=== PATIENT | female | born 1990 | race American Indian/Alaskan Native ===

== ENCOUNTER 2018-02-21 05:06 | Emergency (ER) | payer OTHER ==
[~2018-02-21] VITALS: Ht 165.1 cm; Wt 54.4 kg
--- OUTSIDE RECORDS SUMMARY | ~2018-02-21 | XMS | Clinical Summary ---
Demographics + + + | Address | [address] | | | [place] [address] | + + + | Home Phone | | + + + | Preferred Language | Unknown | + + + | Marital Status | Single | + + + | Orthodoxy Affiliation | 1013 | + + + | Race | Unknown | + + + | Ethnic Group | Unknown | + + + Author + + + | Author | [facility] | | | and [place] | + + + | Organization | [facility] | | | [...] [place] | | | | | [address] | | + + + + + Care Team Providers + +------+ + | Care Livestock Commission Agent Name | Role | Phone | + [...]
[~2018-02-21 05:06] MED LIST: DAYPRO600 MG PO; ERYTHROMYCIN250 MG PO; MACROBID 100 M100 MG PO; NAPROSYN500 MG PO; TRAMADOL HCL50 MG PO
[2018-02-21] MEDS ORDERED: NAPROXEN500 MG PO (05:15)
--- OUTSIDE RECORDS SUMMARY | 2018-02-21 07:31 | XMS | Clinical Summary ---
Demographics + + + | Address | [address] | | | [place] [address] | + + + | Home Phone | | + + + | Preferred Language | Unknown | + + + | Marital Status | Single | + + + | Anglican Affiliation | PRO | + + + | Race | White | + + + | Ethnic Group | Not or | + + + Author + + + | Author | [facility] | + + + | Organization | [facility] | + + + | Address | Unknown | + + + | Phone | Unavailable | + + + Support + + + + + | Name | Relationship | Address | Phone | + + + + + | RAMY DAVID | ECON | [address] | | | | | [place] [address] | | + + + + + Care Team Providers + +------+ + | Care Remnant Sorter Name | Role | Phone | + +------+ + PP | Unavailable | + +------+ + Source Comments STEPHANIE is fully live on both [facility] Ambulatory and [facility] InPatient.[facility] Allergies Not on File Current Medications Not on file Active Problems Not on file Social History + +-------+ +--------+------+ | Tobacco Use | Types | Packs/Day | Years | Date | | | | | Used | | + +-------+ +--------+------+ | Never Assessed | | | | | + +-------+ +--------+------+ + + + | Sex Assigned at | Date Recorded | | | | + + + | Not on file | | + + + Plan of Treatment + + + + + | Health Maintenance | Due Date | Last Done | Comments | + + + + + | INFLUENZA VACCINE | | | | | (FLU SHOT) | 8 | | | + + + + + Results Not on filefrom Last 3 Months"
--- OUTSIDE RECORDS SUMMARY | 2018-02-21 07:31 | XMS | Clinical Summary ---
Demographics + + + | Address | [address] | | | [place] [address] | + + + | Home Phone | | + + + | Preferred Language | Unknown | + + + | Marital Status | Single | + + + | Worship Affiliation | 1013 | + + + | Race | Unknown | + + + | Ethnic Group | Unknown | + + + Author + + + | Author | [facility] | | | and [place] | + + + | Organization | [facility] | | | and [place] | + + + | Address | Unknown | + + + | Phone | Unavailable | + + + Support + + + + + | Name | Relationship | Address | Phone | + + + + + | Sulema Pillai | ECON | [address] | | | | | [address] | | | | | [address] | | + + + + + Care Team Providers + +------+ + | Care Administrative Representative Name | Role | Phone | + +------+ + | Haim Carbajal DO | PP | | + +------+ + Allergies Not on File Current Medications Not [...] on file | | + + + Last Filed Vital Signs + + + + | Vital Sign | Reading | Time Taken | + + + + | Blood Pressure | 98/70 | 02/05/20171352 PDT | + + + + | Pulse | 78 | 02/05/20171352 PDT | + + + + | Temperature | 36.1 C (97 F) | 02/05/20171352 PDT | + + + + | Respiratory Rate | 12 | 02/05/20171352 PDT | + + + + | Oxygen Saturation | 98% | 02/05/20171352 PDT | + + + + | Inhaled Oxygen | - | - | | Concentration | | | + + + + | Weight | 67.3 kg (148 lb 4.9 | 02/05/20171352 PDT | | | oz) | | + + + + | Height | 157.5 cm (5' 2.01") | 02/05/20171352 PDT | + + + + | Body Mass Index | 27.12 | 02/05/2017 1353 PDT | + + + + Plan of Treatment + + + + + | Health Maintenance | Due Date | Last Done | Comments | + + + + + | Vaccine: | | | | | Dtap/Tdap/Td (1 - | 7 | | | | Tdap) | | | | + + + + + | CERVICAL CANCER | | | | | SCREENING (PAP EVERY | 9 | | | | 3 YEARS 21-64 ) | | | | + + + + + | Vaccine: Influenza | | | | | (Season Ended) | 8 | | | + + + + + Results Not on filefrom Last 3 Months
--- OUTSIDE RECORDS SUMMARY | 2018-02-21 07:31 | XMS | Clinical Summary ---
Demographics + + + | Address | [address] | | | [place] [address] | + + + | Home Phone | | + + + | Preferred Language | Unknown | + + + | Marital Status | Single | + + + | Presybeterian Affiliation | Unknown | + + + | Race | Unknown | + + + | Ethnic Group | Unknown | + + + Author + + + | Author | Ernesto Winshuttle | + + + | Organization | [facility] [employer] | + + + | Address | Unknown | + + + | Phone | Unavailable | + + + Support + + +---------+ + | Name | Relationship | Address | Phone | + + +---------+ + | Ingris Alfred | ECON | Unknown | | + + +---------+ + Care Team Providers + +------+ + | Care Promotional Representative Name | Role | Phone | + +------+ + PP | Unavailable | + +------+ + Allergies No Known Allergies Current Medications + + +-------+---------+------+------+-------+ | Prescription | Sig. | Disp. | Refills | Star | End | Statu | | | | | | t | Date | s | | | | | | Date | | | + + +-------+---------+------+------+-------+ | methocarbamol | Take 500 mg by mouth | | | | | Activ | | (ROBAXIN) 500 MG | 4 (four) times | | | | | e | | tablet | daily. Pt unsure of | | | | | | | | why taking med and | | | | | | | | amt | | | | | | + + +-------+---------+------+------+-------+ | cephALEXin | Take 250 mg by mouth | | | | | Activ | | (KEFLEX) 250 MG | 4 (four) times | | | | | e | | capsule | daily. Pt unsure of | | | | | | | | why taking meds | | | | | | + + +-------+---------+------+------+-------+ Active Problems + + + | Problem | Noted Date | + + + | Psychosis | 02/20/2013 | + + + | Altered mental status | 02/19/2013 | + + + Family History + + +------+ + | Medical History | Relation | Name | Comments | + + +------+ + | Asthma | Father | | | + + +------+ + | Diabetes type II | Father | | | + + +------+ + | Cancer | Mother | | | + + +------+ + + +------+--------+ + | Relation | Name | Status | Comments | + +------+--------+ + | Father | | Alive | | + +------+--------+ + | Mother | | Alive | | + +------+--------+ + Social History + +-------+ +--------+------+ | Tobacco Use | Types | Packs/Day | Years | Date | | | | | Used | | + +-------+ +--------+------+ | Current Every Day | | 0.25 | 10 | | | Smoker | | | | | + +-------+ +--------+------+ + + +---------+ + | Alcohol Use | Drinks/We | oz/Week | Comments | | | ek | | | + + +---------+ + | No | | | patient denies | + + +---------+ + + + + | Sex Assigned at | Date Recorded | | | | + + + | Not on file | | + + + Last Filed Vital Signs + + + + | Vital Sign | Reading | Time Taken | + + + + | Blood Pressure | 100/56 | 02/20/2013 11:35 AM PDT | + + + + | Pulse | 78 | 02/20/2013 11:35 AM PDT | + + + + | Temperature | 36.6 C (97.9 F) | 02/20/2013 11:35 AM PDT | + + + + | Respiratory Rate | 16 | 02/20/2013 11:35 AM PDT | + + + + | Oxygen Saturation | 98% | 02/20/2013 11:35 AM PDT | + + + + | Inhaled Oxygen | - | - | | Concentration | | | + + + + | Weight | 58.1 kg (128 lb) | 02/19/2013 3:20 AM PDT | + + + + | Height | 157.5 cm (5' 2") | 02/19/2013 3:20 AM PDT | + + + + | Body Mass Index | 23.41 | 02/19/2013 3:20 AM PDT | + + + + Plan of Treatment Not on file Results Not on filefrom Last 3 Months
--- OUTSIDE RECORDS SUMMARY | 2018-02-21 07:31 | XMS | Clinical Summary ---
Demographics + + + | Address | [address] | | | [place] [address] | + + + | Home Phone | | + + + | Preferred Language | Unknown | + + + | Marital Status | Single | + + + | Rastafarian Affiliation | PRO | + + + [...] | | | | | [place] [address] | | + + + + + Care Team Providers + +------+ + | Care Inspector Clip On Sunglasses Name | Role | Phone | + +------+ + PP | Unavailable | + +------+ + Source Comments STEPHANIE is fully live on both [facility] Amb[facility] and [facility] InPatient.[facility] Allergies Not on File Current Medications Not [...]
--- OUTSIDE RECORDS SUMMARY | 2018-02-21 07:31 | XMS | Clinical Summary ---
Demographics + + + | Address | [address] | | | [place] [address] | + + + | Home Phone | | + + + | Preferred Language | Unknown | + + + | Marital Status | Single | + + + | Episcopal Affiliation | Unknown | + + + | Race | Unknown | + + + | Ethnic Group | Unknown | + + + Author + + + | Author | Ernesto Team Robot | + + + | Organization | [email or web address] | + + + | Address | Unknown | + + + | Phone | Unavailable | + + + Support + + +---------+ + | Name | Relationship | Address | Phone | + + +---------+ + | Ingris Alfred | ECON | Unknown | | + + +---------+ + Care Team Providers + +------+ + | Care Fuel Cell Binder Name | Role | Phone | + [...]
== END 2018-02-21 08:50 | disposition short-term general hospital (02) ==
LOC: ED 05:06
DX: N13.2 Hydronephrosis with renal and ureteral calculous obstruction (principal); F17.200 Nicotine dependence, unspecified, uncomplicated; Z87.442 Personal history of urinary calculi; Z79.1 Long term (current) use of non-steroidal anti-inflammatories (NSAID)
CPT/HCPCS: 74176; 80053; 81001; 84703; 85025; 96374; 96375; 96376; 99285; J1170; J1885; J2405; J7030

== ENCOUNTER 2018-04-02 17:25 | Emergency (ER) | payer OTHER ==
[~2018-04-02] VITALS: Ht 165.1 cm; Wt 54.4 kg
[~2018-04-02 17:25] MED LIST changes: +NAPROXEN500 MG PO
[2018-04-02] MEDS ORDERED: DICLOFENAC SODI75 MG PO (21:18)
== END 2018-04-02 21:34 | disposition home or self-care (01) ==
LOC: ED 17:25
DX: S39.012A Strain of muscle, fascia and tendon of lower back, initial encounter (principal); F17.200 Nicotine dependence, unspecified, uncomplicated; Z87.442 Personal history of urinary calculi; W19.XXXA Unspecified fall, initial encounter
CPT/HCPCS: 72100; 81001; 99283

== ENCOUNTER 2018-09-16 04:57 | Emergency (ER) | payer OTHER ==
[~2018-09-16] VITALS: Ht 167.6 cm; Wt 67.1 kg
--- OUTSIDE RECORDS SUMMARY | ~2018-09-16 | XMS | Clinical Summary ---
Demographics + + + | Address | [address] | | | [place] [address] | + + + | Home Phone | | + + + | Preferred Language | Unknown | + + + | Marital Status | Single | + + + | Moravian Affiliation | 1013 | + + + | Race | Unknown | + + + | Ethnic Group | Unknown | + + + Author + + + | Author | [facility] | + + + | Organization | [facility] | + + + | Address [...] Team Providers + +------+ + | Care Leather Scraper Name | Role | Phone | + [...] Left: | AI | | 09/20/ | [id number] | | - [id number]: Qty: 1 | | Ureter | [employer] | | 2020 | / | | on 02/21/2018 by Philippe, | | | - AI | | | /[id number] | | Bhanu Land DO | | | | | | 83 | + +------+--------+ +--------+--------+--------+ | Stent Uret Unvrs Frm 6fr 24cm | | | AI | | | [id number] | | - [id number]: Qty: 1 | | | [employer] | | | / | | on 03/04/2018 by Philippe, | | | - AI | | | /[id number] | | Bhanu Land DO | | [...] +------+-------+ + | MEDICAID | [employer] | [id number] | | | [address] | | | N | | | | [place] | | | [place] | | | | [address] | | | ICE SCULPTOR | | | | | + +--------+ [...] | | | [address] | [place] [address] | + +--------+ +--------+ + + | DESTINY PILLAI | Behavi | Self | [birth year] | Home: | [address] | | | oral | | 1989 | +- | [address] | | | Health | | | [address] | [place] [address] | + +--------+ +--------+ + +
--- OUTSIDE RECORDS SUMMARY | ~2018-09-16 | XMS | Clinical Summary ---
Demographics + + + | Address | [address] | | | [place] [address] | + + + | Home Phone | | + + + | Preferred Language | Unknown | + + + | Marital Status | Single | + + + | Spiritism Affiliation | 1013 | + + + [...] [place] | | | | | [address] | | + + + + + Care Team Providers + +------+ + | Care Program Coordinator For Residence Life Name | Role | Phone | + [...]
[~2018-09-16 04:57] MED LIST changes: +DICLOFENAC SODI75 MG PO
[2018-09-16] MEDS ORDERED: RISPERDAL1 MG PO (06:04)
--- OUTSIDE RECORDS SUMMARY | 2018-09-16 06:15 | XMS | Clinical Summary ---
Demographics + + + | Address | [address] | | | [place] [address] | + + + | Home Phone | | + + + | Preferred Language | Unknown | + + + | Marital Status | Single | + + + | Hindu Affiliation | 1013 | + + + | Race | Unknown | + + + | Ethnic Group | Unknown | + + + Author + + + | Author | [facility] | | | and [place] | + + + | Organization | [facility] | | | and [...] [place] | | | | | [address] | | + + + + + Care Team Providers + +------+ + | Care Trash Collector Supervisor Name | Role | Phone | + [...] | + + + + + | PRIMARY CARE | | | | | OUTREACH-LOW RISK | 8 | | | | EVERY 2 YEARS | | | | + + + + + | Vaccine: | | | | | Dtap/Tdap/Td (1 - | 7 | | | | Tdap) | | | | + + + + + | Cervical Cancer | | | | | Screening (Pap) | 8 | | | + + + + + | Vaccine: Influenza | | | | | (#1) | 8 | | | + + + + + Results Not on filefrom Last 3 Months
--- OUTSIDE RECORDS SUMMARY | 2018-09-16 06:15 | XMS | Clinical Summary ---
Demographics + + + | Address | [address] | | | [place] [address] | + + + | Home Phone | | + + + | Preferred Language | Unknown | + + + | Marital Status | Single | + + + | Uatsdin Affiliation | PRO | + + + [...] | | | | | [place] [address] | | + + + + + Care Team Providers + +------+ + | Care Underground Miner Name | Role | Phone | + +------+ + PP | Unavailable | + +------+ + Source Comments STEPHANIE is fully live on both [facility] Ambulatory and [facility] InPatient.[facility] Allergies Not on File Current Medications [...] | + + + + + | Influenza (Flu) | | | | | vaccination (#1) | 8 | | | + + + + + Results Not on filefrom Last 3 Months"
--- OUTSIDE RECORDS SUMMARY | 2018-09-16 06:15 | XMS | Clinical Summary ---
Demographics + + + | Address | [address] | | | [place] [address] | + + + | Home Phone | | + + + | Preferred Language | Unknown | + + + | Marital Status | Single | + + + | Latter-Day Affiliation | 1013 | + + + | Race | Unknown | + + + | Ethnic Group | Unknown | + + + Author + + + | Author | [facility] | + + + | Organization | [facility] | + + + | Address | Unknown | + + + | Phone | Unavailable | + + + Support + + +---------+ + | Name | Relationship | Address | Phone | + + +---------+ + | Sulema Pillai | ECON | Unknown | | + + +---------+ + | Cameron Pillai | ECON | Unknown | | + + +---------+ + Care Team Providers + +------+ + | Care Mortgage Operations Manager Name | Role | Phone | + +------+ + | Javi Rayo MD | PP | | + +------+ + Allergies No Known Allergies Current Medications + + +---------+---------+------+------+-------+ | Prescription | Sig. | Disp. | Refills | Star | End | Statu | | | | | | t | Date | s | | | | | | Date | | | + + +---------+---------+------+------+-------+ | oxybutynin | Take 1 tablet by | 40 | 0 | 04/2 | 04/2 | Activ | | (DITROPAN) 5 MG | mouth 3 (three) | tablet | | 5/20 | 5/20 | e | | tablet | times daily as | | | 18 | 19 | | | | needed (bladder | | | | | | | | spasms). | | | | | | + + +---------+---------+------+------+-------+ | tamsulosin | Take 1 capsule by | 30 | 0 | 04/2 | | Activ | | (FLOMAX) 0.4 MG | mouth After dinner | capsule | | 4/20 | | e | | capsule | for 30 days. | | | 18 | | | | | Discontinue if feel | | | | | | | | dizziness or drop in | | | | | | | | Blood Pressure. 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/2018 | + + + | Nephrolithiasis | 02/22/2018 | + + + Resolved Problems + + + + | Problem | Noted | Resolved | | | Date | Date | + + + + | Renal colic | 02/22/20 | | | | 18 | 8 | + + + + | Metabolic acidosis | 02/22/20 | | | | 18 | 8 | + + + + | Psychosis (HCC) | 02/21/20 | | | | 13 | 8 | + + + + | Altered mental status | 02/20/20 | | | | 13 | 8 | + + + + Family History + + [...] | | | + +-------+ +--------+------+ + +---+---+---+ | Smokeless Tobacco: | | | | | Current User | | | | + +---+---+---+ + + +---------+ + | Alcohol Use [...] + + + | Blood Pressure | 98/51 | 03/04/2018 2:46 PM PDT | + + + + | Pulse | 68 | 03/04/2018 2:46 PM PDT | + + + + | Temperature | 36.4 C (97.5 F) | 03/04/2018 2:08 PM PDT | + + + + | Respiratory Rate | 16 | 03/04/2018 2:14 PM PDT | + + + + | Oxygen Saturation | 100% | 03/04/2018 2:46 PM PDT | + + + + | Inhaled Oxygen | - | - | | Concentration | | | + + + + | Weight | 62.6 kg (138 lb 0.1 | 03/04/2018 11:12 AM PDT | | | oz) | | + + + + | Height | 160 cm (5' 3") | 03/04/2018 11:12 AM PDT | + + + + | Body Mass Index | 24.45 | 03/04/2018 11:12 AM PDT | + + + + [...] | Vaccine: | | | | | Pneumococcal 19-64 | 7 | | | | (PPSV23 only) Medium | | | | | Risk (1 of 1 - | | | | | PPSV23) | | | | + + + + + | Cervical Cancer | | | | | Screening (Pap) | 8 | | | + + + + + | Vaccine: Influenza | | 10/16/2011 | | | (#1) | 8 | | | + + + + + Implants + +------+--------+ +--------+--------+--------+ | Implanted | Type | Area | Manufacture | Device | Expira | Model | | | | | r | | tion | / | | | | | | Identi | Date | Serial | | | | | | fier | | / Lot | + +------+--------+ +--------+--------+--------+ | Stent Uret Unvrs Frm 6fr 24cm | | Left: | AI | | 09/20/ | [id number] | | - [id number]: Qty: 1 | | Ureter | [employer] | | 2020 | / | | on 02/21/2018 by Philippe, | | | - AI | | | /[id number] | | Bhanu Land DO | | | | | | 81 | + +------+--------+ +--------+--------+--------+ | Stent Uret Unvrs Frm 6fr 24cm | | | AI | | | [id number] | | - [id number]: Qty: 1 | | | [employer] | | | / | | on 03/04/2018 by Philippe, | | | - AI | | | /[id number] | | Bhanu Land DO | | | | | | 34 | + +------+--------+ +--------+--------+--------+ Results Not on filefrom Last 3 Months Insurance + +--------+ +------+-------+ + | Payer | Benefi | Subscriber | Type | Phone | Address | | | t Plan | ID | | | | | | / | | | | | | | Group | | | | | + +--------+ +------+-------+ + | MEDICAID | [employer] | [id number] | | | [address] | | | N | | | | [place] | | | [place] | | | | [address] | | | YARD JOCKEY | | | | | + +--------+ +------+-------+ + + +--------+ +--------+ + + | Guarantor Name | Accoun | Relation to | Date | Phone | Billing Address | | | t Type | Patient | of | | | | | | | | | | + +--------+ +--------+ + + | DESTINY PILLAI | Person | Self [birth year] | Home: | [address] | | | al/Fam | | 1989 | [address] | | | [place] | | | [address] | [place] [address] | + +--------+ +--------+ + + | DESTINY PILLAI | Behavi | Self | [birth year] | Home: | [address] | | | oral | | 1989 | +- | [address] | | | Health | | | [address] | [place] [address] | + +--------+ +--------+ + +
--- OUTSIDE RECORDS SUMMARY | 2018-09-16 06:15 | XMS | Clinical Summary ---
Demographics + + + | Address | [address] | | | [place] [address] | + + + | Home Phone | | + + + | Preferred Language | Unknown | + + + | Marital Status | Single | + + + | Sabianism Affiliation | PRO | + + + [...] | | | | | [place] [address] | | + + + + + Care Team Providers + +------+ + | Care Chemical Checker Name | Role | Phone | + +------+ + PP | Unavailable | + +------+ + Source Comments STEPHANIE is fully live on both [facility] Ambulatory and [facility] InPatient.[facility] Allergies Not on File Current Medications [...]
[2018-09-16] MEDS ORDERED: FLOMAX0.4 MG PO (06:42)
[2018-09-16] MEDS ORDERED: PERCOCET 5-3251 EACH PO (06:42)
== END 2018-09-16 06:55 | disposition home or self-care (01) ==
LOC: ED 04:57
DX: N13.2 Hydronephrosis with renal and ureteral calculous obstruction (principal); Z87.442 Personal history of urinary calculi; F17.200 Nicotine dependence, unspecified, uncomplicated; Z79.899 Other long term (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
CPT/HCPCS: 74176; 81001; 84703; 96374; 96375; 99284; J1170; J1885; J2405

== ENCOUNTER 2018-12-25 14:41 | Emergency (ER) | payer OTHER ==
[~2018-12-25] VITALS: Ht 167.6 cm; Wt 59.0 kg
[~2018-12-25 14:41] MED LIST changes: +FLOMAX0.4 MG PO; +PERCOCET 5-3251 EACH PO; +RISPERDAL1 MG PO
--- OUTSIDE RECORDS SUMMARY | 2018-12-25 14:44 | XMS ---
PreManage Notification: DESTINY DAVID Security Sound Art Instructor Events No recent Security Events currently on file CRITERIA MET - [facility] - Has Care Guidelines - PDMP CARE PROVIDERS ALFREDA HERNANDEZ [facility] Current PHONE: Unknown PCP_Unattributed Primary Care Current PHONE: Unknown Care Guidelines exist for the following facilities: [facility] ( 04/11/2015 ) Care History Medical/Surgical 04/04/2018 [facility] provided [facility] information for PCP. Patient stated she would call to make an apt to set up a PCP. Care Recommendation: This patient has had 5 or more Emergency Department visits in the last 12 months. Patient requires education on the scope and purpose of the ED as an acute care provider not a Primary Care Provider and should not be utilized for chronic conditions. If patient returns to ED please contact Community Health WorkerCrys at [phone]. These are guidelines and the provider should exercise clinical judgment when providing care. EAnatoliy. VISIT COUNT (12 MO.) 4 [facility] TOTAL 4 NOTE: Visits indicate total known visits. ED/UCC VISIT TRACKING (12 MO.) 12/25/2018 14:42 [facility] [place] TYPE: Emergency COMPLAINT: - VOMITING/URINE ISSUES/ABD PAIN 09/16/2018 04:58 [facility] [place] TYPE: Emergency COMPLAINT: - R FLANK PAIN,NON INJURY DIAGNOSES: - Hydronephrosis with renal and ureteral calculous obstruction - Unspecified abdominal pain - Other neon sign worker (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 - Personal history of urinary calculi - Nicotine dependence, unspecified, uncomplicated 04/02/2018 17:26 [facility] [place] TYPE: Emergency COMPLAINT: - BACK PAIN DIAGNOSES: - Strain of muscle, fascia and tendon of lower back, initial encounter - Nicotine dependence, unspecified, uncomplicated - Low back pain - Unspecified fall, initial encounter - Personal history of urinary calculi 02/21/2018 05:06 [facility] [place] TYPE: Emergency COMPLAINT: - BACK PAIN DIAGNOSES: - Hydronephrosis with renal and ureteral calculous obstruction - Nicotine dependence, unspecified, uncomplicated - Personal history of urinary calculi - Unspecified abdominal pain - compliance administrator (current) use of non-steroidal anti-inflammatories (NSAID) INPATIENT VISIT TRACKING (12 MO.) 02/21/2018 10:09 [facility] Soila CASAREZ TYPE: Recovery DIAGNOSES: - Calculus of kidney - renal colic/UTI - ureterolithiasis [email or web address]
[2018-12-25] MEDS ORDERED: FLOMAX0.4 MG PO (16:36)
[2018-12-25] MEDS ORDERED: PROMETHAZINE HC25 M1 PO (16:36)
[2018-12-25] MEDS ORDERED: NORCO 7.5-3251 EACH PO (16:36)
== END 2018-12-25 16:40 | disposition home or self-care (01) ==
LOC: ED 14:41
DX: N13.2 Hydronephrosis with renal and ureteral calculous obstruction (principal); Z87.442 Personal history of urinary calculi; F17.210 Nicotine dependence, cigarettes, uncomplicated; Z79.899 Other long term (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
CPT/HCPCS: 74176; 80053; 81001; 83690; 84703; 85025; 96374; 96375; 99284-25; J1885; J2550; J3010; J7030

== ENCOUNTER 2019-04-02 22:07 | Emergency (ER) | payer OTHER ==
[~2019-04-02] VITALS: Ht 167.6 cm; Wt 65.1 kg
--- OUTSIDE RECORDS SUMMARY | ~2019-04-02 | XMS | Clinical Summary ---
Demographics + + + | Address | [address] | | | [place] [address] | + + + | Home Phone | | + + + | Preferred Language | Unknown | + + + | Marital Status | Single | + + + | Rastafari Affiliation | 1013 | + + + | Race | Unknown | + + + | Ethnic Group | Unknown | + + + Author + + + | Author | [facility] | | | and [place] | + + + | Organization | [facility] | | [...] [place] | | | | | [address] | | + + + + + Care Team Providers + +------+ + | Care Procurement Officer Name | Role | Phone | + +------+ + | Haim Carbajal DO | PP | | + +------+ + Allergies Not on File Medications Not on [...] | + + Last Filed Vital Signs + [...] | Body Mass Index | 27.12 | 02/05/20171352 PDT | + + + + Plan of Treatment + + + + + | Health Maintenance | Due Date | Last Done | Comments | + + + + + | Primary Care | | | | | Outreach (Low Risk) | 8 | | | + + [...] | | | | (Season Ended) | 9 | | | + + + + + Results Not on filefrom Last 3 Months Advance Directives Patient has advance care planning documents on file. For more information, please contact:[facility] and [facility] [place] [address]
--- OUTSIDE RECORDS SUMMARY | ~2019-04-02 | XMS | Clinical Summary ---
Demographics + + + | Address | [address] | | | [place] [address] | + + + | Home Phone | | + + + | Preferred Language | Unknown | + + + | Marital Status | Single | + + + | Uatsdin Affiliation | 1013 | + + + | Race | Unknown | + + + | Ethnic Group | Unknown | + + + Author + + + | Author | [employer] | + + + | Organization | [facility] [employer] | + + + | Address [...] + +------+ + | Care Director Of Laboratory Operations Name | Role | Phone | + +------+ + | aJvi Rayo MD | PP | | + [...] mouth After dinner | capsule | | /20 | | e | | capsule | [...] Influenza | | 10/16/2011 | | | (Season Ended) | 9 [...] Left: | AI | | 09/20/ | [id number] | | - [id number]: Qty: 1 | | Ureter | [employer] | | 2020 | / | | on 02/21/2018 by Philippe, | | | - AI | | | /[id number] | | Bhanu Land DO | | | | | | 81 | + +------+--------+ +--------+--------+--------+ | Stent Uret Unvrs Frm 6fr 24cm | | | AI | | | [id number] | | - [id number]: Qty: 1 | | | [employer]ICAL [employer] | | | / | | on 03/04/2018 by Philippe, | | | - AI | | | /[id number] | | Bhanu Land DO | | [...] +------+-------+ + | MEDICAID | [place] | [id number] | | | [address] | | | N | | | | [place] | | | [place] | | | | [address] | | | CONTACT CENTRE SUPERVISOR | | | | | + +--------+ [...] | | | [address] | [place] [address] | + +--------+ +--------+ + + | DESTINY PILLAI | Behavi | Self | [birth year] | Home: | [address] | | | oral | | 1989 | +- | [address] | | | Health | | | [address] | [place] [address] | + +--------+ +--------+ + +
--- OUTSIDE RECORDS SUMMARY | ~2019-04-02 | XMS | Clinical Summary ---
Demographics + + + | Address | [address] | | | [place] [address] | + + + | Home Phone [...] | | | | | [place] [address] | | + + + + + Care Team Providers + +------+ + | Care Redevelopment Manager Name | Role | Phone | + +------+ + PP | Unavailable | + +------+ + Source Comments STEPHANIE is fully live on both [facility] and [facility] Allergies Not on File Medications Not [...] recent travel history available. | + + Plan of Treatment + + + + + | Health Maintenance | Due Date | Last Done | Comments | + + + + + | Influenza (Flu) | | | | | vaccination (Season | 9 | | | | Ended) | | | | + + + + + Results Not on filefrom Last 3 Months"
--- OUTSIDE RECORDS SUMMARY | ~2019-04-02 | XMS | Clinical Summary ---
Demographics + + + | Address | [address] | | | [place] [address] | + + + | Home Phone | | + + + | Preferred Language | Unknown | + + + | Marital Status | Single | + + + | Samaritan Affiliation | 1013 | + + + | Race | Unknown | + + + | Ethnic Group | Unknown | + + + Author + + + | Author | [facility] | | | and [place] | + + + | Organization | [facility] | | | [...] [place] | | | | | [address] | | + + + + + Care Team Providers + +------+ + | Care Explosive Expert Name | Role | Phone | + [...] documents on file. For more information, please contact:[facility] and [facility] [address]
--- OUTSIDE RECORDS SUMMARY | ~2019-04-02 | XMS | Clinical Summary ---
Demographics + + + | Address | [address] | | | [place] [address] | + + + | Home Phone | | + + + | Preferred Language | Unknown | + + + | Marital Status | Single | + + + | Christian Affiliation | 1013 | + + + | Race | Unknown | + + + | Ethnic Group | Unknown | + + + Author + + + | Author | [employer] | + + + | Organization | [facility] | + + + | Address [...] Providers + +------+ + | Care Supervisor Looping Name | Role | Phone | + [...] Left: | AI | | 09/20/ | [id number] | | - [id number]: Qty: 1 | | Ureter | [employer] | | 2020 | / | | on 02/21/2018 by Philippe, | | | - AI | | | /[id number] | | Bhanu Land DO | | | | | | 81 | + +------+--------+ +--------+--------+--------+ | Stent Uret Unvrs Frm 6fr 24cm | | | AI | | | [id number] | | - [id number]: Qty: 1 | | | [employer] | | | / | | on 03/04/2018 by Philippe, | | | - AI | | | /[id number] | | Bhanu Land DO | | [...] +------+-------+ + | MEDICAID | [place] | [id number] | | | [address] | | | N | | | | [place] | | | [place] | | | | [address] | | | [place] | | | | | + +--------+ [...] | | | [address] | [place] [address] | + +--------+ +--------+ + + | DESTINY PILLAI | Behavi | Self | [birth year] | Home: | [address] | | | oral | | 1989 | +- | [address] | | | Health | | | [address] | [place] [address] | + +--------+ +--------+ + +
--- OUTSIDE RECORDS SUMMARY | ~2019-04-02 | XMS | Encounter Summary ---
Demographics + + + | Address | [address] | | | [place] [address] | + + + | Home Phone | | + + + | Preferred Language | Unknown | + + + | Marital Status | Single | + + + | Advent Affiliation | PRO | + + + | Race | White | + + + | Ethnic Group | Not or | + + + Author + + + | Author | [facility] | + + + | Organization | [facility] | + + + | Address | Unknown | + + + | Phone | Unavailable | + + + Support + + + + + | Name | Relationship | Address | Phone | + + + + + | Ed Pillai | ECON | [address] | | | | | [place] [address] | | + + + + + Care Team Providers + +------+ + | Care Media Assistant Name | Role | Phone | + +------+ + PCP | Unavailable | + +------+ + Encounter Details +--------+ + + + + | Date | Type | Department | Care Team | Description | +--------+ + + + + | 09/22/ | Ancillary | [facility] | | | | 2006 | Registratio | Practice [address] | | | | | n | [facility] | | | | | | [place] [address] | | | | | | [phone] | | | +--------+ + + + [...]
--- OUTSIDE RECORDS SUMMARY | ~2019-04-02 | XMS | Clinical Summary ---
Demographics + + + | Address | [address] | | | [place] [address] | + + + | Home Phone | | + + + | Preferred Language | Unknown | + + + | Marital Status | Single | + + + | Baptist Affiliation | PRO | + + + [...] | | | | | [place] [address] | | + + + + + Care Team Providers + +------+ + | Care Racing Driver Name | Role | Phone | + +------+ + PP | Unavailable | + +------+ + Source Comments STEPHANIE is fully live on both [facility]ulatory and [facility] InPatient.[facility] Allergies Not on File Medications Not [...]
--- OUTSIDE RECORDS SUMMARY | ~2019-04-02 | XMS | Encounter Summary ---
Demographics + + + | Address | [address] | | | [place] [address] | + + + | Home Phone [...] Author + + + | Author | [facility] | + + + | Organization | [facility] | + + + | Address | Unknown | + + + | Phone | Unavailable | + + + Support + + + + + | Name | Relationship | Address | Phone | + + + + + | Ed Pillai | ECON | [address] | | | | | [place] [address] | | + + + + + Care Team Providers + +------+ + | Care Polysomnography Tech Name | Role | Phone | + [...] | | | | n | [facility] | | | | | | [place] [address] | | | | | | [phone] | | | +--------+ + + + [...]
[~2019-04-02 22:07] MED LIST changes: +AMOXICILLIN500 MG PO; +NORCO 7.5-3251 EACH PO; +PROMETHAZINE HC25 M1 PO
--- OUTSIDE RECORDS SUMMARY | 2019-04-02 22:10 | XMS ---
PreManage Notification: DESTINY DAVID Security Agriscience Instructor Events No recent Security Events currently on file CRITERIA MET - [facility] Guidelines - PDMP CARE PROVIDERS ALFREDA HERNANDEZ [facility] Current PHONE: Unknown Melvin Andrew [facility]: Pulmonary Disease 02/13/2019-Current PHONE: Unknown TUNG SIMONctbernard 02/13/2019-Current PHONE: [phone] DAVID GANT [facility] Current PHONE: Unknown Care Guidelines exist for the following facilities: [facility] ( 04/11/2015 ) Care History Medical/Surgical 04/04/2018 [facility] - PATIENT HAS AN APT TO ESTABLISH CARE DR ANDREW ON 02/23/19. - [facility] provided [facility] information for PCP. Patient stated she would call to make an apt to set up a PCP. Care Recommendation: This patient has had 5 or more Emergency Department visits in the last 12 months.\T\nbsp; Patient requires education on the scope and purpose of the ED as an acute care provider not a Primary Care Provider and should not be utilized for chronic conditions.\T\nbsp; If patient returns to ED please contact Community Health WorkerCrys at [phone]. These are guidelines and the provider should exercise clinical judgment when providing care. E.D. VISIT COUNT (12 MO.) 5 [facility] TOTAL 5 NOTE: Visits indicate total known visits. ED/UCC VISIT TRACKING (12 MO.) 04/02/2019 22:08 [facility] [place] TYPE: Emergency COMPLAINT: - POSS KIDNEY STONES 02/12/2019 23:39 [facility] [place] TYPE: Emergency COMPLAINT: - POSS SEIZURE DIAGNOSES: - Otalgia, left ear - Other stimulant abuse with intoxication, unspecified - Other ferry terminal agent (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 - Personal history of urinary calculi - Other psychoactive substance abuse, uncomplicated - Nicotine dependence, unspecified, uncomplicated 12/25/2018 14:42 [facility] [place] TYPE: Emergency COMPLAINT: - VOMITING/URINE ISSUES/ABD PAIN DIAGNOSES: - Unspecified abdominal pain - Hydronephrosis with renal and ureteral calculous obstruction - Personal history of urinary calculi - Other ferry terminal agent (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 - Nicotine dependence, cigarettes, uncomplicated 09/16/2018 04:58 [facility] [place] TYPE: Emergency COMPLAINT: - R FLANK PAIN,NON INJURY DIAGNOSES: - Hydronephrosis with renal and ureteral calculous obstruction - Unspecified abdominal pain - Other ferry terminal agent (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 - Personal history of urinary calculi - Nicotine dependence, unspecified, uncomplicated 04/02/2018 17:26 [facility] [place] TYPE: Emergency COMPLAINT: - BACK PAIN DIAGNOSES: - Strain of muscle, fascia and tendon of lower back, initial encounter - Nicotine dependence, unspecified, uncomplicated - Low back pain - Unspecified fall, initial encounter - Personal history of urinary calculi INPATIENT VISIT TRACKING (12 MO.) No inpatient visits to display in this time frame [email or web address]
[2019-04-02] MEDS ORDERED: GABAPENTIN100 MG PO (22:23)
== END 2019-04-03 | disposition home or self-care (01) ==
LOC: ED 22:07
DX: R10.9 Unspecified abdominal pain (principal); F17.200 Nicotine dependence, unspecified, uncomplicated; Z87.442 Personal history of urinary calculi
CPT/HCPCS: 74176; 81001; 84703; 96374; 96375; 99284-25; J1885; J2270; J2405

== ENCOUNTER 2019-11-05 12:50 | Emergency (ER) | payer OTHER ==
[~2019-11-05] VITALS: Ht 167.6 cm; Wt 65.1 kg
--- OUTSIDE RECORDS SUMMARY | ~2019-11-05 | XMS | Clinical Summary ---
Demographics + + + | Address | [address] | | | [place] [address] | + + + | Home Phone | | + + + | Preferred Language | Unknown | + + + | Marital Status | Single | + + + | Christianity Affiliation | 1013 | + + + | Race | Unknown | + + + | Ethnic Group | Unknown | + + + Author + + + | Author | [employer] (Historical as of | | | 06-27-19) | + + + | Organization | [facility] (Historical as of | | | 06-27-19) | + + + | Address | [...] Team Providers + +------+ + | Care Criminal Defense Attorney Name | Role | Phone | + [...] | 40 | 0 | 04/2 | | Activ | | (DITROPAN) 5 MG | mouth 3 (three) | tablet | | 5/20 | | e | | tablet | times daily as | | | 18 | | | | | needed (bladder | [...] | 10/16/2011 | | | (#1) | 9 | | | + + + + [...] Left: | AI | | 09/20/ | [id number] | | - [id number]: Qty: 1 | | Ureter | [employer] | | 2019 | / | | on 02/21/2018 by Philippe, | | | - AI | | | /[id number] | | Bhanu Land DO | | | | | | 83 | + +------+--------+ +--------+--------+--------+ | Stent Uret Unvrs Frm 6fr 24cm | | | AI | | | [id number] | | - [id number]: Qty: 1 | | | [employer] | | | / | | on 03/04/2018 by Philippe, | | | - AI | | | /[id number] | | Bhanu Land DO | | [...] +------+-------+ + | MEDICAID | [place] | [id number] | | | [address] | | | N | | | | [place] | | | [place] | | | | [address] | | | [place] | | | | | + +--------+ [...] | [address] | | | [address] | [place] [address] | + +--------+ +--------+ + + | DESTINY PILLAI | Behavi | Self | [birth year] | Home: | [address] | | | oral | | 1989 | +- | [address] | | | Health | | | [address] | [place] [address] | + +--------+ +--------+ + +
--- OUTSIDE RECORDS SUMMARY | ~2019-11-05 | XMS | Encounter Summary ---
Demographics + + + | Address | [address] | | | [place] [address] | + + + | Home Phone | | + + + | Preferred Language | Unknown | + + + | Marital Status | Single | + + + | Latter Day Affiliation | 1013 | + + + | Race | Unknown | + + + | Ethnic Group | Unknown | + + + Author + + + | Author | [facility] | | | and [place] | + + + | Organization | [facility] | | | [...] [place] | | | | | [address] | | + + + + + Care Team Providers + +------+ + | Care Postulant Name | Role | Phone | + +------+ + | Robert Young MD | PCP | | + +------+ + Encounter Details +--------+ + + + + | Date | Type | Department | Care Team | Description | +--------+ + + + + | 02/05/ | Hospital | [place] [facility] | [facility], | | | 2017 | Encounter | H[facility] | DO [address] [place] | | | | | [address] | [place], [place] | | | | | [place], [place] | [address] | | | | | [address] | [phone] | | | | | [phone] | | | +--------+ + + + + Social History + +-------+ +--------+------+ | [...] on file | | + + + + + + + | Job Start Date | Occupation | Industry | + + + + | Not on file | Not on file | Not on file | + + + + + + + + | Travel History | Travel Start | Travel End | + + + + + + | No recent travel history available. | + + documented as of this encounter Plan of Treatment Not on filedocumented as of this encounter Procedures + +--------+ + + + | Procedure Name | Priori | Date/Time | Associated Diagnosis | Comments | | | ty | | | | + +--------+ + + + | HEPATIC FUNCTION | Routin | 02/05/2017 | | Results for this | | PANEL | e | 2:22 PM | | procedure are in the | | | | PDT | | results section. | + +--------+ + + + documented in this encounter Results Hepatic Function Panel (02/05/2017 2:22 PM PDT) + +-------+ + + + | Component | Value | Ref Range | Performed | Pathologist | | | | | At | Signature | + +-------+ + + + | Bilirubin, | 0.2 | <=1.2 mg/dL | EXTERNAL | | | Total | | | LAB | | + +-------+ + + + | Bilirubin | 0.07 | <=0.30 mg/dL | EXTERNAL | | | Direct | | | LAB | | + +-------+ + + + | Protein, | 7.2 | 6.6 - 8.5 g/dL | EXTERNAL | | | Total | | | LAB | | + +-------+ + + + | Albumin | 3.9 | 3.0 - 4.5 g/dL | EXTERNAL | | | | | | LAB | | + +-------+ + + + | Alkaline | 63 | 46 - 116 U/L | EXTERNAL | | | Phosphatase | | | LAB | | + +-------+ + + + | ALT, | 20 | 14 - 59 U/L | EXTERNAL | | | External | | | LAB | | + +-------+ + + + | AST, | 12 | <=38 U/L | EXTERNAL | | | External | | | LAB | | + +-------+ + + + + + | Specimen | + + | | + + + +---------+ + + | Performing | Address | City/State/Zipcode | Phone Number | | Organization | | | | + +---------+ + + | EXTERNAL LAB | | | | + +---------+ + + documented in this encounter Visit Diagnoses Not on filedocumented in this encounter"
--- OUTSIDE RECORDS SUMMARY | ~2019-11-05 | XMS | Encounter Summary ---
Demographics + + + | Address | [address] | | | [place] [address] | + + + | Home Phone | | + + + | Preferred Language | Unknown | + + + | Marital Status | Single | + + + | Denominational Affiliation | 1013 | + + + | Race | Unknown | + + + | Ethnic Group | Unknown | + + + Author + + + | Author | [facility] | | | and [place] | + + + | Organization | [facility] | | | [...] [place] | | | | | [address] | | + + + + + Care Team Providers + +------+ + | Care Developer Advocate Name | Role | Phone | + +------+ + | Robert Young MD | PCP | | + +------+ + Encounter Details +--------+ + + + + | Date | Type | Department | Care Team | Description | +--------+ + + + + | 01/29/ | Hospital | [facility] | Hero Henok Davison, | | | 2012 | Encounter | MED CTR EM[facility]Y | MD [address] | | | | | CENTER [address] | [facility] | | | | | [place], [place] | [place] [address] | | | | | [address] | [phone] | | | | | [phone] | | | +--------+ + + + [...] | + +--------+ + + + | URINALYSIS, | Routin | 01/29/2013 | | Results for this | | MICROSCOPIC ONLY, | e | 12:28 PM | | procedure are in the | | WITH CULTURE IF | | PDT | | results section. | | INDICATED | | | | | + +--------+ + + + | DRUGS OF ABUSE, | Routin | 01/29/2013 | | Results for this | | SCREEN, URINE | e | 11:50 AM | | procedure are in the | | | | PDT | | results section. | + +--------+ + + + | XR THORACIC SPINE 2 | Routin | 01/29/2013 | | Results for this | | VW | e | 11:45 AM | | procedure are in the | | | | PDT | | results section. | + +--------+ + + + documented in this encounter Results Urinalysis, Microscopic Only, with Culture if Indicated (01/29/2013 12:28 PM PDT) + + + + + + | Component | Value | Ref Range | Performed | Pathologist | | | | | At | Signature | + + + + + + | COLLECTION | . | | [facility] | | | [facility] | | [facility] | | | | | | MEDICAL | | | | | | CENTER - | | | | | | LABORATORY | | + + + + + + | WBC UA | 5-10 | 0 - 1 /hpf | [facility] | | | | | | [facility] | | | | | | MEDICAL | | | | | | CENTER - | | | | | | LABORATORY | | + + + + + + | RBC UA | 2-4 | 0 - 4 /hpf | [facility] | | | | | | [facility] | | | | | | MEDICAL | | | | | | CENTER - | | | | | | LABORATORY | | + + + + + + | SQUAMOUS | RARE | FEW /hps | [facility] | | | EPITHELIAL | | | [facility] | | | UA | | | MEDICAL | | | | | | CENTER - | | | | | | LABORATORY | | + + + + + + | BACTERIA UA | FEW | NONE /hpf | [facility] | | | | | | [facility] | | | | | | MEDICAL | | | | | | CENTER - | | | | | | LABORATORY | | + + + + + + | Culture | YESComment: REFLEXED TO | | [facility] | | | Indicated | URINE CULTURE. | | [facility] | | | | | | MEDICAL | | | | | | CENTER - | | | | | | LABORATORY | | + + + + + + + + | Specimen | + + | | + + + + + + + | Performing | Address | City/State/Zipcode | Phone Number | | Organization | | | | + + + + + | [facility] | [address] | [place], [place] | [phone] | | [facility] | | [address] | | | - LABORATORY | | | | + + + + + | [facility] | [address] | [place], [place] | | | [facility] | | [address] | | | - LABORATORY | | | | + + + + + Drugs of Abuse, Screen, Urine (01/29/2013 11:50 AM PDT) + + + + + + | Component | Value | Ref Range | Performed | Pathologist | | | | | At | Signature | + + + + + + | Amphetamine | NEGATIVE | NEGATIVE | [facility] | | | Screen, | | | [facility] | | | Urine | | | MEDICAL | | | | | | CENTER - | | | | | | LABORATORY | | + + + + + + | Barbiturate | NEGATIVE | NEGATIVE | [facility] | | | s Screen, | | | [facility] | | | Urine | | | MEDICAL | | | | | | CENTER - | | | | | | LABORATORY | | + + + + + + | Benzodiazep | NEGATIVE | NEGATIVE | [facility] | | | jemima | | | [facility] | | | Screen, | | | MEDICAL | | | Urine | | | CENTER - | | | | | | LABORATORY | | + + + + + + | Cannabinoid | POSITIVE | NEGATIVE | [facility] | | | s Screen, | | | [facility] | | | Urine | | | MEDICAL | | | | | | CENTER - | | | | | | LABORATORY | | + + + + + + | Cocaine | NEGATIVE | NEGATIVE | [facility] | | | Metabolite | | | [facility] | | | | | | MEDICAL | | | | | | CENTER - | | | | | | LABORATORY | | + + + + + + | Methadone | NEGATIVE | NEGATIVE | [facility] | | | Screen, | | | [facility] | | | Urine | | | MEDICAL | | | | | | CENTER - | | | | | | LABORATORY | | + + + + + + | Opiates | NEGATIVEComment: The | NEGATIVE | [facility] | | | Screen, | following drugs or | | [facility] | | | Urine | classes were screened | | MEDICAL | | | | for by immunoassay at | | CENTER - | | | | these cutoff | | LABORATORY | | | | concentrations: | | | | | | Amphetamines | | | | | | 1000 ng/mL | | | | | | Barbiturates | | | | | | 200 ng/mL | | | | | | Benzodiazepines | | | | | | 200 ng/mL | | | | | | Cannabinoids | | | | | | 50 ng/mL | | | | | | Cocaine Metabolite | | | | | | 300 ng/mL | | | | | | Methadone | | | | | | 300 ng/mL | | | | | | Opiates | | | | | | 300 ng/mL | | | | | | This emergency urinary | | | | | | drug screen will not | | | | | | exclude drugs at | | | | | | levels below the | | | | | | cut-off point for | | | | | | screening, and may not | | | | | | correlate with current | | | | | | blood levels. These | | | | | | results should not be | | | | | | used for non-medical | | | | | | purposes. For important | | | | | | clinical decisions, | | | | | | confirmation by separate | | | | | | assay should be done. | | | | | | | | | | + + + + + + + + | Specimen | + + | | + + + + + + + | Performing | Address | City/State/Zipcode | Phone Number | | Organization | | | | + + + + + | [facility] | [address] | [place], [place] | [phone] | | [facility] | | [address] | | | - LABORATORY | | | | + + + + + | [facility] | [address] | [place], [place] | | | [facility] | | [address] | | | - LABORATORY | | | | + + + + + XR Thoracic Spine 2 Vw (01/29/2013 11:45 AM PDT) + + | Specimen | + + | | + + + + + | Narrative | Performed At | + + + | [facility] | [place] | | Department [address] [facility] | [place] | | [ rep [address]] [ rep [facility] | | [facility] [[email or web address]]] Signed | - IMAGING | | | | | Patient Name: DESTINY PILLAI Physician: | | | BROW.01 : 1990 Age: 22 Sex: F Unit #: [id number] | | | Exam Date: 01/29/13 Location: ER | | | Report #: [id number] Page: | | | %(RAD)RES..mtdd.print.filter("pg") of %(RAD) | | | RES..mtdd.print.filter("tpg") | | | | | | Accession Number: [id number] | | | THORACIC SPINE, 01/29/2013 CLINICAL HISTORY: BACK | | | PAIN. FINDINGS: AP and lateral views of the thoracic | | | spine are reviewed. Alignment is normal. Vertebral body heights | | | are normally maintained, with no fracture or compression deformities. | | | No significant bony degenerative changes are seen and disk | | | interspaces are well maintained. Adjacent soft tissues are normal. | | | IMPRESSION: 1. NEGATIVE STUDY THORACIC | | | SPINE. Dictated Date/Time: 01/29/2013 11:45 | | | Transcribed Date/Time: 01/29/2013 11:51 Regional Operations Manager: | | | MARYANNE <<Signature on File>> | | | | | | Fabian Bazzi MD01/29/13 1706 <Electronically signed by | | | Fabian Bazzi MD> Fabian Bazzi MD 01/29/13 | | | 1145 Regional Operations Manager: Cellectar Ralwzgwlsesir33/21/13 1151 | | | | | + + + + + + + + | Performing | Address | City/State/Zipcode | Phone Number | | Organization | | | | + + + + + | [facility] | [address] | [place] | [phone] | | [facility] | | [address] | | | - IMAGING | | | | + + + + + documented in this encounter Visit Diagnoses Not on filedocumented in this encounter
--- OUTSIDE RECORDS SUMMARY | ~2019-11-05 | XMS | Encounter Summary ---
Demographics + + + | Address | [address] | | | [place] [address] | + + + | Home Phone | | + + + | Preferred Language | Unknown | + + + | Marital Status | Single | + + + | Taoist Affiliation | [id number] | + + + | Race | Unknown | + + + | Ethnic Group | Unknown | + + + Author + + + | Author | Merged With [facility] | | | and [place] | + + + | Organization | Merged With [facility] | | | [...] [address] | | | | | [address], [place] | | | | | [address] | | + + + + + Care Team Providers + +------+ + | Care Brim Rounder Name | Role | Phone | + +------+ + | Haim Carbajal DO | PCP | | + +------+ + Encounter Details +--------+ + + + + | Date | Type | Department | Care Team | Description | +--------+ + + + + | 02/21/ | Hospital | [facility] | Angelo Mercado MD | Nephrolithiasis | | 2018 - | Encounter | [facility] [address] | | | | | [address] | [address] [place], | | | 02/23/ | | [place], [place] | [place] [address] | | | 2017 | | [address] | [phone] | | | | | [phone] | | | +--------+ + + + [...] + + documented as of this encounter Last Filed Vital Signs + + + + + | Vital Sign | Reading | Time Taken | Comments | + + + + + | Blood Pressure | 108/69 | 02/23/2018 12:27 PM | | | | | PDT | | + + + + + | Pulse | 85 | 02/23/2018 12:27 PM | | | | | PDT | | + + + + + | Temperature | 36.9 C (98.5 F) | 02/23/2018 12:27 PM | | | | | PDT | | + + + + + | Respiratory Rate | 16 | 02/23/2018 12:27 PM | | | | | PDT | | + + + + + | Oxygen Saturation | - | - | | + + + + + | Inhaled Oxygen | - | - | | | Concentration | | | | + + + + + | Weight | 63.5 kg (139 lb 15.8 | 02/23/2018 12:27 PM | | | | oz) | PDT | | + + + + + | Height | 162.6 cm (5' 4") | 02/23/2018 12:27 PM | | | | | PDT | | + + + + + | Body Mass Index | 24.03 | 02/23/2018 12:27 PM | | | | | PDT | | + + + + + documented in this encounter Discharge Summaries Jai Kan MD - 02/23/2018 7:18 AM PDTFormatting of this note might be different f rom the original. Discharge Summaries by Jai Kan MD-R3 at 02/23/18717 Author: BOO [email or web address] Service: Hospitalist Author Type: Resident-Y2 Filed: 02/23/18 1223 Date of Service: 02/23/18717 Status: Attested Accounting Practice Manager: BOO [email or web address] (Resident-Y3) Cosigner: Salvatore Sanchez MD at 02/23/18 12 25 Attestation signed by Salvatore Sanchez MD at 02/23/185 Attending: Pt is seen and examined with resident. Discussed with the resident and agree with the resid ent's findings and plan as documented in the resident's note.Laboratory tests and radiology images have been independently reviewed and confirmed. My thoughts have been incorporated in the above-mentioned note. She will have a follow-up with Dr. Gore as outpatient. SALVATORE SANCHEZ MD Service: Hospitalist Discharge Summary Pt: Dodie Pillai AGE/SEX: 27 y.o. female ROOM: [facility]/435-1 PCP: Javi Rayo : 1990 Date of Admission: 02/21/2018 Date of Discharge: Discharge Provider: Jai Kan MD-R2/Dr. Sanchez Treatment Team: Consulting Physician: Trevor Gore MD Consulting Physician: Bhanu Paez DO Admitting Provider: Angelo eMrcado MD Discharge Diagnoses: Principal Problem: Nephrolithiasis Resolved Problems: Renal colic Metabolic acidosis BRIEF HISTORY OF PRESENTATION and HOSPITAL COURSE: This is a 27-year-old female with a past medical history of recurrent nephrolithiasis who p resented to an outside hospital with severe abdominal pain and nausea. She was transferred t [facility] for more definitive management of her nephrolithiasis. The patient was found to hav e a 5 mm obstructing stone and bilateral nephrolithiasis. As there was concern for infection with the obstructing stone, she underwent a retrograde ureteral stent placement with urolog y and tolerated the procedure well. Her pain control improved. Nephrology was consult in for concerns of an RTA. She continued to urinate minimal blood during admission. She was discha rged home on cipro, flomax, tramadol and oxybutynin for management of her ureteral stone and assistance with passage of the stone. DISCHARGE EXAM Vital Signs: BP 108/69 (BP Location: Right upper arm) | Pulse 85 | Temp 98.5 F (36.9 C) (Oral) | Resp 16 | Ht 1.626 m (5' 4") | Wt 63.5 kg (139 lb 15.9 oz) | SpO2 95% | ? N o | BMI 24.03 kg/m Physical Exam Physical Exam Constitutional: She is oriented to person, place, and time. She appears well-developed and well-nourished. Patient appears mildly uncomfortable HENT: Head: Normocephalic and atraumatic. Right Ear: External ear normal. Left Ear: External ear normal. Eyes: Conjunctivae are normal. No scleral icterus. Neck: No tracheal deviation present. Cardiovascular: Normal rate, regular rhythm and normal heart sounds. Pulmonary/Chest: Effort normal and breath sounds normal. No stridor. Abdomina/Gl: Abdomen is soft, but mildly tender to palpation there is no rebound or guarding noted Neurological: She is alert and oriented to person, place, and time. Skin: Skin is warm and dry. DATA Recent Results (from the past 24 hour(s)) Hepatitis panel, Chronic (Reflex) Collection Time: 02/22/18 3:01 PM Result Value Ref Range Hep A Total Ab NON REACTIVE NON REACTIVE HEP B SURFACE AG NON REACTIVE NON REACTIVE HEP B CORE AB,TOTAL NON REACTIVE NON REACTIVE HEP B SURFACE ANTIBODY 1.22 (H) <1.00 IV HEPATITIS C NON REACTIVE NON REACTIVE HEPATITIS INTERP No serologic evidence of HAV or HCV infection. Reactive anti HBs suggests vaccine or prev ious Hepatitis B. CBC W/Auto Diff (Reflex to Manual) Collection Time: 02/23/18 5:39 AM Result Value Ref Range WBC 8.91 3.80 - 11.00 K/uL RBC 3.27 (L) 3.70 - 5.10 M/uL HGB 10.9 (L) 11.3 - 15.5 g/dL HCT 30.6 (L) 34.0 - 46.0 % MCV 93.5 80.0 - 100.0 fl MCH 33.3 27.0 - 34.0 pg MCHC 35.6 (H) 32.0 - 35.5 g/dL RDW SD 42.9 37 - 53 fl PLT 197 150 - 400 K/uL MPV 9.1 fl DIFF TYPE AUTOMATED NEUTROPHILS 53.49 % LYMPHOCYTES 38.80 % MONOCYTES 5.89 % EOSINOPHILS 1.61 % BASOPHILS 0.21 % NEUTROPHILS ABS 4.76 1.90 - 7.40 K/uL LYMPHOCYTES ABS 3.46 1.00 - 3.90 K/uL MONOCYTES ABS 0.53 0.00 - 0.80 K/uL EOSINOPHILS ABS 0.14 0.00 - 0.50 K/uL BASOPHILS ABS 0.02 0.00 - 0.10 K/uL Basic metabolic panel Collection Time: 02/23/18 5:39 AM Result Value Ref Range SODIUM 141 135 - 145 mmol/L POTASSIUM 3.4 (L) 3.5 - 4.9 mmol/L CHLORIDE 110 (H) 99 - 109 mmol/L CO2 24 23 - 32 mmol/L ANION GAP AGAP 10 5 - 20 mmol/L GLUCOSE 83 65 - 99 mg/dL BUN 10 8 - 25 mg/dL CREATININE 0.6 0.50 - 1.00 mg/dL BUN/CREAT 17 CALCIUM 8.3 (L) 8.5 - 10.5 mg/dL EGFR >60 >60 mL/min/1.73m2 Radiology No results found. PLAN Patient was discharged home with medications for pain control as well as antibiotics. She w ill then see urology on March 04 for left ureteroscopy and removal of stones. She will follo w up with nephrology for reevaluation of her renal tubular acidosis. Disposition: Home Condition: Stable Code Status: Full Code Discharge Instructions Activity as Advised by Physical Therapy Call MD for: Temperature > 100.4F (38C) Call MD for: Persistant Nausea and Vomiting Call MD for: Severe Uncontrolled Pain Call for: Redness, Tenderness, or Signs of Infection (Pain, Swelling, Redness, Odor or Green/Yellow Discharge Around Incision Site) Call MD for: Difficulty Breathing, Headache or Visual Disturbances Call MD for: Hives Call for: Persistant Dizziness or Light-Headedness Call for: Extreme Fatigue Follow up: Javi Rayo MD [address] [facility] [place] [address] In 1 week Bhanu Paez, DO [address] [facility] [id number] On 03/04/2018 Left Ureteroscopy for stone removal Trevor Gore MD [address] [facility] [place] [address] In 1 week Medication List START taking these medications ciprofloxacin 250 MG tablet QTY: 6 tablet Refills: 0 Commonly known as: CIPRO Take 1 tablet by mouth 2 (two) times daily for 3 days. ondansetron 4 MG tablet QTY: 20 tablet Refills: 0 Commonly known as: ZOFRAN Take 1 tablet by mouth every 6 (six) hours as needed for up to 7 days. * oxybutynin 5 MG tablet QTY: 40 tablet Refills: 0 Commonly known as: DITROPAN Take 1 tablet by mouth 3 (three) times daily as needed (bladder spasms). * oxybutynin 5 MG tablet QTY: 90 tablet Refills: 0 Commonly known as: DITROPAN Take 1 tablet by mouth 3 (three) times daily. tamsulosin 0.4 MG capsule QTY: 30 capsule Refills: 0 Commonly known as: FLOMAX Take 1 capsule by mouth After dinner for 30 days. Discontinue if feel dizziness or drop in Blood Pressure. traMADol 50 MG tablet QTY: 30 tablet Refills: 0 Commonly known as: ULTRAM Take 1 tablet by mouth every 6 (six) hours as needed for Pain for up to 10 days. * This list has 2 medication(s) that are the same as other medications prescribed for you. Read the directions carefully, and ask your doctor or other care provider to review them wit h you. Where to Get Your Medications You can get these medications from any pharmacy Bring a paper prescription for each of these medications ciprofloxacin 250 MG tablet ondansetron 4 MG tablet oxybutynin 5 MG tablet oxybutynin 5 MG tablet tamsulosin 0.4 MG capsule traMADol 50 MG tablet Discharge took 40 minutes, to include final examination, discussion of admission, and prepa ration of prescriptions, instructions for on-going care, follow-up and documentation of disc harge summary. Jai Kan MD-R2 02/23/2018 12:23 PM documented in this encounter Medications at Time of Discharge + + + +---------+ + + | Medication | Sig | Dispensed | Refills | Start | End Date | | | | | | Date | | + + + +---------+ + + | tamsulosin | Take 1 capsule by | 30 | 0 | 02/24/20 | | | (FLOMAX) 0.4 mg CAPS | mouth After dinner | capsule | | 18 | 8 | | | for 30 days. | | | | | | | Discontinue if feel | | | | | | | dizziness or drop in | | | | | | | Blood Pressure. | | | | | + + + +---------+ + + documented as of this encounter Progress Notes Conversion Transaction, Provider Unknown - 02/22/2018 2:14 PM PDTFormatting of this note m ight be different from the original. Nurse Progress Note by Cary Caldwell RN at 02/22/181413 Author: Cary Caldwell RN Service: (none) Author Type: Registered Nurse Filed: 02/22/18 1411 Date of Service: 02/22/181413 Status: Signed Accounting Practice Manager: Cary Marce Javi, RN (Registered Nurse) Report given to CIRO Hay. onver shantel Flowers, Provider Unknown - 02/22/2018 12:37 PM PDT Case Management by Jani Menjivar MS, CUSTOMER SUPPLY COORDINATOR at 02/22/18 1237 Author: Jani Menjivar MS CUSTOMER SUPPLY COORDINATOR Service: (none) Author Type: Community Health Program Coordinator Filed: 02/22/18 1239 Date of Service: 02/22/18 1237 Status: Signed Accounting Practice Manager: Jani Menjivar MS CUSTOMER SUPPLY COORDINATOR (Community Health Program Coordinator) 02/22/18 1236 Discharge Planning Evaluation Admitting Diagnosis metabolic acidosis Readmission No Living Arrangements Parent Support Systems Parent Type of Residence Private residence Independent with ADL's Yes Independent with Mobility Yes Home Care Services No Caregiver after Discharge No Mental Status Oriented;Other (comment) (pt with medication causing fatique) Prior functional status baseline independent and drives Power of Didactic Program In Dietetics Director No Anticipated Discharge Plan Post Acute Care Needs None at this time Plan communicated to patient/family Yes Resources Financial concerns No Transportation issues No Patient/Family concerns No Prescription Plan Yes Anticipated Disposition Facility Type Home CM met with pt to discuss plan of care post discharge. Pt is a 27 y.o.. Single female who l jeaneth with her parents. Pt states she is independent in adl's , using no DME and drives. Pt i s drowsy, closing eyes often. She reports no concerns post d/c. Patient's PCP is: Javi Rayo Patient's insurance: [place] Medicaid Coverage concerns: none Medication coverage/concerns:none Community resources utilized / needed: reports none Assistance in transportation: Parents Identification of any specific education / training: none Barriers to Discharge / Alternative housing needed: none Anticipated DCP: Home when stable. Jani Menjivar Young Rich MD - 02/22/2018 12:36 PM PDT Progress Notes by BOO [email or web address] at 02/22/18 1236 Author: BOO [email or web address] Service: Hospitalist Author Type: Resident-Y1 Filed: 02/22/18 4268 Date of Service: 02/22/18 1236 Status: Attested Accounting Practice Manager: Young Talbot MD-R2 (Resident-Y2) Cosigner: Salvatore Sanchez MD at 02/22/18 1310 Attestation signed by Salvatore Sanchez MD at 02/22/18 1310 Attending: Pt is seen and examine. Discussed with the resident and agree with the resident's findings and plan as documented in the resident's note.Laboratory tests and radiology images have bee n independently reviewed and confirmed. My thoughts have been incorporated in the above-ment ioned note. She is still hurting. I will keep her 1 more night in the hospital. Her acidosis has significantly improved. SALVATORE SANCHEZ MD [facility] Service: Hospitalist Progress Note Hospital Day: LOS: 1 day SUBJECTIVE Events Overnight: Patient had left renal stent placement performed overnight with uro logy. Today she claims to be having some left-sided flank pain and some mild nausea that is alleviated with medication. Patient says she is trying to avoid urinating because she knows it will hurt. Scheduled Medications nicotine 1 patch Transdermal Daily oxybutynin 5 mg Oral TID tamsulosin 0.4 mg Oral Daily Continuous Infusions lactated ringers 110 mL/hr at 02/21/182006 OBJECTIVE Vital Signs: BP 110/56 (BP Location: Right upper arm) | Pulse 85 | Temp 97.8 F (36.6 C) (Oral) | Resp 16 | Ht 1.626 m (5' 4") | Wt 64 kg (141 lb 1.5 oz) | SpO2 95% | BMI 24.22 kg/m Physical Exam General Appearance: well developed, well nourished and in no acute distress Lungs: Normal expansion. Clear to auscultation. No rales, rhonchi, or wheezing. Heart: Heart sounds are normal. Regular rate and rhythm without murmur, gallop or rub. Abdomen: Soft and nontender with bowel sounds present. Mild to moderate tenderness of left costovertebral angle. No guarding on exam. Musculoskeletal: No joint swelling, deformity, or tenderness. Peripheral Pulses: Capillary refill <2secs, strong peripheral pulses Neurologic: Alert and oriented 4. No focal deficit noted. DATA Recent Labs Lab 02/22/18 0504 WBC 10.34 HGB 11.7 HCT 33.3* PLT 223 NEUTOPHILPCT 82.83 MONOPCT 2.98 Recent Labs Lab 02/22/18 0504 NA 140 K 4.0 CL 110* CO2 22* BUN 14 CREATININE 0.6 Phosphorus: Lab Results Component Value Date PHOS 3.3 02/22/2018 Invalid input(s): LABALBU Recent Labs Lab 02/22/18 0504 02/21/18 1103 MG 2.0 2.2 No results for input(s): AMYLASE in the last 168 hours. No results for input(s): PHART, PO2ART, QAN7MRJ, B5QYVDLB, BEART in the last 168 hours. No results for input(s): APTT, INR, PTT in the last 168 hours. Recent Labs Lab 02/21/18 1103 TSH 1.010 No results for input(s): CKTOTAL, TROPONINI, TROPONINT, CKMBINDEX in the last 168 hours. Radiology No results found. PROBLEM LIST Principal Problem: Nephrolithiasis Active Problems: Renal colic Metabolic acidosis Resolved Problems: * No resolved hospital problems. * ASSESSMENT & PLAN Left obstructive nephrolithiasis now status post left renal stent placement with urology . Patient noted to have bilateral nephrolithiasis on CT abdomen pelvis 02/21. -Further management recommendations per urology -Oxybutynin and tamsulosin to help excrete stones/aid in discomfort of urination -Lactated Ringer's 110 cc/h -Appropriate pain control Non-anion gap metabolic acidosis potentially due to renal tubular acidosis not sure of type at this time; Potentially distal RTA due to obstructive nephrolithiasis -Nephrology consulted and appreciate recommendations/management -BUN/creatinine currently normal -Patient claims to not be taking any home medications that may predispose her to RTA; patie nt denies any diarrhea -Patient will likely need urine studies as dictated by nephrology Social: Patient has a chu-sutx-kyt special needs daughter at home who is currently being ca red for by patient's father. Patient claims that her daughter is in a safe and cared for env ironment. Disposition: Inpatient Code Status: Full Code Young Talbot MD-R1 02/22/2018 12:42 PM Bhanu Chinchilla DO - 02/22/2018 7:51 AM PDT Progress Notes by Bhanu Paez DO at 02/22/18750 Author: Bhanu Paez DO Service: Urology Author Type: Physician Filed: 02/22/18799 Date of Service: 02/22/18750 Status: Signed Accounting Practice Manager: Bhanu Paez DO (Physician) [facility] Service: Urology Progress Note Hospital Day: LOS: 1 day Post-Op Day: 1 Day Post-Op SUBJECTIVE Patient Summary: Events Overnight: Pt continues to have flank pain, worse with urination. She denies fevers or chills. Scheduled Medications nicotine 1 patch Transdermal Daily tamsulosin 0.4 mg Oral Daily Continuous Infusions lactated ringers 110 mL/hr at 02/21/182006 PRN Medications acetaminophen OR acetaminophen, HYDROmorphone OR HYDROmorphone, ondansetron OR ondansetron, polyethylene glycol, zolpidem OBJECTIVE Vital Signs: BP 93/50 (BP Location: Right upper arm) | Pulse 72 | Temp 98 F (36.7 C) (Oral) | Res p 16 | Ht 1.626 m (5' 4") | Wt 64 kg (141 lb 1.5 oz) | SpO2 95% | BMI 24.22 kg/m Temp: [97.9 F (36.6 C)-98.5 F (36.9 C)] 98 F (36.7 C) (02/22 738) BP: (87-106)/(50-68) 93/50 (02/22 738) Heart Rate: [58-97] 72 (02/22 738) Resp: [13-24] 16 (02/22 738) SpO2: [93 %-100 %] 95 % (02/22 738) Height: [162.6 cm (5' 4")] 162.6 cm (5' 4") (02/21 1627) Weight: [58.1 kg (128 lb 1.4 oz)-64 kg (141 lb 1.5 oz)] 64 kg (141 lb 1.5 oz) (04/14 0327) BMI (Calculated): [22] 22 (02/21 1627) FiO2 : [86 %-88 %] 86 % (02/21 1652) NAD, AAOx3, Breathing non-labored Left flank pain DATA CBC: Lab Results Component Value Date WBC 10.34 02/22/2018 RBC 3.56 (L) 02/22/2018 HGB 11.7 02/22/2018 HCT 33.3 (L) 02/22/2018 MCV 93.7 02/22/2018 MCH 32.8 02/22/2018 MCHC 35.1 02/22/2018 RDW 43.3 02/22/2018 PLT 223 02/22/2018 MPV 9.8 02/22/2018 DIFFTYPE AUTOMATED 02/22/2018 BMP: Lab Results Component Value Date NA 140 02/22/2018 K 4.0 02/22/2018 CL 110 (H) 02/22/2018 CO2 22 (L) 02/22/2018 ANIONGAP 12 02/22/2018 GLUF 116 (H) 02/22/2018 BUN 14 02/22/2018 CREATININE 0.6 02/22/2018 BCR 23 02/22/2018 CA 8.9 02/22/2018 CA 8.5 02/21/2018 EGFR >60 02/22/2018 PROBLEM LIST Principal Problem: Metabolic acidosis Active Problems: Renal colic Nephrolithiasis ASSESSMENT & PLAN POD1 SP Left Stent Placement The patient and I had a long discussion about her presenting symptoms, risks, and underlyin g causes. Management options typically include both short and senior care strategies. At this time, her obstructive uropathy is temporized with a stent. However, she still will require definitive management. The short term options are directed at relieving current stone related symptoms and protect ing the kidney from permanent damage. These options may include Trial of Passage with Medica l Expulsive Therapy, Ureteroscopy with stone removal, Shock-wave lithotripsy or Percutaneous stone removal. We discussed that some options may be more suitable than others and that the different options may have different chances for stone free rates depending on the size, lo cation, and number of the stones. We also discussed potential infective complications. The patient will plan to observe for any of these. She understands the emergent nature of urinary tract infections with the pres ence of an obstructing stone. If these complications should arise, she will seek immediate care. After a thorough discussion, the patient has elected to pursue left ureteroscopy for the tr eatment of her stones at this time. The risks, benefits and alternatives to this procedure were discussed at length, questions were answered and informed consent was obtained. The risks include, but are not limited to: , heart attack, stroke, pneumonia, bleeding (including the possible need for transfusio n), infection and injury to surrounding structures with the need for subsequent repair/remov al. The senior care strategies for managing stone disease focus on preventing stone growth and re currence as well as overall kidney health. A metabolic work-up with our colleagues in Nephro logy is recommended for all recurrent stone formers those at high risk for recurrence includ ing patients with a strong family history, intestinal disease, pathological skeletal fractur es, gout, solitary kidney, anatomic abnormalities, renal insufficiency, or stones composed o f uric acid, cystine or struvite. This evaluation with include a 24-hour urine sample at the very least. General recommendations for stone prevention include increased hydration, decreased sodium and decreased animal protein. More specific recommendations can be given after the metabolic evaluation. PLAN: 1: Proceed with left URS on 03/04. 2: Informed Consent was obtained. 3: Consideration for Nephrology consultation 6 weeks after definitive stone treatment. 4: Follow-up visit 6 weeks after definitive stone treatment with KUB and Ultrasound to rule -out residual stone burden or silent stricture. Disposition: Per primary Code Status: Full Code Bhanu Paez DO 02/22/2018 Bhanu Chinchilla D O - 02/21/2018 5:21 PM PDT Progress Notes by Bhanu Paez DO at 02/21/18 172 Author: Bhanu Paez DO Service: Urology Author Type: Physician Filed: 02/21/18 172 Date of Service: 02/21/181720 Status: Signed Accounting Practice Manager: Bhanu Paez DO (Physician) [facility] Service: Urology Progress Note Hospital Day: LOS: 0 days Post-Op Day: Day of Surgery Patient tolerates stent placement well. Will discuss plans for definitive stone therapy in the am. Bhanu Paez DO 02/21/2018 onversion Transact ion, Provider Unknown - 02/21/2018 2:30 PM PDTFormatting of this note might be different fr om the original. Nurse Progress Note by Veena Ziegler RN at 02/21/18 1430 Author: Veena Ziegler RN Service: (none) Author Type: Registered Nurse Filed: 02/21/18 8729 Date of Service: 02/21/181429 Status: Signed Accounting Practice Manager: Veena Ziegler RN (Registered Nurse) Rn notified that pt found by security, pt had tried to go downstairs to smoke. Prior to her leaving the floor, I had checked on her numerous times. She had been groggy and lethargic f rom the medications given at [facility]. I explained to her the need for a urine sample a nd that I had spoken to Dr. Paez and when he would be coming to see her. When I entered room pt was very upset and demanded to see her MD, stating that her back tara ts, she hasn't eaten anything all day and she wanted a cigarette. I asked if she remembered me telling her that I had spoken with Dr. Paez. She admitted that she didn't. I explained w hat he told me and offered her pain medication and to call Dr. Mercado re: a nicotene patch. Pt was promptly pain medicated and had a nicotene patch placed. docume nted in this encounter Plan of Treatment Not on filedocumented as of this encounter Procedures + +--------+ + + + | Procedure Name | Priori | Date/Time | Associated Diagnosis | Comments | | | ty | | | | + +--------+ + + + | EXTERNAL LAB: CBC | Routin | 02/23/2018 | | Results for this | | | e | 5:39 AM | | procedure are in the | | | | PDT | | results section. | + +--------+ + + + | BASIC METABOLIC | Routin | 02/23/2018 | | Results for this | | PANEL | e | 5:39 AM | | procedure are in the | | | | PDT | | results section. | + +--------+ + + + | MARIA ANTONIA VINNIE, REFLEX | Routin | 02/22/2018 | | Results for this | | | e | 3:01 PM | | procedure are in the | | | | PDT | | results section. | + +--------+ + + + | HEPATITIS PANEL, | Routin | 02/22/2018 | | Results for this | | CHRONIC | e | 3:01 PM | | procedure are in the | | | | PDT | | results section. | + +--------+ + + + | EXTERNAL LAB: CBC | Routin | 02/22/2018 | | Results for this | | | e | 5:04 AM | | procedure are in the | | | | PDT | | results section. | + +--------+ + + + | PHOSPHORUS | Routin | 02/22/2018 | | Results for this | | | e | 5:04 AM | | procedure are in the | | | | PDT | | results section. | + +--------+ + + + | MAGNESIUM | Routin | 02/22/2018 | | Results for this | | | e | 5:04 AM | | procedure are in the | | | | PDT | | results section. | + +--------+ + + + | BASIC METABOLIC | Routin | 02/22/2018 | | Results for this | | PANEL | e | 5:04 AM | | procedure are in the | | | | PDT | | results section. | + +--------+ + + + | FL C ARM > 1 HOUR | Routin | 02/21/2018 | | Results for this | | | e | 5:19 PM | | procedure are in the | | | | PDT | | results section. | + +--------+ + + + | SODIUM, URINE, | Routin | 02/21/2018 | | Results for this | | RANDOM | e | 5:03 PM | | procedure are in the | | | | PDT | | results section. | + +--------+ + + + | POTASSIUM, URINE, | Routin | 02/21/2018 | | Results for this | | RANDOM | e | 5:03 PM | | procedure are in the | | | | PDT | | results section. | + +--------+ + + + | CHLORIDE, URINE, | Routin | 02/21/2018 | | Results for this | | RANDOM | e | 5:03 PM | | procedure are in the | | | | PDT | | results section. | + +--------+ + + + | EXTERNAL LAB: | Routin | 02/21/2018 | | Results for this | | VITAMIN D, | e | 11:03 AM | | procedure are in the | | 1,25-DIHYDROXY | | PDT | | results section. | + +--------+ + + + | VITAMIN D, | Routin | 02/21/2018 | | Results for this | | DEFICIENCY SCREEN | e | 11:03 AM | | procedure are in the | | (25-HYDROXY) | | PDT | | results section. | + +--------+ + + + | PARATHYROID HORMONE, | Routin | 02/21/2018 | | Results for this | | INTACT AND CALCIUM | e | 11:03 AM | | procedure are in the | | | | PDT | | results section. | + +--------+ + + + | TSH | Routin | 02/21/2018 | | Results for this | | | e | 11:03 AM | | procedure are in the | | | | PDT | | results section. | + +--------+ + + + | PHOSPHORUS | Routin | 02/21/2018 | | Results for this | | | e | 11:03 AM | | procedure are in the | | | | PDT | | results section. | + +--------+ + + + | MAGNESIUM | Routin | 02/21/2018 | | Results for this | | | e | 11:03 AM | | procedure are in the | | | | PDT | | results section. | + +--------+ + + + documented in this encounter Results External Lab: CBC (02/23/2018 5:39 AM PDT) + + + + + + | Component | Value | Ref Range | Performed | Pathologist | | | | | At | Signature | + + + + + + | WBC | 8.91 | 3.80 - 11.00 | EXTERNAL | | | | | K/uL | LAB | | + + + + + + | RED CELL | 3.27 (L) | 3.70 - 5.10 | EXTERNAL | | | COUNT | | M/uL | LAB | | + + + + + + | Hgb | 10.9 (L) | 11.3 - 15.5 | EXTERNAL | | | | | g/dL | LAB | | + + + + + + | Hematocrit, | 30.6 (L) | 34.0 - 46.0 % | EXTERNAL | | | POC | | | LAB | | + + + + + + | MCV | 93.5 | 80.0 - 100.0 fl | EXTERNAL | | | | | | LAB | | + + + + + + | MCH | 33.3 | 27.0 - 34.0 pg | EXTERNAL | | | | | | LAB | | + + + + + + | MCHC | 35.6 (H) | 32.0 - 35.5 | EXTERNAL | | | | | g/dL | LAB | | + + + + + + | RDW-CV | 42.9 | 37 - 53 fl | EXTERNAL | | | | | | LAB | | + + + + + + | Platelet | 197 | 150 - 400 K/uL | EXTERNAL | | | Count | | | LAB | | | Plasma | | | | | + + + + + + | MPV | 9.1 | fl | EXTERNAL | | | | | | LAB | | + + + + + + | Differentia | AUTOMATED | | EXTERNAL | | | l Type | | | LAB | | + + + + + + | % Segmented | 53.49 | % | EXTERNAL | | | | | | LAB | | | Neutrophils | | | | | + + + + + + | % | 38.80 | % | EXTERNAL | | | Lymphocytes | | | LAB | | + + + + + + | % Monocytes | 5.89 | % | EXTERNAL | | | | | | LAB | | + + + + + + | % | 1.61 | % | EXTERNAL | | | Eosinophils | | | LAB | | + + + + + + | % Basophils | 0.21 | % | EXTERNAL | | | | | | LAB | | + + + + + + | Absolute | 4.76 | 1.90 - 7.40 | EXTERNAL | | | Segmented | | K/uL | LAB | | | Neutrophils | | | | | + + + + + + | Absolute | 3.46 | 1.00 - 3.90 | EXTERNAL | | | Lymphocytes | | K/uL | LAB | | + + + + + + | Absolute | 0.53 | 0.00 - 0.80 | EXTERNAL | | | Monocytes | | K/uL | LAB | | + + + + + + | Absolute | 0.14 | 0.00 - 0.50 | EXTERNAL | | | Eosinophils | | K/uL | LAB | | + + + + + + | Absolute | 0.02Comment: Testing | 0.00 - 0.10 | EXTERNAL | | | Basophils | performed at [facility], [address] | [address] | LAB | | | | [address], | | | | | | [place] [address] | | | | + + + + + + + + | Specimen | + + | Blood specimen | | (specimen) | + + + +---------+ + + | Performing | Address | City/State/Zipcode | Phone Number | | Organization | | | | + +---------+ + + | EXTERNAL LAB | | | | + +---------+ + + Basic Metabolic Panel (02/23/2018 5:39 AM PDT) + + + + + + | Component | Value | Ref Range | Performed | Pathologist | | | | | At | Signature | + + + + + + | Na | 141 | 135 - 145 | EXTERNAL | | | | | mmol/L | LAB | | + + + + + + | K | 3.4 (L) | 3.5 - 4.9 | EXTERNAL | | | | | mmol/L | LAB | | + + + + + + | Cl | 110 (H) | 99 - 109 mmol/L | EXTERNAL | | | | | | LAB | | + + + + + + | CO2 | 24 | 23 - 32 mmol/L | EXTERNAL | | | | | | LAB | | + + + + + + | Anion Gap | 10 | 5 - 20 mmol/L | EXTERNAL | | | | | | LAB | | + + + + + + | Glucose, | 83 | 65 - 99 mg/dL | EXTERNAL | | | Fasting | | | LAB | | + + + + + + | BUN | 10 | 8 - 25 mg/dL | EXTERNAL | | | | | | LAB | | + + + + + + | Creatinine | 0.6 | 0.50 - 1.00 | EXTERNAL | | | | | mg/dL | LAB | | + + + + + + | BUN/Creatin | 17 | | EXTERNAL | | | ine Ratio | | | LAB | | + + + + + + | Calcium | 8.3 (L) | 8.5 - 10.5 | EXTERNAL | | | | | mg/dL | LAB | | + + + + + + | Estimated | >60Comment: GFR <60: | mL/min/1.73m2 | EXTERNAL | | | GFR | CHRONIC KIDNEY DISEASE, | | LAB | | | | IF FOUND OVER A 3 MONTH | | | | | | PERIOD.GFR <15: KIDNEY | | | | | | FAILURE.FOR | | | | | | AMERICANS, MULTIPLY THE | | | | | | CALCULATED GFR BY | | | | | | 1.210.Testing performed | | | | | | at [facility], [address] | | | | | | [address], | | | | | | [place] [address] | | | | + + + + + + + + | Specimen | + + | Blood specimen | | (specimen) | + + + +---------+ + + | Performing | Address | City/State/Zipcode | Phone Number | | Organization | | | | + +---------+ + + | EXTERNAL LAB | | | | + +---------+ + + Hepatitis Panel, Chronic (02/22/2018 3:01 PM PDT) + + + + + + | Component | Value | Ref Range | Performed | Pathologist | | | | | At | Signature | + + + + + + | Hep A Total | NON REACTIVE | | EXTERNAL | | | Ab Interp | | | LAB | | + + + + + + | HEP B | NON REACTIVE | | EXTERNAL | | | SURFACE | | | LAB | | | ANTIBODY | | | | | + + + + + + | Hepatitis B | NON REACTIVE | | EXTERNAL | | | Core Ab | | | LAB | | | Total | | | | | + + + + + + | HEP B | 1.22 (H)Comment: <1.00 | IV | EXTERNAL | | | SURFACE | Non | | LAB | | | ANTIBODY | Immune1.00 OR MORE | | | | | | Indicates vaccine | | | | | | response or response to | | | | | | HBV infection. An Index | | | | | | Value (IV) of 1.00 is | | | | | | equivalent to 10 mIU/mL. | | | | | | Samples with an IV of | | | | | | 1.00 or greater are | | | | | | considered reactive | | | | | | (protected) in | | | | | | accordance with CDC | | | | | | Guidelines. | | | | + + + + + + | HCV Ab | NON REACTIVE | | EXTERNAL | | | | | | LAB | | + + + + + + | Hepatitis | No serologic evidence of | | EXTERNAL | | | Interpretat | HAV or HCV infection. | | LAB | | | ion | Reactive anti HBs | | | | | | suggests vaccine or | | | | | | previous Hepatitis | | | | | | B.Comment: Testing | | | | | | performed at [facility], [address] | | | | | | [facility], | | | | | | [place] [address] | | | | + + + + + + + + | Specimen | + + | | + + + +---------+ + + | Performing | Address | City/State/Zipcode | Phone Number | | Organization | | | | + +---------+ + + | EXTERNAL LAB | | | | + +---------+ + + MARIA ANTONIA Profile, Reflex (02/22/2018 3:01 PM PDT) + + + + + + | Component | Value | Ref Range | Performed | Pathologist | | | | | At | Signature | + + + + + + | MARIA ANTONIA | NegativeComment: | | EXTERNAL | | | | Reference range: | | LAB | | | | Negative | | | | + + + + + + | C ANCA | <1:20Comment: Reference | titer | EXTERNAL | | | | range: Neg:<1:20 | | LAB | | + + + + + + | Perinuclear | <1:20Comment: Reference | titer | EXTERNAL | | | (P-ANCA) | range: Neg:<1:20 The | | LAB | | | | presence of positive | | | | | | fluorescence exhibiting | | | | | | P-ANCA or C-ANCApatterns | | | | | | alone is not specific | | | | | | for the diagnosis of | | | | | | Pema'sGranulomatosis | | | | | | (WG) or microscopic | | | | | | polyangiitis. Decisions | | | | | | abouttreatment should | | | | | | not be based solely on | | | | | | ANCA IFA results. | | | | | | TheInternational ANCA | | | | | | Group Consensus | | | | | | recommends follow up | | | | | | testing ofpositive sera | | | | | | with both AL-3 and | | | | | | MPO-ANCA enzyme | | | | | | immunoassays. Asmany as | | | | | | 5% serum samples are | | | | | | positive only by | | | | | | EIA.Ref. AM J Clin | | | | | | Pathol 1999;[id number]:[id number]. | | | | | | | | | | + + + + + + | Atypical | <1:20Comment: Reference | titer | EXTERNAL | | | pANCA | range: Neg:<1:20 The | | LAB | | | | atypical pANCA pattern | | | | | | has been observed in a | | | | | | significantpercentage of | | | | | | patients with | | | | | | ulcerative colitis, | | | | | | primary | | | | | | sclerosingcholangitis | | | | | | and autoimmune | | | | | | hepatitis. | | | | + + + + + + | Myeloperoxi | <9.0Comment: Reference | U/mL | EXTERNAL | | | dase | range: 0.0 to 9.0 | | LAB | | | Antibody | | | | | + + + + + + | ANCA | <3.5Comment: Reference | U/mL | EXTERNAL | | | Proteinase | range: 0.0 to 3.5Testing | | LAB | | | 3 | performed by [facility], | | | | | | [address], | | | | | | [facility] [address] | | | | + + + + + + + + | Specimen | + + | Blood specimen | | (specimen) | + + + +---------+ + + | Performing | Address | City/State/Zipcode | Phone Number | | Organization | | | | + +---------+ + + | EXTERNAL LAB | | | | + +---------+ + + External Lab: CBC (02/22/2018 5:04 AM PDT) + + + + + + | Component | Value | Ref Range | Performed | Pathologist | | | | | At | Signature | + + + + + + | WBC | 10.34 | 3.80 - 11.00 | EXTERNAL | | | | | K/uL | LAB | | + + + + + + | RED CELL | 3.56 (L) | 3.70 - 5.10 | EXTERNAL | | | COUNT | | M/uL | LAB | | + + + + + + | Hgb | 11.7 | 11.3 - 15.5 | EXTERNAL | | | | | g/dL | LAB | | + + + + + + | Hematocrit, | 33.3 (L) | 34.0 - 46.0 % | EXTERNAL | | | POC | | | LAB | | + + + + + + | MCV | 93.7 | 80.0 - 100.0 fl | EXTERNAL | | | | | | LAB | | + + + + + + | MCH | 32.8 | 27.0 - 34.0 pg | EXTERNAL | | | | | | LAB | | + + + + + + | MCHC | 35.1 | 32.0 - 35.5 | EXTERNAL | | | | | g/dL | LAB | | + + + + + + | RDW-CV | 43.3 | 37 - 53 fl | EXTERNAL | | | | | | LAB | | + + + + + + | Platelet | 223 | 150 - 400 K/uL | EXTERNAL | | | Count | | | LAB | | | Plasma | | | | | + + + + + + | MPV | 9.8 | fl | EXTERNAL | | | | | | LAB | | + + + + + + | Differentia | AUTOMATED | | EXTERNAL | | | l Type | | | LAB | | + + + + + + | % Segmented | 82.83 | % | EXTERNAL | | | | | | LAB | | | Neutrophils | | | | | + + + + + + | % | 13.98 | % | EXTERNAL | | | Lymphocytes | | | LAB | | + + + + + + | % Monocytes | 2.98 | % | EXTERNAL | | | | | | LAB | | + + + + + + | % | 0.06 | % | EXTERNAL | | | Eosinophils | | | LAB | | + + + + + + | % Basophils | 0.15 | % | EXTERNAL | | | | | | LAB | | + + + + + + | Absolute | 8.56 (H) | 1.90 - 7.40 | EXTERNAL | | | Segmented | | K/uL | LAB | | | Neutrophils | | | | | + + + + + + | Absolute | 1.45 | 1.00 - 3.90 | EXTERNAL | | | Lymphocytes | | K/uL | LAB | | + + + + + + | Absolute | 0.31 | 0.00 - 0.80 | EXTERNAL | | | Monocytes | | K/uL | LAB | | + + + + + + | Absolute | 0.01 | 0.00 - 0.50 | EXTERNAL | | | Eosinophils | | K/uL | LAB | | + + + + + + | Absolute | 0.02Comment: Testing | 0.00 - 0.10 | EXTERNAL | | | Basophils | performed at [facility], [address] | [address] | LAB | | | | [address], | | | | | | [place] [address] | | | | + + + + + + + + | Specimen | + + | Blood specimen | | (specimen) | + + + +---------+ + + | Performing | Address | City/State/Zipcode | Phone Number | | Organization | | | | + +---------+ + + | EXTERNAL LAB | | | | + +---------+ + + Phosphorus (02/22/2018 5:04 AM PDT) + + + + + + | Component | Value | Ref Range | Performed | Pathologist | | | | | At | Signature | + + + + + + | PHOSPHORUS | 3.3Comment: Testing | 2.3 - 4.8 mg/dL | EXTERNAL | | | | performed at [facility], [address] | | LAB | | | | [address], | | | | | | [place] [address] | | | | + + + + + + + + | Specimen | + + | Blood specimen | | (specimen) | + + + +---------+ + + | Performing | Address | City/State/Zipcode | Phone Number | | Organization | | | | + +---------+ + + | EXTERNAL LAB | | | | + +---------+ + + Magnesium (02/22/2018 5:04 AM PDT) + + + + + + | Component | Value | Ref Range | Performed | Pathologist | | | | | At | Signature | + + + + + + | Magnesium | 2.0Comment: Testing | 1.7 - 2.4 mg/dL | EXTERNAL | | | | performed at [facility], [address] | | LAB | | | | [address], | | | | | | [place] [address] | | | | + + + + + + + + | Specimen | + + | Blood specimen | | (specimen) | + + + +---------+ + + | Performing | Address | City/State/Zipcode | Phone Number | | Organization | | | | + +---------+ + + | EXTERNAL LAB | | | | + +---------+ + + Basic Metabolic Panel (02/22/2018 5:04 AM PDT) + + + + + + | Component | Value | Ref Range | Performed | Pathologist | | | | | At | Signature | + + + + + + | Na | 140 | 135 - 145 | EXTERNAL | | | | | mmol/L | LAB | | + + + + + + | K | 4.0 | 3.5 - 4.9 | EXTERNAL | | | | | mmol/L | LAB | | + + + + + + | Cl | 110 (H) | 99 - 109 mmol/L | EXTERNAL | | | | | | LAB | | + + + + + + | CO2 | 22 (L) | 23 - 32 mmol/L | EXTERNAL | | | | | | LAB | | + + + + + + | Anion Gap | 12 | 5 - 20 mmol/L | EXTERNAL | | | | | | LAB | | + + + + + + | Glucose, | 116 (H) | 65 - 99 mg/dL | EXTERNAL | | | Fasting | | | LAB | | + + + + + + | BUN | 14 | 8 - 25 mg/dL | EXTERNAL | | | | | | LAB | | + + + + + + | Creatinine | 0.6 | 0.50 - 1.00 | EXTERNAL | | | | | mg/dL | LAB | | + + + + + + | BUN/Creatin | 23 | | EXTERNAL | | | ine Ratio | | | LAB | | + + + + + + | Calcium | 8.9 | 8.5 - 10.5 | EXTERNAL | | | | | mg/dL | LAB | | + + + + + + | Estimated | >60Comment: GFR <60: | mL/min/1.73m2 | EXTERNAL | | | GFR | CHRONIC KIDNEY DISEASE, | | LAB | | | | IF FOUND OVER A 3 MONTH | | | | | | PERIOD.GFR <15: KIDNEY | | | | | | FAILURE.FOR | | | | | | AMERICANS, MULTIPLY THE | | | | | | CALCULATED GFR BY | | | | | | 1.210.Testing performed | | | | | | at [facility], [address] | | | | | | [address], | | | | | | [place] [address] | | | | + + + + + + + + | Specimen | + + | Blood specimen | | (specimen) | + + + +---------+ + + | Performing | Address | City/State/Zipcode | Phone Number | | Organization | | | | + +---------+ + + | EXTERNAL LAB | | | | + +---------+ + + FL C-Arm > 1 Hour (02/21/2018 5:19 PM PDT) + + | Specimen | + + | | + + + + + | Narrative | Performed At | + + + | This is a non-reportable procedure without a radiologist report and | | | is used for image storage only. Please review the [place] procedure | | | report for details on the procedure. | | + + + + + | Procedure Note | + + | Amandeep Goodwin - 06/24/2019 7:02 AM PDT This is a non-reportable procedure | | without a radiologist report and isused for image storage only.Please review the OR | | procedure report for details on the procedure. | + + Sodium, Urine, Random (02/21/2018 5:03 PM PDT) + + + + + + | Component | Value | Ref Range | Performed | Pathologist | | | | | At | Signature | + + + + + + | Sodium, | 29Comment: NO NORMAL | mmol/L | EXTERNAL | | | Urine | RANGE ESTABLISHEDTesting | | LAB | | | Random | performed at [facility], [address], | | | | | | [place] [address] | | | | + + + + + + + + | Specimen | + + | Urine specimen | | (specimen) | + + + +---------+ + + | Performing | Address | City/State/Zipcode | Phone Number | | Organization | | | | + +---------+ + + | EXTERNAL LAB | | | | + +---------+ + + Potassium, Urine, Random (02/21/2018 5:03 PM PDT) + + + + + + | Component | Value | Ref Range | Performed | Pathologist | | | | | At | Signature | + + + + + + | Potassium, | 66Comment: NO NORMAL | mmol/L | EXTERNAL | | | Urine | RANGE ESTABLISHEDTesting | | LAB | | | | performed at [facility], [address], | | | | | | [place] [address] | | | | + + + + + + + + | Specimen | + + | Urine specimen | | (specimen) | + + + +---------+ + + | Performing | Address | City/State/Zipcode | Phone Number | | Organization | | | | + +---------+ + + | EXTERNAL LAB | | | | + +---------+ + + Chloride, Urine, Random (02/21/2018 5:03 PM PDT) + + + + + + | Component | Value | Ref Range | Performed | Pathologist | | | | | At | Signature | + + + + + + | Chloride | 57Comment: NO NORMAL | mmol/L | EXTERNAL | | | Urine | RANGE ESTABLISHEDTesting | | LAB | | | | performed at [facility], [address], | | | | | | [place] [address] | | | | + + + + + + + + | Specimen | + + | Urine specimen | | (specimen) | + + + +---------+ + + | Performing | Address | City/State/Zipcode | Phone Number | | Organization | | | | + +---------+ + + | EXTERNAL LAB | | | | + +---------+ + + External Lab: Vitamin D, 1,25-Dihydroxy (02/21/2018 11:03 AM PDT) + + + + + + | Component | Value | Ref Range | Performed | Pathologist | | | | | At | Signature | + + + + + + | 1,25 | 53.7Comment: Reference | pg/mL | EXTERNAL | | | DIHYDROXY | range: 19.9 to | | LAB | | | VITAMIN D | 79.3Testing performed by | | | | | | [place], [facility] | | | | | | [place] | | | | | | [address] | | | | + + + + + + + + | Specimen | + + | | + + + +---------+ + + | Performing | Address | City/State/Zipcode | Phone Number | | Organization | | | | + +---------+ + + | EXTERNAL LAB | | | | + +---------+ + + Parathyroid Hormone, Intact and Calcium (02/21/2018 11:03 AM PDT) + + + + + + | Component | Value | Ref Range | Performed | Pathologist | | | | | At | Signature | + + + + + + | Calcium | 8.5 | 8.5 - 10.5 | EXTERNAL | | | | | mg/dL | LAB | | + + + + + + | PTH Intact | 74.6Comment: Nomogram | pg/mL | EXTERNAL | | | | suggests Normal | | LAB | | | | Parathryoid | | | | | | status.Diagnosis of | | | | | | parathyroid disease | | | | | | requires both clinical | | | | | | and laboratory | | | | | | data.Testing performed | | | | | | at [facility], [address] | | | | | | [address], | | | | | | [place] [address] | | | | + + + + + + + + | Specimen | + + | Blood specimen | | (specimen) | + + + +---------+ + + | Performing | Address | City/State/Zipcode | Phone Number | | Organization | | | | + +---------+ + + | EXTERNAL LAB | | | | + +---------+ + + Vitamin D, Deficiency Screen (25-Hydroxy) (02/21/2018 11:03 AM PDT) + + + + + + | Component | Value | Ref Range | Performed | Pathologist | | | | | At | Signature | + + + + + + | Vit D, | 17 (L)Comment: <20 ng/mL | 30 - 150 ng/mL | EXTERNAL | | | 25-Hydroxy | Suggests | | LAB | | | | deficiency of 25-OH | | | | | | Vitamin D.20-29 ng/mL | | | | | | Suggests a relative | | | | | | insufficiency of 25-OH | | | | | | Vitamin D.30-150 ng/mL | | | | | | Suggests a sufficient | | | | | | level of 25-OH Vitamin | | | | | | D.>150 ng/mL Toxic | | | | | | level of 25-OH Vitamin | | | | | | D.Blood levels of 25 | | | | | | Hydroxy Vitamin D vary | | | | | | with the extent of sun | | | | | | exposure. Values tend to | | | | | | be highest in late | | | | | | summer and lowest in the | | | | | | spring. Values also | | | | | | tend to decrease with | | | | | | age, due to decreased | | | | | | precursor synthesis in | | | | | | the skin.Testing | | | | | | performed at [facility], [address] | | | | | | [address], | | | | | | [place] [address] | | | | + + + + + + + + | Specimen | + + | Blood specimen | | (specimen) | + + + +---------+ + + | Performing | Address | City/State/Zipcode | Phone Number | | Organization | | | | + +---------+ + + | EXTERNAL LAB | | | | + +---------+ + + TSH (02/21/2018 11:03 AM PDT) + + + + + + | Component | Value | Ref Range | Performed | Pathologist | | | | | At | Signature | + + + + + + | TSH | 1.010Comment: Testing | 0.450 - 5.100 | EXTERNAL | | | | performed at [facility], [address] | uIU/mL | LAB | | | | [address], | | | | | | [place] [address] | | | | + + + + + + + + | Specimen | + + | Blood specimen | | (specimen) | + + + +---------+ + + | Performing | Address | City/State/Zipcode | Phone Number | | Organization | | | | + +---------+ + + | EXTERNAL LAB | | | | + +---------+ + + Phosphorus (02/21/2018 11:03 AM PDT) + + + + + + | Component | Value | Ref Range | Performed | Pathologist | | | | | At | Signature | + + + + + + | PHOSPHORUS | 4.2Comment: Testing | 2.3 - 4.8 mg/dL | EXTERNAL | | | | performed at [facility], [address] | | LAB | | | | [address], | | | | | | [place] [address] | | | | + + + + + + + + | Specimen | + + | Blood specimen | | (specimen) | + + + +---------+ + + | Performing | Address | City/State/Zipcode | Phone Number | | Organization | | | | + +---------+ + + | EXTERNAL LAB | | | | + +---------+ + + Magnesium (02/21/2018 11:03 AM PDT) + + + + + + | Component | Value | Ref Range | Performed | Pathologist | | | | | At | Signature | + + + + + + | Magnesium | 2.2Comment: Testing | 1.7 - 2.4 mg/dL | EXTERNAL | | | | performed at [facility], [address] | | LAB | | | | [address], | | | | | | [place] [address] | | | | + + + + + + + + | Specimen | + + | Blood specimen | | (specimen) | + + + +---------+ + + | Performing | Address | City/State/Zipcode | Phone Number | | Organization | | | | + +---------+ + + | EXTERNAL LAB | | | | + +---------+ + + documented in this encounter Visit Diagnoses + + | Diagnosis | + + | Nephrolithiasis Calculus of kidney | + + documented in this encounter
--- OUTSIDE RECORDS SUMMARY | ~2019-11-05 | XMS | Clinical Summary ---
Demographics + + + | Address | [address] | | | [place] [address] | + + + | Home Phone | | + + + | Preferred Language | Unknown | + + + | Marital Status | Single | + + + | Mormon Affiliation | 1013 | + + + | Race | Unknown | + + + | Ethnic Group | Unknown | + + + Author + + + | Author | [facility] [employer] (Historical as of | | | 06-27-19) | + + + | Organization | [facility] [employer] (Historical as of | | | 06-27-19) [...] Team Providers + +------+ + | Care Shear Operator Name | Role | Phone | + [...] Left: | AI | | 09/20/ | [id number] | | - [id number]: Qty: 1 | | [employer]reter | [employer] | | 2019 | / | | on 02/21/2018 by Philippe, | | | - AI | | | /[id number] | | Bhanu Land DO | | | | | | 81 | + +------+--------+ +--------+--------+--------+ | Stent Uret Unvrs Frm 6fr 24cm | | | AI | | | [id number] | | - [id number]: Qty: 1 | | | [employer] | | | / | | on 03/04/2018 by Philippe, | | | - AI | | | /[id number] | | Bhanu Land DO | | [...] +------+-------+ + | MEDICAID | [facility] | [id number] | | | [address] | | | N | | | | [place] | | | [place] | | | | [phone] | | | [employer]ULATING M[employer]IC | | | | | + +--------+ [...] | | | [address] | [place] [address] | + +--------+ +--------+ + + | DESTINY PILLAI | Behavi | Self | [birth year] | Home: | [address] | | | oral | | 1989 | +- | [address] | | | Health | | | [address] | [place] [address] | + +--------+ +--------+ + +
--- OUTSIDE RECORDS SUMMARY | ~2019-11-05 | XMS | Encounter Summary ---
Demographics + + + | Address | [address] | | | [place] [address] | + + + | Home Phone | | + + + | Preferred Language | Unknown | + + + | Marital Status | Single | + + + | Taoist Affiliation | PRO | + + + | Race | White | + + + | Ethnic Group | Not or | + + + Author + + + | Author | [facility] | + + + | Organization | [facility] | + + + | Address | Unknown | + + + | Phone | Unavailable | + + + Support + + + + + | Name | Relationship | Address | Phone | + + + + + | Ed Pillai | ECON | [address] | | | | | [place] [address] | | + + + + + Care Team Providers + +------+ + | Care Mower Operator Name | Role | Phone | + +------+ + PCP | Unavailable | + +------+ + Encounter Details +--------+ + + + + | Date | Type | Department | Care Team | Description | +--------+ + + + + | 09/22/ | Ancillary | [facility] | | | | 2006 | Registratio | Practice [address] | | | | | n | [facility] | | | | | | [place] [address] | | | | | | [phone] | | | +--------+ + + + [...]
--- OUTSIDE RECORDS SUMMARY | ~2019-11-05 | XMS | Encounter Summary ---
Demographics + + + | Address | [address] | | | [place] [address] | + + + | Home Phone | | + + + | Preferred Language | Unknown | + + + | Marital Status | Single | + + + | Voodoo Affiliation | 1013 | + + + | Race | Unknown | + + + | Ethnic Group | Unknown | + + + Author + + + | Author | [facility] | | | and [place] | + + + | Organization | [facility] | | | [...] [place] | | | | | [address] | | + + + + + Care Team Providers + +------+ + | Care Automatic Data Processing Planner Name | Role | Phone | + [...] | | | | [place], [place] | [address] | | | | | [address] | [phone] | | | | | [phone] | | | +--------+ + + + [...]
--- OUTSIDE RECORDS SUMMARY | ~2019-11-05 | XMS | Encounter Summary ---
Demographics + + + | Address | [address] | | | [place] [address] | + + + | Home Phone | | + + + | Preferred Language | Unknown | + + + | Marital Status | Single | + + + | Pentecostalism Affiliation | 1013 | + + + | Race | Unknown | + + + | Ethnic Group | Unknown | + + + Author + + + | Author | [facility] | | | and [place] | + + + | Organization | [facility] | | | [...] [place] | | | | | [address] | | + + + + + Care Team Providers + +------+ + | Care Director Of Music Therapy Name | Role | Phone | + +------+ + | Robert Young MD | PCP | | + +------+ + Encounter Details +--------+ + + + + | Date | Type | Department | Care Team | Description | +--------+ + + + + | 02/06/ | Hospital | [facility] | Samanta Souza | | | 2013 | Encounter | MED CTR EM[facility]Y | Lindsay García MD [address] | | | | | [place] [address] | [facility] | | | | | [place], [place] | [place] [address] | | | | | [address] | [phone] | | | | | [phone] | | | +--------+ + + + [...] [address] | | [facility] | | | [place] | | | [facility] | | [...] + | [facility] | [address] | [place], [place] | [phone] | | [facility] | | [address] | | | - LABORATORY | | | | + + + + + | [facility] | [address] | [place] | | | [facility] | | [address] | | | - LABORATORY | | [...] - [address].030 | [facility] | | | [place] | | | [facility] | | [...] [address] | [place] | [phone] | | [facility] | | [address] | | | - LABORATORY | | | | + + + + + | [address] | [address] | [place] | | | [facility] | | [address] | | | - LABORATORY | | | | + + + + + documented in this encounter Visit Diagnoses Not on filedocumented in this encounter"
--- OUTSIDE RECORDS SUMMARY | ~2019-11-05 | XMS | Encounter Summary ---
Demographics + + + | Address | [address] | | | [place] [address] | + + + | Home Phone | | + + + | Preferred Language | Unknown | + + + | Marital Status | Single | + + + | Evangelical Affiliation | 1013 | + + + | Race | Unknown | + + + | Ethnic Group | Unknown | + + + Author + + + | Author | [facility] | | | and [place] | + + + | Organization | [facility] | | | [...] [place], [place] | | | | | [address] | | + + + + + Care Team Providers + +------+ + | Care Soa Integration Architect Name | Role | Phone | + +------+ + | Robert Young MD | PCP | | + +------+ + Encounter Details +--------+ + + + + | Date | Type | Department | Care Team | Description | +--------+ + + + + | 10/20/ | Hospital | [place] [facility] | [facility] | | | 2016 | Encounter | HOSPITAL EMERGENCY | MD [address] | | | | | [place] [address] | [facility] | | | | | [address] [place], [place] | [place] [address] | | | | | [address] | [phone] | | | | | [phone] | | | +--------+ + + + [...] + +--------+ + + + | CBC W/AUTO | STAT | 10/20/2016 | | Results for this | | DIFFERENTIAL | | 4:53 AM | | procedure are in the | | | | PST | | results section. | + +--------+ + + + | URINALYSIS WITH | STAT | 10/20/2016 | | Results for this | | MICROSCOPIC WITH | | 4:51 AM | | procedure are in the | | CULTURE IF INDICATED | | PST | | results section. | + +--------+ + + + | CT ABDOMEN PELVIS WO | Routin | 10/20/2016 | | Results for this | | CONTRAST | e | 4:32 AM | | procedure are in the | | | | PST | | results section. | + +--------+ + + + documented in this encounter Results CBC w/ Auto Differential (10/20/2016 4:53 AM PST) + +-------+ + + + | Component | Value | Ref Range | Performed | Pathologist | | | | | At | Signature | + +-------+ + + + | WBC | 11.7 | 4.3 - 10.4 | EXTERNAL | | | | | 1000/mm3 | LAB | | + +-------+ + + + | RBC | 4.18 | 4.12 - 5.30 | EXTERNAL | | | | | mil/mm3 | LAB | | + +-------+ + + + | HGB, | 13.8 | 12.4 - 15.7 | EXTERNAL | | | External | | g/dL | LAB | | + +-------+ + + + | HCT, | 38.7 | 37.7 - 47.0 % | EXTERNAL | | | External | | | LAB | | + +-------+ + + + | MCV | 93 | 82 - 97 fl | EXTERNAL | | | | | | LAB | | + +-------+ + + + | MCH | 33 | 27.1 - 32.3 pg | EXTERNAL | | | | | | LAB | | + +-------+ + + + | MCHC | 35.7 | 32.0 - 36.9 | EXTERNAL | | | | | g/dL | LAB | | + +-------+ + + + | RDW-CV | 12.2 | <=17.0 % | EXTERNAL | | | | | | LAB | | + +-------+ + + + | RDW-SD | 41.9 | 34.0 - 57.0 fL | EXTERNAL | | | | | | LAB | | + +-------+ + + + | Platelet | 260 | 150 - 450 | EXTERNAL | | | Count | | 1000/mm3 | LAB | | | Plasma | | | | | + +-------+ + + + | MPV | 10.1 | 9.4 - 12.3 FL | EXTERNAL | | | | | | LAB | | + +-------+ + + + | % Segmented | 80 | 42.0 - 76.0 % | EXTERNAL | | | | | | LAB | | | Neutrophils | | | | | + +-------+ + + + | % | 15.3 | 20.0 - 40.0 % | EXTERNAL | | | Lymphocytes | | | LAB | | + +-------+ + + + | % Monocytes | 3.2 | 3.0 - 13.0 % | EXTERNAL | | | | | | LAB | | + +-------+ + + + | % | 1 | 0.0 - 7.0 % | EXTERNAL | | | Eosinophils | | | LAB | | + +-------+ + + + | % Basophils | 0.3 | 0.0 - 2.0 % | EXTERNAL | | | | | | LAB | | + +-------+ + + + | % Immature | 0.2 | 0.0 - 0.5 % | EXTERNAL | | | Granulocyte | | | LAB | | | s | | | | | + +-------+ + + + | % nRBC | 0 | 0.0 - 0.2 /100 | EXTERNAL | | | | | WBC | LAB | | + +-------+ + + + | Absolute | 9.36 | 2.50 - 8.50 | EXTERNAL | | | Neutrophils | | 1000/mm3 | LAB | | + +-------+ + + + | Absolute | 1.79 | 1.00 - 3.80 | EXTERNAL | | | Lymphocytes | | 1000/mm3 | LAB | | + +-------+ + + + | Absolute | 0.38 | 0.00 - 0.80 | EXTERNAL | | | Monocytes | | 1000/mm3 | LAB | | + +-------+ + + + | Absolute | 0.12 | 0.00 - 0.70 | EXTERNAL | | | Eosinophils | | 1000/mm3 | LAB | | + +-------+ + + + | Absolute | 0.03 | 0.00 - 0.20 | EXTERNAL | | | Basophils | | 1000/mm3 | LAB | | + +-------+ + + + | Absolute | 0.03 | 0.00 - 0.15 | EXTERNAL | | | Immature | | 1000/mm3 | LAB | | | Granulocyte | | | | | | s | | | | | + +-------+ + + + | Absolute | 0.01 | 0.00 - 0.01 | EXTERNAL | | | nRBC | | 1000/mm3 | LAB | | + +-------+ + + + | SLIDE | NO | | EXTERNAL | | | REVIEWED | | | LAB | | + +-------+ + + + + + | Specimen | + + | | + + + +---------+ + + | Performing | Address | City/State/Zipcode | Phone Number | | Organization | | | | + +---------+ + + | EXTERNAL LAB | | | | + +---------+ + + Urinalysis with Microscopic with Culture if Indicated (10/20/2016 4:51 AM PST) + + + + + + | Component | Value | Ref Range | Performed | Pathologist | | | | | At | Signature | + + + + + + | Source | Clean Catch / VOID | | EXTERNAL | | | | | | LAB | | + + + + + + | Clarity | VERY CLOUDY | CLEAR | EXTERNAL | | | | | | LAB | | + + + + + + | Color | [place] | | EXTERNAL | | | | | | LAB | | + + + + + + | Specific | 1.02 | 1.005 - 1.030 | EXTERNAL | | | Smilax, | | | LAB | | | Urine | | | | | + + + + + + | pH, Urine | 5 | 5.0 - 7.0 pH | EXTERNAL | | | | | | LAB | | + + + + + + | Leukocyte | 25 | NEGATIVE /uL | EXTERNAL | | | Esterase, | | | LAB | | | Urine | | | | | + + + + + + | Nitrite, | POSITIVE | NEGATIVE | EXTERNAL | | | Urine | | | LAB | | + + + + + + | Protein, | 30 | NEGATIVE mg/dL | EXTERNAL | | | Urine | | | LAB | | + + + + + + | Glucose, | NORMAL | NORMAL mg/dL | EXTERNAL | | | Urine | | | LAB | | + + + + + + | Reducing | NOT REQUIRED | | EXTERNAL | | | Substance, | | | LAB | | | UA, POC | | | | | + + + + + + | Ketones, | NEGATIVE | NEGATIVE mg/dL | EXTERNAL | | | Urine | | | LAB | | + + + + + + | Urobilinoge | NORMAL | NORMAL mg/dL | EXTERNAL | | | n, Urine | | | LAB | | + + + + + + | Bilirubin, | NEGATIVE | NEGATIVE mg/dL | EXTERNAL | | | Urine | | | LAB | | + + + + + + | Blood, | 250 | NEGATIVE /uL | EXTERNAL | | | Urine | | | LAB | | + + + + + + | WBC UA | 6-10 | </= 5 /HPF | EXTERNAL | | | | | | LAB | | + + + + + + | RBC COUNT | TNTC | </= 5 PER HPF | EXTERNAL | | | | | | LAB | | + + + + + + | Bacteria, | MODERATE | NONE SEEN /HPF | EXTERNAL | | | UA | | | LAB | | + + + + + + | Culture | YES | | EXTERNAL | | | Indicated | | | LAB | | + + + + + + | SQUAMOUS | FEW | /LPF | EXTERNAL | | | EPITHELIAL | | | LAB | | | UA | | | | | + + + + + + + + | Specimen | + + | | + + + +---------+ + + | Performing | Address | City/State/Zipcode | Phone Number | | Organization | | | | + +---------+ + + | EXTERNAL LAB | | | | + +---------+ + + CT Abdomen Pelvis wo Contrast (10/20/2016 4:32 AM PST) + + | Specimen | + + | | + + + + + | Narrative | Performed At | + + + | EXAMINATION: CT ABDOMEN/PELVIS WO CONTRAST HISTORY: | | | Right-sided flank pain and R abdominal pain COMPARISON STUDY: No | | | comparison. TECHNIQUE: 5 mm axial slices were acquired through | | | the abdomen and pelvis without contrast. DOSE REPORT: CTDIvol: | | | 21.9 mGy. DLP: 992 mGy-cm. FINDINGS: The lung bases are clear | | | with the exception of right basilar atelectasis versus scarring. | | | Heart size is normal. No pericardial or pleural effusion. | | | Evaluation of abdominal viscera is limited due to lack of intravenous | | | contrast. The liver is normal. Gallbladder is normal. No | | | biliary ductal dilatation. The pancreas is unremarkable. The spleen | | | is unremarkable. Adrenal glands are normal in appearance. The | | | right kidney contains a nonobstructing 1 mm stone in and a 4 mm | | | stone. There is mild hydronephrosis and hydroureter secondary to a | | | proximal 2 mm ureterolith. The left kidney contains a | | | nonobstructing 1 mm stone and 3 mm stone. Bladder kecia normal. | | | Uterus and ovaries are age appropriate. No free fluid or free air. | | | Evaluation of the colon demonstrates no focal abnormality. | | | Small bowel gas pattern is normal. The stomach and distal | | | esophagus are normal. Aorta is normal in course and caliber. | | | Evaluation of the mesentery and retroperitoneum demonstrates no | | | pathologically enlarged adenopathy. Small fat containing umbilical | | | hernia. Osseous structures are normal. IMPRESSION: Bilateral | | | nephrolithiasis. There is a proximal obstructing right ureteral | | | stone as discussed above. Small fat containing umbilical hernia. | | | JOB #: [id number] Digitally Released by: Ishan De Guzman Read By: | | | ISHAN DE GUZMAN MD Date: 10/20/2016 08:25 | | + + + + + | Procedure Note | + + | Buddy, Rad Results In - 09/19/2017 12:19 AM PST EXAMINATION: | | CT ABDOMEN/PELVIS WO CONTRAST | | | | HISTORY: | | Right-sided flank pain and R abdominal pain | | | | COMPARISON STUDY: | | No comparison. | | | | TECHNIQUE: | | 5 mm axial slices were acquired through the abdomen and pelvis without | | contrast. | | | | DOSE REPORT: | | CTDIvol: 21.9 mGy. DLP: 992 mGy-cm. | | | | FINDINGS: | | The lung bases are clear with the exception of right basilar atelectasis | | versus scarring. Heart size is normal. No pericardial or pleural effusion. | | | | Evaluation of abdominal viscera is limited due to lack of intravenous contrast. | | | | The liver is normal. Gallbladder is normal. No biliary ductal dilatation. | | The pancreas is unremarkable. The spleen is unremarkable. | | | | Adrenal glands are normal in appearance. The right kidney contains a | | nonobstructing 1 mm stone in and a 4 mm stone. There is mild hydronephrosis | | and hydroureter secondary to a proximal 2 mm ureterolith. The left kidney | | contains a nonobstructing 1 mm stone and 3 mm stone. Bladder kecia normal. | | Uterus and ovaries are age appropriate. | | | | No free fluid or free air. Evaluation of the colon demonstrates no focal | | abnormality. Small bowel gas pattern is normal. The stomach and distal | | esophagus are normal. | | | | Aorta is normal in course and caliber. Evaluation of the mesentery and | | retroperitoneum demonstrates no pathologically enlarged adenopathy. Small fat | | containing umbilical hernia. | | | | Osseous structures are normal. | | | | IMPRESSION: | | Bilateral nephrolithiasis. There is a proximal obstructing right ureteral | | stone as discussed above. | | Small fat containing umbilical hernia. | | | | | | JOB #: [id number] | | Digitally Released by: Ishan De Guzman | | | | | | Read By: ISHAN DE GUZMAN MD | | Date: 10/20/2016 08:25 | | | + + documented in this encounter Visit Diagnoses Not on filedocumented in this encounter"
--- OUTSIDE RECORDS SUMMARY | ~2019-11-05 | XMS | Encounter Summary ---
Demographics + + + | Address | [address] | | | [place] [address] | + + + | Home Phone | | + + + | Preferred Language | Unknown | + + + | Marital Status | Single | + + + | Adventism Affiliation | 1013 | + + + [...] [place], [place] | | | | | [address] | | + + + + + Care Team Providers + +------+ + | Care Can Operator Name | Role | Phone | [...] [address] | | | | | [place] [address] | [facility] | | | | | [address] [place], [place] | [place] [address] | | | | | [address] | [phone] | | | | | [phone] | | | +--------+ + + + [...] - 1.030 | EXTERNAL | | | [place], | | | LAB | | | [...]
--- OUTSIDE RECORDS SUMMARY | ~2019-11-05 | XMS | Encounter Summary ---
Demographics + + + | Address | [address] | | | [place] [address] | + + + | Home Phone | | + + + | Preferred Language | Unknown | + + + | Marital Status | Single | + + + | Sabianism Affiliation | 1013 | + + + | Race | Unknown | + + + | Ethnic Group | Unknown | + + + Author + + + | Author | [facility] | | | and [place] | + + + | Organization | [facility] | | | [...] [place], [place] | | | | | [address] | | + + + + + Care Team Providers + +------+ + | Care Conference Concierge Name | Role | Phone | + [...] Provider Unknown | | | | | [place], [place] | [phone] | | | | | [address] | | | | | | [phone] | | | +--------+ + + + [...]
--- OUTSIDE RECORDS SUMMARY | ~2019-11-05 | XMS | Clinical Summary ---
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 | + + + | Nephrolithiasis | 02/22/2018 | + + + Family History + + +------+ + | Medical History | Relation | Name | Comments | + + +------+ + | Asthma | Father | | | + + +------+ + | Diabetes, NIDDM | Father | | | + + +------+ + | Cancer | Mother | | | + + +------+ + + +------+--------+ + | Relation | Name | Status | Comments | + +------+--------+ + | Father | | Alive | | + +------+--------+ + | Father | | | | + +------+--------+ + | Mother | | Alive | | + +------+--------+ + | Mother | | | | + +------+--------+ + Social History [...] | Blood Pressure | 98/51 | 03/04/2018 2:55 PM | | | | | PDT | | + + + + + | Pulse | 68 | 03/04/2018 2:55 PM | | | | | PDT | | + + + + + | Temperature | 36.4 C (97.5 F) | 03/04/2018 2:55 PM | | | | | PDT | | + + + + + | Respiratory Rate | 16 | 03/04/2018 2:55 PM | | | | | PDT | | + + + + + | Oxygen Saturation | 98% | 02/05/2017 1:53 PM | | | | | PDT | | + + + + + | Inhaled Oxygen | - | - | | | Concentration | | | | + + + + + | Weight | 62.6 kg (138 lb 0.2 | 03/04/2018 2:55 PM | | | | oz) | PDT | | + + + + + | Height | 160 cm (5' 3") | 03/04/2018 2:55 PM | | | | | PDT | | + + + + + | Body Mass Index | 24.45 | 03/04/2018 2:55 PM | | | | | PDT | | + + + + + Plan of Treatment + + + + + | Health Maintenance | Due Date | Last Done | Comments | + + + + + | Primary Care | | | | | Outreach (Low Risk) | 8 | | | + + + + + | Vaccine: | | | | | Dtap/Tdap/Td (1 - | 9 | | | | Tdap) | | | | + + + + + | Cervical Cancer | | | | | Screening (Pap) | 8 | | | + + + + + | Vaccine: Influenza | | | | | (#1) | 9 | | | + + + + + Implants + +------+--------+ +--------+--------+--------+ | Implanted | Type | Area | Manufacture | Device | Shelf | Model | | | | | r | | Expira | / | | | | | | Identi | tion | Serial | | | | | | fier | Date | / Lot | + +------+--------+ +--------+--------+--------+ | Stent Uret Unvrs Frm 6fr 24cm | | Left: | AI CLOUD | | 09/20/ | [id number] | | - [id number]: Qty: 1 | | Ureter | INCORPORATE | | 2020 | / | | on 02/21/2018 by Philippe, | | | D | | | /[id number] | | Bhanu Land DO | | | | | | 81 | + +------+--------+ +--------+--------+--------+ | Stent Uret Unvrs Frm 6fr 24cm | | | AI CLOUD | | | [id number] | | - [id number]: Qty: 1 | | | INCORPORATE | | | / | | on 03/04/2018 by Philippe, | | | D | | | /[id number] | | Bhanu Land DO | | | | | | 32 | + +------+--------+ +--------+--------+--------+ Results Not on filefrom Last 3 Months Advance Directives + + + + + | Type | Date Recorded | Patient | Explanation | | | | Hospice/Home Health Aide | | + + + + + | Power of | | | | | Escrow Officer | | | | + + + + +
--- OUTSIDE RECORDS SUMMARY | ~2019-11-05 | XMS | Encounter Summary ---
Demographics + + + | Address | [address] | | | [place] [address] | + + + | Home Phone | | + + + | Preferred Language | Unknown | + + + | Marital Status | Single | + + + | Jehovah'S Witness Affiliation | 1013 | + + + | Race | Unknown | + + + | Ethnic Group | Unknown | + + + Author + + + | Author | [facility] | | | and [place] | + + + | Organization | [facility] | | | [...] [place], [place] | | | | | [address] | | + + + + + Care Team Providers + +------+ + | Care Clothes Drier Repairer Name | Role | Phone | + [...] Provider Unknown | | | | | [place], [place] | [phone] | | | | | [address] | | | | | | [phone] | | | +--------+ + + + [...]
--- OUTSIDE RECORDS SUMMARY | ~2019-11-05 | XMS | Encounter Summary ---
Demographics + + + | Address | [address] | | | [place] [address] | + + + | Home Phone | | + + + | Preferred Language | Unknown | + + + | Marital Status | Single | + + + | Muslim Affiliation | 1013 | + + + | Race | Unknown | + + + | Ethnic Group | Unknown | + + + Author + + + | Author | [facility] | | | and [place] | + + + | Organization | [facility] [...] [place] | | | | | [address] | | + + + + + Care Team Providers + +------+ + | Care Electric Refrigerator Servicer Name | Role | Phone | + +------+ + | Robert Young MD | PCP | | + +------+ + Encounter Details +--------+ + + + + | Date | Type | Department | Care Team | Description | +--------+ + + + + | 01/29/ | Hospital | [facility] | Hero Henok Davison, | | | 2012 | Encounter | MED CTR EMERGENCY | MD [address] | | | | | CENTER [address] | [facility] | | | | | [place], [place] | [place] [address] | | | | | [address] | [phone] | | | | | [phone] | | | +--------+ + + + [...] + | [facility] | [address] | [place], [place] | [phone] | | [facility] | | [address] | | | - LABORATORY | | | | + + + + + | [facility] | [address] | [place], [place] | | | [facility] | | [address] | | | - LABORATORY | | [...] + | [facility] | [address] | [place], [place] | [phone] | | [facility] | | [address] | | | - LABORATORY | | | | + + + + + | [facility] | [address] | [place], [place] | | | [facility] | | [address] | | | - LABORATORY | | | | + + + + + XR Thoracic Spine 2 Vw (01/29/2013 11:45 AM PDT) + + | Specimen | + + | | + + + + + | Narrative | Performed At | + + + | [facility] | [place] | | Department [address] [facility] | [facility] | | [ rep [address]] [ rep [facility] | | [facility]] Signed | - IMAGING | | | | | Patient Name: DESTINY PILLAI Physician: | | | BROW.01 : 1990 Age: 22 Sex: F Unit #: [id number] | | | Exam Date: 01/29/13 Location: ER | | | Report #: [id number] Page: | | | %(RAD)RES..mtdd.print.filter("pg") of %(RAD) | | | RES..mtdd.print.filter("tpg") | | | | | | Accession Number: [id number] | | | THORACIC SPINE, 01/29/2013 CLINICAL [...] | | | Transcribed Date/Time: 01/29/2013 11:51 Glass Handler: | | | MARYANNE <<Signature on File>> | | | | | | Fabian Bazzi MD01/29/13 1706 <Electronically signed by | | | Fabian Bazzi MD> Fabian Bazzi MD 01/29/13 | | | 1145 Glass Handler: Nanomech [id number]/21/13 1151 | | | | | + + + + + + + + | Performing | Address | City/State/Zipcode | Phone Number | | Organization | | | | + + + + + | [facility] | [address] | [place] | [phone] | | [facility] | | [address] | | | - IMAGING | | | | + + + + + documented in this encounter Visit Diagnoses Not on filedocumented in this encounter
--- OUTSIDE RECORDS SUMMARY | ~2019-11-05 | XMS | Encounter Summary ---
Demographics + + + | Address | [address] | | | [place] [address] | + + + | Home Phone | | + + + | Preferred Language | Unknown | + + + | Marital Status | Single | + + + | Adventist Affiliation | 1013 | + + + | Race | Unknown | + + + | Ethnic Group | Unknown | + + + Author + + + | Author | [facility] | | | and [place] | + + + | Organization | [facility] | | | and [...] [place], [place] | | | | | [address] | | + + + + + Care Team Providers + +------+ + | Care Blocker Hand Name | Role | Phone | + [...] | | [facility] [address] | [address] | | | | | [address] | [place] [address] | | | | | [place], [place] | [phone] | | | | | [address] | | | | | | [phone] | | | +--------+ + + + [...]
--- OUTSIDE RECORDS SUMMARY | ~2019-11-05 | XMS | Encounter Summary ---
Demographics + + + | Address | [address] | | | [place] [address] | + + + | Home Phone | | + + + | Preferred Language | Unknown | + + + | Marital Status | Single | + + + | Latter-Day Affiliation | 1013 | + + + | Race | Unknown | + + + | Ethnic Group | Unknown | + + + Author + + + | Author | [facility] | | | and [place] | + + + | Organization | [facility] | | | [...] [place] | | | | | [address] | | + + + + + Care Team Providers + +------+ + | Care Horticultural Farmer Name | Role | Phone | + +------+ + | Robert Young MD | PCP | | + +------+ + Encounter Details +--------+ + + + + | Date | Type | Department | Care Team | Description | +--------+ + + + + | 03/03/ | Hospital | [facility] | Simeon Good | | | 2012 | Encounter | MED CTR EMERGENCY | Arturo Lua MD | | | | | CENTER [address] | [address] | | | | | [place], [place] | [place], [place] | | | | | [address] | [address] | | | | | [phone] | | | | | | | Good Lott | | | | | | MD Genet [address] | | | | | | ST [place], [place] | | | | | | [address] | | | | | | [phone] | | | | | | | [...] Performed At | + + + | [facility] Diagnostic Imaging | [place] | | Department [address] [facility] [place] [place] | [facility] | | [ rep ct [address]] [ rep ct [facility] | | st zip] Signed | - IMAGING | | | | | Patient Name: DESTINY PILLAI Physician: | | | : 1990 Age: 22 Sex: F Unit #: [id number] | | | Exam Date: 03/03/13 Location: ER | | | Report #: [id number] Page: | | | %(RAD)RES..mtdd.print.filter("pg") of %(RAD) | | | RES..mtdd.print.filter("tpg") | | | | | | Accession Number: [id number] | | | SINGLE-VIEW ABDOMEN: 03/03/2013 CLINICAL [...] Transcribed Date/Time: 03/04/2013 08:09 | | | Role Player: <<Signature on File>> | | | Wilfredo | | | Lily Kim MD03/04/13 1747 <Electronically signed by Wilfredo Kim | | | > Wilfredo Kim MD 03/04/13 8465 Role Player: | | | Aluwave Iyyhcyudeqomx80/24/13 0809 Good De León | | | MD [place] | | + + + + + + + + | Performing | Address | City/State/Zipcode | Phone Number | | Organization | | | | + + + + + | [facility] | [address] | [place] | [phone] | | [facility] | | [address] | | | - IMAGING | | | | + + + + + XR Chest AP Portable (03/04/2013 7:46 AM PDT) + + | Specimen | + + | | + + + + + | Narrative | Performed At | + + + | [facility] Diagnostic Imaging | [place] | | Department [address] [facility] | [facility] | | [ rep ct street1+2] [ rep ct [facility] | | st zip] Signed | - IMAGING | | | | | Patient Name: DESTINY PILLAI Physician: | | | ADRIA. : 1990 Age: 22 Sex: F Unit #: [id number] | | | Exam Date: 03/03/13 Location: ER | | | Report #: [id number] Page: | | | %(RAD)RES..mtdd.print.filter("pg") of %(RAD) | | | RES..mtdd.print.filter("tpg") | | | | | | Accession Number: [id number] | | | SINGLE AP CHEST, 03/03/2013 [...] Transcribed | | | Date/Time: 03/04/2013 07:47 Role Player: | | | <<Signature on File>> | | | Wilfredo Bautista | | | MD Julio03/04/13 1747 <Electronically signed by Wilfredo Kim MD> | | | Wilfredo Kim MD 03/04/13 0746 Role Player: | | | Aluwave Avbyktpyyvsya13/24/13 0747 Good Lott, | | | MD | | + + + + + + + + | Performing | Address | City/State/Zipcode | Phone Number | | Organization | | | | + + + + + | [facility] | [address] | [place] | [phone] | | [facility] | | [address] | | | - IMAGING | | [...] + | [facility] | [address] | [place] | [phone] | | [facility] | | [address] | | | - LABORATORY | | | | + + + + + | [facility] | [address] | [place] | | | [facility] | | [address] | | | - LABORATORY | | [...] | | | | | | [facility] | | | | | | [...] [address] | [place] | [phone] | | [facility] | | [address] | | | - LABORATORY | | | | + + + + + | [facility] | [address] | [place] | | | [facility] | | [address] | | | - LABORATORY | | | | + + + + + documented in this encounter Visit Diagnoses Not on filedocumented in this encounter
--- OUTSIDE RECORDS SUMMARY | ~2019-11-05 | XMS | Encounter Summary ---
Demographics + + + | Address | [address] | | | [place] [address] | + + + | Home Phone | | + + + | Preferred Language | Unknown | + + + | Marital Status | Single | + + + | Hoahaoism Affiliation | PRO | + + + | Race | White | + + + | Ethnic Group | Not or | + + + Author + + + | Author | [facility] | + + + | Organization | [facility] | + + + | Address | Unknown | + + + | Phone | Unavailable | + + + Support + + + + + | Name | Relationship | Address | Phone | + + + + + | Ed Pillai | ECON | [address] | | | | | [place] [address] | | + + + + + Care Team Providers + +------+ + | Care Supervisor Vendor Quality Name | Role | Phone | + +------+ + PCP | Unavailable | + +------+ + Encounter Details +--------+ + + + + | Date | Type | Department | Care Team | Description | +--------+ + + + + | 09/22/ | Ancillary | [facility] | | | | 2006 | Registratio | Practice [address] | | | | | n | [facility] | | | | | | [place] [address] | | | | | | [phone] | | | +--------+ + + + [...]
--- OUTSIDE RECORDS SUMMARY | ~2019-11-05 | XMS | Encounter Summary ---
Demographics + + + | Address | [address] | | | [place] [address] | + + + | Home Phone [...] [place] | | | | | [address] | | + + + + + Care Team Providers + +------+ + | Care Battery Charger Tester Name | Role | Phone | + +------+ + | Robert Young MD | PCP | | + +------+ + Encounter Details +--------+ + + + + | Date | Type | Department | Care Team | Description | +--------+ + + + + | 03/03/ | Hospital | [facility] | Simeon Good | | | 2012 | Encounter | MED CTR EMERGENCY | Arturo Lua MD | | | | | CENTER [address] | [address] | | | | | [place], [place] | [place], [place] | | | | | [address] | [address] | | | | | [phone] | | | | | | | Good Lott | | | | | | MD Genet [address] | | | | | | ST [place], [place] | | | | | | [address] | | | | | | [phone] | | | | | | | [...] Performed At | + + + | [facility] Diagnostic Imaging | [place] | | Department [address] [facility] | [facility] | | [ rep ct street1+2] [ rep ct [facility] | | st zip] Signed | - IMAGING | | | | | Patient Name: DESTINY PILLAI Physician: | | | : 1990 Age: 22 Sex: F Unit #: [id number] | | | Exam Date: 03/03/13 Location: ER | | | Report #: [id number] Page: | | | %(RAD)RES..mtdd.print.filter("pg") of %(RAD) | | | RES..mtdd.print.filter("tpg") | | | | | | Accession Number: [id number] | | | SINGLE-VIEW ABDOMEN: 03/03/2013 CLINICAL [...] Transcribed Date/Time: 03/04/2013 08:09 | | | Pharmacy Salesperson: <<Signature on File>> | | | Wilfredo | | | Lily Kim MD03/04/13 1747 <Electronically signed by Wilfredo Kim | | | > Wilfredo Kim MD 03/04/13 3082 Pharmacy Salesperson: | | | [employer] Auottjzkakuft74/24/13 0809 Good De León | | | MD Oren | | + + + + + + + + | Performing | Address | City/State/Zipcode | Phone Number | | Organization | | | | + + + + + | [facility] | [address] | [place] | [phone] | | [facility] | | [address] | | | - IMAGING | | | | + + + + + XR Chest AP Portable (03/04/2013 7:46 AM PDT) + + | Specimen | + + | | + + + + + | Narrative | Performed At | + + + | [facility] Diagnostic [facility] | [place] | | Department [address] [facility] [place] | [facility] | | [ rep ct street1+2] [ rep ct [facility] | | st zip] Signed | - IMAGING | | | | | Patient Name: DESTINY PILLAI Physician: | | | ADRIA. : 1990 Age: 22 Sex: F Unit #: [id number] | | | Exam Date: 03/03/13 Location: ER | | | Report #: [id number] Page: | | | %(RAD)RES..mtdd.print.filter("pg") of %(RAD) | | | RES..mtdd.print.filter("tpg") | | | | | | Accession Number: [id number] | | | SINGLE AP CHEST, 03/03/2013 [...] Transcribed | | | Date/Time: 03/04/2013 07:47 Pharmacy Salesperson: | | | <<Signature on File>> | | | Wilfredo Bautista | | | MD Julio03/04/13 1747 <Electronically signed by Wilfredo Kim MD> | | | Wilfredo Kim MD 03/04/13 0746 Pharmacy Salesperson: | | | [employer] Pwdvddlkjbtrk45/24/13 0747 Good Lott, | | | MD | | + + + + + + + + | Performing | Address | City/State/Zipcode | Phone Number | | Organization | | | | + + + + + | [facility] | [address] | [place] | [phone] | | [facility] | | [address] | | | - IMAGING | | [...] + | [facility] | [address] | [place] | [phone] | | [facility] | | [address] | | | - LABORATORY | | | | + + + + + | [facility] | [address] | [place] | | | [facility] | | [address] | | | - LABORATORY | | [...] | | | | | | [facility] | | | | | | [...] [address] | [place] | [phone] | | [facility] | | [address] | | | - LABORATORY | | | | + + + + + | [facility] | [address] | [place] | | | [facility] | | [address] | | | - LABORATORY | | | | + + + + + documented in this encounter Visit Diagnoses Not on filedocumented in this encounter
--- OUTSIDE RECORDS SUMMARY | ~2019-11-05 | XMS | Encounter Summary ---
Demographics + + + | Address | [address] | | | [place] [address] | + + + | Home Phone | | + + + | Preferred Language | Unknown | + + + | Marital Status | Single | + + + | Jew Affiliation | 1013 | + + + | Race | Unknown | + + + | Ethnic Group | Unknown | + + + Author + + + | Author | [facility] | | | and [place] | + + + | Organization | [facility] | | | [...] [place], [place] | | | | | [address] | | + + + + + Care Team Providers + +------+ + | Care Sheet Metal Layout Worker Name | Role | Phone | + +------+ + | Haim Carbajal DO | PCP | | + +------+ + Encounter Details +--------+ + + + + | Date | Type | Department | Care Team | Description | +--------+ + + + + | 02/21/ | Hospital | [facility] GENER[facility] IP | Conversion | Abdominal pain, | | 2018 | Encounter | CONVERSION DEP [address] | Transaction, | unspecified | | | | [address] | Provider Unknown | abdominal location | | | | [place], [place] | [phone] | | | | | [address] | | | | | | [phone] | | | +--------+ + + + [...]
--- OUTSIDE RECORDS SUMMARY | ~2019-11-05 | XMS | Encounter Summary ---
Demographics + + + | Address | [address] | | | [place] [address] | + + + | Home Phone [...] [place], [place] | | | | | [address] | | + + + + + Care Team Providers + +------+ + | Care Machine Operator Hay Stacker Name | Role | Phone | + +------+ + | Haim Carbajal DO | PCP | | + +------+ + Encounter Details +--------+ + + + + | Date | Type | Department | Care Team | Description | +--------+ + + + + | 03/04/ | Hospital | [facility] | Bhanu Paez, | Ureterolithiasis | | 2018 | Encounter | [facility] | DO [address] | | | | | [address] | [place] [address] | | | | | [place], [place] | [phone] | | | | | [address] | | | | | | [phone] | | | +--------+ + + + [...] 03/04/181511 Date of Service: 03/04/181510 Status: Signed Tire Wrapper: Janett Vides RN (Registered Nurse) Discharge instructions [...] 1448 Date of Service: 03/04/181447 Status: Signed Tire Wrapper: Janett Vides RN (Registered Nurse) Ambulated to bathroom and was able to void Electronically signed by [facility], Provider at 06/23/2019 10:41 PM PDTdocume nted [...] preparation was | | | performed by [employer], [facility], [address] | | | [place] [address] (Stock Crane Operator: Bradley | | | Miri German; IA#: [id number]). Diagnostician: Yue De Jesus MD | | [...] Natty | | | | | | at:[phone]. | | | | | | | [...] | | | | | | [place] [address] | | | | + + + [...]
--- OUTSIDE RECORDS SUMMARY | ~2019-11-05 | XMS | Encounter Summary ---
Demographics + + + | Address | [address] | | | [place] [address] | + + + | Home Phone [...] [place], [place] | | | | | [address] | | + + + + + Care Team Providers + +------+ + | Care Match Maker Name | Role | Phone | + +------+ + PCP | Unavailable | + +------+ + Encounter Details +--------+ + + + + | Date | Type | Department | Care Team | Description | +--------+ + + + + | 01/08/ | Hospital | [facility] | Oren, | | | 2012 | Encounter | MED CTR EMERGENCY | Good De León MD [address] | | | | | [place] [address] | [address] [place] | | | | | [place], [place] | [place] [address] | | | | | [address] | [phone] | | | | | [phone] | | | +--------+ + + + [...] + | [facility] | [address] | [place] | [phone] | | [facility] | | [address] | | | - LABORATORY | | | | + + + + + | [facility] | [address] | [place] | | | [facility] | | [address] | | | - LABORATORY | | [...] performed on the Adeline | uIU/mL | [facility] | | | | Brennan Access | [...] + | [facility] | [address] | [place] | [phone] | | [facility] | | [address] | | | - LABORATORY | | | | + + + + + | [facility] | [address] | [place] | | | [facility] | | [address] | | | - LABORATORY | | [...] 11 | 7 - 18 mg/dL | [facility] | | | | | | [facility] | | | | | | MEDICAL | | | | | | CENTER - | | | | | | LABORATORY | | + + + + + + | Creatinine | 0.73 | 0.60 - 1.30 | [facility] | | | | | mg/dL | [facility] | | | | | | MEDICAL | | | | | | CENTER - | | | | | | LABORATORY | | + + + + + + | Estimated | >60Comment: For | >60 mL/min/A | [facility] | | | GFR | -Americans, [...] + | [facility] | [address] | [place] | [phone] | | [facility] | | [address] | | | - LABORATORY | | | | + + + + + | [facility] | [address] | [place] | | | [facility] | | [address] | | | - LABORATORY | | [...] + | [facility] | [address] | [place] | [phone] | | [facility] | | [address] | | | - LABORATORY | | | | + + + + + | [facility] | [address] | [place] | | | [facility] | | [address] | | | - LABORATORY | | [...] + | [facility] | [address] | [place] | [phone] | | [facility] | | [address] | | | - LABORATORY | | | | + + + + + | [facility] | [address] | [place] | | | [facility] | | [address] | | | - LABORATORY | | [...] | | SERUM/PLASM | | | [facility] | | | A [...] + | [facility] | [address] | [place] | [phone] | | [facility] | | [address] | | | - LABORATORY | | | | + + + + + | [facility] | [address] | [place] | | | [facility] | | [address] | | | - LABORATORY | | [...] - 1.030 | [facility] | | | [place] | | | [facility] | | [...] [address] | [place] | [phone] | | [facility] | | [address] | | | - LABORATORY | | | | + + + + + | [facility] | [address] | [place] | | | [facility] | | [address] | | | - LABORATORY | | [...] | | | Screen, | | | [facility] | | | Urine | [...] [address] | [place] | [phone] | | [facility] | | [address] | | | - LABORATORY | | | | + + + + + | [facility] | [address] | [place] | | | [facility] | | [address] | | | - LABORATORY | | | | + + + + + documented in this encounter Visit Diagnoses Not on filedocumented in this encounter"
--- OUTSIDE RECORDS SUMMARY | ~2019-11-05 | XMS | Clinical Summary ---
Demographics + + + | Address | [address] | | | [place] [address] | + + + | Home Phone | | + + + | Preferred Language | Unknown | + + + | Marital Status | Single | + + + | Adventist Affiliation | 1013 | + + + | Race | Unknown | + + + | Ethnic Group | Unknown | + + + Author + + + | Author | [facility] | | | and [place] | + + + | Organization | [facility] | | | [...] [place], [place] | | | | | [address] | | + + + + + Care Team Providers + +------+ + | Care Pediatric Dentist Name | Role | Phone | + [...] | [facility] | | 09/20/ | [id number] | | - [id number]: Qty: 1 | | Ureter | INCORPORATE | | 2020 | / | | on 02/21/2018 by Philippe, | | | D | | | /[id number] | | Bhanu Land DO | | | | | | 83 | + +------+--------+ +--------+--------+--------+ | Stent Uret Unvrs Frm 6fr 24cm | | | [facility] | | | [id number] | | - [id number]: Qty: 1 | | | INCORPORATE | | | / | | on 03/04/2018 by Philippe, | | | D | | | /[id number] | | Bhanu Land DO | | | | | | 34 | + +------+--------+ +--------+--------+--------+ Results Not on filefrom Last 3 Months Advance Directives + + + + + | Type | Date Recorded | Patient | Explanation | | | | Executive Wellness Programs Director | | + + + + + | Power of | | | | | Resident Associate | | | | + + + + +
--- OUTSIDE RECORDS SUMMARY | ~2019-11-05 | XMS | Encounter Summary ---
Demographics + + + | Address | [address] | | | [place] [address] | + + + | Home Phone | | + + + | Preferred Language | Unknown | + + + | Marital Status | Single | + + + | Gnosticism Affiliation | 1013 | + + + [...] [place] | | | | | [address] | | + + + + + Care Team Providers + +------+ + | Care Developmental Electronics Assembler Name | Role | Phone | + +------+ + | Robert Young MD | PCP | | + +------+ + Encounter Details +--------+ + + + + | Date | Type | Department | Care Team | Description | +--------+ + + + + | 02/06/ | Hospital | [facility] | Samanta Souza | | | 2013 | Encounter | MED CTR EMERGENCY | Lindsay García MD [address] | | | | | [place] [address] | [facility] | | | | | [place], [place] | [place] [address] | | | | | [address] | [phone] | | | | | [phone] | | | +--------+ + + + [...] [address] | | [facility] | | | [place] | | | [facility] | | [...] + | [facility] | [address] | [place], [place] | [phone] | | [facility] | | [address] | | | - LABORATORY | | | | + + + + + | [facility] | [address] | [place] | | | [facility] | | [address] | | | - LABORATORY | | [...] - 1.030 | [facility] | | | [place] | | | [facility] | | [...] [address] | [place] | [phone] | | [facility] | | [address] | | | - LABORATORY | | | | + + + + + | [facility] | [address] | [place] | | | [facility] | | [address] | | | - LABORATORY | | | | + + + + + documented in this encounter Visit Diagnoses Not on filedocumented in this encounter"
--- OUTSIDE RECORDS SUMMARY | ~2019-11-05 | XMS | Encounter Summary ---
Demographics + + + | Address | [address] | | | [place] [address] | + + + | Home Phone | | + + + | Preferred Language | Unknown | + + + | Marital Status | Single | + + + | Confucianism Affiliation | 1013 | + + + | Race | Unknown | + + + | Ethnic Group | Unknown | + + + Author + + + | Author | [facility] | | | and [place] | + + + | Organization | [facility] | | | [...] [place], [place] | | | | | [address] | | + + + + + Care Team Providers + +------+ + | Care Hosiery Pairer Name | Role | Phone | + +------+ + | Haim Carbajal DO | PCP | | + +------+ + Encounter Details +--------+ + + + + | Date | Type | Department | Care Team | Description | +--------+ + + + + | 03/04/ | Hospital | [facility] | Bhanu Paez, | Ureterolithiasis | | 2018 | Encounter | [facility] | DO [address] | | | | | [address] | [place] [address] | | | | | [place], [place] | [phone] | | | | | [address] | | | | | | [phone] | | | +--------+ + + + [...] 03/04/181511 Date of Service: 03/04/181510 Status: Signed Anesthesia Technician: Janett Vides RN (Registered Nurse) Discharge instructions given to pt and family. Stated understanding. Pt is to remove sten t at home on Saturday. Electronically signed by [facility] Transaction, Provider at 06/23/2019 10:42 PM PDTConver shantel Transaction, Provider Unknown - 03/04/2018 2:48 PM PDT Nurse Progress Note by Janett Vides RN at 03/04/18 144 Author: Janett Vides RN Service: General Surgery Author Type: Registered Nurse Filed: 03/04/18 1448 Date of Service: 03/04/181447 Status: Signed Anesthesia Technician: Janett Vides RN (Registered Nurse) Ambulated to bathroom and was able to void Electronically signed by [facility], Provider at 06/23/2019 10:41 PM [...] preparation was | | | performed by [employer], [facility], [address] | | | [place] [address] (Social Media Designer: Bradley | | | Miri German; IA#: [id number]). Diagnostician: Yue De Jesus MD | | [...] Natty | | | | | | at:[phone]. | | | | | | | [...] | | | | | | [place] [address] | | | | + + + [...]
--- OUTSIDE RECORDS SUMMARY | ~2019-11-05 | XMS | Encounter Summary ---
Demographics + + + | Address | [address] | | | [place] [address] | + + + | Home Phone [...] + + + | Author | [facility] | | | and [place] | + + + | Organization | [facility] | | [...] [place], [place] | | | | | [address] | | + + + + + Care Team Providers + +------+ + | Care Tube Turner Name | Role | Phone | + [...] Provider Unknown | | | | | [place], [place] | [phone] | | | | | [address] | | | | | | [phone] | | | +--------+ + + + [...]
--- OUTSIDE RECORDS SUMMARY | ~2019-11-05 | XMS | Encounter Summary ---
Demographics + + + | Address | [address] | | | [place] [address] | + + + | Home Phone | | + + + | Preferred Language | Unknown | + + + | Marital Status | Single | + + + | Anabaptist Affiliation | 1013 | + + + | Race | Unknown | + + + | Ethnic Group | Unknown | + + + Author + + + | Author | [facility] | | | and [place] | + + + | Organization | [facility] | | | [...] [place], [place] | | | | | [address] | | + + + + + Care Team Providers + +------+ + | Care Card Assembler Name | Role | Phone | + +------+ + | Haim Carbajal DO | PCP | | + +------+ + Encounter Details +--------+ + + + + | Date | Type | Department | Care Team | Description | +--------+ + + + + | 02/21/ | Hospital | [facility] | Angelo Mercado MD | Nephrolithiasis | | 2018 - | Encounter | [facility] [address] | [address] | | | | | [address] | [address] [place], | | | 02/23/ | | [place], [place] | [place] [address] | | | 2017 | | [address] | [phone] | | | | | [phone] | | | +--------+ + + + [...] 1223 Date of Service: 02/23/18717 Status: Attested Clinical Trials Assistant: BOO BondR3 (Resident-Y3) Cosigner: Salvatore Sanchez MD [...] Dodie Pillai AGE/SEX: 27 y.o. female ROOM: [facility]/435-1 PCP: Javi Rayo : 1990 Date [...] pain and nausea. She was transferred t [facility] for more definitive management of her [...] Fatigue Follow up: Javi Rayo MD [address] [place] [address] In 1 week Bhanu Paez, DO [address] [facility] [address] On 03/04/2018 Left Ureteroscopy for stone removal Trevor Gore MD [address] [facility] [place] [address] In 1 week Medication List START taking [...] (none) Author Type: Registered Nurse Filed: 02/22/18 1414 Date of Service: 02/22/181413 Status: Signed Clinical Trials Assistant: Cary Marce Javi, RN (Registered Nurse) Report given to CIRO Hay. onver shantel Flowers, Provider Unknown - 02/22/2018 12:37 PM PDT Case Management by Jani Menjivar MS, MACHINE SHOP WORKER at 02/22/18 1237 Author: Jani Menjivar MS MACHINE SHOP WORKER Service: (none) Author Type: Lace Sewer Filed: 02/22/18 1239 Date of Service: 02/22/18 1237 Status: Signed Clinical Trials Assistant: Jani Menjivar MS MACHINE SHOP WORKER (Lace Sewer) 02/22/18 1236 Discharge Planning Evaluation Admitting Diagnosis metabolic acidosis Readmission No Living Arrangements Parent Support Systems Parent Type of Residence Private residence Independent with ADL's Yes Independent with Mobility Yes Home Care Services No Caregiver after Discharge No Mental Status Oriented;Other (comment) (pt with medication causing fatique) Prior functional status baseline independent and drives Power of Diamond Saw Operator No Anticipated Discharge Plan Post Acute Care [...] Patient's PCP is: Javi Rayo Patient's insurance: [place] Medicaid Coverage concerns: none Medication coverage/concerns:none Community [...] Service: Hospitalist Author Type: Resident-Y1 Filed: 02/22/18 7991 Date of Service: 02/22/18 1236 Status: Attested Clinical Trials Assistant: Young Talbot MD-R2 (Resident-Y2) Cosigner: Salvatore Sanchez [...] acidosis has significantly improved. SALVATORE SANCHEZ MD [facility] Service: Hospitalist Progress Note Hospital Day: [...] hours. No results for input(s): PHART, PO2ART, EJM2WLA, E2UGTOUQ, BEART in the last 168 hours. No [...] dictated by nephrology Social: Patient has a hlg-kwra-edo special needs daughter at home who is [...] 02/22/18799 Date of Service: 02/22/18750 Status: Signed Clinical Trials Assistant: Bhanu Paez DO (Physician) [facility] Service: Urology Progress Note Hospital Day: [...] 172 Date of Service: 02/21/181720 Status: Signed Clinical Trials Assistant: Bhanu Paez DO (Physician) [facility] Service: Urology Progress Note Hospital Day: [...] (none) Author Type: Registered Nurse Filed: 02/21/18 4240 Date of Service: 02/21/181429 Status: Signed Clinical Trials Assistant: Veena Ziegler RN (Registered Nurse) Rn notified that pt found by security, pt had tried to go downstairs to smoke. Prior to her leaving the floor, I had checked on her numerous times. She had been groggy and lethargic f rom the medications given at [facility]. I explained to her the need [...] | | | Basophils | performed at [facility], [address] | [address] | LAB | | | | [address], | | | | | | [place] [address] | | | | + + + [...] | | | | | | at [facility], [address] | | | | | | [address], | | | | | | [place] [address] | | | | + + + [...] | | | | | performed at [facility], [address] | | | | | | [facility], | | | | | | [place] [address] | | | | + + + [...] | | | | | with both [place]-3 and | | | | | | [...] [place], | | | | | | [facility] [address] | | | | + + + [...] | | | Basophils | performed at [facility], [address] | [address]/u[address] | LAB | | | | [address], | | | | | | [place] [address] | | | | + + + [...] | | | | | [place] [address] | | | | + + + [...] EXTERNAL | | | | performed at [facility], [address] | | LAB | | | | [address], | | | | | | [place] [address] | | | | + + + [...] | | | | | | at [facility], [address] | | | | | | [address], | | | | | | [place] [address] | | | | + + + [...] | | | Random | performed at [facility], [address] | | | | | [address], | | | | | | [place] [address] | | | | + + + [...] LAB | | | | performed at [facility], [address] | | | | | [address], | | | | | | [place] [address] | | | | + + + [...] LAB | | | | performed at [facility], [address] | | | | | | [address], | | | | | | [place] [address] | | | | + + + [...] | | | | | | [place], [facility] | | | | | | [place] | | | | | | [address] | | | | + + + [...] | | | | | [place] [address] | | | | + + + [...] | | | | | performed at [facility], [address] | | | | | | [address], | | | | | | [place] [address] | | | | + + + [...] | | | | | | [place] [address] | | | | + + + [...] EXTERNAL | | | | performed at [facility], [address] | | LAB | | | | [address], | | | | | | [place] [address] | | | | + + + [...] EXTERNAL | | | | performed at [facility], [address] | | LAB | | | | [address], | | | | | | [place] [address] | | | | + + + [...]
--- OUTSIDE RECORDS SUMMARY | ~2019-11-05 | XMS | Encounter Summary ---
Demographics + + + | Address | [address] | | | [place] [address] | + + + | Home Phone | | + + + | Preferred Language | Unknown | + + + | Marital Status | Single | + + + | Hinduism Affiliation | 1013 | + + + | Race | Unknown | + + + | Ethnic Group | Unknown | + + + Author + + + | Author | [facility] | | | and [place] | + + + | Organization | [facility] | | [...] [place] | | | | | [address] | | + + + + + Care Team Providers + +------+ + | Care Supervisor Capacitor Processing Name | Role | Phone | + [...] | | 2017 | Encounter | [facility] | [address] | | | | | MED[address] | [place], [place] | | | | | [address] [place], | [address] | | | | | [place] [address] | [phone] | | | | | [phone] | | | +--------+ + + + [...]
--- OUTSIDE RECORDS SUMMARY | ~2019-11-05 | XMS | Clinical Summary ---
Demographics + + + | Address | [address] | | | [place] [address] | + + + | Home Phone | | + + + | Preferred Language | Unknown | + + + | Marital Status | Single | + + + | Adventism Affiliation | PRO | + + + [...] | | | | | [place] [address] | | + + + + + Care Team Providers + +------+ + | Care Inspector Purchased Parts Name | Role | Phone | + +------+ + PCP | Unavailable | + +------+ + Source Comments STEPHANIE is fully live on both [facility] Ambulatory and [facility] InPatient.[facility] Allergies Not on File Medications Not on [...]
--- OUTSIDE RECORDS SUMMARY | ~2019-11-05 | XMS | Encounter Summary ---
Demographics + + + | Address | [address] | | | [place] [address] | + + + | Home Phone [...] + + + | Author | [facility] | | | and [place] | + + + | Organization | [facility] | | [...] [place], [place] | | | | | [address] | | + + + + + Care Team Providers + +------+ + | Care Swatch Paster Name | Role | Phone | + +------+ + PCP | Unavailable | + +------+ + Encounter Details +--------+ + + + + | Date | Type | Department | Care Team | Description | +--------+ + + + + | 01/08/ | Hospital | [facility] | [place], | | | 2012 | Encounter | [facility] | Good De León MD [address] | | | | | [place] [address] | [place] | | | | | [place], [place] | [place] [address] | | | | | [address] | [phone] | | | | | [phone] | | | +--------+ + + + [...] + | [facility] | [address] | [place] | [phone] | | [facility] | | [address] | | | - LABORATORY | | | | + + + + + | [facility] | [address] | [place] | | | [facility] | | [address] | | | - LABORATORY | | [...] + | [facility] | [address] | [place] | [phone] | | [facility] | | [address] | | | - LABORATORY | | | | + + + + + | [facility] | [address] | [place] | | | [facility] | | [address] | | | - LABORATORY | | [...] 11 | 7 - 18 mg/dL | [place] | | | | | | [facility] | | | | | | [facility]ICAL | | | | | | CENTER - | | | | | | LABORATORY | | + + + + + + | Creatinine | 0.73 | 0.60 - 1.30 | [facility] | | | | | mg/dL | [facility] | | | | | | MEDICAL | | | | | | CENTER - | | | | | | LABORATORY | | + + + + + + | Estimated | >60Comment: For | >60 mL/min/A | [facility] | | | GFR | -Americans, | [...] + | [facility] | [address] | [place] | [phone] | | [facility] | | [address] | | | - LABORATORY | | | | + + + + + | [facility] | [address] | [place] | | | [facility] | | [address] | | | - LABORATORY | | [...] + | [facility] | [address] | [place] | [phone] | | [facility] | | [address] | | | - LABORATORY | | | | + + + + + | [facility] | [address] | [place] | | | [facility] | | [address] | | | - LABORATORY | | [...] + | [facility] | [address] | [place] | [phone] | | [facility] | | [address] | | | - LABORATORY | | | | + + + + + | [facility] | [address] | [place] | | | [facility] | | [address] | | | - LABORATORY | | [...] SERUM/PLASM | | | [facility] | | | A | | | [...] + | [facility] | [address] | [place] | [phone] | | [facility] | | [address] | | | - LABORATORY | | | | + + + + + | [facility] | [address] | [place] | | | [facility] | | [address] | | | - LABORATORY | | [...] - 1.030 | [facility] | | | [place] | | | [facility] | | [...] [address] | [place] | [phone] | | [facility] | | [address] | | | - LABORATORY | | | | + + + + + | [facility] | [address] | [place] | | | [facility] | | [address] | | | - LABORATORY | | [...] | | | Screen, | | | [facility] | | | Urine | | | [...] [address] | [place] | [phone] | | [facility] | | [address] | | | - LABORATORY | | | | + + + + + | [facility] | [address] | [place] | | | [facility] | | [address] | | | - LABORATORY | | | | + + + + + documented in this encounter Visit Diagnoses Not on filedocumented in this encounter"
--- OUTSIDE RECORDS SUMMARY | ~2019-11-05 | XMS | Clinical Summary ---
Demographics + + + | Address | [address] | | | [place] [address] | + + + | Home Phone | | + + + | Preferred Language | Unknown | + + + | Marital Status | Single | + + + | Tenriism Affiliation | PRO | + + + [...] | | | | | [place] [address] | | + + + + + Care Team Providers + +------+ + | Care Supervisor Ditching Name | Role | Phone | + +------+ + PCP | Unavailable | + +------+ + Source Comments SETPHANIE is fully live on both [facility] Ambulatory and [facility] InPatient.[facility] Allergies Not on File Medications Not on [...]
--- OUTSIDE RECORDS SUMMARY | ~2019-11-05 | XMS | Encounter Summary ---
Demographics + + + | Address | [address] | | | [place] [address] | + + + | Home Phone | | + + + | Preferred Language | Unknown | + + + | Marital Status | Single | + + + | Alevism Affiliation | 1013 | + + + | Race | Unknown | + + + | Ethnic Group | Unknown | + + + Author + + + | Author | [facility] | | | and [place] | + + + | Organization | [facility] | | | [...] [place], [place] | | | | | [address] | | + + + + + Care Team Providers + +------+ + | Care Public Health Program Manager Name | Role | Phone | + +------+ + | Robert Young MD | PCP | | + +------+ + Encounter Details +--------+ + + + + | Date | Type | Department | Care Team | Description | +--------+ + + + + | 02/19/ | Hospital | [facility] | Kenneth Monahan DO | Altered mental | | 2012 - | Encounter | [facility] | [address] | status; Psychosis | | | | CLINICAL DECISION | [address] | | | 02/20/ | | [address] | [place] [address] | | | 2012 | | [place], [place] | [phone] | | | | | [address] | | | | | | [phone] | | | +--------+ + + + [...] Date of Service: 02/20/13 1524 Status: Signed Nursing Staffing Coordinator: Sergio Franco MD (Physician) [facility] Service: Hospitalist Discharge Summary Date of Admission: 02/19/2013 Date of Discharge: 02/20/2013, 3 PM Discharge Provider: SERGIO FRANCO MD Treatment Team: Consulting Physician: [facility] Admitting Provider: Kenneth Monahan DO [...] after speaking with her father (lives in [facility]) on the phone. He reports that the patient had been doing well until a couple years ago, when she increased drug use. Recently she has been visiting lots of ER's, mainly in [facility] [place], with drug-seeking behavior, and they have "banned" [...] service was consulted and Dr. Franco from [facility] evaluated the patie nt and recommended inpatient [...] to abstain from recreational drug use. Disposition: [place], the nursing home home Condition: Stable Code Status: Full Code [...] and documentati on of discharge summary. SERGIO FRANOC MD 02/20/2013 documented in this encounter Progress Notes Conversion Transaction, Provider Unknown - 02/20/2013 3:51 PM PDTFormatting of this note m ight be different from the original. Progress Notes by No Dunn RN at 02/20/131550 Author: No Dunn RN Service: (none) Author Type: Registered Nurse Filed: 02/20/131553 Date of Service: 02/20/131550 Status: Signed Nursing Staffing Coordinator: No Dunn RN (Registered Nurse) DC instructions d/w with patient, copies given. Rx bottle (pt's own prior to hospitializat ion) returned to patient with 5 pills in it, one cephalexin, 2 hydrocodone's, and two ciprof loxacin. Pt did not have an IV line to discontinue. Plan for patient to be picked up by [facility] as close to 4:30 P.M. As possible. No new Rx's to give patient--------KPEOTRN 02/20/131552. onver shantel Transaction, Provider Unknown - 02/19/2013 11:16 PM PDT Progress Notes by Kofi Hood RN at 02/19/132315 Author: Kofi Hood RN Service: (none) Author Type: Registered Nurse Filed: 02/19/132317 Date of Service: 02/19/132315 Status: Signed Nursing Staffing Coordinator: Kofi Hood RN (Registered Nurse) Pt states [...] 02/19/131054 Date of Service: 02/19/131054 Status: Signed Nursing Staffing Coordinator: Nithya Angulo RPH (Pharmacist) Renal Dosing Monitoring: [...] 02/19/13822 Date of Service: 02/19/13821 Status: Signed Nursing Staffing Coordinator: Kenneth Monahan DO (Physician) Patient seen/examined. Full note to follow. Patient became angrier and angrier during interview / exam and then finally wanted to leave . Unfortunately she's not making a lot of sense and I fear for her safety. Dr Alexander has ca lled [place] [employer] which is interacting with her [...]
--- OUTSIDE RECORDS SUMMARY | ~2019-11-05 | XMS | Encounter Summary ---
Demographics + + + | Address | [address] | | | [place] [address] | + + + | Home Phone [...] + + + | Author | [facility] | | | and [place] | + + + | Organization | [facility] | | [...] [place], [place] | | | | | [address] | | + + + + + Care Team Providers + +------+ + | Care Enterprise Systems Manager Name | Role | Phone | [...] | | | [address] | [place] [address] | | | | | [place], [place] | [phone] | | | | | [address] | | | | | | [phone] | | | +--------+ + + + [...]
--- OUTSIDE RECORDS SUMMARY | ~2019-11-05 | XMS | Encounter Summary ---
Demographics + + + | Address | [address] | | | [place] [address] | + + + | Home Phone | | + + + | Preferred Language | Unknown | + + + | Marital Status | Single | + + + | Rastafarian Affiliation | 1013 | + + + [...] [place], [place] | | | | | [address] | | + + + + + Care Team Providers + +------+ + | Care Hand Miter Operator Name | Role | Phone | + +------+ + | Robert Young MD | PCP | | + +------+ + Encounter Details +--------+ + + + + | Date | Type | Department | Care Team | Description | +--------+ + + + + | 02/19/ | Hospital | [facility] | Kenneth Monahan DO | Altered mental | | 2012 - | Encounter | [facility] | [address] | status; Psychosis | | | | CLINICAL DECISION | [address] | | | 02/20/ | | [address] | [place] [address] | | | 2012 | | [place], [place] | [phone] | | | | | [address] | | | | | | [phone] | | | +--------+ + + + [...] Date of Service: 02/20/13 1524 Status: Signed Certified Surgical Assistant: Sergio Franco MD (Physician) [facility] Service: Hospitalist Discharge Summary Date of Admission: 02/19/2013 Date of Discharge: 02/20/2013, 3 PM Discharge Provider: SERGIO FRANCO MD Treatment Team: Consulting Physician: [facility] Admitting Provider: Kenneth Monahan DO Discharge [...] after speaking with her father (lives in [facility]) on the phone. He reports that the patient had been doing well until a couple years ago, when she increased drug use. Recently she has been visiting lots of ER's, mainly in [facility] [place], with drug-seeking behavior, and they have "banned" [...] service was consulted and Dr. Franco from [facility] evaluated the patie nt and recommended [...] to abstain from recreational drug use. [facility] [place] Condition: Stable Code Status: Full Code [...] 02/20/131553 Date of Service: 02/20/131550 Status: Signed Certified Surgical Assistant: No Dunn RN (Registered Nurse) DC instructions d/w with patient, copies given. Rx bottle (pt's own prior to hospitializat ion) returned to patient with 5 pills in it, one cephalexin, 2 hydrocodone's, and two ciprof loxacin. Pt did not have an IV line to discontinue. Plan for patient to be picked up by [facility] [employer] [facility] as close to 4:30 P.M. As possible. No new Rx's to give patient--------KPEOTRN 02/20/131552. onver shantel Transaction, Provider Unknown - 02/19/2013 11:16 PM PDT Progress Notes by Kofi Hood RN at 02/19/132315 Author: Kofi Hood RN Service: (none) Author Type: Registered Nurse Filed: 02/19/132317 Date of Service: 02/19/132315 Status: Signed Certified Surgical Assistant: Kofi Hood RN (Registered Nurse) Pt states [...] 02/19/131054 Date of Service: 02/19/131054 Status: Signed Certified Surgical Assistant: Nithya Angulo RPH (Pharmacist) Renal Dosing Monitoring: [...] 02/19/13822 Date of Service: 02/19/13821 Status: Signed Certified Surgical Assistant: Kenneth Monahan DO (Physician) Patient seen/examined. Full note to follow. Patient became angrier and angrier during interview / exam and then finally wanted to leave . Unfortunately she's not making a lot of sense and I fear for her safety. Dr Alexander has ca lled [place] [employer] which is interacting with her [...]
--- OUTSIDE RECORDS SUMMARY | ~2019-11-05 | XMS | Encounter Summary ---
Demographics + + + | Address | [address] | | | [place] [address] | + + + | Home Phone | | + + + | Preferred Language | Unknown | + + + | Marital Status | Single | + + + | Mormonism Affiliation | 1013 | + + + | Race | Unknown | + + + | Ethnic Group | Unknown | + + + Author + + + | Author | [facility] | | | and [place] | + + + | Organization | [facility] [...] [address] | | | | | [address] [place] | | | | | [address] | | + + + + + Care Team Providers + +------+ + | Care Nurse Private Duty Name | Role | Phone | + [...] | | 2017 | Encounter | [facility] | [address] [place] | | | | | [address] | [place], [place] | | | | [address] [place], | [address] | | | | | [place] [address] | [phone] | | | | | [phone] | | | +--------+ + + + [...]
--- OUTSIDE RECORDS SUMMARY | ~2019-11-05 | XMS | Encounter Summary ---
Demographics + + + | Address | [address] | | | [place] [address] | + + + | Home Phone | | + + + | Preferred Language | Unknown | + + + | Marital Status | Single | + + + | Methodist Affiliation | 1013 | + + + [...] [place], [place] | | | | | [address] | | + + + + + Care Team Providers + +------+ + | Care Motion Picture Printer Name | Role | Phone | + [...] Provider Unknown | | | | | [place], [place] | [phone] | | | | | [address] | | | | | | [phone] | | | +--------+ + + + [...]
--- OUTSIDE RECORDS SUMMARY | ~2019-11-05 | XMS | Encounter Summary ---
Demographics + + + | Address | [address] | | | [place] [address] | + + + | Home Phone [...] [place], [place] | | | | | [address] | | + + + + + Care Team Providers + +------+ + | Care Conduit Worker Name | Role | Phone | + +------+ + | Hami Carbajal DO | PCP | | + +------+ + Encounter Details +--------+ + + + + | Date | Type | Department | Care Team | Description | +--------+ + + + + | 02/21/ | Hospital | [facility] | Conversion | Abdominal pain, | | 2018 | Encounter | [address] | Transaction, | unspecified | | | | [address] | Provider Unknown | abdominal location | | | | [place], [place] | [phone] | | | | | [address] | | | | | | [phone] | | | +--------+ + + + [...]
[~2019-11-05 12:50] MED LIST changes: +GABAPENTIN100 MG PO
--- OUTSIDE RECORDS SUMMARY | 2019-11-05 12:52 | XMS ---
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. Additional care guidelines exist for the following facilities: Located Within [facility] ( 04/11/2015 ) Care History Medical/Surgical 04/10/2019 [facility] - [facility] CASE MANAGEMENT REFERRAL MADE- PATIENT HAS [facility] AND NO PCP. 04/03/2019 [facility] - PATIENT NO SHOWED THE ESTABLISHING CARE APT WITH DR ANDREW ON 08/25/18. NEXT AVAILABILITY TO ESTABLISH CARE WITH DR ANDREW WILL BE 02/24/2020. - PATIENT HAS AN APT WITH DR SIMON ON 04/21/19. 04/04/2018 [facility] - PATIENT HAS AN APT TO ESTABLISH CARE DR ANDREW ON 02/23/19. - W provided [facility] information for PCP. Patient [...] ED please contact Community Health WorkerCrys at [phone]. These are guidelines and the provider should exercise clinical judgment when providing care. E.D. VISIT COUNT (12 MO.) 4 [facility] TOTAL 4 NOTE: Visits indicate total known visits. ED/UCC VISIT TRACKING (12 MO.) 11/05/2019 12:50 [facility] [place] TYPE: Emergency COMPLAINT: - EYE PAIN NON INJURY 04/02/2019 22:08 [facility] [place] TYPE: Emergency COMPLAINT: - POSS KIDNEY STONES DIAGNOSES: - Personal history of urinary calculi - Unspecified abdominal pain - Nicotine dependence, unspecified, uncomplicated 02/12/2019 23:39 [facility] [place] TYPE: Emergency COMPLAINT: - POSS SEIZURE DIAGNOSES: - Otalgia, left ear - Other stimulant abuse with intoxication, unspecified - 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 - Personal history of urinary calculi - Other psychoactive substance abuse, uncomplicated - Nicotine dependence, unspecified, uncomplicated 12/25/2018 14:42 [facility] [place] TYPE: Emergency COMPLAINT: - VOMITING/URINE ISSUES/ABD PAIN DIAGNOSES: - Unspecified abdominal pain - Hydronephrosis with renal and ureteral calculous obstruction - Personal history of urinary calculi - Other fci (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 - Nicotine dependence, cigarettes, uncomplicated INPATIENT VISIT TRACKING (12 MO.) No inpatient visits to display in this time frame [email or web address]
[2019-11-05] MEDS ORDERED: ERYTHROMYCIN1 GM OP (13:40)
== END 2019-11-05 13:55 | disposition home or self-care (01) ==
LOC: ED 12:50
DX: H00.014 Hordeolum externum left upper eyelid (principal); F17.200 Nicotine dependence, unspecified, uncomplicated
CPT/HCPCS: 99283

== ENCOUNTER 2019-11-07 04:32 | Emergency (ER) | payer OTHER ==
[~2019-11-07] VITALS: Ht 167.6 cm; Wt 65.1 kg
--- OUTSIDE RECORDS SUMMARY | ~2019-11-07 | XMS | Encounter Summary ---
Demographics + + + | Address | [address] | | | [place] [address] | + + + | Home Phone | | + + + | Preferred Language | Unknown | + + + | Marital Status | Single | + + + | Yarsani Affiliation | 1013 | + + + | Race | Unknown | + + + | Ethnic Group | Unknown | + + + Author + + + | Author | [facility] | | | and [place] | + + + | Organization | [facility] | | | and [...] [place], [place] | | | | | [address] | | + + + + + Care Team Providers + +------+ + | Care Chief Building Inspector Name | Role | Phone | + +------+ + | Haim Carbajal DO | PCP | | + +------+ + Encounter Details +--------+ + + + + | Date | Type | Department | Care Team | Description | +--------+ + + + + | 03/05/ | Orders Only | [facility] | Conversion | | | 2018 | | CONVERSION [address] | Transaction, | | | | | [address] | Provider Unknown | | | | | [place], [place] | [phone] | | | | | [address] | | | | | | [phone] | | | +--------+ + + + + Social History + +-------+ +--------+------+ | Tobacco Use | Types | Packs/Day | Years | Date | | | | | Used | | + +-------+ +--------+------+ | Current Every Day | | 0.25 | | | | Smoker | | | [...]
--- OUTSIDE RECORDS SUMMARY | ~2019-11-07 | XMS | Encounter Summary ---
Demographics + + + | Address | [address] | | | [place] [address] | + + + | Home Phone | | + + + | Preferred Language | Unknown | + + + | Marital Status | Single | + + + | Christian Affiliation | 1013 | + + + | Race | Unknown | + + + | Ethnic Group | Unknown | + + + Author + + + | Author | [facility] | | | and [place] | + + + | Organization | [facility] | | | [...] [place] | | | | | [address] | | + + + + + Care Team Providers + +------+ + | Care Marine Steam Fitter Helper Name | Role | Phone | + +------+ + | Robert Young MD | PCP | | + +------+ + Encounter Details +--------+ + + + + | Date | Type | Department | Care Team | Description | +--------+ + + + + | 02/06/ | Hospital | [facility] | Samanta Souza | | | 2013 | Encounter | MED CTR EMERGENCY | Lindsay García MD [address] | | | | | [address] | [facility] | | | | | [place], [place] | [place] [address] | | | | | [address] | [phone] | | | | | [phone] | | | +--------+ + + + [...] + +--------+ + + + | URINALYSIS, REFLEX | Routin | 02/06/2013 | | Results for this | | MICROSCOPIC AND/OR | e | 11:52 AM | | procedure are in the | | CULTURE | | PDT | | results section. | + +--------+ + + + | HCG, URINE, QUAL | Routin | 02/06/2013 | | Results for this | | | e | 11:52 AM | | procedure are in the | | | | PDT | | results section. | + +--------+ + + + documented in this encounter Results HCG, Urine, Qual (02/06/2013 11:52 AM PDT) + + + + + + | Component | Value | Ref Range | Performed | Pathologist | | | | | At | Signature | + + + + + + | Preg Test, | NEGATIVEComment: | NEGATIVE | [facility] | | | Ur | @INTERNAL CONTROL OK?: | | [facility] | | | | RED CONTROL LINE | | MEDICAL | | | | APPEARS? YES | | CENTER - | | | | | | LABORATORY | | + + + + + + | Specific | 1.015 | | [facility] | | | [place] | | | [facility] | | [...] | + + + + + | [facility] | [address] | [place], [place] | [phone] | | [facility] | | [address] | | | - LABORATORY | | | | + + + + + | [facility] | [address] | [place] | | | [facility] | | [address] | | | - LABORATORY | | | | + + + + + Urinalysis, Reflex Microscopic and/or Culture (02/06/2013 11:52 AM PDT) + + + + + + | Component | Value | Ref Range | Performed | Pathologist | | | | | At | Signature | + + + + + + | COLLECTION | CL.CATCH | | [facility] | | | [address] | | | [facility] | | | | | | MEDICAL | | | | | | CENTER - | | | | | | LABORATORY | | + + + + + + | Color | LT YELLOW | | [facility] | | | | | | [facility] | | | | | | MEDICAL | | | | | | CENTER - | | | | | | LABORATORY | | + + + + + + | Clarity | CLEAR | | [facility] | | | | | | [facility] | | | | | | MEDICAL | | | | | | CENTER - | | | | | | LABORATORY | | + + + + + + | Glucose, | NEGATIVE | NEGATIVE mg/dL | [facility] | | | Urine | | | [facility] | | | | | | MEDICAL | | | | | | CENTER - | | | | | | LABORATORY | | + + + + + + | Bilirubin, | NEGATIVE | NEGATIVE | [facility] | | | Urine | | | [facility] | | | | | | MEDICAL | | | | | | CENTER - | | | | | | LABORATORY | | + + + + + + | Ketones, | NEGATIVE | NEGATIVE | [facility] | | | Urine | | | [facility] | | | | | | MEDICAL | | | | | | CENTER - | | | | | | LABORATORY | | + + + + + + | Specific | 1.015 | 1.001 - 1.030 | [facility] | | | [place] | | | [facility] | | | | | | MEDICAL | | | | | | CENTER - | | | | | | LABORATORY | | + + + + + + | Blood, | MODERATE | NEGATIVE | [facility] | | | Urine | | | [facility] | | | | | | MEDICAL | | | | | | CENTER - | | | | | | LABORATORY | | + + + + + + | pH, Urine | 7.0 | 5.0 - 8.0 | [facility] | | | | | | [facility] | | | | | | MEDICAL | | | | | | CENTER - | | | | | | LABORATORY | | + + + + + + | Protein, | NEGATIVE | NEGATIVE mg/dL | [facility] | | | Urine | | | [facility] | | | | | | MEDICAL | | | | | | CENTER - | | | | | | LABORATORY | | + + + + + + | Urobilinoge | NORMAL | NORMAL EU/dL | [facility] | | | n, Urine | | | [facility] | | | | | | MEDICAL | | | | | | CENTER - | | | | | | LABORATORY | | + + + + + + | Nitrite, | NEGATIVE | NEGATIVE | [facility] | | | Urine | | | [facility] | | | | | | MEDICAL | | | | | | CENTER - | | | | | | LABORATORY | | + + + + + + | Leukocyte | MODERATE | NEGATIVE | [facility] | | | Esterase, | | | [facility] | | | Urine | | | MEDICAL | | | | | | CENTER - | | | | | | LABORATORY | | + + + + + + | WBC UA | 0-2 | 0 - 1 /hpf | [facility] | | | | | | [facility] | | | | | | MEDICAL | | | | | | CENTER - | | | | | | LABORATORY | | + + + + + + | RBC UA | 5-10 | 0 - 4 /hpf | [facility] | | | | | | [facility] | | | | | | MEDICAL | | | | | | CENTER - | | | | | | LABORATORY | | + + + + + + | SQUAMOUS | FEW | FEW /hps | [facility] | | | EPITHELIAL | | | [facility] | | | UA | | | MEDICAL | | | | | | CENTER - | | | | | | LABORATORY | | + + + + + + | BACTERIA UA | RARE | NONE /hpf | [facility] | | | | | | [facility] | | | | | | MEDICAL | | | | | | CENTER - | | | | | | LABORATORY | | + + + + + + | Culture | NO | | [facility] | | | Indicated | | | [facility] | | | | | | [...] [address] | [place] | [phone] | | [facility] | | [address] | | | - LABORATORY | | | | + + + + + | [facility] [address] | [address] | [place] | | | [facility] | | [address] | | | - LABORATORY | | | | + + + + + documented in this encounter Visit Diagnoses Not on filedocumented in this encounter"
--- OUTSIDE RECORDS SUMMARY | ~2019-11-07 | XMS | Clinical Summary ---
Demographics + + + | Address | [address] | | | [place] [address] | + + + | Home Phone | | + + + | Preferred Language | Unknown | + + + | Marital Status | Single | + + + | Anabaptist Affiliation | PRO | + + + | Race | White | + + + | Ethnic Group | Not or | + + + Author + + + | Author | [facility] | + + + | Organization | [facility] | + + + | Address | Unknown | + + + | Phone | Unavailable | + + + Support + + + + + | Name | Relationship | Address | Phone | + + + + + | Josiah Pillai | ECON | [address] | | | | | [place] [address] | | + + + + + Care Team Providers + +------+ + | Care Product Sales Engineer Name | Role | Phone | + +------+ + PCP | Unavailable | + +------+ + Source Comments STEPHANIE is fully live on both [facility] and [facility] InPatient.[facility] Allergies Not on File Medications Not on file Active Problems Not [...] recent travel history available. | + + Last Filed Vital Signs Not on file Plan of Treatment + + + + + | Health Maintenance | Due Date | Last Done | Comments | + + + + + | Influenza (Flu) | | | | | vaccination (#1) | 9 | | | + + + + + | Pneumococcal | Aged Out | | No longer eligible | | vaccination | | | based on patient's | | | | | age to complete this | | | | | topic | + + + + + Results Not on filefrom Last 3 Months"
--- OUTSIDE RECORDS SUMMARY | ~2019-11-07 | XMS | Encounter Summary ---
Demographics + + + | Address | [address] | | | [place] [address] | + + + | Home Phone | | + + + | Preferred Language | Unknown | + + + | Marital Status | Single | + + + | Sabianist Affiliation | 1013 | + + + | Race | Unknown | + + + | Ethnic Group | Unknown | + + + Author + + + | Author | [facility] | | | and [place] | + + + | Organization | [facility] | | | and [...] [place], [place] | | | | | [address] | | + + + + + Care Team Providers + +------+ + | Care Women'S Studies Lecturer Name | Role | Phone | + [...] Provider Unknown | | | | | [place], [place] | [phone] | | | | | [address] | | | | | | [phone] | | | +--------+ + + + [...]
--- OUTSIDE RECORDS SUMMARY | ~2019-11-07 | XMS | Encounter Summary ---
Demographics + + + | Address | [address] | | | [place] [address] | + + + | Home Phone | | + + + | Preferred Language | Unknown | + + + | Marital Status | Single | + + + | Congregational Affiliation | 1013 | + + + | Race | Unknown | + + + | Ethnic Group | Unknown | + + + Author + + + | Author | [facility] | | | and [place] | + + + | Organization | [facility] | | | [...] [place] | | | | | [address] | | + + + + + Care Team Providers + +------+ + | Care Patient Portal Representative Name | Role | Phone | [...] | | | | [place], [place] | [address] | | | | | [address] | [phone] | | | | | [phone] | | | +--------+ + + + [...]
--- OUTSIDE RECORDS SUMMARY | ~2019-11-07 | XMS | Encounter Summary ---
Demographics + + + | Address | [address] | | | [place] [address] | + + + | Home Phone | | + + + | Preferred Language | Unknown | + + + | Marital Status | Single | + + + | Oriental Orthodox Affiliation | 1013 | + + + | Race | Unknown | + + + | Ethnic Group | Unknown | + + + Author + + + | Author | [facility] | | | and [place] | + + + | Organization | [facility] | | | and [...] [place] | | | | | [address] | | + + + + + Care Team Providers + +------+ + | Care Counselor Marriage And Family Name | Role | Phone | + +------+ + | Robert Young MD | PCP | | + +------+ + Encounter Details +--------+ + + + + | Date | Type | Department | Care Team | Description | +--------+ + + + + | 03/03/ | Hospital | [facility] | Simeon Good | | | 2012 | Encounter | MED CTR EMERGENCY | Arturo Lua MD | | | | | CENTER [address] | [address] | | | | | [place], [place] | [place], [place] | | | | | [address] | [address] | | | | | [phone] | | | | | | | Good Lott | | | | | | MD Genet [address] | | | | | | ST [place], [place] | | | | | | [address] | | | | | | [phone] | | | | | | | [...] Performed At | + + + | [facility] | [place] | | Department [address] [facility] [place] | [facility] | | [ rep [address]] [ rep ct [facility] | | st zip] Signed | - IMAGING | | | | | Patient Name: DESTINY PILLAI Physician: | | | : 1990 Age: 22 Sex: F Unit #: [id number] | | | Exam Date: 03/03/13 Location: ER | | | Report #: [id number] Page: | | | %(RAD)RES..mtdd.print.filter("pg") of %(RAD) | | | RES..mtdd.print.filter("tpg") | | | | | | Accession Number: [id number] | | | SINGLE-VIEW ABDOMEN: 03/03/2013 CLINICAL [...] Transcribed Date/Time: 03/04/2013 08:09 | | | Professor Of Environmental Studies: <<Signature on File>> | | | Wilfredo | | | Lily Kim MD03/04/13 1747 <Electronically signed by Wilfredo Kim | | | > Wilfredo Kim MD 03/04/13 0915 Professor Of Environmental Studies: | | | Afrigator Internet Gdbtxiwbywkcq93/24/13 0809 Good De León | | | MD Oren | | + + + + + + + + | Performing | Address | City/State/Zipcode | Phone Number | | Organization | | | | + + + + + | [facility] | [address] | [place] | [phone] | | [facility] | | [address] | | | - IMAGING | | | | + + + + + XR Chest AP Portable (03/04/2013 7:46 AM PDT) + + | Specimen | + + | | + + + + + | Narrative | Performed At | + + + | [facility] | [place] | | Department [address] [facility] [place] | [facility] | | [ rep ct [address]] [ rep ct [facility] | | st zip] Signed | - IMAGING | | | | | Patient Name: DESTINY PILLAI Physician: | | | ADRIA. : 1990 Age: 22 Sex: F Unit #: [id number] | | | Exam Date: 03/03/13 Location: ER | | | Report #: [id number] Page: | | | %(RAD)RES..mtdd.print.filter("pg") of %(RAD) | | | RES..mtdd.print.filter("tpg") | | | | | | Accession Number: [id number] | | | SINGLE AP CHEST, 03/03/2013 [...] Transcribed | | | Date/Time: 03/04/2013 07:47 Professor Of Environmental Studies: | | | <<Signature on File>> | | | Wilfredo Bautista | | | MD Julio03/04/13 1747 <Electronically signed by Wilfredo Kim MD> | | | Wilfredo Kim MD 03/04/13 0746 Professor Of Environmental Studies: | | | Afrigator Internet Gscjgspgopggz55/24/13 0747 Good Lott, | | | MD | | + + + + + + + + | Performing | Address | City/State/Zipcode | Phone Number | | Organization | | | | + + + + + | [facility] | [address] | [place] | [phone] | | [facility] | | [address] | | | - IMAGING | | [...] + | [facility] | [address] | [place] | [phone] | | [facility] | | [address] | | | - LABORATORY | | | | + + + + + | [facility] | [address] | [place] | | | [facility] | | [address] | | | - LABORATORY | | [...] | | | | | | [facility] | | | | | | MEDICAL [...] [address] | [place] | [phone] | | [facility] | | [address] | | | - LABORATORY | | | | + + + + + | [facility] | [address] | [place] | | | [facility] | | [address] | | | - LABORATORY | | | | + + + + + documented in this encounter Visit Diagnoses Not on filedocumented in this encounter
--- OUTSIDE RECORDS SUMMARY | ~2019-11-07 | XMS | Clinical Summary ---
Demographics + + + | Address | [address] | | | [place] [address] | + + + | Home Phone | | + + + | Preferred Language | Unknown | + + + | Marital Status | Single | + + + | Druze Affiliation | PRO | + + + [...] | | | | | [place] [address] | | + + + + + Care Team Providers + +------+ + | Care Aba Therapist Name | Role | Phone | + +------+ + PCP | Unavailable | + +------+ + Source Comments STEPHANIE is fully live on both [facility] and [facility] InPatient.[facility] Allergies Not on File Medications Not on [...]
--- OUTSIDE RECORDS SUMMARY | ~2019-11-07 | XMS | Encounter Summary ---
Demographics + + + | Address | [address] | | | [place] [address] | + + + | Home Phone | | + + + | Preferred Language | Unknown | + + + | Marital Status | Single | + + + | Amish Affiliation | 1013 | + + + | Race | Unknown | + + + | Ethnic Group | Unknown | + + + Author + + + | Author | [facility] | | | and [place] | + + + | Organization | [facility] | | [...] [place], [place] | | | | | [address] | | + + + + + Care Team Providers + +------+ + | Care Curriculum Advisory Teacher Name | Role | Phone | + [...] | | | | [address] | [place] [address] | | | | | [place], [place] | [phone] | | | | | [address] | | | | | | [phone] | | | +--------+ + + + [...]
--- OUTSIDE RECORDS SUMMARY | ~2019-11-07 | XMS | Encounter Summary ---
Demographics + + + | Address | [address] | | | [place] [address] | + + + | Home Phone | | + + + | Preferred Language | Unknown | + + + | Marital Status | Single | + + + | Denominational Affiliation | 1013 | + + + | Race | Unknown | + + + | Ethnic Group | Unknown | + + + Author + + + | Author | [facility] | | | and [place] | + + + | Organization | [facility] | | | [...] [place], [place] | | | | | [address] | | + + + + + Care Team Providers + +------+ + | Care Operator Receptionist Name | Role | Phone | + +------+ + | Rboert Young MD | PCP | | + +------+ + Encounter Details +--------+ + + + + | Date | Type | Department | Care Team | Description | +--------+ + + + + | 10/20/ | Hospital | [place] [facility] | Jose Angel Espinal | | | 2016 | Encounter | HOSPITAL EMERGENCY | MD [address] | | | | | [place] [address] | [facility] | | | | | DR [place], [place] | [place] [address] | | | | | [address] | [phone] | | | | | [phone] | | | +--------+ + + + [...] - 1.030 | EXTERNAL | | | [place], | | | LAB | | | [...]
--- OUTSIDE RECORDS SUMMARY | ~2019-11-07 | XMS | Encounter Summary ---
Demographics + + + | Address | [address] | | | [place] [address] | + + + | Home Phone | | + + + | Preferred Language | Unknown | + + + | Marital Status | Single | + + + | Mosque Affiliation | 1013 | + + + | Race | Unknown | + + + | Ethnic Group | Unknown | + + + Author + + + | Author | [facility] | | | and [place] | + + + | Organization | [facility] | | | [...] [place] | | | | | [address] | | + + + + + Care Team Providers + +------+ + | Care Brick And Block Mason Name | Role | Phone | + [...] | | 2017 | Encounter | [facility] | [address] [place] | | | | | [facility]ICAL [facility] [address] | [place], [place] | | | | [address] [place], | [address] | | | | | [place] [address] | [phone] | | | | | [phone] | | | +--------+ + + + [...]
--- OUTSIDE RECORDS SUMMARY | ~2019-11-07 | XMS | Encounter Summary ---
Demographics + + + | Address | [address] | | | [place] [address] | + + + | Home Phone | | + + + | Preferred Language | Unknown | + + + | Marital Status | Single | + + + | Synagogue Affiliation | 1013 | + + + [...] [place] | | | | | [address] | | + + + + + Care Team Providers + +------+ + | Care Incendiary Powder Mixer Name | Role | Phone | + +------+ + | Robert Young MD | PCP | | + +------+ + Encounter Details +--------+ + + + + | Date | Type | Department | Care Team | Description | +--------+ + + + + | 01/29/ | Hospital | [facility] | Hero Henok Davison, | | | 2012 | Encounter | MED CTR EMERGENCY | MD [address] | | | | | CENTER [address] | [facility] [place] | | | | | [place], [place] | [place] [address] | | | | | [address] | [phone] | | | | | [phone] | | | +--------+ + + + [...] + | [facility] | [address] | [place], [place] | [phone] | | [facility] | | [address] | | | - LABORATORY | | | | + + + + + | [facility] | [address] | [place], [place] | | | [facility] | | [address] | | | - LABORATORY | | [...] + | [facility] | [address] | [place], [place] | [phone] | | [facility] | | [address] | | | - LABORATORY | | | | + + + + + | [facility] | [address] | [place], [place] | | | [facility] | | [address] | | | - LABORATORY | | | | + + + + + XR Thoracic Spine 2 Vw (01/29/2013 11:45 AM PDT) + + | Specimen | + + | | + + + + + | Narrative | Performed At | + + + | [facility] | [place] | | Department [address] [facility] | [place] | | [ rep ct [address]] [ rep [facility] | | [facility]] Signed | - IMAGING | | | | | Patient Name: DESTINY PILLAI Physician: | | | BROW.01 : 1990 Age: 22 Sex: F Unit #: [id number] | | | Exam Date: 01/29/13 Location: ER | | | Report #: [id number] Page: | | | %(RAD)RES..mtdd.print.filter("pg") of %(RAD) | | | RES..mtdd.print.filter("tpg") | | | | | | Accession Number: [id number] | | | THORACIC SPINE, 01/29/2013 CLINICAL [...] | | | Transcribed Date/Time: 01/29/2013 11:51 Lead Sewage Plant Operator: | | | MARYANNE <<Signature on File>> | | | | | | Fabian Bazzi MD01/29/13 1706 <Electronically signed by | | | Fabian Bazzi MD> Fabian Bazzi MD 01/29/13 | | | 1145 Lead Sewage Plant Operator: Techfoo Mjwpammdmksrk03/21/13 1151 | | | | | + + + + + + + + | Performing | Address | City/State/Zipcode | Phone Number | | Organization | | | | + + + + + | [facility] | [address] | [place] | [phone] | | [facility] | | [address] | | | - IMAGING | | | | + + + + + documented in this encounter Visit Diagnoses Not on filedocumented in this encounter
--- OUTSIDE RECORDS SUMMARY | ~2019-11-07 | XMS | Encounter Summary ---
Demographics + + + | Address | [address] | | | [place] [address] | + + + | Home Phone | | + + + | Preferred Language | Unknown | + + + | Marital Status | Single | + + + | Mormon Affiliation | 1013 | + + + | Race | Unknown | + + + | Ethnic Group | Unknown | + + + Author + + + | Author | [facility] | | | and [place] | + + + | Organization | [facility] | | [...] [place], [place] | | | | | [address] | | + + + + + Care Team Providers + +------+ + | Care Diesel Engine Specialist Name | Role | Phone | + +------+ + | Haim Carbajal DO | PCP | | + +------+ + Encounter Details +--------+ + + + + | Date | Type | Department | Care Team | Description | +--------+ + + + + | 02/21/ | Hospital | [facility] | Angelo Mercado MD | Nephrolithiasis | | 2018 - | Encounter | [facility] [address] | [address] | | | | | [address] | [address] [place], | | | 02/23/ | | [place], [place] | [place] [address] | | | 2017 | | [address] | [phone] | | | | | [phone] | | | +--------+ + + + [...] 1223 Date of Service: 02/23/18717 Status: Attested Stitch Wheeler: BOO BondR3 (Resident-Y3) Cosigner: Salvatore Sanchez MD [...] Dodie Pillai AGE/SEX: 27 y.o. female ROOM: [facility]/435-1 PCP: Javi Rayo : 1990 Date of Admission: 02/21/2018 Date of Discharge: Discharge Provider: Jai Kan MD-R2/Dr. Sanchez Treatment Team: Consulting Physician: Trevor Gore MD Consulting Physician: Bhanu Paez DO Admitting Provider: Angelo Mercado MD Discharge Diagnoses: Principal Problem: Nephrolithiasis Resolved Problems: Renal colic Metabolic acidosis BRIEF HISTORY OF PRESENTATION and HOSPITAL COURSE: This is a 27-year-old female with a past medical history of recurrent nephrolithiasis who p resented to an outside hospital with severe abdominal pain and nausea. She was transferred t [facility] for more definitive management of her nephrolithiasis. [...] Fatigue Follow up: Javi Rayo MD [address] [facility] [place] [address] In 1 week Bhanu Paez, DO [address] [facility] [address] On 03/04/2018 Left Ureteroscopy for stone removal Trevor Gore MD [address] [facility] [place] [address] In 1 week Medication List START taking [...] (none) Author Type: Registered Nurse Filed: 02/22/18 1412 Date of Service: 02/22/181413 Status: Signed Stitch Wheeler: Cary Marce Javi, RN (Registered Nurse) Report given to CIRO Hay. onver shantel Flowers, Provider Unknown - 02/22/2018 12:37 PM PDT Case Management by Jani Menjivar MS, REAL ESTATE LOAN PROCESSOR at 02/22/18 1237 Author: Jani Menjivar MS REAL ESTATE LOAN PROCESSOR Service: (none) Author Type: Mason Apprentice Filed: 02/22/18 1239 Date of Service: 02/22/18 1237 Status: Signed Stitch Wheeler: Jani Menjivar MS REAL ESTATE LOAN PROCESSOR (Mason Apprentice) 02/22/18 1236 Discharge Planning Evaluation Admitting Diagnosis metabolic acidosis Readmission No Living Arrangements Parent Support Systems Parent Type of Residence Private residence Independent with ADL's Yes Independent with Mobility Yes Home Care Services No Caregiver after Discharge No Mental Status Oriented;Other (comment) (pt with medication causing fatique) Prior functional status baseline independent and drives Power of Buyers' Agent No Anticipated Discharge Plan Post Acute Care [...] Patient's PCP is: Javi Rayo Patient's insurance: [place] Medicaid Coverage concerns: none Medication coverage/concerns:none Community [...] Service: Hospitalist Author Type: Resident-Y1 Filed: 02/22/18 9967 Date of Service: 02/22/18 1236 Status: Attested Stitch Wheeler: Young Talbot MD-R2 (Resident-Y2) Cosigner: Salvatore Sanchez [...] acidosis has significantly improved. SALVATORE SANCHEZ MD [facility] Service: Hospitalist Progress Note Hospital Day: LOS: [...] hours. No results for input(s): PHART, PO2ART, EIY9TKT, A8XKNKVE, BEART in the last 168 hours. No [...] dictated by nephrology Social: Patient has a aed-cntp-zgj special needs daughter at home who is [...] 02/22/18799 Date of Service: 02/22/18750 Status: Signed Stitch Wheeler: Bhanu Paez DO (Physician) [facility] Service: Urology Progress Note Hospital Day: LOS: [...] Management options typically include both short and usp strategies. At this time, her obstructive uropathy [...] the need for subsequent repair/remov al. The usp strategies for managing stone disease focus on [...] 172 Date of Service: 02/21/181720 Status: Signed Stitch Wheeler: Bhanu Paez DO (Physician) [facility] Service: Urology Progress Note Hospital Day: LOS: [...] (none) Author Type: Registered Nurse Filed: 02/21/18 7133 Date of Service: 02/21/181429 Status: Signed Stitch Wheeler: Veena Ziegler RN (Registered Nurse) Rn notified that pt found by security, pt had tried to go downstairs to smoke. Prior to her leaving the floor, I had checked on her numerous times. She had been groggy and lethargic f rom the medications given at [facility]. I explained to her the need [...] | | | Basophils | performed at [facility], [address] | [address]/uL | LAB | | | | [address], | | | | | | [place] [address] | | | | + + + [...] | | | | | | at [facility], [address] | | | | | | [address], | | | | | | [place] [address] | | | | + + + [...] | | | | | performed at [facility], [address] | | | | | | [facility], | | | | | | [place] [address] | | | | + + + [...] | | | | | with both MO-3 and | | | | | | [...] [place], | | | | | | [facility] [address] | | | | + + + [...] | | | Basophils | performed at [facility], [address] | K/uL | LAB | | | | [address], | | | | | | [place] [address] | | | | + + + [...] | | | | | [place] [address] | | | | + + + [...] EXTERNAL | | | | performed at [facility], [address] | | LAB | | | | [address], | | | | | | [place] [address] | | | | + + + [...] | | | | | | at [facility], [address] | | | | | | [address], | | | | | | [place] [address] | | | | + + + [...] | | | Random | performed at [facility], [address] | | | | | | [address], | | | | | | [place] [address] | | | | + + + [...] LAB | | | | performed at [facility], [address] | | | | | | [address], | | | | | | [place] [address] | | | | + + + [...] LAB | | | | performed at [facility], [address] | | | | | | [address], | | | | | | [place] [address] | | | | + + + [...] | | | | | | Natty, [facility] | | | | | | [place] | | | | | | [address] | | | | + + + [...] | | | | | [place] [address] | | | | + + + [...] | | | | | performed at [facility], [address] | | | | | | [address], | | | | | | [place] [address] | | | | + + + [...] | | | | | | [place] [address] | | | | + + + [...] EXTERNAL | | | | performed at [facility], [address] | | LAB | | | | [address], | | | | | | [place] [address] | | | | + + + [...] EXTERNAL | | | | performed at [facility], [address] | | LAB | | | | [address], | | | | | | [place] [address] | | | | + + + [...]
--- OUTSIDE RECORDS SUMMARY | ~2019-11-07 | XMS | Encounter Summary ---
Demographics + + + | Address | [address] | | | [place] [address] | + + + | Home Phone | | + + + | Preferred Language | Unknown | + + + | Marital Status | Single | + + + | Jain Affiliation | PRO | + + + | Race | White | + + + | Ethnic Group | Not or | + + + Author + + + | Author | [facility] | + + + | Organization | [facility] | + + + | Address | Unknown | + + + | Phone | Unavailable | + + + Support + + + + + | Name | Relationship | Address | Phone | + + + + + | Ed Pillai | ECON | [address] | | | | | [place] [address] | | + + + + + Care Team Providers + +------+ + | Care Traffic Safety Administrator Name | Role | Phone | + +------+ + PCP | Unavailable | + +------+ + Encounter Details +--------+ + + + + | Date | Type | Department | Care Team | Description | +--------+ + + + + | 09/22/ | Ancillary | [facility] | | | | 2006 | Registratio | Practice [address] | | | | | n | [facility] | | | | | | [place] [address] | | | | | | [phone] | | | +--------+ + + + [...]
--- OUTSIDE RECORDS SUMMARY | ~2019-11-07 | XMS | Clinical Summary ---
Demographics + + + | Address | [address] | | | [place] [address] | + + + | Home Phone | | + + + | Preferred Language | Unknown | + + + | Marital Status | Single | + + + | Pentecostalism Affiliation | 1013 | + + + | Race | Unknown | + + + | Ethnic Group | Unknown | + + + Author + + + | Author | [facility] (Historical as of | | | 06-27-19) | + + + | Organization | [facility] (Historical as of | | | 06-27-19) [...] Team Providers + +------+ + | Care Real Estate Transaction Coordinator Name | Role | Phone | + [...] Left: | AI | | 09/20/ | [id number] | | - [id number]: Qty: 1 | | Ureter | [employer] | | 2019 | / | | on 02/21/2018 by Philippe, | | | - AI | | | /[id number] | | Bhanu Land DO | | | | | | 83 | + +------+--------+ +--------+--------+--------+ | Stent Uret Unvrs Frm 6fr 24cm | | | AI | | | [id number] | | - [id number]: Qty: 1 | | | [employer] | | | / | | on 03/04/2018 by Philippe, | | | - AI | | | /[id number] | | Bhanu Land DO | | [...] +------+-------+ + | MEDICAID | [place]ER | [id number] | | | [address] | | | N | | | | [place] | | | [place] | | | | [address] | | | SUIT ATTENDANT | | | | | + +--------+ [...] | | | [address] | [place] [address] | + +--------+ +--------+ + + | DESTINY PILLAI | Behavi | Self | [birth year] | Home: | [address] | | | oral | | 1989 | +- | [address] | | | Health | | | [address] | [place] [address] | + +--------+ +--------+ + +
--- OUTSIDE RECORDS SUMMARY | ~2019-11-07 | XMS | Encounter Summary ---
Demographics + + + | Address | [address] | | | [place] [address] | + + + | Home Phone | | + + + | Preferred Language | Unknown | + + + | Marital Status | Single | + + + | Shinto Affiliation | 1013 | + + + [...] [place], [place] | | | | | [address] | | + + + + + Care Team Providers + +------+ + | Care Retail Client Solutions Consultant Name | Role | Phone | + +------+ + | Haim Carbajal DO | PCP | | + +------+ + Encounter Details +--------+ + + + + | Date | Type | Department | Care Team | Description | +--------+ + + + + | 03/04/ | Orders Only | [facility] | Conversion | | | 2018 | | CONVERSION DEP [address] | Transaction, | | | | | [address] | Provider Unknown | | | | | [place], [place] | [phone] | | | | | [address] | | | | | | [phone] | | | +--------+ + + + [...]
--- OUTSIDE RECORDS SUMMARY | ~2019-11-07 | XMS | Encounter Summary ---
Demographics + + + | Address | [address] | | | [place] [address] | + + + | Home Phone | | + + + | Preferred Language | Unknown | + + + | Marital Status | Single | + + + | Alevism Affiliation | 1013 | + + + | Race | Unknown | + + + | Ethnic Group | Unknown | + + + Author + + + | Author | [facility] | | | and [place] | + + + | Organization | [facility] | | | [...] [place], [place] | | | | | [address] | | + + + + + Care Team Providers + +------+ + | Care Warehouse Delivery Driver Name | Role | Phone | + +------+ + | Robert Young MD | PCP | | + +------+ + Encounter Details +--------+ + + + + | Date | Type | Department | Care Team | Description | +--------+ + + + + | 02/19/ | Hospital | [facility] | Kenneth Monahan DO | Altered mental | | 2012 - | Encounter | [facility] | [address] | status; Psychosis | | | | CLINICAL DECISION | [address] | | | 02/20/ | | [address] | [place] [address] | | | 2012 | | [place], [place] | [phone] | | | | | [address] | | | | | | [phone] | | | +--------+ + + + [...] Date of Service: 02/20/13 1524 Status: Signed Career Education Teacher: Sergio Franco MD (Physician) [facility] Service: Hospitalist Discharge Summary Date of Admission: 02/19/2013 Date of Discharge: 02/20/2013, 3 PM Discharge Provider: SERGIO FRANCO MD Treatment Team: Consulting Physician: [facility] Admitting Provider: Kenneth Monahan DO Discharge [...] after speaking with her father (lives in [facility]) on the phone. He reports that the patient had been doing well until a couple years ago, when she increased drug use. Recently she has been visiting lots of ER's, mainly in [facility] [place], with drug-seeking behavior, and they have "banned" [...] service was consulted and Dr. Franco from [facility] evaluated the patie nt and recommended inpatient [...] to abstain from recreational drug use. Disposition: [place], the longterm home Condition: Stable Code Status: Full Code [...] 02/20/131553 Date of Service: 02/20/131550 Status: Signed Career Education Teacher: No Dunn RN (Registered Nurse) DC instructions d/w with patient, copies given. Rx bottle (pt's own prior to hospitializat ion) returned to patient with 5 pills in it, one cephalexin, 2 hydrocodone's, and two ciprof loxacin. Pt did not have an IV line to discontinue. Plan for patient to be picked up by [facility] [employer] as close to 4:30 P.M. As possible. No new Rx's to give patient--------KPEOTRN 02/20/131552. onver shantel Transaction, Provider Unknown - 02/19/2013 11:16 PM PDT Progress Notes by oKfi Hood RN at 02/19/132315 Author: Kofi Hood RN Service: (none) Author Type: Registered Nurse Filed: 02/19/132317 Date of Service: 02/19/132315 Status: Signed Career Education Teacher: Kofi Hood RN (Registered Nurse) Pt states [...] 02/19/131054 Date of Service: 02/19/131054 Status: Signed Career Education Teacher: Nithya Angulo RPH (Pharmacist) Renal Dosing Monitoring: [...] 02/19/13822 Date of Service: 02/19/13821 Status: Signed Career Education Teacher: Kenneth Monahan DO (Physician) Patient seen/examined. Full note to follow. Patient became angrier and angrier during interview / exam and then finally wanted to leave . Unfortunately she's not making a lot of sense and I fear for her safety. Dr Alexander has ca lled [place] Police [employer] which is interacting with her [...]
--- OUTSIDE RECORDS SUMMARY | ~2019-11-07 | XMS | Encounter Summary ---
Demographics + + + | Address | [address] | | | [place] [address] | + + + | Home Phone | | + + + | Preferred Language | Unknown | + + + | Marital Status | Single | + + + | Yazidi Affiliation | 1013 | + + + | Race | Unknown | + + + | Ethnic Group | Unknown | + + + Author + + + | Author | [facility] | | | and [place] | + + + | Organization | [facility] | | [...] [place], [place] | | | | | [address] | | + + + + + Care Team Providers + +------+ + | Care Waiter And Cashier Name | Role | Phone | + +------+ + PCP | Unavailable | + +------+ + Encounter Details +--------+ + + + + | Date | Type | Department | Care Team | Description | +--------+ + + + + | 01/08/ | Hospital | [facility] | [place], | | | 2012 | Encounter | [facility] | Good De León MD [address] | | | | | [place] [address] | [place] | | | | | [place], [place] | [place] [address] | | | | | [address] | [phone] | | | | | [phone] | | | +--------+ + + + [...] + | [facility] | [address] | [place] | [phone] | | [facility] | | [address] | | | - LABORATORY | | | | + + + + + | [facility] | [address] | [place] | | | [facility] | | [address] | | | - LABORATORY | | [...] performed on the Adeline | uIU/mL | [facility] | | | | [facility] | [...] + | [facility] | [address] | [place] | [phone] | | [facility] | | [address] | | | - LABORATORY | | | | + + + + + | [facility] | [address] | [place] | | | [facility] | | [address] | | | - LABORATORY | | [...] 11 | 7 - 18 mg/dL | [facility] | | | | | | [facility] | | | | | | MEDICAL | | | | | | CENTER - | | | | | | LABORATORY | | + + + + + + | Creatinine | 0.73 | 0.60 - 1.30 | [facility] | | | | | mg/dL | [facility] | | | | | | MEDICAL | | | | | | CENTER - | | | | | | LABORATORY | | + + + + + + | Estimated | >60Comment: For | >60 mL/min/A | [facility] | | | GFR | [...] + | [facility] | [address] | [place] | [phone] | | [facility] | | [address] | | | - LABORATORY | | | | + + + + + | [facility] | [address] | [place] | | | [facility] | | [address] | | | - LABORATORY | | [...] + | [facility] | [address] | [place] | [phone] | | [facility] | | [address] | | | - LABORATORY | | | | + + + + + | [facility] | [address] | [place] | | | [facility] | | [address] | | | - LABORATORY | | [...] + | [facility] | [address] | [place] | [phone] | | [facility] | | [address] | | | - LABORATORY | | | | + + + + + | [facility] | [address] | [place] | | | [facility] | | [address] | | | - LABORATORY | | [...] | | SERUM/PLASM | | | [facility] | | | A | | | [...] + | [facility] | [address] | [place] | [phone] | | [facility] | | [address] | | | - LABORATORY | | | | + + + + + | [facility] | [address] | [place] | | | [facility] | | [address] | | | - LABORATORY | | [...] + + + + | Color | YELLOW | | [facility] | | [...] - 1.030 | [facility] | | | [place] | | | [facility] | | [...] UA | FEW | NONE /hpf | [facility] | | | | | | [facility] | | | | | | MEDICAL | | | | | | CENTER - | | | | | | LABORATORY | | + + + + + + | Culture | YESComment: REFLEXED TO | | [facility] | | | Indicated | URINE CULTURE. | | . [facility] | | | [...] [address] | [place] | [phone] | | [facility] | | [address] | | | - LABORATORY | | | | + + + + + | [facility] | [address] | [place] | | | [facility] | | [address] | | | - LABORATORY | | [...] | | | Screen, | | | [facility] | | | Urine | | | MEDICAL | | | | | | CENTER - | | | | | | LABORATORY | | + + + + + + | Barbiturate | NEGATIVE | NEGATIVE | [facility] | | | s Screen, | | | [facility] | | | Urine | | | [...] [address] | [place] | [phone] | | [facility] | | [address] | | | - LABORATORY | | | | + + + + + | [facility] | [address] | [place] | | | [facility] | | [address] | | | - LABORATORY | | | | + + + + + documented in this encounter Visit Diagnoses Not on filedocumented in this encounter"
--- OUTSIDE RECORDS SUMMARY | ~2019-11-07 | XMS | Encounter Summary ---
Demographics + + + | Address | [address] | | | [place] [address] | + + + | Home Phone | | + + + | Preferred Language | Unknown | + + + | Marital Status | Single | + + + | Presybeterian Affiliation | 1013 | + + + | Race | Unknown | + + + | Ethnic Group | Unknown | + + + Author + + + | Author | [facility] | | | and [place] | + + + | Organization | [facility] | | | [...] [place], [place] | | | | | [address] | | + + + + + Care Team Providers + +------+ + | Care Human Resources Benefits Coordinator Name | Role | Phone | + +------+ + | Robert Young MD | PCP | | + +------+ + Encounter Details +--------+ + + + + | Date | Type | Department | Care Team | Description | +--------+ + + + + | 02/19/ | Hospital | [facility] | Kenneth Monahan DO | Altered mental | | 2012 - | Encounter | [facility] | [address] | status; Psychosis | | | | CLINICAL DECISION | [address] | | | 02/20/ | | [address] | [place] [address] | | | 2012 | | [place], [place] | [phone] | | | | | [address] | | | | | | [phone] | | | +--------+ + + + [...] Date of Service: 02/20/13 1524 Status: Signed Approver: Sergio Franco MD (Physician) [facility] Service: Hospitalist Discharge Summary Date of Admission: 02/19/2013 Date of Discharge: 02/20/2013, 3 PM Discharge Provider: SERGIO FRANCO MD Treatment Team: Consulting Physician: [facility] Admitting Provider: Kenneth Monahan DO Discharge Diagnoses: [...] after speaking with her father (lives in [facility]) on the phone. He reports that the patient had been doing well until a couple years ago, when she increased drug use. Recently she has been visiting lots of ER's, mainly in [facility] [place], with drug-seeking behavior, and they have "banned" [...] service was consulted and Dr. Franco from [facility] evaluated the patie nt and recommended [...] to abstain from recreational drug use. Disposition: [place], the custodial home Condition: Stable Code Status: Full Code [...] 02/20/131553 Date of Service: 02/20/131550 Status: Signed Approver: No Dunn RN (Registered Nurse) DC instructions d/w with patient, copies given. Rx bottle (pt's own prior to hospitializat ion) returned to patient with 5 pills in it, one cephalexin, 2 hydrocodone's, and two ciprof loxacin. Pt did not have an IV line to discontinue. Plan for patient to be picked up by [employer] as close to 4:30 P.M. As possible. No new Rx's to give patient--------KPEOTRN 02/20/131552. onver shantel Transaction, Provider Unknown - 02/19/2013 11:16 PM PDT Progress Notes by Kofi Hood RN at 02/19/132315 Author: Kofi Hood RN Service: (none) Author Type: Registered Nurse Filed: 02/19/132317 Date of Service: 02/19/132315 Status: Signed Approver: Kofi Hood RN (Registered Nurse) Pt states [...] 02/19/131054 Date of Service: 02/19/131054 Status: Signed Approver: Nithya Angulo RPH (Pharmacist) Renal Dosing Monitoring: [...] 02/19/13822 Date of Service: 02/19/13821 Status: Signed Approver: Kenneth Monahan DO (Physician) Patient seen/examined. Full note to follow. Patient became angrier and angrier during interview / exam and then finally wanted to leave . Unfortunately she's not making a lot of sense and I fear for her safety. Dr Alexander has ca lled [place] Police [employer] which is interacting with her [...]
--- OUTSIDE RECORDS SUMMARY | ~2019-11-07 | XMS | Encounter Summary ---
Demographics + + + | Address | [address] | | | [place] [address] | + + + | Home Phone | | + + + | Preferred Language | Unknown | + + + | Marital Status | Single | + + + | Hindu Affiliation | 1013 | + + + | Race | Unknown | + + + | Ethnic Group | Unknown | + + + Author + + + | Author | [facility] | | | and [place] | + + + | Organization | [facility] | | | [...] [place], [place] | | | | | [address] | | + + + + + Care Team Providers + +------+ + | Care Head Of Loss Prevention Name | Role | Phone | + +------+ + | Haim Carbajal DO | PCP | | + +------+ + Encounter Details +--------+ + + + + | Date | Type | Department | Care Team | Description | +--------+ + + + + | 02/21/ | Hospital | [facility] | Conversion | Abdominal pain, | | 2018 | Encounter | CONVERSION DEP [address] | Transaction, | unspecified | | | | [address] | Provider Unknown | abdominal location | | | | [place], [place] | [phone] | | | | | [address] | | | | | | [phone] | | | +--------+ + + + [...] CT ABDOMEN PELVIS WO | Routin | 02/21/2018 | | Results for this | | CONTRAST | e | 8:47 AM | | procedure are in the | | | | PDT | | results section. | + +--------+ + + + documented in this encounter Results CT Abdomen Pelvis wo Contrast (02/21/2018 8:47 AM PDT) + + | Specimen | + + | | + + + + + | Narrative | Performed At | + + + | This is a non-reportable procedure without a radiologist report and | | | is used for image storage only | | + + + + + | Procedure Note | + + | Amandeep Goodwin - 06/24/2019 7:02 AM PDT This is a non-reportable procedure | | without a radiologist report and isused for image storage only | + + documented in this encounter Visit Diagnoses + + | Diagnosis | + + | Abdominal pain, unspecified abdominal location | + + documented in this encounter"
--- OUTSIDE RECORDS SUMMARY | ~2019-11-07 | XMS | Encounter Summary ---
Demographics + + + | Address | [address] | | | [place] [address] | + + + | Home Phone [...] + + + | Author | [facility] | | | and [place] | + + + | Organization | [facility] | | | [...] [place], [place] | | | | | [address] | | + + + + + Care Team Providers + +------+ + | Care Down Filler Name | Role | Phone | + [...] Provider Unknown | | | | | [place], [place] | [phone] | | | | | [address] | | | | | | [phone] | | | +--------+ + + + [...]
--- OUTSIDE RECORDS SUMMARY | ~2019-11-07 | XMS | Encounter Summary ---
Demographics + + + | Address | [address] | | | [place] [address] | + + + | Home Phone | | + + + | Preferred Language | Unknown | + + + | Marital Status | Single | + + + | Yazidism Affiliation | PRO | + + + | Race | White | + + + | Ethnic Group | Not or | + + + Author + + + | Author | [facility] | + + + | Organization | [facility] | + + + | Address | Unknown | + + + | Phone | Unavailable | + + + Support + + + + + | Name | Relationship | Address | Phone | + + + + + | Ed Pillai | ECON | [address] | | | | | [place] [address] | | + + + + + Care Team Providers + +------+ + | Care Developmental Writing Instructor Name | Role | Phone | + +------+ + PCP | Unavailable | + +------+ + Encounter Details +--------+ + + + + | Date | Type | Department | Care Team | Description | +--------+ + + + + | 09/22/ | Ancillary | [employer] [facility] | | | | 2006 | Registratio | Practice [address] | | | | | n | [facility] | | | | | | [place] [address] | | | | | | [phone] | | | +--------+ + + + [...]
--- OUTSIDE RECORDS SUMMARY | ~2019-11-07 | XMS | Encounter Summary ---
Demographics + + + | Address | [address] | | | [place] [address] | + + + | Home Phone [...] [place] | | | | | [address] | | + + + + + Care Team Providers + +------+ + | Care End User Support Specialist Name | Role | Phone | + +------+ + | Robert Young MD | PCP | | + +------+ + Encounter Details +--------+ + + + + | Date | Type | Department | Care Team | Description | +--------+ + + + + | 03/03/ | Hospital | [facility] | Simeon Good | | | 2012 | Encounter | MED CTR EMERGENCY | Arturo Lua MD | | | | | CENTER [address] | [address] | | | | | [place], [place] | [place], [place] | | | | | [address] | [address] | | | | | [phone] | | | | | | | Good Lott | | | | | | MD Genet [address] | | | | | | ST [place], [place] | | | | | | [address] | | | | | | [phone] | | | | | | | [...] Performed At | + + + | [facility] | [place] | | Department [address] [facility] [place] | [facility] | | [ rep [address]] [ rep ct [facility] | | st zip] Signed | - IMAGING | | | | | Patient Name: DESTINY PILLAI Physician: | | | : 1990 Age: 22 Sex: F Unit #: [id number] | | | Exam Date: 03/03/13 Location: ER | | | Report #: [id number] Page: | | | %(RAD)RES..mtdd.print.filter("pg") of %(RAD) | | | RES..mtdd.print.filter("tpg") | | | | | | Accession Number: [id number] | | | SINGLE-VIEW ABDOMEN: 03/03/2013 CLINICAL [...] Transcribed Date/Time: 03/04/2013 08:09 | | | Tray Checker: <<Signature on File>> | | | Wilfredo | | | Lily Kim MD03/04/13 1747 <Electronically signed by Wilfredo Kim | | | > Wilfredo Kim MD 03/04/13 2546 Tray Checker: | | | [employer] Dmtxxnffvlnmo71/24/13 0809 Good De León | | | MD O[place] | | + + + + + + + + | Performing | Address | City/State/Zipcode | Phone Number | | Organization | | | | + + + + + | [facility] | [address] | [place] | [phone] | | [facility] | | [address] | | | - IMAGING | | | | + + + + + XR Chest AP Portable (03/04/2013 7:46 AM PDT) + + | Specimen | + + | | + + + + + | Narrative | Performed At | + + + | [facility] | [place] | | Department [address] [facility] [place] | [facility] | | [ rep ct street1[address]] [ rep ct [facility] | | st zip] Signed | - IMAGING | | | | | Patient Name: DESTINY PILLAI Physician: | | | ADRIA. : 1990 Age: 22 Sex: F Unit #: [id number] | | | Exam Date: 03/03/13 Location: ER | | | Report #: [id number] Page: | | | %(RAD)RES..mtdd.print.filter("pg") of %(RAD) | | | RES..mtdd.print.filter("tpg") | | | | | | Accession Number: [id number] | | | SINGLE AP CHEST, 03/03/2013 [...] Transcribed | | | Date/Time: 03/04/2013 07:47 Tray Checker: | | | <<Signature on File>> | | | Wilfredo Bautista | | | MD Julio03/04/13 1747 <Electronically signed by Wilfredo Kim MD> | | | Wilfredo Kim MD 03/04/13 0746 Tray Checker: | | | [employer] Ijrssmjtyegbj16/24/13 0747 Good Lott, | | | MD | | + + + + + + + + | Performing | Address | City/State/Zipcode | Phone Number | | Organization | | | | + + + + + | [facility] | [address] | [place] | [phone] | | [facility] | | [address] | | | - IMAGING | | [...] + | [facility] | [address] | [place] | [phone] | | [facility] | | [address] | | | - LABORATORY | | | | + + + + + | [facility] | [address] | [place] | | | [facility] | | [address] | | | - LABORATORY | | [...] | | | | | | [facility] | | | | | | [...] [address] | [place] | [phone] | | [facility] | | [address] | | | - LABORATORY | | | | + + + + + | [facility] | [address] | [place] | | | [facility] | | [address] | | | - LABORATORY | | | | + + + + + documented in this encounter Visit Diagnoses Not on filedocumented in this encounter
--- OUTSIDE RECORDS SUMMARY | ~2019-11-07 | XMS | Encounter Summary ---
Demographics + + + | Address | [address] | | | [place] [address] | + + + | Home Phone | | + + + | Preferred Language | Unknown | + + + | Marital Status | Single | + + + | Scientologist Affiliation | 1013 | + + + [...] [place] | | | | | [address] | | + + + + + Care Team Providers + +------+ + | Care Computer Meteorologist Name | Role | Phone | + +------+ + | Robert Young MD | PCP | | + +------+ + Encounter Details +--------+ + + + + | Date | Type | Department | Care Team | Description | +--------+ + + + + | 01/29/ | Hospital | [facility] | Hero Henok Davison, | | | 2012 | Encounter | MED CTR EMERGENCY | MD [address] | | | | | CENTER [address] | [facility] [place] | | | | | [place], [place] | [place] [address] | | | | | [address] | [phone] | | | | | [phone] | | | +--------+ + + + [...] + | [facility] | [address] | [place], [place] | [phone] | | [facility] | | [address] | | | - LABORATORY | | | | + + + + + | [facility] | [address] | [place], [place] | | | [facility] | | [address] | | | - LABORATORY | | [...] + | [facility] | [address] | [place], [place] | [phone] | | [facility] | | [address] | | | - LABORATORY | | | | + + + + + | [facility] | [address] | [place], [place] | | | [facility] | | [address] | | | - LABORATORY | | | | + + + + + XR Thoracic Spine 2 Vw (01/29/2013 11:45 AM PDT) + + | Specimen | + + | | + + + + + | Narrative | Performed At | + + + | [facility] | [place] | | Department [facility] | [facility] | | [ rep ct street1[address]] [ rep [facility] | | st [facility]] Signed | - IMAGING | | | | | Patient Name: DESTINY PILLAI Physician: | | | BROW.01 : 1990 Age: 22 Sex: F Unit #: [id number] | | | Exam Date: 01/29/13 Location: ER | | | Report #: [id number] Page: | | | %(RAD)RES..mtdd.print.filter("pg") of %(RAD) | | | RES..mtdd.print.filter("tpg") | | | | | | Accession Number: [id number] | | | THORACIC SPINE, 01/29/2013 CLINICAL [...] | | | Transcribed Date/Time: 01/29/2013 11:51 Landing Signal Officer: | | | MARYANNE <<Signature on File>> | | | | | | Fabian Bazzi MD01/29/13 1706 <Electronically signed by | | | Fabian Bazzi MD> Fabian Bazzi MD 01/29/13 | | | 1145 Landing Signal Officer: Stagee Kyoinqfytxomv38/21/13 1151 | | | | | + + + + + + + + | Performing | Address | City/State/Zipcode | Phone Number | | Organization | | | | + + + + + | [facility] | [address] | [place] | [phone] | | [facility] | | [address] | | | - IMAGING | | | | + + + + + documented in this encounter Visit Diagnoses Not on filedocumented in this encounter
--- OUTSIDE RECORDS SUMMARY | ~2019-11-07 | XMS | Clinical Summary ---
Demographics + + + | Address | [address] | | | [place] [address] | + + + | Home Phone | | + + + | Preferred Language | Unknown | + + + | Marital Status | Single | + + + | Pentecostalism Affiliation | 1013 | + + + | Race | Unknown | + + + | Ethnic Group | Unknown | + + + Author + + + | Author | [facility] [employer] (Historical as of | | | 06-27-19) | + + + | Organization | [facility] (Historical as of | | | 06-27-19) [...] Team Providers + +------+ + | Care Motor Scooter Repairer Name | Role | Phone | [...] Left: | AI | | 09/20/ | [id number] | | - [id number]: Qty: 1 | | Ureter | [employer] | | 2019 | / | | on 02/21/2018 by Philippe, | | | - AI | | | /[id number] | | Bhanu Land DO | | | | | | 83 | + +------+--------+ +--------+--------+--------+ | Stent Uret Unvrs Frm 6fr 24cm | | | AI | | | [id number] | | - [id number]: Qty: 1 | | | [employer] | | | / | | on 03/04/2018 by Philippe, | | | - AI | | | /[id number] | | Bhanu Land DO | | [...] +------+-------+ + | MEDICAID | [place] | [id number] | | | [address] | | | N | | | | [place] | | | [place] | | | | [address] | | | OIL HEATER OPERATOR | | | | | + +--------+ [...] | | | [address] | [place] [address] | + +--------+ +--------+ + + | DESTINY PILLAI | Behavi | Self | [birth year] | Home: | [address] | | | oral | | 1989 | +- | [address] | | | Health | | | [address] | [place] [address] | + +--------+ +--------+ + +
--- OUTSIDE RECORDS SUMMARY | ~2019-11-07 | XMS | Encounter Summary ---
Demographics + + + | Address | [address] | | | [place] [address] | + + + | Home Phone | | + + + | Preferred Language | Unknown | + + + | Marital Status | Single | + + + | Restorationist Affiliation | 1013 | + + + | Race | Unknown | + + + | Ethnic Group | Unknown | + + + Author + + + | Author | [facility] | | | and [place] | + + + | Organization | [facility] | | [...] [place], [place] | | | | | [address] | | + + + + + Care Team Providers + +------+ + | Care Real Time Analyst Name | Role | Phone | + +------+ + PCP | Unavailable | + +------+ + Encounter Details +--------+ + + + + | Date | Type | Department | Care Team | Description | +--------+ + + + + | 01/08/ | Hospital | [facility] | Oren, | | | 2012 | Encounter | MED CTR EMERGENCY | Good De León MD [address] | | | | [place] | [address] [place] | | | | | [place], [place] | [place] [address] | | | | | [address] | [phone] | | | | | [phone] | | | +--------+ + + + [...] | | | | | | [facility] | | | | | | MEDICAL [...] + | [facility] | [address] | [place] | [phone] | | [facility] | | [address] | | | - LABORATORY | | | | + + + + + | [facility] | [address] | [place] | | | [facility] | | [address] | | | - LABORATORY | | [...] performed on the Adeline | uIU/mL | [facility] | | | | Brennan Access [...] + | [facility] | [address] | [place] | [phone] | | [facility] | | [address] | | | - LABORATORY | | | | + + + + + | [facility] | [address] | [place] | | | [facility] | | [address] | | | - LABORATORY | | [...] 11 | 7 - 18 mg/dL | [facility] | | | | | | [facility] | | | | | | MEDICAL | | | | | | CENTER - | | | | | | LABORATORY | | + + + + + + | Creatinine | 0.73 | 0.60 - 1.30 | [facility] | | | | | mg/dL | [...] + | [facility] | [address] | [place] | [phone] | | [facility] | | [address] | | | - LABORATORY | | | | + + + + + | [facility] | [address] | [place] | | | [facility] | | [address] | | | - LABORATORY | | [...] + | [facility] | [address] | [place] | [phone] | | [facility] | | [address] | | | - LABORATORY | | | | + + + + + | [facility] | [address] | [place] | | | [facility] | | [address] | | | - LABORATORY | | [...] + | [facility] | [address] | [place] | [phone] | | [facility] | | [address] | | | - LABORATORY | | | | + + + + + | [facility] | [address] | [place] | | | [facility] | | [address] | | | - LABORATORY | | [...] | | SERUM/PLASM | | | [facility] | | | A | [...] + | [facility] | [address] | [place] | [phone] | | [facility] | | [address] | | | - LABORATORY | | | | + + + + + | [facility] | [address] | [place] | | | [facility] | | [address] | | | - LABORATORY | | [...] - 1.030 | [facility] | | | [place] | | | [facility] | | [...] [address] | [place] | [phone] | | [facility] | | [address] | | | - LABORATORY | | | | + + + + + | [facility] | [address] | [place] | | | [facility] | | [address] | | | - LABORATORY | | [...] | | | Screen, | | | [facility] | | | Urine | | | [...] [address] | [place] | [phone] | | [facility] | | [address] | | | - LABORATORY | | | | + + + + + | [facility] | [address] | [place] | | | [facility] | | [address] | | | - LABORATORY | | | | + + + + + documented in this encounter Visit Diagnoses Not on filedocumented in this encounter"
--- OUTSIDE RECORDS SUMMARY | ~2019-11-07 | XMS | Encounter Summary ---
Demographics + + + | Address | [address] | | | [place] [address] | + + + | Home Phone [...] + + + | Author | [facility] | | | and [place] | + + + | Organization | [facility] | | | [...] [place], [place] | | | | | [address] | | + + + + + Care Team Providers + +------+ + | Care Electrician Chief Name | Role | Phone | + [...] | | | | [address] | [place] [address] | | | | | [place], [place] | [phone] | | | | | [address] | | | | | | [phone] | | | +--------+ + + + [...]
--- OUTSIDE RECORDS SUMMARY | ~2019-11-07 | XMS | Encounter Summary ---
Demographics + + + | Address | [address] | | | [place] [address] | + + + | Home Phone | | + + + | Preferred Language | Unknown | + + + | Marital Status | Single | + + + | Cheondoism Affiliation | 1013 | + + + [...] [place] | | | | | [address] | | + + + + + Care Team Providers + +------+ + | Care Senior Hr Generalist Name | Role | Phone | + +------+ + | Robert Young MD | PCP | | + +------+ + Encounter Details +--------+ + + + + | Date | Type | Department | Care Team | Description | +--------+ + + + + | 02/06/ | Hospital | [facility] | Samanta Souza | | | 2013 | Encounter | MED CTR EMERGENCY | Lindsay García MD [address] | | | | | [place] [address] | [facility] | | | | | [place], [place] | [place] [address] | | | | | [address] | [phone] | | | | | [phone] | | | +--------+ + + + [...] 1.015 | | [facility] | | | [place] | | | [facility] | | [...] + | [facility] | [address] | [place], [place] | [phone] | | [facility] | | [address] | | | - LABORATORY | | | | + + + + + | [facility] | [address] | [place] | | | [facility] | | [address] | | | - LABORATORY | | [...] - 1.030 | [facility] | | | [place] | | | [facility] | | [...] [address] | [place] | [phone] | | [facility] | | [address] | | | - LABORATORY | | | | + + + + + | [facility] [address] | [address] | [place] | | | [facility] | | [address] | | | - LABORATORY | | | | + + + + + documented in this encounter Visit Diagnoses Not on filedocumented in this encounter"
--- OUTSIDE RECORDS SUMMARY | ~2019-11-07 | XMS | Encounter Summary ---
Demographics + + + | Address | [address] | | | [place] [address] | + + + | Home Phone | | + + + | Preferred Language | Unknown | + + + | Marital Status | Single | + + + | Sikhism Affiliation | 1013 | + + + | Race | Unknown | + + + | Ethnic Group | Unknown | + + + Author + + + | Author | [facility] | | | and [place] | + + + | Organization | [facility] | | | [...] [place], [place] | | | | | [address] | | + + + + + Care Team Providers + +------+ + | Care Topology Professor Name | Role | Phone | + +------+ + | Haim Carbajal DO | PCP | | + +------+ + Encounter Details +--------+ + + + + | Date | Type | Department | Care Team | Description | +--------+ + + + + | 02/21/ | Hospital | [facility] | Conversion | Abdominal pain, | | 2018 | Encounter | CONVERSION DEP [address] | Transaction, | unspecified | | | | [address] | Provider Unknown | abdominal location | | | | [place], [place] | [phone] | | | | | [address] | | | | | | [phone] | | | +--------+ + + + [...]
--- OUTSIDE RECORDS SUMMARY | ~2019-11-07 | XMS | Encounter Summary ---
Demographics + + + | Address | [address] | | | [place] [address] | + + + | Home Phone | | + + + | Preferred Language | Unknown | + + + | Marital Status | Single | + + + | Baptism Affiliation | 1013 | + + + [...] [place], [place] | | | | | [address] | | + + + + + Care Team Providers + +------+ + | Care Juice Mixer Name | Role | Phone | + +------+ + | Haim Carbajal DO | PCP | | + +------+ + Encounter Details +--------+ + + + + | Date | Type | Department | Care Team | Description | +--------+ + + + + | 03/04/ | Hospital | [facility] | Bhanu Paez, | Ureterolithiasis | | 2018 | Encounter | [facility] | DO [address] | | | | | [address] | [place] [address] | | | | | [place], [place] | [phone] | | | | | [address] | | | | | | [phone] | | | +--------+ + + + [...] 03/04/181511 Date of Service: 03/04/181510 Status: Signed Escrow Officer: Janett Vides RN (Registered Nurse) Discharge instructions [...] 1448 Date of Service: 03/04/181447 Status: Signed Escrow Officer: Janett Vides RN (Registered Nurse) Ambulated to bathroom and was able to void Electronically signed by [facility], Provider at 06/23/2019 10:41 PM PDTdocume nted [...] preparation was | | | performed by [facility], [facility], [address] | | | [place] [address] (Marble And Granite Polisher: Bradley | | | Miri German; [place]#: [id number]). Diagnostician: Yue De Jesus MD | | [...] | | | | | Analysis contact Natyt | | | | | | at:[phone]. | | | | | | | [...] | | | | | | [place] [address] | | | | + + + [...]
--- OUTSIDE RECORDS SUMMARY | ~2019-11-07 | XMS | Encounter Summary ---
Demographics + + + | Address | [address] | | | [place] [address] | + + + | Home Phone | | + + + | Preferred Language | Unknown | + + + | Marital Status | Single | + + + | Buddhist Affiliation | 1013 | + + + | Race | Unknown | + + + | Ethnic Group | Unknown | + + + Author + + + | Author | [facility] | | | and [place] | + + + | Organization | [facility] | | [...] [place], [place] | | | | | [address] | | + + + + + Care Team Providers + +------+ + | Care Grinding Room Inspector Name | Role | Phone | + +------+ + | Haim Carbajal DO | PCP | | + +------+ + Encounter Details +--------+ + + + + | Date | Type | Department | Care Team | Description | +--------+ + + + + | 03/04/ | Hospital | [facility] | Bhanu Paez, | Ureterolithiasis | | 2018 | Encounter | [facility] | DO [address] | | | | | [address] | [place] [address] | | | | | [place], [place] | [phone] | | | | | [address] | | | | | | [phone] | | | +--------+ + + + [...] 03/04/181511 Date of Service: 03/04/181510 Status: Signed Material Handling Equipment Stevedore: Janett Vides RN (Registered Nurse) Discharge instructions [...] 1448 Date of Service: 03/04/181447 Status: Signed Material Handling Equipment Stevedore: Janett Vides RN (Registered Nurse) Ambulated to bathroom and was able to void Electronically signed by [facility], Provider at 06/23/2019 10:41 PM [...] preparation was | | | performed by [employer], [facility], [address] | | | [place] [address] (Community Program Assistant: Bradley | | | Miri German; IA#: [id number]). Diagnostician: Yue De Jesus MD | | [...] Natty | | | | | | at:[phone]. | | | | | | | [...] | | | | | | [place] [address] | | | | + + + [...]
--- OUTSIDE RECORDS SUMMARY | ~2019-11-07 | XMS | Clinical Summary ---
Demographics + + + | Address | [address] | | | [place] [address] | + + + | Home Phone | | + + + | Preferred Language | Unknown | + + + | Marital Status | Single | + + + | Mandaeism Affiliation | 1013 | + + + | Race | Unknown | + + + | Ethnic Group | Unknown | + + + Author + + + | Author | [facility] | | | and [place] | + + + | Organization | [facility] | | | [...] [place], [place] | | | | | [address] | | + + + + + Care Team Providers + +------+ + | Care Tank Operator Name | Role | Phone | [...] | AI CLOUD | | 09/20/ | [id number] | | - [id number]: Qty: 1 | | Ureter | INCORPORATE | | 2020 | / | | on 02/21/2018 by Philippe, | | | D | | | /[id number] | | Bhanu Land DO | | | | | | 81 | + +------+--------+ +--------+--------+--------+ | Stent Uret Unvrs Frm 6fr 24cm | | | AI CLOUD | | | [id number] | | - [id number]: Qty: 1 | | | INCORPORATE | | | / | | on 03/04/2018 by Philippe, | | | D | | | /[id number] | | Bhanu Land DO | | | | | | 32 | + +------+--------+ +--------+--------+--------+ Results Not on filefrom Last 3 Months Advance Directives + + + + + | Type | Date Recorded | Patient | Explanation | | | | Financial Aid Manager | | + + + + + | Power of | | | | | Diamond Polisher | | | | + + + + +
--- OUTSIDE RECORDS SUMMARY | ~2019-11-07 | XMS | Encounter Summary ---
Demographics + + + | Address | [address] | | | [place] [address] | + + + | Home Phone | | + + + | Preferred Language | Unknown | + + + | Marital Status | Single | + + + | Tenriism Affiliation | 1013 | + + + | Race | Unknown | + + + | Ethnic Group | Unknown | + + + Author + + + | Author | [facility] | | | and [place] | + + + | Organization | [facility] | | [...] [place], [place] | | | | | [address] | | + + + + + Care Team Providers + +------+ + | Care High Worker Name | Role | Phone | [...] [address] | | | | | [place] [address] | [facility] | | | | | [address] [place], [place] | [place] [address] | | | | | [address] | [phone] | | | | | [phone] | | | +--------+ + + + [...] - 1.030 | EXTERNAL | | | [place], | | | LAB | | | [...]
--- OUTSIDE RECORDS SUMMARY | ~2019-11-07 | XMS | Encounter Summary ---
Demographics + + + | Address | [address] | | | [place] [address] | + + + | Home Phone | | + + + | Preferred Language | Unknown | + + + | Marital Status | Single | + + + | Yazidism Affiliation | 1013 | + + + | Race | Unknown | + + + | Ethnic Group | Unknown | + + + Author + + + | Author | [facility] | | | and [place] | + + + | Organization | [facility] | | [...] [place] | | | | | [address] | | + + + + + Care Team Providers + +------+ + | Care Sr Community Manager Name | Role | Phone | [...] | 2017 | Encounter | [facility] | [address] | | | | | [facility] [address] | [place], [place] | | | | | [address] [place], | [address] | | | | | [place] [address] | [phone] | | | | | [phone] | | | +--------+ + + + [...]
--- OUTSIDE RECORDS SUMMARY | ~2019-11-07 | XMS | Clinical Summary ---
Demographics + + + | Address | [address] | | | [place] [address] | + + + | Home Phone [...] [place], [place] | | | | | [address] | | + + + + + Care Team Providers + +------+ + | Care Automation Qa Lead Name | Role | Phone | + [...] | AI CLOUD | | 09/20/ | [id number] | | - [id number]: Qty: 1 | | Ureter | INCORPORATE | | 2020 | / | | on 02/21/2018 by Philippe, | | | D | | | /[id number] | | Bhanu Land DO | | | | | | 81 | + +------+--------+ +--------+--------+--------+ | Stent Uret Unvrs Frm 6fr 24cm | | | AI CLOUD | | | [id number] | | - [id number]: Qty: 1 | | | INCORPORATE | | | / | | on 03/04/2018 by Philippe, | | | D | | | /[id number] | | Bhanu Land DO | | | | | | 34 | + +------+--------+ +--------+--------+--------+ Results Not on filefrom Last 3 Months Advance Directives + + + + + | Type | Date Recorded | Patient | Explanation | | | | Employee Relations Consultant | | + + + + + | Power of | | | | | Java Scala Developer | | | | + + + + +
--- OUTSIDE RECORDS SUMMARY | ~2019-11-07 | XMS | Encounter Summary ---
Demographics + + + | Address | [address] | | | [place] [address] | + + + | Home Phone | | + + + | Preferred Language | Unknown | + + + | Marital Status | Single | + + + | Rastafari Affiliation | 1013 | + + + | Race | Unknown | + + + | Ethnic Group | Unknown | + + + Author + + + | Author | [facility] | | | and [place] | + + + | Organization | [facility] | | | [...] [place] | | | | | [address] | | + + + + + Care Team Providers + +------+ + | Care Healthcare Business Analyst Name | Role | Phone | [...] | | | | [place], [place] | [address] | | | | | [address] | [phone] | | | | | [phone] | | | +--------+ + + + [...]
--- OUTSIDE RECORDS SUMMARY | ~2019-11-07 | XMS | Encounter Summary ---
Demographics + + + | Address | [address] | | | [place] [address] | + + + | Home Phone | | + + + | Preferred Language | Unknown | + + + | Marital Status | Single | + + + | Taoism Affiliation | 1013 | + + + | Race | Unknown | + + + | Ethnic Group | Unknown | + + + Author + + + | Author | [facility] | | | and [place] | + + + | Organization | [facility] | | | [...] [place], [place] | | | | | [address] | | + + + + + Care Team Providers + +------+ + | Care Legal Support Specialist Name | Role | Phone | + +------+ + | Haim Carbajal DO | PCP | | + +------+ + Encounter Details +--------+ + + + + | Date | Type | Department | Care Team | Description | +--------+ + + + + | 02/21/ | Hospital | [facility] | Angelo Mercado MD | Nephrolithiasis | | 2018 - | Encounter | [facility] [address] | [address] | | | | | [address] | [address] [place], | | | 02/23/ | | [place], [place] | [place] [address] | | | 2017 | | [address] | [phone] | | | | | [phone] | | | +--------+ + + + [...] 1223 Date of Service: 02/23/18717 Status: Attested Fashion Journalist: BOO BondR3 (Resident-Y3) Cosigner: Salvatore Sanchez MD [...] Dodie Pillai AGE/SEX: 27 y.o. female ROOM: [facility]/435-1 PCP: Javi Rayo : 1990 [...] pain and nausea. She was transferred t [facility] for more definitive management of her nephrolithiasis. [...] Fatigue Follow up: Javi Rayo MD [address] [facility] [place] [address] In 1 week Bhanu Paez, DO [address] [facility] [address] On 03/04/2018 Left Ureteroscopy for stone removal Trevor Gore MD [address] [place] [facility] [place] [address] In 1 week Medication List START taking [...] (none) Author Type: Registered Nurse Filed: 02/22/18 141 Date of Service: 02/22/181413 Status: Signed Fashion Journalist: Cary Marce Javi, RN (Registered Nurse) Report given to CIRO Hay. onver shantel Flowers, Provider Unknown - 02/22/2018 12:37 PM PDT Case Management by Jani Menjivar MS, JOB HAND at 02/22/18 1237 Author: Jani Menjivar MS JOB HAND Service: (none) Author Type: Manager Professional Development Filed: 02/22/18 1239 Date of Service: 02/22/18 1237 Status: Signed Fashion Journalist: Jani Menjivar MS JOB HAND (Manager Professional Development) 02/22/18 1236 Discharge Planning Evaluation Admitting Diagnosis metabolic acidosis Readmission No Living Arrangements Parent Support Systems Parent Type of Residence Private residence Independent with ADL's Yes Independent with Mobility Yes Home Care Services No Caregiver after Discharge No Mental Status Oriented;Other (comment) (pt with medication causing fatique) Prior functional status baseline independent and drives Power of Doctor Of Osteopathy No Anticipated Discharge Plan Post Acute Care [...] Patient's PCP is: Javi Rayo Patient's insurance: [place] Medicaid Coverage concerns: none Medication coverage/concerns:none Community [...] Service: Hospitalist Author Type: Resident-Y1 Filed: 02/22/18 3516 Date of Service: 02/22/18 1236 Status: Attested Fashion Journalist: Young Talbot MD-R2 (Resident-Y2) Cosigner: Salvatore Sanchez [...] acidosis has significantly improved. SALVATORE SANCHEZ MD [facility]: Hospitalist Progress Note Hospital Day: LOS: [...] hours. No results for input(s): PHART, PO2ART, VEC4MAH, A7IJSKSE, BEART in the last 168 hours. No [...] dictated by nephrology Social: Patient has a jtn-dzuz-khe special needs daughter at home who is [...] 02/22/18799 Date of Service: 02/22/18750 Status: Signed Fashion Journalist: Bhanu Paez DO (Physician) [facility]: Urology Progress Note Hospital Day: LOS: [...] 172 Date of Service: 02/21/181720 Status: Signed Fashion Journalist: Bhanu Paez DO (Physician) [facility]: Urology Progress Note Hospital Day: LOS: [...] (none) Author Type: Registered Nurse Filed: 02/21/18 0506 Date of Service: 02/21/181429 Status: Signed Fashion Journalist: Veena Ziegler RN (Registered Nurse) Rn notified that pt found by security, pt had tried to go downstairs to smoke. Prior to her leaving the floor, I had checked on her numerous times. She had been groggy and lethargic f rom the medications given at [facility]. I explained to her the need [...] | | | Basophils | performed at [facility], [address] | LAB | | | | [address], | | | | | | [place] [address] | | | | + + + [...] | | | | | | at [facility], [address] | | | | | | [address], | | | | | | [place] [address] | | | | + + + [...] | | | | | performed at [facility], [address] | | | | | | [facility], | | | | | | [place] [address] | | | | + + + [...] | | | | | with both VT-3 and | | | | | | [...] [place], | | | | | | [facility] [address] | | | | + + + [...] | | | Basophils | performed at [facility], [address] | [address] | LAB | | | | [address], | | | | | | [place] [address] | | | | + + + [...] | | | | | [place] [address] | | | | + + + [...] EXTERNAL | | | | performed at [facility], [address] | | LAB | | | | [address], | | | | | | [place] [address] | | | | + + + [...] | | | | | | at [facility], [address] | | | | | | [address], | | | | | | [place] [address] | | | | + + + [...] | | | Random | performed at [facility], [address] | | | | | [address], | | | | | | [place] [address] | | | | + + + [...] LAB | | | | performed at [facility], [address] | | | | | | [address], | | | | | | [place] [address] | | | | + + + [...] LAB | | | | performed at [facility], [address] | | | | | [address], | | | | | | [place] [address] | | | | + + + [...] | | | | | | [place], [facility] | | | | | | [place] | | | | | | [address] | | | | + + + [...] | | | | | [place] [address] | | | | + + + [...] | | | | | performed at [facility], [address] | | | | | | [address], | | | | | | [place] [address] | | | | + + + [...] | | | | | [place] [address] | | | | + + + [...] EXTERNAL | | | | performed at [facility], [address] | | LAB | | | | [address], | | | | | | [place] [address] | | | | + + + [...] EXTERNAL | | | | performed at [facility], [address] | | LAB | | | | [address], | | | | | | [place] [address] | | | | + + + [...]
[~2019-11-07 04:32] MED LIST changes: +ERYTHROMYCIN1 GM OP
--- OUTSIDE RECORDS SUMMARY | 2019-11-07 04:34 | XMS ---
PreManage Notification: DESTINY DAVID Security Grain Picker Events No recent Security Events currently on file CRITERIA MET - [facility] - Has Care Guidelines - [facility] - 2 Visits in 30 Days CARE PROVIDERS ALFREDA HERNANDEZ Family [facility] Current PHONE: Unknown Melvin Andrew Internal Medicine: Pulmonary Disease 02/13/2019-Current PHONE: Unknown TUNG SIMONctbernard 02/13/2019-Current PHONE: [phone] ALFREDA HERNANDEZ Primary Care Current PHONE: [phone] Guidelines Source: Nasim Crissy Andre Guidelines Date: 04/03/2019 Care Coordination: Mental health services are being provided by Note.\T\nbsp; Please contact Note with mental health concerns.\T\nbsp; [facility]: \T\nbsp; Lyn: [phone]. Additional care guidelines exist for the following facilities: [facility] ( 04/11/2015 ) Care History Medical/Surgical 11/06/[address] [facility] Spoke with patient\T\nbsp;regarding proper\T\nbsp;emergency room use and multiple no shows to clinic appointments.\T\nbsp; Mailed letter with no show policy.\T\nbsp; 04/10/[address] [facility] - [facility] CASE MANAGEMENT REFERRAL MADE- PATIENT HAS [facility] AND NO PCP. 04/03/[address] [facility] - PATIENT NO SHOWED THE ESTABLISHING CARE APT WITH DR ANDREW ON 08/25/18. NEXT AVAILABILITY TO ESTABLISH CARE WITH DR ANDREW WILL BE 02/24/2020. - PATIENT HAS AN APT WITH DR SIMON ON 04/21/19. E.D. VISIT COUNT (12 MO.) 5 [facility]. TOTAL 5 NOTE: Visits indicate total known visits. ED/UCC VISIT TRACKING (12 MO.) 11/07/2019 04:33 [facility] [place] TYPE: Emergency COMPLAINT: - FALL 11/05/2019 12:50 [facility] [place] TYPE: Emergency COMPLAINT: - EYE PAIN NON INJURY 04/02/2019 22:[address] [facility] [place] TYPE: Emergency COMPLAINT: - POSS KIDNEY STONES DIAGNOSES: - Personal history of urinary calculi - Unspecified abdominal pain - Nicotine dependence, unspecified, uncomplicated 02/12/2019 23:[address] [facility] [place] TYPE: Emergency COMPLAINT: - POSS SEIZURE DIAGNOSES: - Otalgia, left ear - Other stimulant abuse with intoxication, unspecified - Other care home (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 - Personal history of urinary calculi - Other psychoactive substance abuse, uncomplicated - Nicotine dependence, unspecified, uncomplicated 12/25/2018 14:[address] [facility] [place] TYPE: Emergency COMPLAINT: - VOMITING/URINE ISSUES/ABD PAIN DIAGNOSES: - Unspecified abdominal pain - Hydronephrosis with renal and ureteral calculous obstruction - Personal history of urinary calculi - Other care home (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 - Nicotine dependence, cigarettes, uncomplicated INPATIENT VISIT TRACKING (12 MO.) No inpatient visits to display in this time frame [email or web address]
[2019-11-07] MEDS ORDERED: BUPROPION HCL100 MG (04:47)
== END 2019-11-07 05:55 | disposition home or self-care (01) ==
LOC: ED 04:32
DX: M79.604 Pain in right leg (principal); M79.605 Pain in left leg; W18.30XA Fall on same level, unspecified, initial encounter; F31.9 Bipolar disorder, unspecified; F17.200 Nicotine dependence, unspecified, uncomplicated; Z79.899 Other long term (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
CPT/HCPCS: 80053; 81001; 85025; 99283; G0480; J7030

== ENCOUNTER 2019-11-17 17:12 | Emergency (ER) | payer OTHER ==
[~2019-11-17] VITALS: Ht 167.6 cm; Wt 54.6 kg
--- OUTSIDE RECORDS SUMMARY | ~2019-11-17 | XMS | Encounter Summary ---
Demographics + + + | Address | [address] | | | [place] [address] | + + + | Home Phone | | + + + | Preferred Language | Unknown | + + + | Marital Status | Single | + + + | Jew Affiliation | PRO | + + + | Race | White | + + + | Ethnic Group | Not or | + + + Author + + + | Author | [facility] | + + + | Organization | [facility] | + + + | Address | Unknown | + + + | Phone | Unavailable | + + + Support + + + + + | Name | Relationship | Address | Phone | + + + + + | Ed Pillai | ECON | [address] | | | | | [place] [address] | | + + + + + Care Team Providers + +------+ + | Care Care Manager Cna Name | Role | Phone | + +------+ + PCP | Unavailable | + +------+ + Encounter Details +--------+ + + + + | Date | Type | Department | Care Team | Description | +--------+ + + + + | 09/22/ | Ancillary | [facility] | | | | 2006 | Registratio | Practice [address] | | | | | n | [facility] | | | | | | [place] [address] | | | | | | [phone] | | | +--------+ + + + [...] Not on filedocumented as of this encounter Visit Diagnoses Not on filedocumented in this encounter"
--- OUTSIDE RECORDS SUMMARY | ~2019-11-17 | XMS | Encounter Summary ---
Demographics + + + | Address | [address] | | | [place] [address] | + + + | Home Phone | | + + + | Preferred Language | Unknown | + + + | Marital Status | Single | + + + | Caodaism Affiliation | 1013 | + + + | Race | Unknown | + + + | Ethnic Group | Unknown | + + + Author + + + | Author | [facility] | | | and [place] | + + + | Organization | [facility] | | | and [...] [place] | | | | | [address] | | + + + + + Care Team Providers + +------+ + | Care Tailor Women'S Garment Alteration Name | Role | Phone | + +------+ + | Robert Young MD | PCP | | + +------+ + Encounter Details +--------+ + + + + | Date | Type | Department | Care Team | Description | +--------+ + + + + | 03/03/ | Hospital | [facility] | Simeon Good | | | 2012 | Encounter | [facility] | Arturo Lua MD | | | | | CENTER [address] | [address] | | | | | [place], [place] | [place], [place] | | | | | [address] | [address] | | | | | [phone] | | | | | | | Good Lott | | | | | | MD Genet [address] | | | | | | ST [place], [place] | | | | | | [address] | | | | | | [phone] | | | | | | | | +--------+ + + + [...] + +--------+ + + + | XR ABDOMEN AP | Routin | 03/04/2013 | | Results for this | | | e | 7:50 AM | | procedure are in the | | | | PDT | | results section. | + +--------+ + + + | XR CHEST AP PORTABLE | Routin | 03/04/2013 | | Results for this | | | e | 7:46 AM | | procedure are in the | | | | PDT | | results section. | + +--------+ + + + | CBC WITH | Routin | 03/03/2013 | | Results for this | | DIFFERENTIAL | e | 7:26 PM | | procedure are in the | | | | PDT | | results section. | + +--------+ + + + | BASIC METABOLIC | Routin | 03/03/2013 | | Results for this | | PANEL | e | 7:26 PM | | procedure are in the | | | | PDT | | results section. | + +--------+ + + + documented in this encounter Results XR Abdomen AP (03/04/2013 7:50 AM PDT) + + | Specimen | + + | | + + + + + | Narrative | Performed At | + + + | [facility] | [place] | | Department [address] [place] | [facility] | | [ rep [address]] [ rep ct [facility] | | st zip] Signed | - IMAGING | | | | | Patient Name: DESTINY PILLAI Physician: | | | : 1990 Age: 22 Sex: F Unit #: [id number] | | | Exam Date: 03/03/13 Location: ER | | | Report #: [id number] Page: | | | %(RAD)RES..mtdd.print.filter("pg") of %(RAD) | | | RES..mtdd.print.filter("tpg") | | | | | | Accession Number: [id number] | | | SINGLE-VIEW ABDOMEN: 03/03/2013 CLINICAL HISTORY: BACK | | | PAIN. COMPARISON: Chest radiograph from the same day. | | | FINDINGS: There is mild to moderate, generalized distention | | | of the colon and rectum with gas and stool. No free air is visible | | | on the supine image provided. A small, rounded, calcific density | | | projects in the vicinity of the left kidney, and additional calcific | | | densities are suggested in the region of the right kidney. A small, | | | rounded calcification is also noted in the lateral left pelvic | | | cavity. A dumbbell shaped metallic density projecting in the midline | | | lower lumbar region favors a navel piercing. A small lollipop shaped | | | metallic density projecting over the left pelvic cavity is | | | concerning for a foreign body within the sigmoid colon. Two round | | | metallic densities projecting over the lateral right iliac wing | | | favor artifact external to the patient. Organ shadows and osseous | | | structures are otherwise unremarkable. IMPRESSION: 1. | | | SMALL CALCIFIC DENSITIES PROJECTING IN THE REGION OF BOTH KIDNEYS, | | | RAISING SUSPICION FOR RENAL CALCULI. A SMALL CALCIFIC DENSITY IN THE | | | LEFT PELVIC CAVITY MAY REFLECT A PHLEBOLITH. CONSIDER FOLLOWUP CT | | | IF FURTHER CHARACTERIZATION IS DESIRED. 2. POTENTIAL | | | FOREIGN BODY IN THE SIGMOID COLON DESCRIBED. CLINICAL CORRELATION | | | ADVISED. 3. MILD TO MODERATE, GENERALIZED DISTENTION OF | | | THE COLON AND RECTUM WITH GAS AND STOOL. Dictated Date/Time: | | | 03/04/2013 07:50 Transcribed Date/Time: 03/04/2013 08:09 | | | Certified Massage Therapist: <<Signature on File>> | | | Wilfredo | | | Lily Kim MD03/04/13 1747 <Electronically signed by Wilfredo Kim | | | > Wilfredo Kim MD 03/04/13 1472 Certified Massage Therapist: | | | Knight Warner Ejujlutwwhbhr61/24/13 0809 Good De León | | | MD Oren | | + + + + + + + + | Performing | Address | City/State/Zipcode | Phone Number | | Organization | | | | + + + + + | [facility] | [address] | [place] | [phone] | | [facility] | | [address] | | | - IMAGING | | | | + + + + + XR Chest AP Portable (03/04/2013 7:46 AM PDT) + + | Specimen | + + | | + + + + + | Narrative | Performed At | + + + | [facility] | [place] | | Department [address] [place] | [facility] | | [ rep ct [address]] [ rep ct [facility] | | st zip] Signed | - IMAGING | | | | | Patient Name: DESTINY PILLAI Physician: | | | ADRIA. : 1990 Age: 22 Sex: F Unit #: [id number] | | | Exam Date: 03/03/13 Location: ER | | | Report #: [id number] Page: | | | %(RAD)RES..mtdd.print.filter("pg") of %(RAD) | | | RES..mtdd.print.filter("tpg") | | | | | | Accession Number: [id number] | | | SINGLE AP CHEST, 03/03/2013 CLINICAL HISTORY: BACK | | | PAIN. COMPARISON: Abdominal radiograph from the same | | | day, thoracic radiographs 01/29/2013. FINDINGS: The | | | cardiomediastinal silhouette and pulmonary vasculature are | | | unremarkable. The lungs are clear, without pneumothorax or visible | | | pleural effusion. Bones and soft tissues are unremarkable. | | | IMPRESSION: NO EVIDENCE OF ACTIVE DISEASE IN THE CHEST. | | | Dictated Date/Time: 03/04/2013 07:46 Transcribed | | | Date/Time: 03/04/2013 07:47 Certified Massage Therapist: | | | <<Signature on File>> | | | Wilfredo Bautista | | | MD Julio03/04/13 1747 <Electronically signed by Wilfredo Kim MD> | | | Wilfredo Kim MD 03/04/13 0746 Certified Massage Therapist: | | | Knight Warner Hpiunvbtvnvdn92/24/13 0747 Good Lott, | | | MD | | + + + + + + + + | Performing | Address | City/State/Zipcode | Phone Number | | Organization | | | | + + + + + | [facility] | [address] | [place] | [phone] | | [facility] | | [address] | | | - IMAGING | | | | + + + + + CBC with Differential (03/03/2013 7:26 PM PDT) + + + + + + | Component | Value | Ref Range | Performed | Pathologist | | | | | At | Signature | + + + + + + | MANUAL | NO | | [facility] | | | L ? | | | MEDICAL | | | | | | CENTER - | | | | | | LABORATORY | | + + + + + + | WBC | 11.2 (H) | 4.0 - 11.0 K/uL | [facility] | | | | | | [facility] | | | | | | MEDICAL | | | | | | CENTER - | | | | | | LABORATORY | | + + + + + + | RBC | 4.22 | 3.70 - 5.20 | [facility] | | | | | M/uL | [facility] | | | | | | MEDICAL | | | | | | CENTER - | | | | | | LABORATORY | | + + + + + + | Hemoglobin | 13.8 | 11.5 - 16.0 | [facility] | | | | | gm/dL | [facility] | | | | | | MEDICAL | | | | | | CENTER - | | | | | | LABORATORY | | + + + + + + | Hematocrit | 41.5 | 34.0 - 47.0 % | [facility] | | | | | | [facility] | | | | | | MEDICAL | | | | | | CENTER - | | | | | | LABORATORY | | + + + + + + | MCV | 98.2 | 83.0 - 101.0 fL | [facility] | | | | | | [facility] | | | | | | MEDICAL | | | | | | CENTER - | | | | | | LABORATORY | | + + + + + + | MCH | 32.7 | 28.0 - 35.0 pg | [facility] | | | | | | [facility] | | | | | | MEDICAL | | | | | | CENTER - | | | | | | LABORATORY | | + + + + + + | MCHC | 33.3 | 32.0 - 36.0 | [facility] | | | | | g/dL | [facility] | | | | | | MEDICAL | | | | | | CENTER - | | | | | | LABORATORY | | + + + + + + | RDW-CV | 13.1 | <15.0 % | [facility] | | | | | | [facility] | | | | | | MEDICAL | | | | | | CENTER - | | | | | | LABORATORY | | + + + + + + | Platelet | 277 | 140 - 440 K/uL | [facility] | | | Count | | | [facility] | | | | | | MEDICAL | | | | | | CENTER - | | | | | | LABORATORY | | + + + + + + | % | 51.6 | 45 - 75 % | [facility] | | | Neutrophils | | | [facility] | | | | | | MEDICAL | | | | | | CENTER - | | | | | | LABORATORY | | + + + + + + | % | 33.6 | 20 - 45 % | [facility] | | | Lymphocytes | | | [facility] | | | | | | MEDICAL | | | | | | CENTER - | | | | | | LABORATORY | | + + + + + + | % Monocytes | 5.2 | 4 - 12 % | [facility] | | | | | | [facility] | | | [facility] | | MEDICAL | | | | | | CENTER - | | | | | | LABORATORY | | + + + + + + | % | 8.2 (H) | 0 - 5 % | [facility] | | | Eosinophils | | | [facility] | | | | | | MEDICAL | | | | | | CENTER - | | | | | | LABORATORY | | + + + + + + | % Basophils | 1.4 (H) | 0 - 1 % | [facility] | | | | | | [facility] | | | | | | MEDICAL | | | | | | CENTER - | | | | | | LABORATORY | | + + + + + + | Absolute | 5.8 | 1.5 - 6.6 K/uL | [facility] | | | Neutrophils | | | [facility] | | | | | | MEDICAL | | | | | | CENTER - | | | | | | LABORATORY | | + + + + + + | Absolute | 3.8 (H) | 0.6 - 3.2 K/uL | [facility] | | | Lymphocytes | | | [facility] | | | | | | MEDICAL | | | | | | CENTER - | | | | | | LABORATORY | | + + + + + + | Absolute | 0.6 | 0.0 - 1.0 K/uL | [facility] | | | Monocytes | | | [facility] | | | | | | MEDICAL | | | | | | CENTER - | | | | | | LABORATORY | | + + + + + + | Absolute | 0.9 (H) | 0.0 - 0.4 K/uL | [facility] | | | Eosinophils | | | [facility] | | | | | | MEDICAL | | | | | | CENTER - | | | | | | LABORATORY | | + + + + + + | Absolute | 0.2 (H) | 0.0 - 0.1 K/uL | [facility] | | | Basophils | | | [facility] | | [...] + | [facility] | [address] | [place] | [phone] | | [facility] | | [address] | | | - LABORATORY | | | | + + + + + | [facility] | [address] | [place] | | | [facility] | | [address] | | | - LABORATORY | | | | + + + + + Basic Metabolic Panel (03/03/2013 7:26 PM PDT) + + + + + + | Component | Value | Ref Range | Performed | Pathologist | | | | | At | Signature | + + + + + + | Glucose | 105 | 70 - 109 mg/dL | [facility] | | | | | | [facility] | | | | | | MEDICAL | | | | | | CENTER - | | | | | | LABORATORY | | + + + + + + | Calcium | 9.1 | 8.3 - 10.5 | [facility] | | | | | mg/dL | [facility] | | | | | | MEDICAL | | | | | | CENTER - | | | | | | LABORATORY | | + + + + + + | BUN | 14 | 7 - 18 mg/dL | [facility] | | | | | | [facility] | | | | | | MEDICAL | | | | | | CENTER - | | | | | | LABORATORY | | + + + + + + | Creatinine | 0.73 | 0.60 - 1.30 | [facility] | | | | | mg/dL | [facility] | | | | | | MEDICAL | | | | | | CENTER - | | | | | | LABORATORY | | + + + + + + | Estimated | >60Comment: For | >60 mL/min/A | [facility] | | | GFR | -Americans, | | [facility] | | | | please multiply the | | MEDICAL | | | | result by 1.210 | | CENTER - | | | | This is an estimated | | LABORATORY | | | | GFR and is based on a | | | | | | standard adult | | | | | | body mass (A=1.73m2) and | | | | | | serum creatinine | | | | + + + + + + | BUN/Creatin | 19.2 | 12 - 20 | [facility] | | | ine Ratio | | | [facility] | | | | | | MEDICAL | | | | | | CENTER - | | | | | | LABORATORY | | + + + + + + | Na | 137 | 136 - 149 mEq/L | [facility] | | | | | | [facility] | | | | | | MEDICAL | | | | | | CENTER - | | | | | | LABORATORY | | + + + + + + | K | 3.5 | 3.5 - 5.1 mEq/l | [facility] | | | | | | [facility] | | | | | | MEDICAL | | | | | | CENTER - | | | | | | LABORATORY | | + + + + + + | Cl | 106 | 98 - 109 mEq/l | [facility] | | | | | | [facility] | | | | | | MEDICAL | | | | | | CENTER - | | | | | | LABORATORY | | + + + + + + | CO2 | 26 | 24 - 31 mEq/L | [facility] | | | | | | [facility] | | | | | | MEDICAL | | | | | | CENTER - | | | | | | LABORATORY | | + + + + + + | Anion Gap | 8.5 | 6.0 - 17.0 | [facility] | | | | | | [facility] | | | | | | MEDICAL [...] | + + + + + | [facility] | [address] | [place] | [phone] | | [facility] | | [address] | | | - LABORATORY | | | | + + + + + | [facility] | [address] | [place] | | | [facility] | | [address] | | | - LABORATORY | | | | + + + + + documented in this encounter Visit Diagnoses Not on filedocumented in this encounter
--- OUTSIDE RECORDS SUMMARY | ~2019-11-17 | XMS | Encounter Summary ---
Demographics + + + | Address | [address] | | | [place] [address] | + + + | Home Phone | | + + + | Preferred Language | Unknown | + + + | Marital Status | Single | + + + | Lutheran Affiliation | 1013 | + + + | Race | Unknown | + + + | Ethnic Group | Unknown | + + + Author + + + | Author | [facility] | | | and [place] | + + + | Organization | [facility] | | | [...] [place] | | | | | [address] | | + + + + + Care Team Providers + +------+ + | Care Home Health Specialist Name | Role | Phone | + +------+ + | Robert Young MD | PCP | | + +------+ + Encounter Details +--------+ + + + + | Date | Type | Department | Care Team | Description | +--------+ + + + + | 02/05/ | Hospital | [place] | [place] nena Haim García, | | | 2017 | Encounter | [facility] | [address] [place] | | | | | MEDICAL [facility] [address] | [place], [place] | | | | | [address] [place], | [address] | | | | | [place] [address] | [phone] | | | | | [phone] | | | +--------+ + + + [...]
--- OUTSIDE RECORDS SUMMARY | ~2019-11-17 | XMS | Encounter Summary ---
Demographics + + + | Address | [address] | | | [place] [address] | + + + | Home Phone | | + + + | Preferred Language | Unknown | + + + | Marital Status | Single | + + + | Yazidism Affiliation | 1013 | + + + | Race | Unknown | + + + | Ethnic Group | Unknown | + + + Author + + + | Author | [facility] | | | and [place] | + + + | Organization | [facility] | | | and [...] [place], [place] | | | | | [address] | | + + + + + Care Team Providers + +------+ + | Care Final Assembly Inspector Name | Role | Phone | + +------+ + | Haim Carbajal DO | PCP | | + +------+ + Encounter Details +--------+ + + + + | Date | Type | Department | Care Team | Description | +--------+ + + + + | 02/23/ | Orders Only | [facility] | Sherman Sanchez MD | | | 2017 | | [facility] | [address] | | | | | [address] | [place] [address] | | | | | [place], [place] | [phone] | | | | | [address] | | | | | | [phone] | | | +--------+ + + + [...]
--- OUTSIDE RECORDS SUMMARY | ~2019-11-17 | XMS | Encounter Summary ---
Demographics + + + | Address | [address] | | | [place] [address] | + + + | Home Phone | | + + + | Preferred Language | Unknown | + + + | Marital Status | Single | + + + | Hindu Affiliation | 1013 | + + + | Race | Unknown | + + + | Ethnic Group | Unknown | + + + Author + + + | Author | [facility] | | | and [place] | + + + | Organization | [facility] | | | and [place] | + + + | Address | Unknown | + + + | Phone | Unavailable | + + + Support + + + + + | Name | Relationship | Address | Phone | + + + + + | Sulema Pillai | ECON | [address] | | | | | [address] | | | | | [address] | | + + + + + Care Team Providers + +------+ + | Care Photo Intern Name | Role | Phone | + +------+ + | Robert Young MD | PCP | | + +------+ + Encounter Details +--------+ + + + + | Date | Type | Department | Care Team | Description | +--------+ + + + + | 02/06/ | Hospital | [facility] | Samanta Souza | | | 2013 | Encounter | MED CTR EM[facility]ENCY | Lindsay García MD [address] | | | | | [place] [address] | [facility] | | | | | [place], [place] | [place] [address] | | | | | [address] | [phone] | | | | | [phone] | | | +--------+ + + + [...] [address] | | [facility] | | | [place] | | | [facility] | | [...] + | [facility] | [address] | [place], [place] | [phone] | | [facility] | | [address] | | | - LABORATORY | | | | + + + + + | [facility] | [address] | [place] | | | [facility] | | [address] | | | - LABORATORY | | [...] + + + + + + | Color, | LT YELLOW | | [facility] | | | Urine | [...] - 1.030 | [facility] | | | [place] | | | [facility] | | [...] + + | [facility] | [address] | [place] | [phone] | | [facility] | | [address] | | | - LABORATORY | | | | + + + + + | [facility] | [address] | [place] | | | [facility] | | [address] | | | - LABORATORY | | | | + + + + + documented in this encounter Visit Diagnoses Not on filedocumented in this encounter"
--- OUTSIDE RECORDS SUMMARY | ~2019-11-17 | XMS | Encounter Summary ---
Demographics + + + | Address | [address] | | | [place] [address] | + + + | Home Phone | | + + + | Preferred Language | Unknown | + + + | Marital Status | Single | + + + | Orthodoxy Affiliation | 1013 | + + + | Race | Unknown | + + + | Ethnic Group | Unknown | + + + Author + + + | Author | [facility] | | | and [place] | + + + | Organization | [facility] | | | [...] [place] | | | | | [address] | | + + + + + Care Team Providers + +------+ + | Care Lever Operator Name | Role | Phone | [...] | | 2017 | Encounter | [facility] | [address] [place] | | | | | MEDICAL CLIN[facility] [address] | [place], [place] | | | | | [address] [place], | [address] | | | | | [place] [address] | [phone] | | | | | [phone] | | | +--------+ + + + [...]
--- OUTSIDE RECORDS SUMMARY | ~2019-11-17 | XMS | Encounter Summary ---
Demographics + + + | Address | [address] | | | [place] [address] | + + + | Home Phone | | + + + | Preferred Language | Unknown | + + + | Marital Status | Single | + + + | Quaker Affiliation | PRO | + + + [...] | | | | | [place] [address] | | + + + + + Care Team Providers + +------+ + | Care Surgical Forceps Fabricator Name | Role | Phone | + +------+ + PCP | Unavailable | + +------+ + Encounter Details +--------+ + + + + | Date | Type | Department | Care Team | Description | +--------+ + + + + | 09/22/ | Ancillary | [facility] | | | | 2006 | Registratio | Practice [address] | | | | | n | [place] | | | | | | [place] [address] | | | | | | [phone] | | | +--------+ + + + [...]
--- OUTSIDE RECORDS SUMMARY | ~2019-11-17 | XMS | Encounter Summary ---
Demographics + + + | Address | [address] | | | [place] [address] | + + + | Home Phone | | + + + | Preferred Language | Unknown | + + + | Marital Status | Single | + + + | Christianity Affiliation | 1013 | + + + | Race | Unknown | + + + | Ethnic Group | Unknown | + + + Author + + + | Author | [facility] | | | and [place] | + + + | Organization | [facility] | | | [...] [place], [place] | | | | | [address] | | + + + + + Care Team Providers + +------+ + | [facility] [place] Name | Role | Phone | + +------+ + | Robert Young MD | PCP | | + +------+ + Encounter Details +--------+ + + + + | Date | Type | Department | Care Team | Description | +--------+ + + + + | 02/19/ | Hospital | [facility] | Kenneth Mnoahan DO | Altered mental | | 2012 - | Encounter | [facility] | [address] | status; Psychosis | | | | CLINICAL DECISION | [address] | | | 02/20/ | | [address] | [place] [address] | | | 2012 | | [place], [place] | [phone] | | | | | [address] | | | | | | [phone] | | | +--------+ + + + [...] + + documented as of this encounter Discharge Summaries Sergio Franco MD - 02/20/2013 3:24 PM PDTFormatting of this note might be differe nt from the original. Discharge Summaries by Sergio Franco MD at 02/20/13 1524 Author: Sergio Franco MD Service: Hospitalist Author Type: Physician Filed: 02/24/138 Date of Service: 02/20/13 1524 Status: Signed Cake Wringer: Sergio Franco MD (Physician) [facility] Service: Hospitalist Discharge Summary Date of Admission: 02/19/2013 Date of Discharge: 02/20/2013, 3 PM Discharge Provider: SERGIO FRANCO MD Treatment Team: Consulting Physician: [facility] Admitting Provider: Kenneth Monahan DO Discharge Diagnoses: Principal Problem: *Altered mental status Active Problems: Psychosis Resolved Problems: * No resolved hospital problems. * Final Diagnoses: Psychosis NOS, AMS Procedures: * No surgery found * Significant Diagnostic Studies: CBC, CMP, CT SCAN BRIEF HISTORY OF PRESENTATION: Dodie Pillai is a 22 y.o. female female brought to ED when she was found at a gas station this morning, confused. In ED she could not give history, was obtunded but would get angry when roused, then go back to sleep. Initial workup (UDS, metabolic, CT head, etc) negative. I was called for admission. When I eval'd patient, she was asleep but awakened without much difficulty. She was disorie nted and somewhat nonsensical in her replies to my questions. At one point she said she had lung cancer and was here to get the cure. During the interview and exam she became more and more upset and aggressive, and then got up and started getting dressed, to leave. She was al so shouting profanities and being threatening. At this point Dr Alexander called police, and I called CRU. The patient was talked down by police and remained for CRU eval. CRU got a lot of good history on the patient after speaking with her father (lives in [facility]) on the phone. He reports that the patient had been doing well until a couple years ago, when she increased drug use. Recently she has been visiting lots of ER's, mainly in [facility] [place], with drug-seeking behavior, and they have "banned" her. Father recently got [place] morenody of her young child. 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 She has b een evaluated by mental health specialists in the past, but the frequent drug use clouds betzy t picture. HOSPITAL COURSE: At the [facility] she remained delusional but hemodynamcally stable. Her subsequent lab results in cluding the CBC and CMP was stable and with in normal limits. Urine toxicology was negative and tests for ' spice ' was sent and results were pending. A sitter was provided for psycho sis and threat to self and others. It seemed that she was detailed by the Crisis team but th at was only during transportation to the ER. Psychiatry service was consulted and Dr. Franco from [facility] evaluated the patie nt and recommended inpatient psychiatric evaluation. Patient refused to get admitted which i s why CRU services was consulted. She was evaluated by the CRU team and they recommended dis charge as she was not a threat to herself or others. She did not have a home and mission she lter home was recommended and a taxi cab fare was arranged by the case management. She remained remained stable with exception of some mood swings and agitation off and on fo r being in the hospital. She is now discharged home with recommendations to follow up with h er PCP preferably in one week for routine evaluation. Past Medical History Diagnosis Date Seizures Past Surgical History Procedure Date Induced No Known Allergies Prescriptions prior to admission Medication Sig Dispense Refill cephALEXin (KEFLEX) 250 MG capsule Take 250 mg by mouth 4 (four) times daily. Pt unsure of why taking meds methocarbamol (ROBAXIN) 500 MG tablet Take 500 mg by mouth 4 (four) times daily. Pt uns ure of why taking med and amt DISCHARGE EXAM Vital Signs: BP 100/56 | Pulse 78 | Temp(Src) 97.9 F (36.6 C) (Oral) | Resp 16 | Ht 1.575 m (5' 2") | Wt 58.06 kg (128 lb) | BMI 23.41 kg/m2 | SpO2 98% | LMP 02/04/2013 | ? No Physical Exam Vitals reviewed. Constitutional: She is oriented to person, place, and time. She appears well-developed and well-nourished. No distress. HENT: Head: Normocephalic. Right Ear: External ear normal. Left Ear: External ear normal. Nose: Nose normal. Mouth/Throat: Oropharynx is clear and moist. Eyes: Conjunctivae and EOM are normal. Pupils are equal, round, and reactive to light. Righ t eye exhibits no discharge. Left eye exhibits no discharge. No scleral icterus. Neck: Normal range of motion. Neck supple. No JVD present. No tracheal deviation present. N o thyromegaly present. Cardiovascular: Normal rate, regular rhythm, normal heart sounds and intact distal pulses. Exam reveals no gallop and no friction rub. No murmur heard. Pulmonary/Chest: Effort normal and breath sounds normal. No stridor. No respiratory distres s. She has no wheezes. She has no rales. She exhibits no tenderness. Abdominal: Soft. Bowel sounds are normal. She exhibits no distension and no mass. There is no tenderness. There is no rebound and no guarding. Musculoskeletal: Normal range of motion. She exhibits no edema and no tenderness. Lymphadenopathy: She has no cervical adenopathy. Neurological: She is oriented to person, place, and time. She has normal reflexes. She disp lays normal reflexes. No cranial nerve deficit. She exhibits normal muscle tone. Coordinatio n normal. Skin: Skin is warm and dry. No rash noted. She is not diaphoretic. No erythema. Psychiatric: She has a normal mood and affect. Her behavior is normal. Judgment and thought content normal. DATA CBC and CMP was reviewed which was stable and WNL at the time of discharge. PLAN Follow up with PCP for routine evaluation. Encouraged to abstain from recreational drug use. Disposition: [place], the assisted home Condition: Stable Code Status: Full Code Discharge Instructions Diet general Activity as tolerated Follow up: Current Discharge Medication List CONTINUE these medications which have NOT CHANGED Details cephALEXin (KEFLEX) 250 MG capsule Take 250 mg by mouth 4 (four) times daily. Pt unsure of why taking meds methocarbamol (ROBAXIN) 500 MG tablet Take 500 mg by mouth 4 (four) times daily. Pt unsure of why taking med and amt Discharge took more than 35 minutes, to include final examination, discussion of admission, and preparation of prescriptions, instructions for on-going care, follow-up and documentati on of discharge summary. SERGIO FRANCO MD 02/20/2013 documented in this encounter Progress Notes Conversion Transaction, Provider Unknown - 02/20/2013 3:51 PM PDTFormatting of this note m ight be different from the original. Progress Notes by No Dunn RN at 02/20/131550 Author: No Dunn RN Service: (none) Author Type: Registered Nurse Filed: 02/20/131553 Date of Service: 02/20/131550 Status: Signed Cake Wringer: No Dunn RN (Registered Nurse) DC instructions d/w with patient, copies given. Rx bottle (pt's own prior to hospitializat ion) returned to patient with 5 pills in it, one cephalexin, 2 hydrocodone's, and two ciprof loxacin. Pt did not have an IV line to discontinue. Plan for patient to be picked up by [employer] as close to 4:30 P.M. As possible. No new Rx's to give patient--------KPEOTRN 02/20/131552. onver shantel Transaction, Provider Unknown - 02/19/2013 11:16 PM PDT Progress Notes by Kofi Hood RN at 02/19/132315 Author: Kofi Hood RN Service: (none) Author Type: Registered Nurse Filed: 02/19/132317 Date of Service: 02/19/132315 Status: Signed Cake Wringer: Kofi Hood RN (Registered Nurse) Pt states that she can not sleep and that her feet and hands are twitchy. She states that s he would like some thing to help her sleep. Will give PO Ambien as ordered. KOFI HOOD RN 02/19/2013, 2315 onver shantel Transaction, Provider Unknown - 02/19/2013 10:55 AM PDT Progress Notes by Nithya Angulo RPH at 02/19/131054 Author: Nithya Angulo RPH Service: (none) Author Type: Pharmacist Filed: 02/19/131054 Date of Service: 02/19/131054 Status: Signed Cake Wringer: Nithya Angulo RPH (Pharmacist) Renal Dosing Monitoring: Dodie Pillai 22 y.o. female Pharmacy dosing for renal function per Dr. Monahan SCr 0.78, est. CrCl = 88 ml/min Plan per protocol: Medications dosed appropriately for current renal function. Pharmacy will continue monitoring patient for appropriate dosing per renal function. 02/19/2013 10:54 AM Pharmacist: Nithya Angulo Kenneth Velasquez DO - 02/19/2013 8:22 AM PDTFormatting of this note might be different from the rafa ginal. Significant Event by Kenneth Monahan DO at 02/19/13821 Author: Kenneth Monahan DO Service: Hospitalist Author Type: Physician Filed: 02/19/13822 Date of Service: 02/19/13821 Status: Signed Cake Wringer: Kenneth Monahan DO (Physician) Patient seen/examined. Full note to follow. Patient became angrier and angrier during interview / exam and then finally wanted to leave . Unfortunately she's not making a lot of sense and I fear for her safety. Dr Alexander has ca lled [place] [employer] which is interacting with her now, and CRU has also been called, t hey are on their way. We have added "spice" to tox screen but it is a send-out. Kenneth Monahan DO 02/19/2013 8:23 AM documented in this enc ounter Plan of Treatment Not on filedocumented as of this encounter Procedures + +--------+ + + + | Procedure Name | Priori | Date/Time | Associated Diagnosis | Comments | | | ty | | | | + +--------+ + + + | CT HEAD WO CONTRAST | Routin | 02/19/2013 | | Results for this | | | e | 6:21 AM | | procedure are in the | | | | PDT | | results section. | + +--------+ + + + documented in this encounter Results CT Head wo Contrast (02/19/2013 6:21 AM PDT) + + | Specimen | + + | | + + + + + | Narrative | Performed At | + + + | EXAM: HEAD CT EXAM DATE: 02/19/2013 06:22 AM CLINICAL | | | HISTORY: Altered mental status. COMPARISON: None. TECHNIQUE: | | | Multiaxial CT images were obtained from the foramen magnum to the | | | vertex. IV contrast: None. FINDINGS: Parenchyma: No intracranial | | | hemorrhage. No evidence of mass, midline shift or CT findings of | | | infarction. Christiansen-white differentiation is distinct. Extraaxial | | | Spaces: Normal for age. No subdural or epidural collections | | | identified. Ventricles: Normal in size and position. Sinuses: | | | Imaged paranasal sinuses, orbits, and mastoids show no significant | | | abnormality. Bones: No evidence of fracture or calvarial defect. | | | Other: None. IMPRESSION: No acute or focal intracranial | | | process. [facility] Electronically signed by Noel Blas | | | on Feb 19 2013 11:31PM SITE ID: [id number] | | + + + + + | Procedure Note | + + | Buddy, Rad Conversion - 07/03/2019 5:57 PM PDT EXAM:HEAD CT EXAM DATE: 02/19/2013 06:22 | | AM CLINICAL HISTORY: Altered mental status. COMPARISON: None. TECHNIQUE: Multiaxial CT | | images were obtained from the foramen magnum to the vertex. IV contrast: None. | | FINDINGS:Parenchyma: No intracranial hemorrhage. No evidence of mass, midline shift or | | CT findings of infarction. Christiansen-white differentiation is distinct. Extraaxial Spaces: | | Normal for age. No subdural or epidural collections identified. Ventricles: Normal in | | size and position. Sinuses: Imaged paranasal sinuses, orbits, and mastoids show no | | significant abnormality. Bones: No evidence of fracture or calvarial defect. Other: | | None. IMPRESSION: No acute or focal intracranial process. [facility] Electronically signed | | by Noel Blas MD on Feb 19 2013 11:31PM SITE ID: [id number] | | | |FINDINGS: | |Parenchyma: No intracranial hemorrhage. No evidence of mass, midline shift or CT findings o f infarction. Christiansen-white differentiation is distinct. | | | |Extraaxial Spaces: Normal for age. No subdural or epidural collections identified. | | | |Ventricles: Normal in size and position. | | | |Sinuses: Imaged paranasal sinuses, orbits, and mastoids show no significant abnormality. | | | |Bones: No evidence of fracture or calvarial defect. | | | |Other: None. | | | |IMPRESSION: No acute or focal intracranial process. | | | |[facility] | | | | Electronically signed by Noel Blas MD on Feb 19 2013 11:31PM SITE ID: [id number] | + + documented in this encounter Visit Diagnoses + + | Diagnosis | + + | Altered mental status | + + | Psychosis (HCC) Unspecified psychosis | + + documented in this encounter
--- OUTSIDE RECORDS SUMMARY | ~2019-11-17 | XMS | Encounter Summary ---
Demographics + + + | Address | [address] | | | [place] [address] | + + + | Home Phone | | + + + | Preferred Language | Unknown | + + + | Marital Status | Single | + + + | Adventist Affiliation | 1013 | + + + | Race | Unknown | + + + | Ethnic Group | Unknown | + + + Author + + + | Author | [facility] | | | and [place] | + + + | Organization | [facility] | | | and [...] [place], [place] | | | | | [address] | | + + + + + Care Team Providers + +------+ + | Care Civil Preparedness Training Officer Name | Role | Phone | + +------+ + PCP | Unavailable | + +------+ + Encounter Details +--------+ + + + + | Date | Type | Department | Care Team | Description | +--------+ + + + + | 01/08/ | Hospital | [facility] | O[place], | | | 2012 | Encounter | MED CTR EM[facility] | Good De León MD [address] | | | | [place] [address] | [place] | | | | | [place], [place] | [place] [address] | | | | | [address] | [phone] | | | | | [phone] | | | +--------+ + + + [...] + | CBC WITH | Routin | 01/08/2013 | | Results for this | | DIFFERENTIAL | e | 10:05 PM | | procedure are in the | | | | PST | | results section. | + +--------+ + + + | TSH | Routin | 01/08/2013 | | Results for this | | | e | 10:05 PM | | procedure are in the | | | | PST | | results section. | + +--------+ + + + | ALCOHOL | Routin | 01/08/2013 | | Results for this | | | e | 10:05 PM | | procedure are in the | | | | PST | | results section. | + +--------+ + + + | ACETAMINOPHEN LEVEL | Routin | 01/08/2013 | | Results for this | | | e | 10:05 PM | | procedure are in the | | | | PST | | results section. | + +--------+ + + + | SALICYLATE LEVEL | Routin | 01/08/2013 | | Results for this | | | e | 10:05 PM | | procedure are in the | | | | PST | | results section. | + +--------+ + + + | COMPREHENSIVE | Routin | 01/08/2013 | | Results for this | | METABOLIC PANEL | e | 10:05 PM | | procedure are in the | | | | PST | | results section. | + +--------+ + + + | URINALYSIS, REFLEX | Routin | 01/08/2013 | | Results for this | | MICROSCOPIC AND/OR | e | 10:04 PM | | procedure are in the | | CULTURE | | PST | | results section. | + +--------+ + + + | DRUGS OF ABUSE, | Routin | 01/08/2013 | | Results for this | | SCREEN, URINE | e | 10:04 PM | | procedure are in the | | | | PST | | results section. | + +--------+ + + + documented in this encounter Results CBC with Differential (01/08/2013 10:05 PM PST) + + + + + + | Component | Value | Ref Range | Performed | Pathologist | | | | | At | Signature | + + + + + + | MANUAL | NO | | [facility] | | | [facility] | | [facility] | | | L ? | | | MEDICAL | | | | | | CENTER - | | | | | | LABORATORY | | + + + + + + | WBC | 11.1 (H) | 4.0 - 11.0 K/uL | [facility] | | | | | | [facility] | | | | | | MEDICAL | | | | | | CENTER - | | | | | | LABORATORY | | + + + + + + | RBC | 4.14 | 3.70 - 5.20 | [facility] | | | | | M/uL | [facility] | | | | | | MEDICAL | | | | | | CENTER - | | | | | | LABORATORY | | + + + + + + | Hemoglobin | 13.5 | 11.5 - 16.0 | [facility] | | | | | gm/dL | [facility] | | | | | | MEDICAL | | | | | | CENTER - | | | | | | LABORATORY | | + + + + + + | Hematocrit | 40.7 | 34.0 - 47.0 % | [facility] [...] + + + + | RDW-CV | 13.5 | <15.0 % | [facility] | | | | | | [facility] | | | | | | MEDICAL | | | | | | CENTER - | | | | | | LABORATORY | | + + + + + + | Platelet | 285 | 140 - 440 K/uL | [facility] | | | Count | | | [facility] | | | | | | MEDICAL | | | | | | CENTER - | | | | | | LABORATORY | | + + + + + + | % | 47.8 | 45 - 75 % | [facility] | | | Neutrophils | | | [facility] | | | | | | MEDICAL | | | | | | CENTER - | | | | | | LABORATORY | | + + + + + + | % | 38.9 | 20 - 45 % | [facility] | | | Lymphocytes | | | [facility] | | | | | | MEDICAL | | | | | | CENTER - | | | | | | LABORATORY | | + + + + + + | % Monocytes | 5.6 | 4 - 12 % | [facility] | | | | | | [facility] | | | | | | MEDICAL | | | | | | CENTER - | | | | | | LABORATORY | | + + + + + + | % | 7.2 (H) | 0 - 5 % | [facility] | | | Eosinophils | | | [facility] | | | | | | MEDICAL | | | | | | CENTER - | | | | | | LABORATORY | | + + + + + + | % Basophils | 0.5 | 0 - 1 % | [facility] | | | | | | [facility] | | | | | | MEDICAL | | | | | | CENTER - | | | | | | LABORATORY | | + + + + + + | Absolute | 5.3 | 1.5 - 6.6 K/uL | [facility] | | | Neutrophils | | | [facility] | | | | | | MEDICAL | | | | | | CENTER - | | | | | | LABORATORY | | + + + + + + | Absolute | 4.3 (H) | 0.6 - 3.2 K/uL | [...] + + + + | Absolute | 0.8 (H) | 0.0 - 0.4 K/uL | [facility] | | | Eosinophils | | | [facility] | | | | | | MEDICAL | | | | | | CENTER - | | | | | | LABORATORY | | + + + + + + | Absolute | 0.1 | 0.0 - 0.1 K/uL | [facility] [...] + | [facility] | [address] | [place] | [phone] | | [facility] | | [address] | | | - LABORATORY | | | | + + + + + | [facility] | [address] | [place] | | | [facility] | | [address] | | | - LABORATORY | | | | + + + + + TSH (01/08/2013 10:05 PM PST) + + + + + + | Component | Value | Ref Range | Performed | Pathologist | | | | | At | Signature | + + + + + + | TSH | 0.82Comment: Testing | 0.34 - 5.60 | [facility] | | | | performed on the [facility]eline | uIU/mL | [facility] | | | | [facility] | | MEDICAL | | | | Analyzer. | | CENTER - | | | | | | LABORATORY | | + + + + + + + + | Specimen | + + | | + + + + + + + | Performing | Address | City/State/Zipcode | Phone Number | | Organization | | | | + + + + + | [facility] | [address] | [place] | [phone] | | [facility] | | [address] | | | - LABORATORY | | | | + + + + + | [facility] | [address] | [place] | | | [facility] | | [address] | | | - LABORATORY | | | | + + + + + Comprehensive Metabolic Panel (01/08/2013 10:05 PM PST) + + + + + + | Component | Value | Ref Range | Performed | Pathologist | | | | | At | Signature | + + + + + + | Glucose | 109 | 70 - 109 mg/dL | [facility] | | | | | | [facility] | | | | | | MEDICAL | | | | | | CENTER - | | | | | | LABORATORY | | + + + + + + | Calcium | 9.3 | 8.3 - 10.5 | [facility] | | | | | mg/dL | [facility] | | | | | | MEDICAL | | | | | | CENTER - | | | | | | LABORATORY | | + + + + + + | Alkaline | 58 | 40 - 110 IU/L | [facility] | | | Phosphatase | | | [facility] | | | | | | MEDICAL | | | | | | CENTER - | | | | | | LABORATORY | | + + + + + + | AST | 22 | 10 - 42 IU/L | [facility] | | | | | | [facility] | | | | | | MEDICAL | | | | | | CENTER - | | | | | | LABORATORY | | + + + + + + | ALT | 19 | 6 - 45 IU/L | [facility] | | | | | | [facility] | | | | | | MEDICAL | | | | | | CENTER - | | | | | | LABORATORY | | + + + + + + | Bilirubin | 0.7 | 0.2 - 1.0 mg/dL | [facility] | | | Total | | | [facility] | | | | | | MEDICAL | | | | | | CENTER - | | | | | | LABORATORY | | + + + + + + | Total | 6.3 | 6.0 - 7.8 gm/dL | [facility] | | | Protein | | | [facility] | | | | | | MEDICAL | | | | | | CENTER - | | | | | | LABORATORY | | + + + + + + | Albumin | 3.8 | 3.2 - 5.0 gm/dL | [facility] | | | | | | [facility] | | | | | | MEDICAL | | | | | | CENTER - | | | | | | LABORATORY | | + + + + + + | BUN | 11 | 7 - 18 mg/dL | [facility] | | | | | | [facility] | | | | | | MEDICAL | | | | | | CENTER - | | | | | | LABORATORY | | + + + + + + | Creatinine | 0.73 | 0.60 - 1.30 | [facility] | | | | | mg/dL | [facility] | | | | | | MEDICAL | | | | | | CENTER - | | | | | | LABORATORY | | + + + + + + | Estimated | >60Comment: For | >60 mL/min/A | [facility] | | | GFR | -Americans, | | [facility] | | | | please multiply the [...] + + + + | BUN/Creatin | 15.1 | 12 - 20 | [facility] | | | ine Ratio | | | [facility] | | | | | | MEDICAL | | | | | | CENTER - | | | | | | LABORATORY | | + + + + + + | Na | 138 | 136 - 149 mEq/L | [facility] | | | | | | [facility] | | | | | | MEDICAL | | | | | | CENTER - | | | | | | LABORATORY | | + + + + + + | K | 3.3 (L) | 3.5 - 5.1 mEq/l | [facility] | | | | | | [facility] | | | | | | MEDICAL | | | | | | CENTER - | | | | | | LABORATORY | | + + + + + + | Cl | 102 | 98 - 109 mEq/l | [facility] | | | | | | [facility] | | | | | | MEDICAL | | | | | | CENTER - | | | | | | LABORATORY | | + + + + + + | CO2 | 28 | 24 - 31 mEq/L | [facility] | | | | | | [facility] | | | | | | MEDICAL | | | | | | CENTER - | | | | | | LABORATORY | | + + + + + + | Anion Gap | 11.3 | 6.0 - 17.0 | [facility] | [...] + | [facility] | [address] | [place] | [phone] | | [facility] | | [address] | | | - LABORATORY | | | | + + + + + | [facility] | [address] | [place] | | | [facility] | | [address] | | | - LABORATORY | | | | + + + + + Acetaminophen Level (01/08/2013 10:05 PM PST) + +-------+ + + + | Component | Value | Ref Range | Performed | Pathologist | | | | | At | Signature | + +-------+ + + + | Acetaminoph | <10 | 10 - 30 ug/mL | [facility] | | | en Level | | | [facility] | | | | | | MEDICAL | | | | | | CENTER - | | | | | | LABORATORY | | + +-------+ + + + + + | Specimen | + + | | + + + + + + + | Performing | Address | City/State/Zipcode | Phone Number | | Organization | | | | + + + + + | [facility] | [address] | [place] | [phone] | | [facility] | | [address] | | | - LABORATORY | | | | + + + + + | [facility] | [address] | [place] | | | [facility] | | [address] | | | - LABORATORY | | | | + + + + + Salicylate Level (01/08/2013 10:05 PM PST) + +-------+ + + + | Component | Value | Ref Range | Performed | Pathologist | | | | | At | Signature | + +-------+ + + + | Salicylate | <4 | <30 mg/dL | [facility] | | | Level | | | [facility] | | | | | | MEDICAL | | | | | | CENTER - | | | | | | LABORATORY | | + +-------+ + + + + + | Specimen | + + | | + + + + + + + | Performing | Address | City/State/Zipcode | Phone Number | | Organization | | | | + + + + + | [facility] | [address] | [place] | [phone] | | [facility] | | [address] | | | - LABORATORY | | | | + + + + + | [facility] | [address] | [place] | | | [facility] | | [address] | | | - LABORATORY | | | | + + + + + Ethanol (01/08/2013 10:05 PM PST) + +-------+ + + + | Component | Value | Ref Range | Performed | Pathologist | | | | | At | Signature | + +-------+ + + + | ALCOHOL, | <5 | mg/dL | [facility] | | | SERUM/PLASM | | | [facility] | | | A | | | MEDICAL | | | | | | CENTER - | | | | | | LABORATORY | | + +-------+ + + + + + | Specimen | + + | | + + + + + + + | Performing | Address | City/State/Zipcode | Phone Number | | Organization | | | | + + + + + | [facility] | [address] | [place] | [phone] | | [facility] | | [address] | | | - LABORATORY | | | | + + + + + | [facility] | [address] | [place] | | | [facility] | | [address] | | | - LABORATORY | | | | + + + + + Urinalysis, Reflex Microscopic and/or Culture (01/08/2013 10:04 PM PST) + + + + + + | Component | Value | Ref Range | Performed | Pathologist | | | | | At | Signature | + + + + + + | COLLECTION | VOID | | [facility] | | | METHOD [facility] | | | [facility] | | | | | | MEDICAL | | | | | | CENTER - | | | | | | LABORATORY | | + + + + + + | Color, | YELLOW | | [facility] | | | Urine | | | [facility] | | [...] + + + + | Specific | 1.020 | 1.001 - 1.030 | [facility] | | | Logan | | | [facility] | | | | | | MEDICAL | | | | | | CENTER - | | | | | | LABORATORY | | + + + + + + | Blood, | NEGATIVE | NEGATIVE | [facility] | | | Urine | | | [facility] | | | | | | MEDICAL | | | | | | CENTER - | | | | | | LABORATORY | | + + + + + + | pH, Urine | 6.5 | 5.0 - 8.0 | [facility] | [...] + + + + | Leukocyte | SMALL | NEGATIVE | [facility] | | | [...] + | [facility] | [address] | [place] | [phone] | | [facility] | | [address] | | | - LABORATORY | | | | + + + + + | [facility] | [address] | [place] | | | [facility] | | [address] | | | - LABORATORY | | | | + + + + + Drugs of Abuse, Screen, Urine (01/08/2013 10:04 PM PST) + + + + + + | Component | Value | Ref Range | Performed | Pathologist | | | | | At | Signature | + + + + + + | Amphetamine | POSITIVE | NEGATIVE | [facility] | | | Screen, | | | [facility] | | | Urine | | | [...] | [facility] | [address] | [place] | [phone] | | [facility] | | [address] | | | - LABORATORY | | | | + + + + + | [facility] | [address] | [place] | | | [facility] | | [address] | | | - LABORATORY | | | | + + + + + documented in this encounter Visit Diagnoses Not on filedocumented in this encounter"
--- OUTSIDE RECORDS SUMMARY | ~2019-11-17 | XMS | Encounter Summary ---
Demographics + + + | Address | [address] | | | [place] [address] | + + + | Home Phone | | + + + | Preferred Language | Unknown | + + + | Marital Status | Single | + + + | Bahai Affiliation | 1013 | + + + | Race | Unknown | + + + | Ethnic Group | Unknown | + + + Author + + + | Author | [facility] | | | and [place] | + + + | Organization | [facility] | | | [...] [place], [place] | | | | | [address] | | + + + + + Care Team Providers + +------+ + | Care It Sales Executive Name | Role | Phone | + [...] [address] | | | | | [address] | [facility] | | | | | DR [place], [place] | [place] [address] | | | | | [address] | [phone] | | | | | [phone] | | | +--------+ + + + [...] + + + + | Color, | [facility]ON | | EXTERNAL | | | Urine | | | LAB | | + + + + + + | Specific | 1.02 | 1.005 - 1.030 | EXTERNAL | | | [place], | | | LAB | | | [...]
--- OUTSIDE RECORDS SUMMARY | ~2019-11-17 | XMS | Encounter Summary ---
Demographics + + + | Address | [address] | | | [place] [address] | + + + | Home Phone | | + + + | Preferred Language | Unknown | + + + | Marital Status | Single | + + + | Holiness Affiliation | 1013 | + + + | Race | Unknown | + + + | Ethnic Group | Unknown | + + + Author + + + | Author | [facility] | | | and [place] | + + + | Organization | [facility] | | [...] [place] | | | | | [address] | | + + + + + Care Team Providers + +------+ + | Care Pigment Furnace Tender Name | Role | Phone | + +------+ + | Robert Young MD | PCP | | + +------+ + Encounter Details +--------+ + + + + | Date | Type | Department | Care Team | Description | +--------+ + + + + | 03/03/ | Hospital | [facility] | Simeon Good | | | 2012 | Encounter | MED CTR EMERGENCY | Arturo Lua MD | | | | | CENTER [address] | [address] | | | | | [place], [place] | [place], [place] | | | | | [address] | [address] | | | | | [phone] | | | | | | | Good Lott | | | | | | MD Genet [address] | | | | | | ST [place], [place] | | | | | | [address] | | | | | | [phone] | | | | | | | [...] Performed At | + + + | [facility] Diagnostic Imaging | [facility] | | Department [address] [facility] [place] | [facility] | | [ rep ct [address]] [ rep ct [facility] | | st zip] Signed | - IMAGING | | | | | Patient Name: DESTINY PILLAI Physician: | | | : 1990 Age: 22 Sex: F Unit #: [id number] | | | Exam Date: 03/03/13 Location: ER | | | Report #: [id number] Page: | | | %(RAD)RES..mtdd.print.filter("pg") of %(RAD) | | | RES..mtdd.print.filter("tpg") | | | | | | Accession Number: [id number] | | | SINGLE-VIEW ABDOMEN: 03/03/2013 CLINICAL [...] Transcribed Date/Time: 03/04/2013 08:09 | | | Banking Services Clerk: <<Signature on File>> | | | Wilfredo | | | Lily Kim MD03/04/13 1747 <Electronically signed by Wilfredo Kim | | | > Wilfredo Kim MD 03/04/13 6538 Banking Services Clerk: | | | Action [id number]/24/13 [id number] Good De León | | | MD [place] | | + + + + + + + + | Performing | Address | City/State/Zipcode | Phone Number | | Organization | | | | + + + + + | [facility] | [address] | [place] | [phone] | | [facility] | | [address] | | | - IMAGING | | | | + + + + + XR Chest AP Portable (03/04/2013 7:46 AM PDT) + + | Specimen | + + | | + + + + + | Narrative | Performed At | + + + | [facility] Diagnostic [facility] | [facility] | | Department [address] [facility] | [facility] | | [ rep ct [address]] [ rep ct [facility] C[facility] | | st zip] Signed | - IMAGING | | | | | Patient Name: DESTINY PILLAI Physician: | | | ADRIA. : 1990 Age: 22 Sex: F Unit #: [id number] | | | Exam Date: 03/03/13 Location: ER | | | Report #: [id number] Page: | | | %(RAD)RES..mtdd.print.filter("pg") of %(RAD) | | | RES..mtdd.print.filter("tpg") | | | | | | Accession Number: [id number] | | | SINGLE AP CHEST, 03/03/2013 [...] Transcribed | | | Date/Time: 03/04/2013 07:47 Banking Services Clerk: | | | <<Signature on File>> | | | Wilfredo Bautista | | | MD Julio03/04/13 1747 <Electronically signed by Wilfredo Kim MD> | | | Wilfredo Kim MD 03/04/13 0746 Banking Services Clerk: | | | Action [id number]/24/13 0747 Good Lott, | | | MD | | + + + + + + + + | Performing | Address | City/State/Zipcode | Phone Number | | Organization | | | | + + + + + | [facility] | [address] | [place] | [phone] | | [facility] | | [address] | | | - IMAGING | | [...] + | [facility] | [address] | [place] | [phone] | | [facility] | | [address] | | | - LABORATORY | | | | + + + + + | [facility] | [address] | [place] | | | [facility] | | [address] | | | - LABORATORY | | [...] | | | | | | [facility] | | | | | | MEDICAL [...] [address] | [place] | [phone] | | [facility] | | [address] | | | - LABORATORY | | | | + + + + + | [facility] | [address] | [place] | | | [facility] | | [address] | | | - LABORATORY | | | | + + + + + documented in this encounter Visit Diagnoses Not on filedocumented in this encounter
--- OUTSIDE RECORDS SUMMARY | ~2019-11-17 | XMS | Encounter Summary ---
Demographics + + + | Address | [address] | | | [place] [address] | + + + | Home Phone | | + + + | Preferred Language | Unknown | + + + | Marital Status | Single | + + + | Taoism Affiliation | 1013 | + + + | Race | Unknown | + + + | Ethnic Group | Unknown | + + + Author + + + | Author | [facility] | | | and [place] | + + + | Organization | [facility] | | [...] [place], [place] | | | | | [address] | | + + + + + Care Team Providers + +------+ + | Care Retail Special Event Associate Name | Role | Phone | + +------+ + PCP | Unavailable | + +------+ + Encounter Details +--------+ + + + + | Date | Type | Department | Care Team | Description | +--------+ + + + + | 01/08/ | Hospital | [facility] | [place], | | | 2012 | Encounter | MED CTR EMERGENCY | Good De León MD [address] | | | | [place] [address] | [address] [place] | | | | | [place], [place] | [place] [address] | | | | | [address] | [phone] | | | | | [phone] | | | +--------+ + + + [...] + | [facility] | [address] | [place] | [phone] | | [facility] | | [address] | | | - LABORATORY | | | | + + + + + | [facility] | [address] | [place] | | | [facility] | | [address] | | | - LABORATORY | | [...] performed on the Adeline | uIU/mL | [facility] | | | | [facility] | [...] + | [facility] | [address] | [place] | [phone] | | [facility] | | [address] | | | - LABORATORY | | | | + + + + + | [facility] | [address] | [place] | | | [facility] | | [address] | | | - LABORATORY | | [...] 11 | 7 - 18 mg/dL | [facility] | | | | | | [facility] | | | | | | MEDICAL | | | | | | CENTER - | | | | | | LABORATORY | | + + + + + + | Creatinine | 0.73 | 0.60 - 1.30 | [facility] | | | | | mg/dL | [facility] | | | | | | MEDICAL | | | | | | CENTER - | | | | | | LABORATORY | | + + + + + + | Estimated | >60Comment: For | >60 mL/min/A | [facility] | | | GFR | -Americans, | [...] + | [facility] | [address] | [place] | [phone] | | [facility] | | [address] | | | - LABORATORY | | | | + + + + + | [facility] | [address] | [place] | | | [facility] | | [address] | | | - LABORATORY | | [...] + | [facility] | [address] | [place] | [phone] | | [facility] | | [address] | | | - LABORATORY | | | | + + + + + | [facility] | [address] | [place] | | | [facility] | | [address] | | | - LABORATORY | | [...] + | [facility] | [address] | [place] | [phone] | | [facility] | | [address] | | | - LABORATORY | | | | + + + + + | [facility] | [address] | [place] | | | [facility] | | [address] | | | - LABORATORY | | [...] | | SERUM/PLASM | | | [facility] | | | A | | | [...] + | [facility] | [address] | [place] | [phone] | | [facility] | | [address] | | | - LABORATORY | | | | + + + + + | [facility] | [address] | [place] | | | [facility] | | [address] | | | - LABORATORY | | [...] - 1.030 | [facility] | | | [place] | | | [facility] | | [...] + | [facility] | [address] | [place] | [phone] | | [facility] | | [address] | | | - LABORATORY | | | | + + + + + | [facility] | [address] | [place] | | | [facility] | | [address] | | | - LABORATORY | | [...] | | | Screen, | | | [facility] | | | Urine | | | [...] [address] | [place] | [phone] | | [facility] | | [address] | | | - LABORATORY | | | | + + + + + | [facility] | [address] | [place] | | | [facility] | | [address] | | | - LABORATORY | | | | + + + + + documented in this encounter Visit Diagnoses Not on filedocumented in this encounter"
--- OUTSIDE RECORDS SUMMARY | ~2019-11-17 | XMS | Encounter Summary ---
Demographics + + + | Address | [address] | | | [place] [address] | + + + | Home Phone | | + + + | Preferred Language | Unknown | + + + | Marital Status | Single | + + + | Yazidi Affiliation | 1013 | + + + | Race | Unknown | + + + | Ethnic Group | Unknown | + + + Author + + + | Author | [facility] | | | and [place] | + + + | Organization | [facility] | | | [...] [place] | | | | | [address] | | + + + + + Care Team Providers + +------+ + | Care Aircraft Engine Cylinder Mechanic Name | Role | Phone | + +------+ + | Robert Young MD | PCP | | + +------+ + Encounter Details +--------+ + + + + | Date | Type | Department | Care Team | Description | +--------+ + + + + | 02/06/ | Hospital | [facility] | Samanta Souza | | | 2013 | Encounter | MED CTR EMERGENCY | Lindsay García MD [address] | | | | | [place] [address] | [facility] | | | | | [place], [place] | [place] [address] | | | | | [address] | [phone] | | | | | [phone] | | | +--------+ + + + [...] [address] | | [facility] | | | [place] | | | [facility] | | [...] + | [facility] | [address] | [place], [place] | [phone] | | [facility] | | [address] | | | - LABORATORY | | | | + + + + + | [facility] | [address] | [place] | | | [facility] | | [address] | | | - LABORATORY | | [...] - 1.030 | [facility] | | | [place] | | | [facility] | | [...] [address] | [place] | [phone] | | [facility] | | [address] | | | - LABORATORY | | | | + + + + + | DIANE GUERRERO | [address] | [place] | | | [facility] | | [address] | | | - LABORATORY | | | | + + + + + documented in this encounter Visit Diagnoses Not on filedocumented in this encounter"
--- OUTSIDE RECORDS SUMMARY | ~2019-11-17 | XMS | Encounter Summary ---
Demographics + + + | Address | [address] | | | [place] [address] | + + + | Home Phone [...] + + + | Author | [facility] | | | and [place] | + + + | Organization | [facility] | | | [...] [place], [place] | | | | | [address] | | + + + + + Care Team Providers + +------+ + | Care Electrical Engineering Technician Name | Role | Phone | + +------+ + | Haim Carbajal DO | PCP | | + +------+ + Encounter Details +--------+ + + + + | Date | Type | Department | Care Team | Description | +--------+ + + + + | 02/21/ | Hospital | [facility] | Conversion | Abdominal pain, | | 2018 | Encounter | CONVERSION DEP [address] | Transaction, | unspecified | | | | [address] | Provider Unknown | abdominal location | | | | [place], [place] | [phone] | | | | | [address] | | | | | | [phone] | | | +--------+ + + + [...]
--- OUTSIDE RECORDS SUMMARY | ~2019-11-17 | XMS | Clinical Summary ---
Demographics + + + | Address | [address] | | | [place] [address] | + + + | Home Phone | | + + + | Preferred Language | Unknown | + + + | Marital Status | Single | + + + | Sikhism Affiliation | 1013 | + + + | Race | Unknown | + + + | Ethnic Group | Unknown | + + + Author + + + | Author | [employer] [facility] (Historical as of | | | 06-27-19) | + + + | Organization | [facility] (Historical as of | | | 06-27-19) [...] Team Providers + +------+ + | Care Clearance Representative Name | Role | Phone | [...] Left: | AI | | 09/20/ | [id number] | | - [id number]: Qty: 1 | | Ureter | [employer] | | 2019 | / | | on 02/21/2018 by Philippe, | | | - AI | | | /[id number] | | Bhanu Land DO | | | | | | 83 | + +------+--------+ +--------+--------+--------+ | Stent Uret Unvrs Frm 6fr 24cm | | | AI | | | [id number] | | - [id number]: Qty: 1 | | | [employer] | | | / | | on 03/04/2018 by Philippe, | | | - AI | | | /[id number] | | Bhanu Land DO | | [...] +------+-------+ + | MEDICAID | [place] | [id number] | | | [address] | | | N | | | | [place] | | | [place] | | | | [address] | | | MACHINE MOVER | | | | | + +--------+ [...] | | | [address] | [place] [address] | + +--------+ +--------+ + + | DESTINY PILLAI | Behavi | Self | [birth year] | Home: | [address] | | | oral | | 1989 | +- | [address] | | | Health | | | [address] | [place] [address] | + +--------+ +--------+ + +
--- OUTSIDE RECORDS SUMMARY | ~2019-11-17 | XMS | Encounter Summary ---
Demographics + + + | Address | [address] | | | [place] [address] | + + + | Home Phone | | + + + | Preferred Language | Unknown | + + + | Marital Status | Single | + + + | Church Affiliation | 1013 | + + + [...] [place], [place] | | | | | [address] | | + + + + + Care Team Providers + +------+ + | Care Decorating Instructor Name | Role | Phone | [...] Provider Unknown | | | | | [place], [place] | [phone] | | | | | [address] | | | | | | [phone] | | | +--------+ + + + [...]
--- OUTSIDE RECORDS SUMMARY | ~2019-11-17 | XMS | Encounter Summary ---
Demographics + + + | Address | [address] | | | [place] [address] | + + + | Home Phone | | + + + | Preferred Language | Unknown | + + + | Marital Status | Single | + + + | Congregational Affiliation | 1013 | + + + | Race | Unknown | + + + | Ethnic Group | Unknown | + + + Author + + + | Author | [facility] | | | and [place] | + + + | Organization | [facility] | | | [...] [place], [place] | | | | | [address] | | + + + + + Care Team Providers + +------+ + | Care Case Repairer Name | Role | Phone | + +------+ + | Haim Carbajal DO | PCP | | + +------+ + Encounter Details +--------+ + + + + | Date | Type | Department | Care Team | Description | +--------+ + + + + | 03/04/ | Hospital | [facility] | Bhanu Paez, | Ureterolithiasis | | 2018 | Encounter | [facility] | DO [address] | | | | | [address] | [place] [address] | | | | | [place], [place] | [phone] | | | | | [address] | | | | | | [phone] | | | +--------+ + + + [...] + + + documented in this encounter Medications at Time of Discharge + + + +---------+ + + | Medication | Sig | Dispensed | Refills | Start | End Date | | | | | | Date | | + + + +---------+ + + | tamsulosin | Take 1 capsule by | 30 | 0 | 03/04/20 | | | (FLOMAX) 0.4 mg CAPS [...] | 30 | 0 | 02/24/20 | 201 | | (FLOMAX) 0.4 mg CAPS | [...] Progress Notes Conversion Transaction, Provider Unknown - 03/04/2018 3:11 PM PDTFormatting of this note m ight be different from the original. Nurse Progress Note by Janett Vides RN at 03/04/181510 Author: Janett Vides RN Service: General Surgery Author Type: Registered Nurse Filed: 03/04/181511 Date of Service: 03/04/181510 Status: Signed Self Pay Specialist: Janett Vides RN (Registered Nurse) Discharge instructions given to pt and family. Stated understanding. Pt is to remove sten t at home on Saturday. onver shantel Transaction, Provider Unknown - 03/04/2018 2:48 PM PDT Nurse Progress Note by Janett Vides RN at 03/04/18 144 Author: Janett Vides RN Service: General Surgery Author Type: Registered Nurse Filed: 03/04/18 1448 Date of Service: 03/04/181447 Status: Signed Self Pay Specialist: Janett Vides RN (Registered Nurse) Ambulated to bathroom and was able to void Electronically signed by [facility], Provider at 06/23/2019 10:41 PM PDTdocume nted in this encounter Plan of Treatment Not on filedocumented as of this encounter Procedures + +--------+ + + + | Procedure Name | Priori | Date/Time | Associated Diagnosis | Comments | | | ty | | | | + +--------+ + + + | TISSUE REQUEST FOR | Routin | 03/05/2018 | | Results for this | | PATHOLOGY (NON-ORD) | e | 12:00 AM | | procedure are in the | | | | PDT | | results section. | + +--------+ + + + | FL C ARM < 1 HOUR | Routin | 03/04/2018 | | Results for this | | | e | 1:28 PM | | procedure are in the | | | | PDT | | results section. | + +--------+ + + + | STONE ANALYSIS WITH | Routin | 03/04/2018 | | Results for this | | IMAGE (NON-ORD) | e | 1:13 PM | | procedure are in the | | | | PDT | | results section. | + +--------+ + + + documented in this encounter Results Tissue Request For Pathology (03/05/2018 12:00 AM PDT) + + | Specimen | + + | Soft tissue sample | | (specimen) | + + + + + | Narrative | Performed At | + + + | SPECIMEN(S): A Lt. URETERAL STONE SPECIMEN SOURCE: A. Lt. | EXTERNAL LAB | | URETERAL STONE CLINICAL HISTORY: 03/04/2018 at 1313 H. Left Ureteral | | | stone. FINAL PATHOLOGIC DIAGNOSIS: CALCULI IDENTIFIED. THE SPECIMEN | | | WILL BE SENT TO AN OUTSIDE FACILITY FOR FURTHER CHEMICAL ANALYSIS. | | | GROSS DESCRIPTION: One specimen is received in one container, labeled | | | with the patient's name: A. Received fresh designated "left | | | ureteral stone ", consists of 2 brown firm roughened stones that | | | measure 0.1 cm and 0.4 cm in greatest dimension. Specimen is submitted | | | for gross examination only.FM The gross description section of | | | this report has been prepared using a voice recognition system. The | | | report was reviewed for accuracy, however, sound-alike word errors, | | | addition and/or deletions may occur. If there is any question about | | | this report please contact the originating pathologist. PERFORMING | | | LABORATORY: Professional interpretation and technical preparation was | | | performed by [facility], [facility], [address] | | | [place] [address] (Wild Life Manager: Bradley | | | Miri German; IA#: [id number]). Diagnostician: Yue De Jesus MD | | | Pathologist Electronically Signed 03/06/2018 | | + + + + +---------+ + + | Performing | Address | City/State/Zipcode | Phone Number | | Organization | | | | + +---------+ + + | EXTERNAL LAB | | | | + +---------+ + + FL C-Arm < 1 Hour (03/04/2018 1:28 PM PDT) + + | Specimen | [...] details on the procedure. | + + Stone Analysis with Image (03/04/2018 1:13 PM PDT) + + + + +------ --------+ | Component | Value | Ref Range | Performed | Patho logist | | | | | At | Signa ture | + + + + +------ --------+ | Color | Aguirre | | EXTERNAL | | | | | | LAB | | + + + + +------ --------+ | Size | (See Below)Comment: | mm | EXTERNAL | | | | Specimen received as | | LAB | | | | whole stones. | | | | | |Specimen received as whole stones. | | | | | | | | | | + + + + +------ --------+ | Stone | 21.7 | mg | EXTERNAL | | | Weight | | | LAB | | + + + + +------ --------+ | Composition | (See Below)Comment: | | EXTERNAL | | | | Percentage (Represents | | LAB | | | | the % composition) | | | | | |Percentage (Represents the % composition) | | | | | | | | | | + + + + +------ --------+ | Ca | 10 | % | EXTERNAL | | | Oxalate,Dih | | | LAB | | | ydrate | | | | | + + + + +------ --------+ | Ca | 70 | % | EXTERNAL | | | Oxalate,Mon | | | LAB | | | ohydr. | | | | | + + + + +------ --------+ | CALCIUM | 20 | % | EXTERNAL | | | PHOSPHATE | | | LAB | | | CRYSTALS UA | | | | | + + + + +------ --------+ | Nidus | No Nidus visualized | | EXTERNAL | | | | | | LAB | | + + + + +------ --------+ | Photo | (See Below)Comment: | | EXTERNAL | | | | Photograph will follow | | LAB | | | | under separate cover. | | | | | |Photograph will follow under separate cover. | | | | | | | | | | + + + + +------ --------+ | Comment: | (See Below)Comment: | | EXTERNAL | | | | Physician questions | | LAB | | | | regarding Calculi | | | | | | Analysis contact Natty | | | | | | at:[phone]. | | | | | | | | | | + + + + +------ --------+ | Please | (See Below)Comment: | | EXTERNAL | | | Note: | Calculi report with | | LAB | | | | photograph will follow | | | | | | via computer, mail | | | | | | orcourier delivery. | | | | | | | | | | + + + + +------ --------+ | Disclaimer: | (See Below)Comment: | | EXTERNAL | | | | This test was developed | | LAB | | | | and its performance | | | | | | characteristicsdetermine | | | | | | d by [facility]. It has not | | | | | | been cleared or | | | | | | approvedby the Food and | | | | | | Drug | | | | | | Administration.Testing | | | | | | performed by Natty, | | | | | | [address], | | | | | | [place] [address] | | | | + + + + +------ --------+ + + | Specimen | + + | | + + + +---------+ + + | Performing | Address | City/State/Zipcode | Phone Number | | Organization | | | | + +---------+ + + | EXTERNAL LAB | | | | + +---------+ + + documented in this encounter Visit Diagnoses + + | Diagnosis | + + | Ureterolithiasis Calculus of ureter | + + documented in this encounter
--- OUTSIDE RECORDS SUMMARY | ~2019-11-17 | XMS | Clinical Summary ---
Demographics + + + | Address | [address] | | | [place] [address] | + + + | Home Phone | | + + + | Preferred Language | Unknown | + + + | Marital Status | Single | + + + | Hoahaoism Affiliation | 1013 | + + + | Race | Unknown | + + + | Ethnic Group | Unknown | + + + Author + + + | Author | [facility] | | | and [place] | + + + | Organization | [facility] | | | [...] [place], [place] | | | | | [address] | | + + + + + Care Team Providers + +------+ + | Care Flosser Name | Role | Phone | + [...] Frm 6fr 24cm | | Left: | COOK | | 09/20/ | [id number] | | - [id number]: Qty: 1 | | Ureter | [employer] | | 2020 | / | | on 02/21/2018 by Philippe, | | | - AI | | | /[id number] | | Bhanu Land DO | | | | | | 81 | + +------+--------+ +--------+--------+--------+ | Stent Uret Unvrs Frm 6fr 24cm | | | AI | | | [id number] | | - [id number]: Qty: 1 | | | [employer] | | | / | | on 03/04/2018 by Philippe, | | | - AI | | | /[id number] | | Bhanu Land DO | | | | | | 34 | + +------+--------+ +--------+--------+--------+ Results Not on filefrom Last 3 Months Advance Directives + + + + + | Type | Date Recorded | Patient | Explanation | | | | Room Service Runner | | + + + + + | Power of | | | | | Primary Mill Roller | | | | + + + + +
--- OUTSIDE RECORDS SUMMARY | ~2019-11-17 | XMS | Encounter Summary ---
Demographics + + + | Address | [address] | | | [place] [address] | + + + | Home Phone | | + + + | Preferred Language | Unknown | + + + | Marital Status | Single | + + + | Hindu Affiliation | 1013 | + + + | Race | Unknown | + + + | Ethnic Group | Unknown | + + + Author + + + | Author | [facility] | | | and [place] | + + + | Organization | [facility] | | | [...] [place], [place] | | | | | [address] | | + + + + + Care Team Providers + +------+ + | Care Diesel Service Journeyman Name | Role | Phone | + +------+ + | Haim Carbajal DO | PCP | | + +------+ + Encounter Details +--------+ + + + + | Date | Type | Department | Care Team | Description | +--------+ + + + + | 02/21/ | Hospital | [facility] | Angelo Mercado MD | Nephrolithiasis | | 2018 - | Encounter | [facility] [address] | [address] | | | | | [address] | [address] [place], | | | 02/23/ | | [place], [place] | [place] [address] | | | 2017 | | [address] | [phone] | | | | | [phone] | | | +--------+ + + + [...] 1223 Date of Service: 02/23/18717 Status: Attested Healthcare Market Consultant: BOO BondR3 (Resident-Y3) Cosigner: Salvatore Sanchez MD [...] Dodie [place] AGE/SEX: 27 y.o. female ROOM: [facility]/435-1 PCP: Javi Rayo : 1990 [...] pain and nausea. She was transferred t [facility] for more definitive management of her nephrolithiasis. [...] Fatigue Follow up: Javi Rayo MD [address] [place] [address] In 1 week Bhanu Paez, DO [address] [facility] [address] On 03/04/2018 Left Ureteroscopy for stone removal Trevor Gore MD [address] [facility] [place] [address] In 1 week Medication List START taking [...] the original. Nurse Progress Note by Cary Caldwell, RN at 02/22/181413 Author: Cary Caldwell, RN Service: (none) Author Type: Registered Nurse Filed: 02/22/18 1412 Date of Service: 02/22/181413 Status: Signed Healthcare Market Consultant: Cary Caldwell RN (Registered Nurse) Report given to CIRO Hay. onver shantel Flowers, Provider Unknown - 02/22/2018 12:37 PM PDT Case Management by Jani Menjivar MS, EMBLEM DRAWER IN at 02/22/18 1237 Author: Jani Menjivar MS EMBLEM DRAWER IN Service: (none) Author Type: Assistant Professor Sculpture Filed: 02/22/18 1239 Date of Service: 02/22/18 1237 Status: Signed Healthcare Market Consultant: Jani Menjivar MS, EMBLEM DRAWER IN (Assistant Professor Sculpture) 02/22/18 1236 Discharge Planning Evaluation Admitting Diagnosis metabolic acidosis Readmission No Living Arrangements Parent Support Systems Parent Type of Residence Private residence Independent with ADL's Yes Independent with Mobility Yes Home Care Services No Caregiver after Discharge No Mental Status Oriented;Other (comment) (pt with medication causing fatique) Prior functional status baseline independent and drives Power of Shirt Presser No Anticipated Discharge Plan Post Acute Care [...] Patient's PCP is: Javi Rayo Patient's insurance: [place] Medicaid Coverage concerns: none Medication coverage/concerns:none Community [...] Service: Hospitalist Author Type: Resident-Y1 Filed: 02/22/18 1258 Date of Service: 02/22/18 1236 Status: Attested Healthcare Market Consultant: Young Talbot MD-R2 (Resident-Y2) Cosigner: Salvatore Sanchez [...] acidosis has significantly improved. SALVATORE SANCHEZ MD [facility] Service: Hospitalist Progress Note Hospital Day: LOS: [...] hours. No results for input(s): PHART, PO2ART, NKP4ZFK, K7HKTRTA, BEART in the last 168 hours. No [...] dictated by nephrology Social: Patient has a wuo-zsog-hxo special needs daughter at home who is [...] DO Service: Urology Author Type: Physician Filed: 02/22/18 0800 Date of Service: 02/22/18750 Status: Signed Healthcare Market Consultant: Bhanu Paez DO (Physician) [facility] Service: Urology Progress Note Hospital Day: LOS: [...] Management options typically include both short and jail strategies. At this time, her obstructive uropathy [...] the need for subsequent repair/remov al. The jail strategies for managing stone disease focus on [...] Service: Urology Author Type: Physician Filed: 02/21/18 1722 Date of Service: 02/21/181720 Status: Signed Healthcare Market Consultant: Bhanu Paez DO (Physician) [facility] Service: Urology Progress Note Hospital Day: LOS: [...] (none) Author Type: Registered Nurse Filed: 02/21/18 5665 Date of Service: 02/21/18 143 Status: Signed Healthcare Market Consultant: Veena Ziegler RN (Registered Nurse) Rn notified that pt found by security, pt had tried to go downstairs to smoke. Prior to her leaving the floor, I had checked on her numerous times. She had been groggy and lethargic f rom the medications given at [facility]. I explained to her the need [...] +--------+ + + + | MARIA ANTONIA PROFILE, REFLEX | Routin | 02/22/2018 | | [...] | | | Basophils | performed at [facility], [address] | [address] | LAB | | | | [address], | | | | | | [place] [address] | | | | + + + [...] | | | | | | at [facility], [address] | | | | | | [address], | | | | | | [place] [address] | | | | + + + [...] | | | | | performed at [facility], [address] | | | | | | [facility], | | | | | | [place] [address] | | | | + + + [...] | | | | | with both [place] and | | | | | | [...] [place], | | | | | | [facility] [address] | | | | + + + [...] | | | Basophils | performed at [facility], [address] | [address] | LAB | | | | [address], | | | | | | [place] [address] | | | | + + + [...] | | | | | [place] [address] | | | | + + + [...] EXTERNAL | | | | performed at [facility], [address] | | LAB | | | | [address], | | | | | | [place] [address] | | | | + + + [...] | | | | | | at [facility], [address] | | | | | | [address], | | | | | | [place] [address] | | | | + + + [...] | | | Random | performed at [facility], [address] | | | | | [address], | | | | | | [place] [address] | | | | + + + [...] LAB | | | | performed at [facility], [address] | | | | | [address], | | | | | | [place] [address] | | | | + + + [...] LAB | | | | performed at [facility], [address] | | | | | [address], | | | | | | [place] [address] | | | | + + + [...] | | | | | | [place], [facility] | | | | | | [place] | | | | | | [address] | | | | + + + [...] [address] | | | | | | [place], | | | | | | [place] [address] | | | | + + + [...] | | | | | performed at [facility], [address] | | | | | | [facility], | | | | | | [place] [address] | | | | + + + [...] | | | | | | [place] [address] | | | | + + + [...] EXTERNAL | | | | performed at [facility], [address] | | LAB | | | | [address], | | | | | | [place] [address] | | | | + + + [...] EXTERNAL | | | | performed at [facility], [address] | | LAB | | | | [address], | | | | | | [place] [address] | | | | + + + [...]
--- OUTSIDE RECORDS SUMMARY | ~2019-11-17 | XMS | Encounter Summary ---
Demographics + + + | Address | [address] | | | [place] [address] | + + + | Home Phone | | + + + | Preferred Language | Unknown | + + + | Marital Status | Single | + + + | Scientology Affiliation | 1013 | + + + | Race | Unknown | + + + | Ethnic Group | Unknown | + + + Author + + + | Author | [facility] | | | and [place] | + + + | Organization | [facility] | | | [...] [place] | | | | | [address] | | + + + + + Care Team Providers + +------+ + | Care Bulk Truck Driver Name | Role | Phone | + +------+ + | Robert Young MD | PCP | | + +------+ + Encounter Details +--------+ + + + + | Date | Type | Department | Care Team | Description | +--------+ + + + + | 01/29/ | Hospital | [facility] | Hero Henok Davison, | | | 2012 | Encounter | MED CTR EM[facility]Y | MD [address] | | | | | CENTER [address] | [facility] | | | | | [place], [place] | [place] [address] | | | | | [address] | [phone] | | | | | [phone] | | | +--------+ + + + [...] + | [facility] | [address] | [place], [place] | [phone] | | [facility] | | [address] | | | - LABORATORY | | | | + + + + + | [facility] | [address] | [place], [place] | | | [facility] | | [address] | | | - LABORATORY | | [...] + | [facility] | [address] | [place], [place] | [phone] | | [facility] | | [address] | | | - LABORATORY | | | | + + + + + | [facility] | [address] | [place], [place] | | | [facility] | | [address] | | | - LABORATORY | | | | + + + + + XR Thoracic Spine 2 Vw (01/29/2013 11:45 AM PDT) + + | Specimen | + + | | + + + + + | Narrative | Performed At | + + + | [facility] | [facility] | | Department [address] [facility] | [facility] | | [ rep [address]] [ rep [facility] | | [facility]] Signed | - IMAGING | | | | | Patient Name: DESTINY PILLAI Physician: | | | BROW.01 : 1990 Age: 22 Sex: F Unit #: [id number] | | | Exam Date: 01/29/13 Location: ER | | | Report #: [id number] Page: | | | %(RAD)RES..mtdd.print.filter("pg") of %(RAD) | | | RES..mtdd.print.filter("tpg") | | | | | | Accession Number: [id number] | | | THORACIC SPINE, 01/29/2013 CLINICAL [...] | | | Transcribed Date/Time: 01/29/2013 11:51 Market Development Manager: | | | MARYANNE <<Signature on File>> | | | | | | Fabian Bazzi MD01/29/13 1706 <Electronically signed by | | | Fabian Bazzi MD> Fabian Bazzi MD 01/29/13 | | | 1145 Market Development Manager: [employer] Jzszzzplnraru59/21/13 1151 | | | | | + + + + + + + + | Performing | Address | City/State/Zipcode | Phone Number | | Organization | | | | + + + + + | [facility] | [address] | [place] | [phone] | | [facility] | | [address] | | | - IMAGING | | | | + + + + + documented in this encounter Visit Diagnoses Not on filedocumented in this encounter
--- OUTSIDE RECORDS SUMMARY | ~2019-11-17 | XMS | Encounter Summary ---
Demographics + + + | Address | [address] | | | [place] [address] | + + + | Home Phone | | + + + | Preferred Language | Unknown | + + + | Marital Status | Single | + + + | Caodaism Affiliation | 1013 | + + + | Race | Unknown | + + + | Ethnic Group | Unknown | + + + Author + + + | Author | [facility] | | | and [place] | + + + | Organization | [facility] | | | [...] [place], [place] | | | | | [address] | | + + + + + Care Team Providers + +------+ + | Care K9 Handler Name | Role | Phone | + [...] Provider Unknown | | | | | [place], [place] | [phone] | | | | | [address] | | | | | | [phone] | | | +--------+ + + + [...]
--- OUTSIDE RECORDS SUMMARY | ~2019-11-17 | XMS | Encounter Summary ---
Demographics + + + | Address | [address] | | | [place] [address] | + + + | Home Phone | | + + + | Preferred Language | Unknown | + + + | Marital Status | Single | + + + | Hinduism Affiliation | 1013 | + + + [...] [place], [place] | | | | | [address] | | + + + + + Care Team Providers + +------+ + | Care Healthcare Administrator Name | Role | Phone | [...] | abdominal location | | | | [place], [place] | [phone] | | | | | [address] | | | | | | [phone] | | | +--------+ + + + [...]
--- OUTSIDE RECORDS SUMMARY | ~2019-11-17 | XMS | Encounter Summary ---
Demographics + + + | Address | [address] | | | [place] [address] | + + + | Home Phone | | + + + | Preferred Language | Unknown | + + + | Marital Status | Single | + + + | Yarsanism Affiliation | 1013 | + + + | Race | Unknown | + + + | Ethnic Group | Unknown | + + + Author + + + | Author | [facility] | | | and [place] | + + + | Organization | [facility] | | [...] [place], [place] | | | | | [address] | | + + + + + Care Team Providers + +------+ + | Care Submarine Advisory Team Watch Officer Name | Role | Phone | [...] Provider Unknown | | | | | [place], [place] | [phone] | | | | | [address] | | | | | | [phone] | | | +--------+ + + + [...]
--- OUTSIDE RECORDS SUMMARY | ~2019-11-17 | XMS | Encounter Summary ---
Demographics + + + | Address | [address] | | | [place] [address] | + + + | Home Phone | | + + + | Preferred Language | Unknown | + + + | Marital Status | Single | + + + | Zoroastrianism Affiliation | 1013 | + + + [...] [place], [place] | | | | | [address] | | + + + + + Care Team Providers + +------+ + | Care Ophthalmic Aide Name | Role | Phone | + [...] Provider Unknown | | | | | [place], [place] | [phone] | | | | | [address] | | | | | | [phone] | | | +--------+ + + + [...]
--- OUTSIDE RECORDS SUMMARY | ~2019-11-17 | XMS | Encounter Summary ---
Demographics + + + | Address | [address] | | | [place] [address] | + + + | Home Phone | | + + + | Preferred Language | Unknown | + + + | Marital Status | Single | + + + | Sikh Affiliation | 1013 | + + + | Race | Unknown | + + + | Ethnic Group | Unknown | + + + Author + + + | Author | [facility] | | | and [place] | + + + | Organization | [facility] | | [...] [place] | | | | | [address] | | + + + + + Care Team Providers + +------+ + | Care Pilot Manager Name | Role | Phone | [...] | | | | [place], [place] | [address] | | | | | [address] | [phone] | | | | | [phone] | | | +--------+ + + + [...]
--- OUTSIDE RECORDS SUMMARY | ~2019-11-17 | XMS | Encounter Summary ---
Demographics + + + | Address | [address] | | | [place] [address] | + + + | Home Phone [...] [place], [place] | | | | | [address] | | + + + + + Care Team Providers + +------+ + | Care Installation Specialist Name | Role | Phone | [...] [address] | | | | | [place] [address] | [facility] | | | | | [address] [place], [place] | [place] [address] | | | | | [address] | [phone] | | | | | [phone] | | | +--------+ + + + [...] - 1.030 | EXTERNAL | | | [place], | | | LAB | | | [...]
--- OUTSIDE RECORDS SUMMARY | ~2019-11-17 | XMS | Encounter Summary ---
Demographics + + + | Address | [address] | | | [place] [address] | + + + | Home Phone | | + + + | Preferred Language | Unknown | + + + | Marital Status | Single | + + + | Mandaeism Affiliation | 1013 | + + + [...] [place] | | | | | [address] | | + + + + + Care Team Providers + +------+ + | Care Corporate Recycling Manager Name | Role | Phone | [...] | | | | [place], [place] | [address] | | | | | [address] | [phone] | | | | | [phone] | | | +--------+ + + + [...]
--- OUTSIDE RECORDS SUMMARY | ~2019-11-17 | XMS | Clinical Summary ---
Demographics + + + | Address | [address] | | | [place] [address] | + + + | Home Phone | | + + + | Preferred Language | Unknown | + + + | Marital Status | Single | + + + | Mosque Affiliation | PRO | + + + [...] | | | | | [place] [address] | | + + + + + Care Team Providers + +------+ + | Care Return Agent Airport Name | Role | Phone | + +------+ + PCP | Unavailable | + +------+ + Source Comments STEPHANIE is fully live on both [facility] Ambulatory and [facility] InPatient.[facility] Allergies Not on File Medications Not on [...]
--- OUTSIDE RECORDS SUMMARY | ~2019-11-17 | XMS | Encounter Summary ---
Demographics + + + | Address | [address] | | | [place] [address] | + + + | Home Phone | | + + + | Preferred Language | Unknown | + + + | Marital Status | Single | + + + | Taoist Affiliation | 1013 | + + + | Race | Unknown | + + + | Ethnic Group | Unknown | + + + Author + + + | Author | [facility] | | | and [place] | + + + | Organization | [facility] | | | and [...] [place] | | | | | [address] | | + + + + + Care Team Providers + +------+ + | Care Lumber Stacker Name | Role | Phone | + +------+ + | Robert Young MD | PCP | | + +------+ + Encounter Details +--------+ + + + + | Date | Type | Department | Care Team | Description | +--------+ + + + + | 01/29/ | Hospital | [facility] | Hero Henok Davison, | | | 2012 | Encounter | MED CTR EMERGENCY | MD [address] | | | | | CENTER [address] | [facility] | | | | | [place], [place] | [place] [address] | | | | | [address] | [phone] | | | | | [phone] | | | +--------+ + + + [...] + | [facility] | [address] | [place], [place] | [phone] | | [facility] | | [address] | | | - LABORATORY | | | | + + + + + | [facility] | [address] | [place], [place] | | | [facility] | | [address] | | | - LABORATORY | | [...] + | [facility] | [address] | [place], [place] | [phone] | | [facility] | | [address] | | | - LABORATORY | | | | + + + + + | [facility] | [address] | [place], [place] | | | [facility] | | [address] | | | - LABORATORY | | | | + + + + + XR Thoracic Spine 2 Vw (01/29/2013 11:45 AM PDT) + + | Specimen | + + | | + + + + + | Narrative | Performed At | + + + | [facility] | [place] | | Department [address] [facility] | [facility] | | [ rep ct [address]] [ rep [facility] | | [facility]] Signed | - IMAGING | | | | | Patient Name: DESTINY PILLAI Physician: | | | BROW.01 : 1990 Age: 22 Sex: F Unit #: [id number] | | | Exam Date: 01/29/13 Location: ER | | | Report #: [id number] Page: | | | %(RAD)RES..mtdd.print.filter("pg") of %(RAD) | | | RES..mtdd.print.filter("tpg") | | | | | | Accession Number: [id number] | | | THORACIC SPINE, 01/29/2013 CLINICAL [...] | | | Transcribed Date/Time: 01/29/2013 11:51 Manager Business Banking: | | | MARYANNE <<Signature on File>> | | | | | | Fabian Bazzi MD01/29/13 1706 <Electronically signed by | | | Fabian Bazzi MD> Fabian Bazzi MD 01/29/13 | | | 1145 Manager Business Banking: [employer] Vitilkdgdevmj65/21/13 1151 | | | | | + + + + + + + + | Performing | Address | City/State/Zipcode | Phone Number | | Organization | | | | + + + + + | [facility] | [address] | [place] | [phone] | | [facility] | | [address] | | | - IMAGING | | | | + + + + + documented in this encounter Visit Diagnoses Not on filedocumented in this encounter
--- OUTSIDE RECORDS SUMMARY | ~2019-11-17 | XMS | Clinical Summary ---
Demographics + + + | Address | [address] | | | [place] [address] | + + + | Home Phone | | + + + | Preferred Language | Unknown | + + + | Marital Status | Single | + + + | Mandaeism Affiliation | 1013 | + + + | Race | Unknown | + + + | Ethnic Group | Unknown | + + + Author + + + | Author | [facility] | | | and [place] | + + + | Organization | [facility] | | | [...] [place], [place] | | | | | [address] | | + + + + + Care Team Providers + +------+ + | Care Electric Screw Driver Operator Name | Role | Phone | [...] Left: | COOK | | 09/20/ | [id number] | | - [id number]: Qty: 1 | | Ureter | [employer] | | 2020 | / | | on 02/21/2018 by Philippe, | | | - AI | | | /[id number] | | Bhanu Land DO | | | | | | 83 | + +------+--------+ +--------+--------+--------+ | Stent Uret Unvrs Frm 6fr 24cm | | | AI | | | [id number] | | - [id number]: Qty: 1 | | | [employer] | | | / | | on 03/04/2018 by Philippe, | | | - AI | | | /[id number] | | Bhanu Land DO | | | | | | 34 | + +------+--------+ +--------+--------+--------+ Results Not on filefrom Last 3 Months Advance Directives + + + + + | Type | Date Recorded | Patient | Explanation | | | | Nursing Program Manager | | + + + + + | Power of | | | | | Materials Planner | | | | + + + + +
--- OUTSIDE RECORDS SUMMARY | ~2019-11-17 | XMS | Clinical Summary ---
Demographics + + + | Address | [address] | | | [place] [address] | + + + | Home Phone | | + + + | Preferred Language | Unknown | + + + | Marital Status | Single | + + + | Nondenominational Affiliation | PRO | + + + [...] | | | | | [place] [address] | | + + + + + Care Team Providers + +------+ + | Care Acoustic Warfare Analyst Name | Role | Phone | + +------+ + PCP | Unavailable | + +------+ + Source Comments STEPHANIE is fully live on both [facility] Ambulatory and [facility] InPatient.[facility] & [facility] Allergies Not on File Medications Not [...]
--- OUTSIDE RECORDS SUMMARY | ~2019-11-17 | XMS | Encounter Summary ---
Demographics + + + | Address | [address] | | | [place] [address] | + + + | Home Phone | | + + + | Preferred Language | Unknown | + + + | Marital Status | Single | + + + | Yazidi Affiliation | 1013 | + + + | Race | Unknown | + + + | Ethnic Group | Unknown | + + + Author + + + | Author | [facility] | | | and [place] | + + + | Organization | [facility] | | | [...] [place], [place] | | | | | [address] | | + + + + + Care Team Providers + +------+ + | Care Supervisor Quality Control Name | Role | Phone | + [...] | | | | [address] | [place] [address] | | | | | [place], [place] | [phone] | | | | | [address] | | | | | | [phone] | | | +--------+ + + + [...]
--- OUTSIDE RECORDS SUMMARY | ~2019-11-17 | XMS | Encounter Summary ---
Demographics + + + | Address | [address] | | | [place] [address] | + + + | Home Phone [...] [place], [place] | | | | | [address] | | + + + + + Care Team Providers + +------+ + | Care Alterations Supervisor Name | Role | Phone | + +------+ + | Haim Carbajal DO | PCP | | + +------+ + Encounter Details +--------+ + + + + | Date | Type | Department | Care Team | Description | +--------+ + + + + | 03/04/ | Hospital | [facility] | Bhanu Paez, | Ureterolithiasis | | 2018 | Encounter | [facility] | DO [address] | | | | | [address] | [place] [address] | | | | | [place], [place] | [phone] | | | | | [address] | | | | | | [phone] | | | +--------+ + + + [...] 03/04/181511 Date of Service: 03/04/181510 Status: Signed Photo Lab Manager: Janett Vides RN (Registered Nurse) Discharge instructions [...] 1448 Date of Service: 03/04/181447 Status: Signed Photo Lab Manager: Janett Vides RN (Registered Nurse) Ambulated to bathroom and was able to void docume nted in this encounter Plan of [...] preparation was | | | performed by [employer], [facility], [address] | | | [place] [address] (Data Technical Lead: Bradley | | | Miri German; IA#: [id number]). Diagnostician: Yue De Jesus MD | | [...] Natty | | | | | | at:[phone]. | | | | | | | [...] | | | | | | [place] [address] | | | | + + + [...]
--- OUTSIDE RECORDS SUMMARY | ~2019-11-17 | XMS | Encounter Summary ---
Demographics + + + | Address | [address] | | | [place] [address] | + + + | Home Phone [...] | + + + + + | Suelma [place] | ECON | [address] | | | | | [address], [place] | | | | | [address] | | + + + + + Care Team Providers + +------+ + | Care Director Franchise Sales Name | Role | Phone | + +------+ + | Haim Carbajal DO | PCP | | + +------+ + Encounter Details +--------+ + + + + | Date | Type | Department | Care Team | Description | +--------+ + + + + | 02/21/ | Hospital | [facility] | Angelo Mercado MD | Nephrolithiasis | | 2018 - | Encounter | [facility] [address] | [address] | | | | | [address] | [address] [place], | | | 02/23/ | | [place], [place] | [place] [address] | | | 2017 | | [address] | [phone] | | | | | [phone] | | | +--------+ + + + [...] 1223 Date of Service: 02/23/18717 Status: Attested Green Ware Caster: BOO BondR3 (Resident-Y3) Cosigner: Salvatore Sanchez MD [...] Dodie Pillai AGE/SEX: 27 y.o. female ROOM: [facility]/435-1 PCP: Javi Rayo : 1990 [...] pain and nausea. She was transferred t [facility] for more definitive management of her [...] Fatigue Follow up: Javi Rayo MD [address] [place] [address] In 1 week Bhanu Paez, DO [address] [facility] [address] On 03/04/2018 Left Ureteroscopy for stone removal Trevor Gore MD [address] [facility] [place] [address] In 1 week Medication List START taking [...] 1414 Date of Service: 02/22/181413 Status: Signed Green Ware Caster: Cary Caldwell RN (Registered Nurse) Report given to CIRO Hay. onver shantel Flowers, Provider Unknown - 02/22/2018 12:37 PM PDT Case Management by Jani Menjivar MS, TUNNEL MUCKER at 02/22/18 1237 Author: Jani Menjivar MS TUNNEL MUCKER Service: (none) Author Type: [employer] Filed: 02/22/18 1239 Date of Service: 02/22/18 1237 Status: Signed Green Ware Caster: Jani Menjivar MS, TUNNEL MUCKER ([employer]) 02/22/18 1236 Discharge Planning Evaluation Admitting Diagnosis metabolic acidosis Readmission No Living Arrangements Parent Support Systems Parent Type of Residence Private residence Independent with ADL's Yes Independent with Mobility Yes Home Care Services No Caregiver after Discharge No Mental Status Oriented;Other (comment) (pt with medication causing fatique) Prior functional status baseline independent and drives Power of Adult Literacy Teacher No Anticipated Discharge Plan Post Acute Care [...] Date of Service: 02/22/18 1236 Status: Attested Green Ware Caster: Young Talbot MD-R2 (Resident-Y2) Cosigner: Salvatore Sanchez [...] acidosis has significantly improved. SALVATORE SANCHEZ MD [facility] Service: Hospitalist Progress Note Hospital Day: LOS: [...] hours. No results for input(s): PHART, PO2ART, YSX2GSQ, X1LVOYYV, BEART in the last 168 hours. No [...] dictated by nephrology Social: Patient has a hnb-yayu-mnc special needs daughter at home who is [...] 0800 Date of Service: 02/22/18750 Status: Signed Green Ware Caster: Bhanu Paez DO (Physician) [facility] Service: Urology Progress Note Hospital Day: LOS: [...] Management options typically include both short and correction strategies. At this time, her obstructive uropathy [...] the need for subsequent repair/remov al. The correction strategies for managing stone disease focus on [...] 1722 Date of Service: 02/21/181720 Status: Signed Green Ware Caster: Bhanu Paez DO (Physician) [facility] Service: Urology Progress Note Hospital Day: LOS: [...] (none) Author Type: Registered Nurse Filed: 02/21/18 2153 Date of Service: 02/21/18 143 Status: Signed Green Ware Caster: Veena Ziegler RN (Registered Nurse) Rn notified that pt found by security, pt had tried to go downstairs to smoke. Prior to her leaving the floor, I had checked on her numerous times. She had been groggy and lethargic f rom the medications given at [facility]. I explained to her the need for [...] | | | Basophils | performed at [facility], [address] | [address] | LAB | | | | [address], | | | | | | [place] [address] | | | | + + + [...] | | | | | | at [facility], [address] | | | | | | [address], | | | | | | [place] [address] | | | | + + + [...] | | | | | performed at [facility], [address] | | | | | | [facility], | | | | | | [place] [address] | | | | + + + [...] | | | | | with both [place] and | | | | | | [...] [place], | | | | | | [facility] [address] | | | | + + + [...] | | | Basophils | performed at [facility], [address] | [address] | LAB | | | | [address], | | | | | | [place] [address] | | | | + + + [...] | | | | | [place] [address] | | | | + + + [...] EXTERNAL | | | | performed at [facility], [address] | | LAB | | | | [address], | | | | | | [place] [address] | | | | + + + [...] | | | | | | at [facility], [address] | | | | | | [address], | | | | | | [place] [address] | | | | + + + [...] | | | Random | performed at [facility], [address] | | | | | [address], | | | | | | [place] [address] | | | | + + + [...] LAB | | | | performed at [facility], [address] | | | | | [address], | | | | | | [place] [address] | | | | + + + [...] LAB | | | | performed at [facility], [address] | | | | | [address], | | | | | | [place] [address] | | | | + + + [...] | | | | | | [place], [facility] | | | | | | [place] | | | | | | [address] | | | | + + + [...] | | | | | [place] [address] | | | | + + + [...] | | | | | performed at [facility], [address] | | | | | | [facility], | | | | | | [place] [address] | | | | + + + [...] | | | | | | [place] [address] | | | | + + + [...] EXTERNAL | | | | performed at [facility], [address] | | LAB | | | | [address], | | | | | | [place] [address] | | | | + + + [...] EXTERNAL | | | | performed at [facility], [address] | | LAB | | | | [address], | | | | | | [place] [address] | | | | + + + [...]
--- OUTSIDE RECORDS SUMMARY | ~2019-11-17 | XMS | Clinical Summary ---
Demographics + + + | Address | [address] | | | [place] [address] | + + + | Home Phone | | + + + | Preferred Language | Unknown | + + + | Marital Status | Single | + + + | Moravian Affiliation | 1013 | + + + | Race | Unknown | + + + | Ethnic Group | Unknown | + + + Author + + + | Author | [facility] (Historical as of | | | 06-27-19) | + + + | Organization | [facility] ([facility]ical as of | | | 06-27-19) [...] Team Providers + +------+ + | Care Acid Crane Operator Name | Role | Phone | [...] Left: | AI | | 09/20/ | [id number] | | - [id number]: Qty: 1 | | Ureter | [employer] | | 2019 | / | | on 02/21/2018 by Philippe, | | | - AI | | | /[id number] | | Bhanu Land DO | | | | | | 83 | + +------+--------+ +--------+--------+--------+ | Stent Uret Unvrs Frm 6fr 24cm | | | AI | | | [id number] | | - [id number]: Qty: 1 | | | [employer] | | | / | | on 03/04/2018 by Philippe, | | | - AI | | | /[id number] | | Bhanu Land DO | | [...] +------+-------+ + | MEDICAID | [place] | [id number] | | | [address] | | | N | | | | [place] | | | [place] | | | | [address] | | | DOOR LINER HELPER | | | | | + +--------+ [...] | | | [address] | [place] [address] | + +--------+ +--------+ + + | DESTINY PILLAI | Behavi | Self | [birth year] | Home: | [address] | | | oral | | 1989 | [address]- [address] | | | Health | | | [address] | [place] [address] | + +--------+ +--------+ + +
--- OUTSIDE RECORDS SUMMARY | ~2019-11-17 | XMS | Encounter Summary ---
Demographics + + + | Address | [address] | | | [place] [address] | + + + | Home Phone | | + + + | Preferred Language | Unknown | + + + | Marital Status | Single | + + + | Advent Affiliation | 1013 | + + + | Race | Unknown | + + + | Ethnic Group | Unknown | + + + Author + + + | Author | [facility] | | | and [place] | + + + | Organization | [facility] | | | and [...] [place], [place] | | | | | [address] | | + + + + + Care Team Providers + +------+ + | Care Manager Banquet Name | Role | Phone | + +------+ + | Robert Young MD | PCP | | + +------+ + Encounter Details +--------+ + + + + | Date | Type | Department | Care Team | Description | +--------+ + + + + | 02/19/ | Hospital | [facility] | Kenneth Monahan DO | Altered mental | | 2012 - | Encounter | [facility] | [address] | status; Psychosis | | | | CLINICAL DECISION | [address] | | | 02/20/ | | [address] | [place] [address] | | | 2012 | | [place], [place] | [phone] | | | | | [address] | | | | | | [phone] | | | +--------+ + + + [...] Date of Service: 02/20/13 1524 Status: Signed Supervisor Roller Printing: Sergio Franco MD (Physician) [facility] Service: Hospitalist Discharge Summary Date of Admission: 02/19/2013 Date of Discharge: 02/20/2013, 3 PM Discharge Provider: SERGIO FRANCO MD Treatment Team: Consulting Physician: [facility] Admitting Provider: Kenneth Monahan DO Discharge Diagnoses: [...] after speaking with her father (lives in [facility]) on the phone. He reports that the patient had been doing well until a couple years ago, when she increased drug use. Recently she has been visiting lots of ER's, mainly in [facility] [place], with drug-seeking behavior, and they have "banned" [...] service was consulted and Dr. Franco from [facility] evaluated the patie nt and recommended [...] to abstain from recreational drug use. Disposition: [place], the skilled nursing home Condition: Stable Code Status: Full Code [...] 02/20/131553 Date of Service: 02/20/131550 Status: Signed Supervisor Roller Printing: No Dunn RN (Registered Nurse) DC instructions d/w with patient, copies given. Rx bottle (pt's own prior to hospitializat ion) returned to patient with 5 pills in it, one cephalexin, 2 hydrocodone's, and two ciprof loxacin. Pt did not have an IV line to discontinue. Plan for patient to be picked up by [facility] as close to 4:30 P.M. As possible. No new Rx's to give patient--------KPEOTRN 02/20/131552. onver shantel Transaction, Provider Unknown - 02/19/2013 11:16 PM PDT Progress Notes by Kofi Hood RN at 02/19/132315 Author: Kofi Hood RN Service: (none) Author Type: Registered Nurse Filed: 02/19/132317 Date of Service: 02/19/132315 Status: Signed Supervisor Roller Printing: Kofi Hood RN (Registered Nurse) Pt states [...] 02/19/131054 Date of Service: 02/19/131054 Status: Signed Supervisor Roller Printing: Nithya Angulo RPH (Pharmacist) Renal Dosing Monitoring: [...] 02/19/13822 Date of Service: 02/19/13821 Status: Signed Supervisor Rol[employer] Printing: Kenneth Monahan DO (Physician) Patient seen/examined. Full note to follow. Patient became angrier and angrier during interview / exam and then finally wanted to leave . Unfortunately she's not making a lot of sense and I fear for her safety. Dr Alexander has ca lled [place] [employer] which is interacting with her [...]
[~2019-11-17 17:12] MED LIST changes: +BUPROPION HCL100 MG
--- OUTSIDE RECORDS SUMMARY | 2019-11-17 17:14 | XMS ---
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 Events No recent Security Events currently on file CRITERIA MET - [facility] - Has Care Guidelines - [facility] - 2 Visits in 30 Days CARE PROVIDERS ALFREDA HERNANDEZ Family [facility] Current PHONE: Unknown Melvin Andrew Internal Medicine: Pulmonary Disease 02/13/2019-Current PHONE: Unknown TUNG SIMONctbernard 02/13/2019-Current PHONE: [phone] ALFREDA HERNANDEZ Primary Care Current PHONE: [phone] Guidelines Source: Nasim Crissy Powell Guidelines Date: 04/03/2019 Care Coordination: Mental health services are being provided by [facility].\T\nbsp; [email or web address] with [facility] health concerns.\T\nbsp; Jayjay/Ayden Nikaristeo: \T\nbsp; Lyn: [phone]. Additional care guidelines exist for the following facilities: [facility] ( 04/11/2015 ) Care History Medical/Surgical 11/09/2019 [facility] Per patient report - Father states there are issues going on between him and his that he thinks causes the patient to be this way. She was restarted on bupropion yesterday by [employer]. They will follow-up with [employer] next week. 11/06/2019 [facility] Spoke with patient\T\nbsp;regarding proper\T\nbsp;emergency room use and multiple no shows to clinic appointments.\T\nbsp; Mailed letter with no show policy.\T\nbsp; 04/10/2019 [facility] - [facility] CASE MANAGEMENT REFERRAL MADE- PATIENT HAS [facility] AND NO PCP. E.D. VISIT COUNT (12 MO.) 6 [facility]. TOTAL 6 NOTE: Visits indicate total known visits. 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 - Pain in left leg - Fall on same level, unspecified, initial encounter - Nicotine dependence, unspecified, uncomplicated 11/05/2019 12:50 [facility] [place] TYPE: Emergency COMPLAINT: - EYE PAIN NON INJURY DIAGNOSES: - Nicotine dependence, unspecified, uncomplicated - Ocular pain, left eye - Hordeolum externum left upper eyelid 04/02/2019 22:08 [facility] [place] TYPE: Emergency COMPLAINT: - POSS KIDNEY STONES DIAGNOSES: - Personal history of urinary calculi - Unspecified abdominal pain - Nicotine dependence, unspecified, uncomplicated 02/12/2019 23:39 [facility] [place] TYPE: Emergency COMPLAINT: - POSS SEIZURE DIAGNOSES: - Otalgia, left ear - Other stimulant abuse with intoxication, unspecified - 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 [place] TYPE: Emergency COMPLAINT: - VOMITING/URINE ISSUES/ABD PAIN DIAGNOSES: - Unspecified abdominal pain - Hydronephrosis with renal and ureteral calculous obstruction - Personal history of urinary calculi - Other half-way (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 - Nicotine dependence, cigarettes, uncomplicated INPATIENT VISIT TRACKING (12 MO.) No inpatient visits to display in this time frame [email or web address]
--- NOTE | 2019-11-17 18:04 | EKG ---
[facility] [address] [facility] [place], [place] [address] Signed Normal sinus rhythm Possible Inferior infarct , age undetermined Abnormal ECG No previous ECGs available Confirmed by FIGUEROA MOREAU MD ([id number]) on 11/17/2019 6:04:26 PM Electronically Signed By: FIGUEROA MOREAU MD 11/17/19 1804 PATIENT NAME: DESTINY DAVID Electrocardiogram DATE OF : 86 PHYSICIAN: FIGUEROA MOREAU MD REPORT #: [id number] REPORT IS CONFIDENTIAL AND NOT TO BE RELEASED WITHOUT AUTHORIZATION
== END 2019-11-17 20:01 | disposition home or self-care (01) ==
LOC: ED 17:12
PROC: 0T9B70Z Drainage of Bladder with Drainage Device, Via Natural or Artificial Opening (ICD-10-PCS; principal; 2019-11-17)
DX: T43.591A Poisoning by other antipsychotics and neuroleptics, accidental (unintentional), initial encounter (principal); F31.9 Bipolar disorder, unspecified; F20.9 Schizophrenia, unspecified; F17.200 Nicotine dependence, unspecified, uncomplicated; Z79.899 Other long term (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
CPT/HCPCS: 51701; 80053; 80176; 81001; 84443; 84703; 85025; 93005; 93010; 99284-25; G0480

== ENCOUNTER → 2020-01-02 | Emergency (ER) | payer OTHER ==
[~2020-01-02] VITALS: Ht 167.6 cm; Wt 54.6 kg
--- OUTSIDE RECORDS SUMMARY | 2020-01-02 18:04 | XMS ---
PreManage Notification: DESTINY DAVID Security Animal Sitter Events No recent Security Events currently on file CRITERIA MET - [facility] CARE PROVIDERS ALFREDA HERNANDEZ [facility] Current PHONE: [phone] Melvin Andrew Internal Medicine: Pulmonary Disease 02/13/2019-Current PHONE: Unknown TUNG SIMONpractbernard 02/13/2019-Current PHONE: [phone] DAVID GANT [facility] CR PHONE: Unknown Guidelines Source: [employer] Crissy Powell Guidelines Date: 11/18/2019 Care Coordination: Currently engaged in therapy, med management and case management through [employer].\T\nbsp; Please contact [employer] with mental health concerns.\T\nbsp; [place]: [phone]. Additional care guidelines exist for the following facilities: [facility] ( 04/11/2015 ) Care History Medical/Surgical 11/18/2019 [facility] Connected patient to Dr. Andrew\T\#39;s office to schedule ED\T\nbsp;follow up visit\T\nbsp; 11/18/2019 [facility] - Patient is currently established with [facility]. If patient is seen in the ED during business hours. Please contact CHWs at [facility]. Care Recommendation: If this patient has had 5 or more Emergency Department visits in the last 12 months.\T\nbsp; Patient will require education on the scope and purpose of the ED as an acute care provider not a Primary Care Provider and should not be utilized for chronic conditions.\T\nbsp; These are guidelines and the provider should exercise clinical judgment when providing care. 11/09/2019 [facility] Per patient report - Father states there are issues going on between him and his that he thinks causes the patient to be this way. She was restarted on bupropion yesterday by [facility]. They will follow-up with [facility] next week. E.D. VISIT COUNT (12 MO.) 6 [facility] TOTAL 6 NOTE: Visits indicate total known visits. ED/UCC VISIT TRACKING (12 MO.) 01/02/2020 18:02 [facility] [place] TYPE: Emergency COMPLAINT: - BACK PAIN 11/17/2019 17:12 [facility] [place] TYPE: Emergency COMPLAINT: - POSSIBLE OVERDOSE DIAGNOSES: - Nicotine dependence, unspecified, uncomplicated - Other real estate sales associate (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 - Poisoning by oth antipsychot/neurolept, accidental, init - Schizophrenia, unspecified - Bipolar disorder, unspecified 11/07/2019 04:33 [facility] [place] TYPE: Emergency COMPLAINT: - FALL DIAGNOSES: - Pain in right leg - Bipolar disorder, unspecified - Other senior care (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 - Pain in left leg - Fall on same level, unspecified, initial encounter - Nicotine dependence, unspecified, uncomplicated 11/05/2019 12:50 [facility] [place] TYPE: Emergency COMPLAINT: - EYE PAIN NON INJURY DIAGNOSES: - Nicotine dependence, unspecified, uncomplicated - Ocular pain, left eye - Hordeolum externum left upper eyelid 04/02/2019 22:08 [facility] [place] TYPE: Emergency COMPLAINT: - POSS KIDNEY STONES DIAGNOSES: - Personal history of urinary calculi - Unspecified abdominal pain - Nicotine dependence, unspecified, uncomplicated 02/12/2019 23:[address] [facility] [place] TYPE: Emergency COMPLAINT: - POSS SEIZURE DIAGNOSES: - Otalgia, left ear - Other stimulant abuse with intoxication, unspecified - Other real estate sales associate (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 - Personal history of urinary calculi - Other psychoactive substance abuse, uncomplicated - Nicotine dependence, unspecified, uncomplicated INPATIENT VISIT TRACKING (12 MO.) No inpatient visits to display in this time frame [email or web address]
== END ==
LOC: ED 18:01
DX: M54.6 Pain in thoracic spine (principal); F31.9 Bipolar disorder, unspecified; F17.200 Nicotine dependence, unspecified, uncomplicated
CPT/HCPCS: 71045; 99283-25

== ENCOUNTER 2020-01-10 15:20 | Emergency (ER) | payer OTHER ==
[~2020-01-10] VITALS: Ht 167.6 cm; Wt 54.6 kg
[2020-01-10] MEDS ORDERED: TYLENOL325 M1 PO (15:36)
[2020-01-10] MEDS ORDERED: AMOXICILLIN500 MG PO (16:36)
--- NOTE | 2020-01-11 20:28 | EKG ---
[facility] [address] [facility] [place], [place] [address] Signed Normal sinus rhythm Normal ECG Confirmed by ETIENNE PRABHAKAR DO ([id number]) on 01/11/2020 8:28:31 PM Electronically Signed By: ETIENNE PRABHAKAR DO 01/11/20 2028 PATIENT NAME: JOANNDESTINYVernon JON Electrocardiogram DATE OF : 86 PHYSICIAN: ETIENNE PRABHAKAR DO REPORT #: [id number] REPORT IS CONFIDENTIAL AND NOT TO BE RELEASED WITHOUT AUTHORIZATION
== END 2020-01-10 17:07 | disposition home or self-care (01) ==
LOC: ED 15:20
DX: H66.92 Otitis media, unspecified, left ear (principal); F31.9 Bipolar disorder, unspecified; F17.200 Nicotine dependence, unspecified, uncomplicated
CPT/HCPCS: 93005; 93010; 99283-25; A9270

== ENCOUNTER 2020-01-15 15:24 | Emergency (ER) | payer OTHER ==
[~2020-01-15] VITALS: Ht 167.6 cm; Wt 54.6 kg
[~2020-01-15 15:24] MED LIST changes: +TYLENOL325 M1 PO
--- OUTSIDE RECORDS SUMMARY | 2020-01-15 15:26 | XMS ---
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 Events currently on file CRITERIA MET - 6 ED Visits in 6 Months - [facility] - Has Care Guidelines - [facility] - 2 Visits in 30 Days CARE PROVIDERS ALFREDA HERNANDEZ Family [facility] Current PHONE: [phone] GRACIELA CATALAN Internal Medicine: Pulmonary Disease 02/13/2019-Current PHONE: Unknown TUNG SIMONctbernard 02/13/2019-Current PHONE: [phone] ALFREDA HERNANDEZ Primary Care Current PHONE: [phone] Guidelines Source: [employer] Crissy Powell Guidelines Date: 11/18/2019 Care Coordination: Currently engaged in therapy, med management and case management through [employer].\T\nbsp; Please contact [employer] with mental health concerns.\T\nbsp; [place]: [phone]. Additional care guidelines exist for the following facilities: [facility] ( 04/11/2015 ) Care History Medical/Surgical 01/04/2020 [facility] Patient seen outside of clinic hours. Next scheduled appointment with Dr. Andrew on 01/19/2020 11/18/2019 [facility] Connected patient to Dr. Andrew\T\#39;s office to schedule ED\T\nbsp;follow up visit\T\nbsp; 11/18/2019 [facility] - Patient is currently established with [facility]. If patient is seen in the ED during business hours. Please contact CHWs at [facility]. Care Recommendation: If this patient [...] providing care. E.D. VISIT COUNT (12 MO.) 8 [facility] [place] TOTAL 8 NOTE: Visits indicate total known visits. ED/UCC VISIT TRACKING (12 MO.) 01/15/2020 15:24 [facility] [place] TYPE: Emergency COMPLAINT: - CHEST PAIN 01/10/2020 15:20 [facility] [place] TYPE: Emergency COMPLAINT: - CHEST PAIN DIAGNOSES: - Bipolar disorder, unspecified - Otitis media, unspecified, left ear - Nicotine dependence, unspecified, uncomplicated 01/02/2020 18:02 [facility] [place] TYPE: Emergency COMPLAINT: - BACK PAIN DIAGNOSES: - Pain in thoracic spine - Nicotine dependence, unspecified, uncomplicated - Bipolar disorder, unspecified 11/17/2019 17:12 [facility] [place] TYPE: Emergency COMPLAINT: - POSSIBLE OVERDOSE DIAGNOSES: - Nicotine dependence, unspecified, uncomplicated - 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 - Poisoning by oth antipsychot/neurolept, accidental, init - Schizophrenia, unspecified - Bipolar disorder, unspecified 11/07/2019 04:33 [facility] [place] TYPE: Emergency COMPLAINT: - FALL DIAGNOSES: - Pain in right leg - Bipolar disorder, unspecified - Other custodial (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 - Pain in left [...] stimulant abuse with intoxication, unspecified - Other custodial (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 - Personal history of urinary calculi - Other psychoactive substance abuse, uncomplicated - Nicotine dependence, unspecified, uncomplicated INPATIENT VISIT TRACKING (12 MO.) No inpatient visits to display in this time frame [email or web address]
--- NOTE | 2020-01-16 07:36 | EKG ---
[facility] [address] [place], [place] [address] Signed Normal sinus rhythm Normal ECG When compared with ECG of 10-JAN-2020 15:34, No significant change was found Confirmed by FIGUEROA MOREAU MD ([id number]) on 01/16/2020 7:36:17 AM Electronically Signed By: FIGUEROA MOREAU MD 01/16/20 0736 PATIENT NAME: DESTINY DAVID DANAY Electrocardiogram DATE OF : 86 PHYSICIAN: FIGUEROA MOREAU MD REPORT #: [id number] REPORT IS CONFIDENTIAL AND NOT TO BE RELEASED WITHOUT AUTHORIZATION
== END 2020-01-15 17:43 | disposition home or self-care (01) ==
LOC: ED 15:24
DX: R07.9 Chest pain, unspecified (principal); F17.200 Nicotine dependence, unspecified, uncomplicated
CPT/HCPCS: 36415; 71046; 80053; 84484; 85025; 85379; 93005; 93010; 99285-25

== ENCOUNTER 2020-01-23 15:03 | Emergency (ER) | payer OTHER ==
[~2020-01-23] VITALS: Ht 167.6 cm; Wt 54.6 kg
--- OUTSIDE RECORDS SUMMARY | 2020-01-23 15:06 | XMS ---
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 Events currently on file CRITERIA MET - 6 ED Visits in 6 Months - [facility] - Has Care Guidelines - [facility] - 2 Visits in 30 Days CARE PROVIDERS ALFREDA HERNANDEZ Family [facility] Current PHONE: [phone] GRACIELA CATALAN Internal Medicine: Pulmonary Disease 02/13/2019-Current PHONE: Unknown TUNG SIMONctbernard 02/13/2019-Current PHONE: [phone] ALFREDA HERNANDEZ Primary Care Current PHONE: [phone] Guidelines Source: [employer] Crissy Powell Guidelines Date: 11/18/2019 Care Coordination: Currently engaged in therapy, med management and case management through [employer].\T\nbsp; Please contact [employer] with mental health concerns.\T\nbsp; [place]: [phone]. Additional care guidelines exist for the following facilities: [facility] ( 04/11/2015 ) Care History Medical/Surgical 01/04/2020 [facility] Patient seen outside of clinic hours. Next scheduled appointment with Dr. Andrew on 01/19/2020 11/18/2019 [facility] Connected patient to Dr. Andrew\T\#39;s office to schedule ED\T\nbsp;follow up visit\T\nbsp; 11/18/2019 [facility] - Patient is currently established with [facility]. If patient is seen in the ED during business hours. Please contact CHWs at [facility]. Care Recommendation: If this patient has had [...] providing care. E.D. VISIT COUNT (12 MO.) [address] [facility] [place] [place] TOTAL 9 NOTE: Visits indicate total known visits. ED/UCC VISIT TRACKING (12 MO.) 01/23/2020 15:04 [facility] [place] TYPE: Emergency COMPLAINT: - SEIZURE SYMPTOMS 01/15/2020 15:24 [facility] [place] TYPE: Emergency COMPLAINT: - CHEST PAIN DIAGNOSES: - Chest pain, unspecified - Nicotine dependence, unspecified, uncomplicated 01/10/2020 15:20 [facility] [place] TYPE: Emergency COMPLAINT: - CHEST PAIN DIAGNOSES: - Bipolar disorder, unspecified - Otitis media, unspecified, left ear - Nicotine dependence, unspecified, uncomplicated 01/02/2020 18:02 [facility] [place] TYPE: Emergency COMPLAINT: - BACK PAIN DIAGNOSES: - Pain in thoracic spine - Nicotine dependence, unspecified, uncomplicated - Bipolar disorder, unspecified 11/17/2019 17:12 [facility] [place] TYPE: Emergency COMPLAINT: - POSSIBLE OVERDOSE DIAGNOSES: - Nicotine dependence, unspecified, uncomplicated - Other 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 terminal attack controller (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 - Poisoning by oth antipsychot/neurolept, accidental, init - Schizophrenia, unspecified - Bipolar disorder, unspecified 11/07/2019 04:33 [facility] [place] TYPE: Emergency COMPLAINT: - FALL DIAGNOSES: - Pain in right leg - Bipolar disorder, unspecified - Other mcfp (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 - Pain in left [...] stimulant abuse with intoxication, unspecified - 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
[2020-01-23] MEDS ORDERED: BUPROPION XL150 MG PO (20:06)
[2020-01-23] MEDS ORDERED: RISPERDAL1 MG PO (20:06)
== END 2020-01-23 20:42 | disposition home or self-care (01) ==
LOC: ED 15:03
DX: F20.9 Schizophrenia, unspecified (principal); F31.9 Bipolar disorder, unspecified; F17.200 Nicotine dependence, unspecified, uncomplicated
CPT/HCPCS: 80053; 85025; 96361; 96374; 99285-25; J1790; J7030

== ENCOUNTER 2020-02-02 20:22 | Emergency (ER) | payer OTHER ==
[~2020-02-02] VITALS: Ht 167.6 cm; Wt 54.6 kg
[~2020-02-02 20:22] MED LIST changes: +BUPROPION XL150 MG PO
--- OUTSIDE RECORDS SUMMARY | 2020-02-02 20:26 | XMS ---
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 Security Events currently on file CRITERIA MET - 6 ED Visits in 6 Months - [facility] - Has Care Guidelines - [facility] - 2 Visits in 30 Days CARE PROVIDERS ALFREDA HERNANDEZ Family [facility] Current PHONE: [phone] GRACIELA CATALAN Internal Medicine: Pulmonary Disease 02/13/2019-Current PHONE: Unknown TUNG SIMONctbernard 02/13/2019-Current PHONE: [phone] ALFREDA HERNANDEZ Primary Care Current PHONE: [phone] Guidelines Source: [employer] Crissy Powell Guidelines Date: 11/18/2019 Care Coordination: Currently engaged in therapy, med management and case management through [employer].\T\nbsp; Please contact [employer] with mental health concerns.\T\nbsp; [place]: [phone]. Additional care guidelines exist for the following facilities: [facility] ( 04/11/2015 ) Care History Medical/Surgical 01/04/2020 [facility] Patient seen outside of clinic hours. Next scheduled appointment with Dr. Andrew on 01/19/2020 11/18/2019 [facility] Connected patient to Dr. Andrew\T\#39;s office to schedule ED\T\nbsp;follow up visit\T\nbsp; 11/18/2019 [facility] - Patient is currently established with [facility]. If patient is seen in the ED during business hours. Please contact CHWs at [facility]. Care Recommendation: If this patient [...] providing care. E.D. VISIT COUNT (12 MO.) 10 [facility] TOTAL 10 NOTE: Visits indicate total known visits. 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 [place] TYPE: Emergency COMPLAINT: - POSS KIDNEY STONES DIAGNOSES: - Personal history of urinary calculi - Unspecified abdominal pain - Nicotine dependence, unspecified, uncomplicated 02/12/2019 23:[address] 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
== END 2020-02-02 22:56 | disposition home or self-care (01) ==
LOC: ED 20:22
DX: F20.9 Schizophrenia, unspecified (principal); Z79.899 Other long term (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
CPT/HCPCS: 96372; 99283; J2060; J3486

== ENCOUNTER 2021-01-04 10:41 | Emergency (ER) | payer OTHER ==
[~2021-01-04] VITALS: Ht 167.6 cm; Wt 54.6 kg
--- OUTSIDE RECORDS SUMMARY | 2021-01-04 10:44 | XMS ---
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 Security Events currently on file CRITERIA MET - [facility] CARE PROVIDERS ALFREDA HERNANDEZ [facility] Current PHONE: [phone] GRACIELA CATALAN Internal Medicine: Pulmonary Disease 02/13/2019-Current PHONE: Unknown TUNG SIMONctbernard 02/13/2019-Current PHONE: [phone] [facility] Date: 11/18/2019 Care Coordination: Currently engaged in therapy, med management and case management through [employer].\T\nbsp; Please contact [employer] with mental health concerns.\T\nbsp; [place] [facility] [phone]. Additional care guidelines exist for the following facilities: [facility] ( 04/11/2015 ) Care History Medical/Surgical 01/04/2020 [facility] Patient seen outside of clinic hours. Next scheduled appointment with Dr. Andrew on 01/19/2020 11/18/2019 [facility] Connected patient to Dr. Andrew\T\#39;s office to schedule ED\T\nbsp;follow up visit\T\nbsp; 11/18/2019 [facility] - Patient is currently established with [facility]. If patient is seen in the ED during business hours. Please contact CHWs at [facility]. Care Recommendation: If this patient [...] care. E.D. VISIT COUNT (12 MO.) 5 [facility]. TOTAL 5 NOTE: Visits indicate total known visits. ED/UCC VISIT TRACKING (12 MO.) 01/04/2021 10:43 [facility] [place] TYPE: Emergency COMPLAINT: - BODY SPASM, PAIN 02/02/2020 20:23 [facility] [place] TYPE: Emergency COMPLAINT: - ANXIETY DIAGNOSES: - Schizophrenia, unspecified - Other oysterman (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 01/23/2020 15:04 [facility] [place] TYPE: Emergency COMPLAINT: - SEIZURE SYMPTOMS DIAGNOSES: - Unspecified convulsions - Schizophrenia, unspecified - Nicotine dependence, unspecified, uncomplicated - Bipolar disorder, unspecified 01/15/2020 15:24 [facility] [place] TYPE: Emergency COMPLAINT: - CHEST PAIN DIAGNOSES: - Chest pain, unspecified - Nicotine dependence, unspecified, uncomplicated 01/10/2020 15:20 [facility] [place] TYPE: Emergency COMPLAINT: - CHEST PAIN DIAGNOSES: - Bipolar disorder, unspecified - Otitis media, unspecified, left ear - Nicotine dependence, unspecified, uncomplicated INPATIENT VISIT TRACKING (12 MO.) No inpatient visits to display in this time frame [email or web address]
== END 2021-01-04 14:49 | disposition home or self-care (01) ==
LOC: ED 10:41
DX: F15.129 Other stimulant abuse with intoxication, unspecified (principal); F20.9 Schizophrenia, unspecified; F31.9 Bipolar disorder, unspecified; Z79.899 Other long term (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
CPT/HCPCS: 96374; 99283-25; J2060

== ENCOUNTER 2022-01-05 05:48 | Emergency (ER) | payer OTHER ==
[~2022-01-05] VITALS: Ht 167.6 cm; Wt 54.6 kg
== END 2022-01-05 07:20 | disposition home or self-care (01) ==
LOC: ED 05:48
DX: S80.212A Abrasion, left knee, initial encounter (principal); W00.0XXA Fall on same level due to ice and snow, initial encounter
CPT/HCPCS: 73560; 90471; 90715; 99283-25

== ENCOUNTER 2022-05-20 13:26 | Emergency (ER) | payer OTHER ==
[~2022-05-20] VITALS: Ht 167.6 cm; Wt 54.6 kg
== END 2022-05-20 18:40 | disposition home or self-care (01) ==
LOC: ED 13:26 → EDBD 13:27 → ED 13:27
DX: F15.10 Other stimulant abuse, uncomplicated (principal); F20.9 Schizophrenia, unspecified; F31.9 Bipolar disorder, unspecified
CPT/HCPCS: 36415; 80053; 81001; 84703; 85025; 96374; 99284-25; J2060

== ENCOUNTER 2023-07-07 21:18 | Emergency (ER) | payer OTHER ==
[~2023-07-07] VITALS: Ht 167.6 cm; Wt 59.0 kg
--- OUTSIDE RECORDS SUMMARY | ~2023-07-07 | XMS | Continuity of Care Document ---
Demographics + + + | Address | [address] | | | [place] [address] | + + + | Preferred Language | Unknown | + + + | Marital Status | Never | + + + | Sikhism Affiliation | Unknown | + + + | Race | or Other | + + + | Ethnic Group | Not or | + + + Author + + + | Author | [facility] | + + + | Organization | [facility] | + + + | Address | [address] [place] [address] Way | | | [place] [address] | + + + | Phone | | + + + Care Team Providers + + + + | Care Magician/Illusionist Name | Role | Phone | + + + + Unavailable | Unavailable | + + + + Unavailable | Unavailable | + + + + Allergies No information. Encounters No information. Functional Status No information. Immunizations + + + + | date | description | facility | + + + + | 2022-01-05 00:00 | Tdap | [facility] | + + + + Medications + + + + | date | description | facility | + + + + | 2020-01-23 00:00 | RISPERIDONE | [facility] | + + + + | 2022-11-23 00:00 | RISPERIDONE | [facility] | + + + + | 2022-12-28 00:00 | RISPERIDONE | [facility] | + + + + | 2018-09-16 00:00 | OXYCODONE | [facility] | | | HCL/ACETAMINOPHEN | | + + + + | 2022-11-23 00:00 | Acetaminophen | [facility] | + + + + | 2022-12-28 00:00 | Acetaminophen | [facility] | + + + + | 2022-11-23 00:00 | NAPROXEN | [facility] | + + + + | 2022-12-28 00:00 | NAPROXEN | [facility] | + + + + | 2013-07-19 00:00 | OXAPROZIN | [facility] | + + + + | 2019-02-13 00:00 | AMOXICILLIN | [facility] | + + + + | 2020-01-10 00:00 | AMOXICILLIN | [facility] | + + + + | 2019-11-05 00:00 | Erythromycin Base | [facility] | + + + + | 2013-07-19 00:00 | ERYTHROMYCIN | [facility] | + + + + | 2022-11-23 00:00 | GABAPENTIN | [facility] | + + + + | 2022-12-28 00:00 | GABAPENTIN | [facility] | + + + + | 2022-12-28 00:00 | RISPERIDONE MICROSPHERES | [facility] | + + + + | 2013-07-07 00:00 | TRAMADOL HCL | [facility] | + + + + | 2018-04-02 00:00 | DICLOFENAC SODIUM | [facility] | + + + + | 2018-12-25 00:00 | HYDROCODONE | [facility] | | | BIT/ACETAMINOPHEN | | + + + + | 2018-09-16 00:00 | TAMSULOSIN HCL | [facility] | + + + + | 2018-12-25 00:00 | TAMSULOSIN HCL | [facility] | + + + + | 2018-12-25 00:00 | PROMETHAZINE HCL | [facility] | + + + + | 2020-01-23 00:00 | BUPROPION HCL | [facility] | + + + + | 2022-11-23 00:00 | BUPROPION HCL | [facility] | + + + + | 2022-12-28 00:00 | BUPROPION HCL | [facility] | + + + + Problems + + + + | date | description | facility | + + + + | 2018-02-21 00:00 | Calculus of both kidneys | [facility] | + + + + | 2018-04-02 00:00 | Acute myofascial strain of | [facility] | | | lumbar region | | + + + + | 2018-12-25 00:00 | Calculus of left ureter | [facility] | + + + + | 2019-02-13 00:00 | Methamphetamine | [facility] | | | intoxication | | + + + + | 2019-02-13 00:00 | Polysubstance abuse | [facility] | + + + + | 2019-02-13 00:00 | Left otitis media | [facility] | + + + + | 2019-04-02 00:00 | Flank pain | [facility] | + + + + | 2019-11-07 00:00 | Fall from ground level | [facility] | + + + + | 2019-11-17 00:00 | Accidental overdose | [facility] | + + + + | 2020-01-02 00:00 | Upper back pain | [facility] | + + + + | 2020-01-15 00:00 | Chest pain | [facility] | + + + + | 2020-02-02 00:00 | Schizophrenia | [facility] | + + + + | 2022-01-05 00:00 | Left knee pain | [facility] | + + + + | 2022-01-05 00:00 | Abrasion of left knee, | [facility] | | | initial encounter | | + + + + | 2022-05-20 00:00 | Methamphetamine abuse | [facility] | + + + + | 2022-11-13 00:00 | Schizoaffective disorder | [facility] | + + + + | 2022-11-16 00:00 | Hyperthyroidism | [facility] | + + + + Procedures No [...] 117.73 | lb | + + + +---------+"
--- OUTSIDE RECORDS SUMMARY | ~2023-07-07 | XMS | Continuity of Care Document ---
Demographics + + + | Address | [address] | | | [place] [address] | + + + | Preferred Language | Unknown | + + + | Marital Status | Never | + + + | Christianity Affiliation | Unknown | + + + | Race | or Other | + + + | Ethnic Group | Not or | + + + Author + + + | Author | [facility] | + + + | Organization | [facility] | + + + | Address | [address] [place] [address] Way | | | [place] [address] | + + + | Phone | | + + + Care Team Providers + + + + | Care Greenhouse Manager Name | Role | Phone | + + + + Unavailable | Unavailable | + + + + Unavailable | Unavailable | + + + + Allergies No information. Encounters No information. Functional Status No information. Immunizations + + + + | date | description | facility | + + + + | 2022-01-05 00:00 | Tdap | [facility] | + + + + Medications + + + + | date | description | facility | + + + + | 2020-01-23 00:00 | RISPERIDONE | [facility] | + + + + | 2022-11-23 00:00 | RISPERIDONE | [facility] | + + + + | 2022-12-28 00:00 | RISPERIDONE | [facility] | + + + + | 2018-09-16 00:00 | OXYCODONE | [facility] | | | HCL/ACETAMINOPHEN | | + + + + | 2022-11-23 00:00 | Acetaminophen | [facility] | + + + + | 2022-12-28 00:00 | Acetaminophen | [facility] | + + + + | 2022-11-23 00:00 | NAPROXEN | [facility] | + + + + | 2022-12-28 00:00 | NAPROXEN | [facility] | + + + + | 2013-07-19 00:00 | OXAPROZIN | [facility] | + + + + | 2019-02-13 00:00 | AMOXICILLIN | [facility] | + + + + | 2020-01-10 00:00 | AMOXICILLIN | [facility] | + + + + | 2019-11-05 00:00 | Erythromycin Base | [facility] | + + + + | 2013-07-19 00:00 | ERYTHROMYCIN | [facility] | + + + + | 2022-11-23 00:00 | GABAPENTIN | [facility] | + + + + | 2022-12-28 00:00 | GABAPENTIN | [facility] | + + + + | 2022-12-28 00:00 | RISPERIDONE MICROSPHERES | [facility] | + + + + | 2013-07-07 00:00 | TRAMADOL HCL | [facility] | + + + + | 2018-04-02 00:00 | DICLOFENAC SODIUM | [facility] | + + + + | 2018-12-25 00:00 | HYDROCODONE | [facility] | | | BIT/ACETAMINOPHEN | | + + + + | 2018-09-16 00:00 | TAMSULOSIN HCL | [facility] | + + + + | 2018-12-25 00:00 | TAMSULOSIN HCL | [facility] | + + + + | 2018-12-25 00:00 | PROMETHAZINE HCL | [facility] | + + + + | 2020-01-23 00:00 | BUPROPION HCL | [facility] | + + + + | 2022-11-23 00:00 | BUPROPION HCL | [facility] | + + + + | 2022-12-28 00:00 | BUPROPION HCL | [facility] | + + + + Problems + + + + | date | description | facility | + + + + | 2018-02-21 00:00 | Calculus of both kidneys | [facility] | + + + + | 2018-04-02 00:00 | Acute myofascial strain of | [facility] | | | lumbar region | | + + + + | 2018-12-25 00:00 | Calculus of left ureter | [facility] | + + + + | 2019-02-13 00:00 | Methamphetamine | [facility] | | | intoxication | | + + + + | 2019-02-13 00:00 | Polysubstance abuse | [facility] | + + + + | 2019-02-13 00:00 | Left otitis media | [facility] | + + + + | 2019-04-02 00:00 | Flank pain | [facility] | + + + + | 2019-11-07 00:00 | Fall from ground level | [facility] | + + + + | 2019-11-17 00:00 | Accidental overdose | [facility] | + + + + | 2020-01-02 00:00 | Upper back pain | [facility] | + + + + | 2020-01-15 00:00 | Chest pain | [facility] | + + + + | 2020-02-02 00:00 | Schizophrenia | [facility] | + + + + | 2022-01-05 00:00 | Left knee pain | [facility] | + + + + | 2022-01-05 00:00 | Abrasion of left knee, | [facility] | | | initial encounter | | + + + + | 2022-05-20 00:00 | Methamphetamine abuse | [facility] | + + + + | 2022-11-13 00:00 | Schizoaffective disorder | [facility] | + + + + | 2022-11-16 00:00 | Hyperthyroidism | [facility] | + + + + Procedures No [...] (missing) | | (unavailable | 15:15:08 | [facility] | | | | | [...]
[~2023-07-07 21:18] MED LIST changes: +PANTOPRAZOLE SO20 MG PO; +RISPERDAL37.5 MG/2 IM
[2023-07-07 23:15] VITALS: BP 125/74
== END 2023-07-07 23:11 | disposition home or self-care (01) ==
LOC: ED 21:18
DX: F14.10 Cocaine abuse, uncomplicated (principal)
CPT/HCPCS: A9270-GY

== ENCOUNTER 2023-07-10 11:53 | Emergency (ER) | payer OTHER ==
[~2023-07-10] VITALS: Ht 167.6 cm; Wt 59.1 kg
--- OUTSIDE RECORDS SUMMARY | ~2023-07-10 | XMS | Continuity of Care Document ---
Demographics + + + | Address | [address] | | | [place] [address] | + + + | Preferred Language | Unknown | + + + | Marital Status | Never | + + + | Yarsani Affiliation | Unknown | + + + | Race | or Other | + + + | Ethnic Group | Not or | + + + Author + + + | Author | [facility] | + + + | Organization | [facility] | + + + | Address | [address] [place] [address] Way | | | [place] [address] | + + + | Phone | | + + + Care Team Providers + + + + | Care Pcat Instructor Name | Role | Phone | + + + + Unavailable | Unavailable | + + + + Unavailable | Unavailable | + + + + Allergies and Intolerances + + + + + + | date | description | facility | reaction | severity | + + + + + + | (no date) | No Known | [facility] | (no reaction) | (no severity) | | | Allergies | | | | + + + + + + Encounters No information. Functional Status No information. Immunizations + + + + | date | description | facility | + + + + | 2022-01-05 00:00 | Tdap | [facility] | + + + + Medications + + + + | date | description | facility | + + + + | 2020-01-23 00:00 | RISPERIDONE | [facility] | + + + + | 2022-11-23 00:00 | RISPERIDONE | [facility] | + + + + | 2022-12-28 00:00 | RISPERIDONE | [facility] | + + + + | 2023-07-07 00:00 | RISPERIDONE | [facility] | + + + + | 2018-09-16 00:00 | OXYCODONE | [facility] | | | HCL/ACETAMINOPHEN | | + + + + | 2022-11-23 00:00 | Acetaminophen | [facility] | + + + + | 2022-12-28 00:00 | Acetaminophen | [facility] | + + + + | 2023-07-07 00:00 | Acetaminophen | [facility] | + + + + | 2022-11-23 00:00 | NAPROXEN | [facility] | + + + + | 2022-12-28 00:00 | NAPROXEN | [facility] | + + + + | 2023-07-07 00:00 | NAPROXEN | [facility] | + + + + | 2013-07-19 00:00 | OXAPROZIN | [facility] | + + + + | 2019-02-13 00:00 | AMOXICILLIN | [facility] | + + + + | 2020-01-10 00:00 | AMOXICILLIN | [facility] | + + + + | 2019-11-05 00:00 | Erythromycin Base | [facility] | + + + + | 2013-07-19 00:00 | ERYTHROMYCIN | [facility] | + + + + | 2022-11-23 00:00 | GABAPENTIN | [facility] | + + + + | 2022-12-28 00:00 | GABAPENTIN | [facility] | + + + + | 2023-07-07 00:00 | GABAPENTIN | [facility] | + + + + | 2022-12-28 00:00 | RISPERIDONE MICROSPHERES | [facility] | + + + + | 2023-07-07 00:00 | RISPERIDONE MICROSPHERES | [facility] | + + + + | 2013-07-07 00:00 | TRAMADOL HCL | [facility] | + + + + | 2018-04-02 00:00 | DICLOFENAC SODIUM | [facility] | + + + + | 2018-12-25 00:00 | HYDROCODONE | [facility] | | | BIT/ACETAMINOPHEN | | + + + + | 2018-09-16 00:00 | TAMSULOSIN HCL | [facility] | + + + + | 2018-12-25 00:00 | TAMSULOSIN HCL | [facility] | + + + + | 2018-12-25 00:00 | PROMETHAZINE HCL | [facility] | + + + + | 2020-01-23 00:00 | BUPROPION HCL | [facility] | + + + + | 2022-11-23 00:00 | BUPROPION HCL | [facility] | + + + + | 2022-12-28 00:00 | BUPROPION HCL | [facility] | + + + + | 2023-07-07 00:00 | BUPROPION HCL | [facility] | + + + + Problems + + + + | date | description | facility | + + + + | 2018-02-21 00:00 | Calculus of both kidneys | [facility] | + + + + | 2018-04-02 00:00 | Acute myofascial strain of | [facility] | | | lumbar region | | + + + + | 2018-12-25 00:00 | Calculus of left ureter | [facility] | + + + + | 2019-02-13 00:00 | Methamphetamine | [facility] | | | intoxication | | + + + + | 2019-02-13 00:00 | Polysubstance abuse | [facility] | + + + + | 2019-02-13 00:00 | Left otitis media | [facility] | + + + + | 2019-04-02 00:00 | Flank pain | [facility] | + + + + | 2019-11-07 00:00 | Fall from ground level | [facility] | + + + + | 2019-11-17 00:00 | Accidental overdose | [facility] | + + + + | 2020-01-02 00:00 | Upper back pain | [facility] | + + + + | 2020-01-15 00:00 | Chest pain | [facility] | + + + + | 2020-02-02 00:00 | Schizophrenia | [facility] | + + + + | 2022-01-05 00:00 | Left knee pain | [facility] | + + + + | 2022-01-05 00:00 | Abrasion of left knee, | [facility] | | | initial encounter | | + + + + | 2022-05-20 00:00 | Methamphetamine abuse | [facility] | + + + + | 2022-11-13 00:00 | Schizoaffective disorder | [facility] | + + + + | 2022-11-16 00:00 | Hyperthyroidism | [facility] | + + + + | 2022-12-27 13:06 | SCHIZOPHRENIA, UNSPECIFIED | [facility] | | | | | + + + + | 2022-12-27 13:06 | Brief psychotic disorder | [facility] | + + + + | 2022-12-27 13:06 | Essential (primary) | [facility] | | | hypertension | | + + + + | 2022-12-27 13:06 | OTHER LONGTERM (CURRENT) | [facility] | | | DRUG THERAPY | | + + + + | 2023-07-07 00:00 | Substance abuse | [facility] | + + + + | 2023-07-07 21:20 | COCAINE ABUSE, | [facility] | | | UNCOMPLICATED | | + + + + | 2023-07-07 21:20 | RESTLESSNESS AND AGITATION | [facility] | | | | | + + + + Procedures No information. Results/Labs +--------+--------+ +---------+--------+---------+ | test | date | facility | value | unit | notes | +--------+--------+ +---------+--------+---------+ + + | Result panel 1 | + + + + + +--------+ + + | | 2022-05-20 | [facility] | 10.4 | (missing) | (missing) | | (unavailable | 13:53 | [facility] | | | | + + + +--------+ + + + + | Result panel 2 | + + + + + +--------+ + + | | 2022-05-20 | [facility] | 4.50 | (missing) | (missing) | | (unavailable | 13:53 | [facility] | | | | + + + +--------+ + + + + | Result panel 3 | + + + + + +--------+ + + | | 2022-05-20 | [facility] | 14.6 | (missing) | (missing) | | (unavailable | 13:53 | [facility] | | | | + + + +--------+ + + + + | Result panel 4 | + + + + + +--------+ + + | | 2022-05-20 | [facility] | 43.6 | (missing) | (missing) | | (unavailable | 13:53 | [facility] | | | | + + + +--------+ + + + + | Result panel 5 | + + + + + +--------+ + + | | 2022-05-20 | [facility] | 96.9 | (missing) | (missing) | | (unavailable | 13:53 | [facility] | | | | + + + +--------+ + + + + | Result panel 6 | + + + + + +--------+ + + | | 2022-05-20 | [facility] | 32.4 | (missing) | (missing) | | (unavailable | 13:53 | [facility] | | | | + + + +--------+ + + + + | Result panel 7 | + + + + + +--------+ + + | | 2022-05-20 | [facility] | 33.4 | (missing) | (missing) | | (unavailable | 13:53 | [facility] | | | | + + + +--------+ + + + + | Result panel 8 | + + + + + +--------+ + + | | 2022-05-20 | [facility] | 13.5 | (missing) | (missing) | | (unavailable | 13:53 | [facility] | | | | + + + +--------+ + + + + | Result panel 9 | + + + + + +-------+ + + | | 2022-05-20 | [facility] | 316 | (missing) | (missing) | | (unavailable | 13:53 | [facility] | | | | + + + +-------+ + + + + | Result panel 10 | + + + + + +--------+ + + | | 2022-05-20 | [facility] | 64.0 | (missing) | (missing) | | (unavailable | 13:53 | [facility] | | | | + + + +--------+ + + + + | Result panel 11 | + + + + + +--------+ + + | | 2022-05-20 | [facility] | 27.2 | (missing) | (missing) | | (unavailable | 13:53 | [facility] | | | | + + + +--------+ + + + + | Result panel 12 | + + + + + +-------+ + + | | 2022-05-20 | [facility] | 6.0 | (missing) | (missing) | | (unavailable | 13:53 | [facility] | | | | + + + +-------+ + + + + | Result panel 13 | + + + + + +-------+ + + | | 2022-05-20 | [facility] | 2.2 | (missing) | (missing) | | (unavailable | 13:53 | [facility] | | | | + + + +-------+ + + + + | Result panel 14 | + + + + + +-------+ + + | | 2022-05-20 | [facility] | 0.6 | (missing) | (missing) | | (unavailable | 13:53 | [facility] | | | | + + + +-------+ + + + + | Result panel 15 | + + + + + +------+---------+ + | | 2022-05-20 | [facility] | 77 | mg/dL | (missing) | | (unavailable | 13:53 | [facility] | | | | + + + +------+---------+ + + + | Result panel 16 | + + + + + +------+---------+ + | | 2022-05-20 | [facility] | 23 | mg/dL | (missing) | | (unavailable | 13:53 | [facility] | | | | + + + +------+---------+ + + + | Result panel 17 | + + + + + +--------+---------+ + | | 2022-05-20 | [facility] | 0.77 | mg/dL | (missing) | | (unavailable | 13:53 | [facility] | | | | + + + +--------+---------+ + + + | Result panel 18 | + + + + + +-------+ + + | | 2022-05-20 | [facility] | 112 | (missing) | (missing) | | (unavailable | 13:53 | [facility] | | | | + + + +-------+ + + + + | Result panel 19 | + + + + + +---------+ + + | | 2022-05-20 | [facility] | 29.87 | (missing) | (missing) | | (unavailable | 13:53 | [facility] | | | | + + + +---------+ + + + + | Result panel 20 | + + + + + +-------+ + + | | 2022-05-20 | [facility] | 139 | (missing) | (missing) | | (unavailable | 13:53 | [facility] | | | | + + + +-------+ + + + + | Result panel 21 | + + + + + +-------+ + + | | 2022-05-20 | [facility] | 4.2 | (missing) | (missing) | | (unavailable | 13:53 | [facility] | | | | + + + +-------+ + + + + | Result panel 22 | + + + + + +-------+ + + | | 2022-05-20 | [facility] | 104 | (missing) | (missing) | | (unavailable | 13:53 | [facility] | | | | + + + +-------+ + + + + | Result panel 23 | + + + + + +------+ + + | | 2022-05-20 | [facility] | 26 | (missing) | (missing) | | (unavailable | 13:53 | [facility] | | | | + + + +------+ + + + + | Result panel 24 | + + + + + +--------+ + + | | 2022-05-20 | [facility] | 13.2 | (missing) | (missing) | | (unavailable | 13:53 | [facility] | | | | + + + +--------+ + + + + | Result panel 25 | + + + + + +-------+---------+ + | | 2022-05-20 | [facility] | 9.0 | mg/dL | (missing) | | (unavailable | 13:53 | [facility] | | | | + + + +-------+---------+ + + + | Result panel 26 | + + + + + +-------+ + + | | 2022-05-20 | [facility] | 7.4 | (missing) | (missing) | | (unavailable | 13:53 | [facility] | | | | + + + +-------+ + + + + | Result panel 27 | + + + + + +-------+ + + | | 2022-05-20 | [facility] | 3.8 | (missing) | (missing) | | (unavailable | 13:53 | [facility] | | | | + + + +-------+ + + + + | Result panel 28 | + + + + + +-------+ + + | | 2022-05-20 | [facility] | 3.6 | (missing) | (missing) | | (unavailable | 13:53 | [facility] | | | | + + + +-------+ + + + + | Result panel 29 | + + + + + +--------+ + + | | 2022-05-20 | [facility] | 1.06 | (missing) | (missing) | | (unavailable | 13:53 | [facility] | | | | + + + +--------+ + + + + | Result panel 30 | + + + + + +-------+ + + | | 2022-05-20 | [facility] | 0.2 | (missing) | (missing) | | (unavailable | 13:53 | [facility] | | | | + + + +-------+ + + + + | Result panel 31 | + + + + + +------+ + + | | 2022-05-20 | [facility] | 29 | (missing) | (missing) | | (unavailable | 13:53 | [facility] | | | | + + + +------+ + + + + | Result panel 32 | + + + + + +------+ + + | | 2022-05-20 | [facility] | 46 | (missing) | (missing) | | (unavailable | 13:53 | [facility] | | | | + + + +------+ + + + + | Result panel 33 | + + + + + +------+ + + | | 2022-05-20 | [facility] | 75 | (missing) | (missing) | | (unavailable | 13:53 | [facility] | | | | + + + +------+ + + + + | Result panel 34 | + + + + + + + + + | | 2022-05-20 | [facility] | YELLOW | (missing) | (missing) | | (unavailable | 16:19 | [facility] | | | | + + + + + + + + + | Result panel 35 | + + + + + +---------+ + + | | 2022-05-20 | [facility] | CLEAR | (missing) | (missing) | | (unavailable | 16:19 | [facility] | | | | + + + +---------+ + + + + | Result panel 36 | + + + + + + + + + | | 2022-05-20 | [facility] | NEGATIVE | (missing) | (missing) | | (unavailable | 16:19 | [facility] | | | | + + + + + + + + + | Result panel 37 | + + + + + + + + + | | 2022-05-20 | [facility] | NEGATIVE | (missing) | (missing) | | (unavailable | 16:19 | [facility] | | | | + + + + + + + + + | Result panel 38 | + + + + + + + + + | | 2022-05-20 | [facility] | NEGATIVE | (missing) | (missing) | | (unavailable | 16:19 | [facility] | | | | + + + + + + + + + | Result panel 39 | + + + + + +---------+ + + | | 2022-05-20 | [facility] | 1.025 | (missing) | (missing) | | (unavailable | 16:19 | [facility] | | | | + + + +---------+ + + + + | Result panel 40 | + + + + + +---------+ + + | | 2022-05-20 | [facility] | SMALL | (missing) | (missing) | | (unavailable | 16:19 | [facility] | | | | + + + +---------+ + + + + | Result panel 41 | + + + + + +-------+ + + | | 2022-05-20 | [facility] | 6.0 | (missing) | (missing) | | (unavailable | 16:19 | [facility] | | | | + + + +-------+ + + + + | Result panel 42 | + + + + + + + + + | | 2022-05-20 | [facility] | NEGATIVE | (missing) | (missing) | | (unavailable | 16:19 | [facility] | | | | + + + + + + + + + | Result panel 43 | + + + + + + + + + | | 2022-05-20 | [facility] | NORMAL | (missing) | (missing) | | (unavailable | 16:19 | [facility] | | | | + + + + + + + + + | Result panel 44 | + + + + + + + + + | | 2022-05-20 | [facility] | NEGATIVE | (missing) | (missing) | | (unavailable | 16:19 | [facility] | | | | + + + + + + + + + | Result panel 45 | + + + + + + + + + | | 2022-05-20 | [facility] | NEGATIVE | (missing) | (missing) | | (unavailable | 16:19 | [facility] | | | | + + + + + + + + + | Result panel 46 | + + + + + + + + + | | 2022-05-20 | [facility] | NEGATIVE | (missing) | (missing) | | (unavailable | 16:19 | [facility] | | | | + + + + + + + + + | Result panel 47 | + + + + + + + + + | | 2022-05-20 | [facility] | NEGATIVE | (missing) | (missing) | | (unavailable | 16:19 | [facility] | | | | + + + + + + + + + | Result panel 48 | + + + + + + + + + | | 2022-05-20 | [facility] | POSITIVE | (missing) | (missing) | | (unavailable | 16:19 | [facility] | | | | + + + + + + + + + | Result panel 49 | + + + + + + + + + | | 2022-05-20 | [facility] | NEGATIVE | (missing) | (missing) | | (unavailable | 16:19 | [facility] | | | | + + + + + + + + + | Result panel 50 | + + + + + + + + + | | 2022-05-20 | [facility] | NEGATIVE | (missing) | (missing) | | (unavailable | 16:19 | [facility] | | | | + + + + + + + + + | Result panel 51 | + + + + + + + + + | | 2022-05-20 | [facility] | NEGATIVE | (missing) | (missing) | | (unavailable | 16:19 | [facility] | | | | + + + + + + + + + | Result panel 52 | + + + + + + + + + | | 2022-05-20 | [facility] | NEGATIVE | (missing) | (missing) | | (unavailable | 16:19 | [facility] | | | | + + + + + + + + + | Result panel 53 | + + + + + + + + + | | 2022-05-20 | [facility] | NEGATIVE | (missing) | (missing) | | (unavailable | 16:19 | [facility] | | | | + + + + + + + + + | Result panel 54 | + + + + + + + + + | | 2022-05-20 | [facility] | NEGATIVE | (missing) | (missing) | | (unavailable | 16:19 | [facility] | | | | + + + + + + + + + | Result panel 55 | + + + + + + + + + | | 2022-05-20 | [facility] | NEGATIVE | (missing) | (missing) | | (unavailable | 16:19 | [facility] | | | | + + + + + + + + + | Result panel 56 | + + + + + + + + + | | 2022-05-20 | [facility] | POSITIVE | (missing) | (missing) | | (unavailable | 16:19 | [facility] | | | | + + + + + + + + + | Result panel 57 | + + + + + + + + + | | 2022-05-20 | [facility] | NEGATIVE | (missing) | (missing) | | (unavailable | 16:19 | [facility] | | | | + + + + + + + + + | Result panel 58 | + + + + + + + + + | | 2022-05-20 | [facility] | POSITIVE | (missing) | (missing) | | (unavailable | 16:19 | [facility] | | | | + + + + + + + + + | Result panel 59 | + + + + + + + + + | | 2022-05-20 | [facility] | NEGATIVE | (missing) | (missing) | | (unavailable | 16:19 | [facility] | | | | + + + + + + + + + | Result panel 60 | + + + + + +-------+ + + | | 2022-11-13 | [facility] | 0.2 | (missing) | (missing) | | (unavailable | 15:15:08 | [facility] | | | | + + + +-------+ + + + + | Result panel 61 | + + + + + +-----+ + + | | 2022-11-13 | [facility] | 9 | (missing) | (missing) | | (unavailable | 15:15:08 | [facility] | | | | + + + +-----+ + + + + | Result panel 62 | + + + + + +------+ + + | | 2022-11-13 | [facility] | 20 | (missing) | (missing) | | (unavailable | 15:15:08 | [facility] | | | | + + + +------+ + + + + | Result panel 63 | + + + + + +------+ + + | | 2022-11-13 | [facility] | 82 | (missing) | (missing) | | (unavailable | 15:15:08 | [facility] | | | | + + + +------+ + + + + | Result panel 64 | + + + + + + + + + | | 2022-11-13 | [facility] | <0.007 | (missing) | (missing) | | (unavailable | 15:15:08 | [facility] | | | | + + + + + + + + + | Result panel 65 | + + + + + + + + + | | 2022-11-13 | [facility] | NEGATIVE | (missing) | (missing) | | (unavailable | 15:15:08 | [facility] | | | | + + + + + + + + + | Result panel 66 | + + + + + +-----+ + + | | 2022-11-13 | [facility] | 0 | (missing) | (missing) | | (unavailable | 15:15:08 | [facility] | | | | + + + +-----+ + + + + | Result panel 67 | + + + + + +------+ + + | | 2022-11-13 | [facility] | // | (missing) | (missing) | | (unavailable | 15:15:08 | [facility] | | | | + + + +------+ + + + + | Result panel 68 | + + + + + +-------+---------+ + | | 2022-11-13 | [facility] | 4.1 | mg/dL | (missing) | | (unavailable | 15:15:08 | [facility] | | | | + + + +-------+---------+ + + + | Result panel 69 | + + + + + +------+ + + | | 2022-11-13 | [facility] | // | (missing) | (missing) | | (unavailable | 15:15:08 | [facility] | | | | + + + +------+ + + + + | Result panel 70 | + + + + + +------+ + + | | 2022-11-13 | [facility] | <3 | (missing) | (missing) | | (unavailable | 15:15:08 | [facility] | | | | + + + +------+ + + + + | Result panel 71 | + + + + + + + + + | | 2022-11-13 | [facility] | SEE SCANNED | (missing) | (missing) | | (unavailable | 15:15:08 | [facility] | [facility] | | | | + + + + + + + + + | Result panel 72 | + + + + + +-------+ + + | | 2022-11-13 | [facility] | 7.3 | (missing) | (missing) | | (unavailable | 15:15:08 | [facility] | | | | + + + +-------+ + + + + | Result panel 73 | + + + + + +--------+ + + | | 2022-11-13 | [facility] | 4.57 | (missing) | (missing) | | (unavailable | 15:15:08 | [facility] | | | | + + + +--------+ + + + + | Result panel 74 | + + + + + +--------+ + + | | 2022-11-13 | [facility] | 14.2 | (missing) | (missing) | | (unavailable | 15:15:08 | [facility] | | | | + + + +--------+ + + + + | Result panel 75 | + + + + + +--------+ + + | | 2022-11-13 | [facility] | 42.7 | (missing) | (missing) | | (unavailable | 15:15:08 | [facility] | | | | + + + +--------+ + + + + | Result panel 76 | + + + + + +--------+ + + | | 2022-11-13 | [facility] | 93.3 | (missing) | (missing) | | (unavailable | 15:15:08 | [facility] | | | | + + + +--------+ + + + + | Result panel 77 | + + + + + +--------+ + + | | 2022-11-13 | [facility] | 31.0 | (missing) | (missing) | | (unavailable | 15:15:08 | [facility] | | | | + + + +--------+ + + + + | Result panel 78 | + + + + + +--------+ + + | | 2022-11-13 | [facility] | 33.2 | (missing) | (missing) | | (unavailable | 15:15:08 | [facility] | | | | + + + +--------+ + + + + | Result panel 79 | + + + + + +--------+ + + | | 2022-11-13 | [facility] | 12.5 | (missing) | (missing) | | (unavailable | 15:15:08 | [facility] | | | | + + + +--------+ + + + + | Result panel 80 | + + + + + +-------+ + + | | 2022-11-13 | [facility] | 345 | (missing) | (missing) | | (unavailable | 15:15:08 | [facility] | | | | + + + +-------+ + + + + | Result panel 81 | + + + + + +--------+ + + | | 2022-11-13 | [facility] | 63.8 | (missing) | (missing) | | (unavailable | 15:15:08 | [facility] | | | | + + + +--------+ + + + + | Result panel 82 | + + + + + +--------+ + + | | 2022-11-13 | [facility] | 25.2 | (missing) | (missing) | | (unavailable | 15:15:08 | [facility] | | | | + + + +--------+ + + + + | Result panel 83 | + + + + + +-------+ + + | | 2022-11-13 | [facility] | 6.9 | (missing) | (missing) | | (unavailable | 15:15:08 | [facility] | | | | + + + +-------+ + + + + | Result panel 84 | + + + + + +-------+ + + | | 2022-11-13 | [facility] | 2.3 | (missing) | (missing) | | (unavailable | 15:15:08 | [facility] | | | | + + + +-------+ + + + + | Result panel 85 | + + + + + +-------+ + + | | 2022-11-13 | [facility] | 1.8 | (missing) | (missing) | | (unavailable | 15:15:08 | [facility] | | | | + + + +-------+ + + + + | Result panel 86 | + + + + + +-------+---------+ + | | 2022-11-13 | [facility] | 108 | mg/dL | (missing) | | (unavailable | 15:15:08 | [facility] | | | | + + + +-------+---------+ + + + | Result panel 87 | + + + + + +------+---------+ + | | 2022-11-13 | [facility] | 14 | mg/dL | (missing) | | (unavailable | 15:15:08 | [facility] | | | | + + + +------+---------+ + + + | Result panel 88 | + + + + + +--------+---------+ + | | 2022-11-13 | [facility] | 0.59 | mg/dL | (missing) | | (unavailable | 15:15:08 | [facility] | | | | + + + +--------+---------+ + + + | Result panel 89 | + + + + + +-------+ + + | | 2022-11-13 | [facility] | 121 | (missing) | (missing) | | (unavailable | 15:15:08 | [facility] | | | | + + + +-------+ + + + + | Result panel 90 | + + + + + +---------+ + + | | 2022-11-13 | [facility] | 23.72 | (missing) | (missing) | | (unavailable | 15:15:08 | [facility] | | | | + + + +---------+ + + + + | Result panel 91 | + + + + + +-------+ + + | | 2022-11-13 | [facility] | 138 | (missing) | (missing) | | (unavailable | 15:15:08 | [facility] | | | | + + + +-------+ + + + + | Result panel 92 | + + + + + +-------+ + + | | 2022-11-13 | [facility] | 4.0 | (missing) | (missing) | | (unavailable | 15:15:08 | [facility] | | | | + + + +-------+ + + + + | Result panel 93 | + + + + + +-------+ + + | | 2022-11-13 | [facility] | 104 | (missing) | (missing) | | (unavailable | 15:15:08 | [facility] | | | | + + + +-------+ + + + + | Result panel 94 | + + + + + +------+ + + | | 2022-11-13 | [facility] | 25 | (missing) | (missing) | | (unavailable | 15:15:08 | [facility] | | | | + + + +------+ + + + + | Result panel 95 | + + + + + +--------+ + + | | 2022-11-13 | [facility] | 13.0 | (missing) | (missing) | | (unavailable | 15:15:08 | [facility] | | | | + + + +--------+ + + + + | Result panel 96 | + + + + + +-------+---------+ + | | 2022-11-13 | [facility] | 9.3 | mg/dL | (missing) | | (unavailable | 15:15:08 | [facility] | | | | + + + +-------+---------+ + + + | Result panel 97 | + + + + + +-------+ + + | | 2022-11-13 | [facility] | 7.5 | (missing) | (missing) | | (unavailable | 15:15:08 | [facility] | | | | + + + +-------+ + + + + | Result panel 98 | + + + + + +-------+ + + | | 2022-11-13 | [facility] | 3.5 | (missing) | (missing) | | (unavailable | 15:15:08 | [facility] | | | | + + + +-------+ + + + + | Result panel 99 | + + + + + +-------+ + + | | 2022-11-13 | [facility] | 4.0 | (missing) | (missing) | | (unavailable | 15:15:08 | [facility] | | | | + + + +-------+ + + + + | Result panel 100 | + + + + + +--------+ + + | | 2022-11-13 | [facility] | 0.88 | (missing) | (missing) | | (unavailable | 15:15:08 | [facility] | | | | + + + +--------+ + + + + | Result panel 101 | + + + + + + + + + | | 2022-11-13 | [facility] | NEGATIVE | (missing) | (missing) | | (unavailable | 19:40:08 | [facility] | | | | + + + + + + + + + | Result panel 102 | + + + + + + + + + | | 2022-11-13 | [facility] | POSITIVE | (missing) | (missing) | | (unavailable | 19:40:08 | [facility] | | | | + + + + + + + + + | Result panel 103 | + + + + + + + + + | | 2022-11-13 | [facility] | NEGATIVE | (missing) | (missing) | | (unavailable | 19:40:08 | [facility] | | | | + + + + + + + + + | Result panel 104 | + + + + + + + + + | | 2022-11-13 | [facility] | NEGATIVE | (missing) | (missing) | | (unavailable | 19:40:08 | [facility] | | | | + + + + + + + + + | Result panel 105 | + + + + + + + + + | | 2022-11-13 | [facility] | NEGATIVE | (missing) | (missing) | | (unavailable | 19:40:08 | [facility] | | | | + + + + + + + + + | Result panel 106 | + + + + + + + + + | | 2022-11-13 | [facility] | NEGATIVE | (missing) | (missing) | | (unavailable | 19:40:08 | [facility] | | | | + + + + + + + + + | Result panel 107 | + + + + + + + + + | | 2022-11-13 | [facility] | NEGATIVE | (missing) | (missing) | | (unavailable | 19:40:08 | [facility] | | | | + + + + + + + + + | Result panel 108 | + + + + + + + + + | | 2022-11-13 | [facility] | NEGATIVE | (missing) | (missing) | | (unavailable | 19:40:08 | [facility] | | | | + + + + + + + + + | Result panel 109 | + + + + + + + + + | | 2022-11-13 | [facility] | NEGATIVE | (missing) | (missing) | | (unavailable | 19:40:08 | [facility] | | | | + + + + + + + + + | Result panel 110 | + + + + + + + + + | | 2022-11-13 | [facility] | POSITIVE | (missing) | (missing) | | (unavailable | 19:40:08 | [facility] | | | | + + + + + + + + + | Result panel 111 | + + + + + + + + + | | 2022-11-13 | [facility] | NEGATIVE | (missing) | (missing) | | (unavailable | 19:40:08 | [facility] | | | | + + + + + + + + + | Result panel 112 | + + + + + + + + + | | 2022-11-13 | [facility] | NEGATIVE | (missing) | (missing) | | (unavailable | 19:40:08 | [facility] | | | | + + + + + + + + + | Result panel 113 | + + + + + + + + + | | 2022-11-13 | [facility] | NEGATIVE | (missing) | (missing) | | (unavailable | 19:40:08 | [facility] | | | | + + + + + + + + + | Result panel 114 | + + + + + + + + + | | 2022-11-18 | [facility] | NEGATIVE | (missing) | (missing) | | (unavailable | 13:32:08 | [facility] | | | | + + + + + + + + + | Result panel 115 | + + + + + + + + + | | 2022-11-23 | [facility] | NEGATIVE | (missing) | (missing) | | (unavailable | 12:14:08 | [facility] | | | | + + + + + + + + + | Result panel 116 | + + + + + + + + + | | 2022-11-23 | [facility] | NEGATIVE | (missing) | (missing) | | (unavailable | 12:14:08 | [facility] | | | | + + + + + + + + + | Result panel 117 | + + + + + + + + + | | 2022-11-23 | [facility] | NEGATIVE | (missing) | (missing) | | (unavailable | 12:14:08 | [facility] | | | | + + + + + + + + + | Result panel 118 | + + + + + + + + + | | 2022-11-23 | [facility] | NEGATIVE | (missing) | (missing) | | (unavailable | 12:14:08 | [facility] | | | | + + + + + + + + + | Result panel 119 | + + + + + +-------+ + + | | 2022-12-27 | [facility] | 6.0 | (missing) | (missing) | | (unavailable | 13:56:08 | [facility] | | | | + + + +-------+ + + + + | Result panel 120 | + + + + + +--------+ + + | | 2022-12-27 | [facility] | 64.7 | (missing) | (missing) | | (unavailable | 13:56:08 | [facility] | | | | + + + +--------+ + + + + | Result panel 121 | + + + + + +--------+ + + | | 2022-12-27 | [facility] | 26.1 | (missing) | (missing) | | (unavailable | 13:56:08 | [facility] | | | | + + + +--------+ + + + + | Result panel 122 | + + + + + +-------+ + + | | 2022-12-27 | [facility] | 7.4 | (missing) | (missing) | | (unavailable | 13:56:08 | [facility] | | | | + + + +-------+ + + + + | Result panel 123 | + + + + + +-------+ + + | | 2022-12-27 | [facility] | 1.5 | (missing) | (missing) | | (unavailable | 13:56:08 | [facility] | | | | + + + +-------+ + + + + | Result panel 124 | + + + + + +-------+ + + | | 2022-12-27 | [facility] | 0.3 | (missing) | (missing) | | (unavailable | 13:56:08 | [facility] | | | | + + + +-------+ + + + + | Result panel 125 | + + + + + +--------+ + + | | 2022-12-27 | [facility] | 4.17 | (missing) | (missing) | | (unavailable | 13:56:08 | [facility] | | | | + + + +--------+ + + + + | Result panel 126 | + + + + + +-------+---------+ + | | 2022-12-27 | [facility] | 195 | mg/dL | (missing) | | (unavailable | 13:56:08 | [facility] | | | | + + + +-------+---------+ + + + | Result panel 127 | + + + + + +------+---------+ + | | 2022-12-27 | [facility] | 18 | mg/dL | (missing) | | (unavailable | 13:56:08 | [facility] | | | | + + + +------+---------+ + + + | Result panel 128 | + + + + + +--------+---------+ + | | 2022-12-27 | [facility] | 0.71 | mg/dL | (missing) | | (unavailable | 13:56:08 | [facility] | | | | + + + +--------+---------+ + + + | Result panel 129 | + + + + + +--------+ + + | | 2022-12-27 | [facility] | 12.9 | (missing) | (missing) | | (unavailable | 13:56:08 | [facility] | | | | + + + +--------+ + + + + | Result panel 130 | + + + + + +-------+ + + | | 2022-12-27 | [facility] | 114 | (missing) | (missing) | | (unavailable | 13:56:08 | [facility] | | | | + + + +-------+ + + + + | Result panel 131 | + + + + + +---------+ + + | | 2022-12-27 | [facility] | 25.35 | (missing) | (missing) | | (unavailable | 13:56:08 | [facility] | | | | + + + +---------+ + + + + | Result panel 132 | + + + + + +-------+ + + | | 2022-12-27 | [facility] | 142 | (missing) | (missing) | | (unavailable | 13:56:08 | [facility] | | | | + + + +-------+ + + + + | Result panel 133 | + + + + + +-------+ + + | | 2022-12-27 | [facility] | 4.0 | (missing) | (missing) | | (unavailable | 13:56:08 | [facility] | | | | + + + +-------+ + + + + | Result panel 134 | + + + + + +-------+ + + | | 2022-12-27 | [facility] | 106 | (missing) | (missing) | | (unavailable | 13:56:08 | [facility] | | | | + + + +-------+ + + + + | Result panel 135 | + + + + + +------+ + + | | 2022-12-27 | [facility] | 29 | (missing) | (missing) | | (unavailable | 13:56:08 | [facility] | | | | + + + +------+ + + + + | Result panel 136 | + + + + + +--------+ + + | | 2022-12-27 | [facility] | 11.0 | (missing) | (missing) | | (unavailable | 13:56:08 | [facility] | | | | + + + +--------+ + + + + | Result panel 137 | + + + + + +-------+---------+ + | | 2022-12-27 | [facility] | 9.3 | mg/dL | (missing) | | (unavailable | 13:56:08 | [facility] | | | | + + + +-------+---------+ + + + | Result panel 138 | + + + + + +-------+ + + | | 2022-12-27 | [facility] | 6.2 | (missing) | (missing) | | (unavailable | 13:56:08 | [facility] | | | | + + + +-------+ + + + + | Result panel 139 | + + + + + +-------+ + + | | 2022-12-27 | [facility] | 3.2 | (missing) | (missing) | | (unavailable | 13:56:08 | [facility] | | | | + + + +-------+ + + + + | Result panel 140 | + + + + + +--------+ + + | | 2022-12-27 | [facility] | 38.6 | (missing) | (missing) | | (unavailable | 13:56:08 | [facility] | | | | + + + +--------+ + + + + | Result panel 141 | + + + + + +-------+ + + | | 2022-12-27 | [facility] | 3.0 | (missing) | (missing) | | (unavailable | 13:56:08 | [facility] | | | | + + + +-------+ + + + + | Result panel 142 | + + + + + +--------+ + + | | 2022-12-27 | [facility] | 1.07 | (missing) | (missing) | | (unavailable | 13:56:08 | [facility] | | | | + + + +--------+ + + + + | Result panel 143 | + + + + + +-------+ + + | | 2022-12-27 | [facility] | 0.2 | (missing) | (missing) | | (unavailable | 13:56:08 | [facility] | | | | + + + +-------+ + + + + | Result panel 144 | + + + + + +------+ + + | | 2022-12-27 | [facility] | 16 | (missing) | (missing) | | (unavailable | 13:56:08 | [facility] | | | | + + + +------+ + + + + | Result panel 145 | + + + + + +------+ + + | | 2022-12-27 | [facility] | 32 | (missing) | (missing) | | (unavailable | 13:56:08 | [facility] | | | | + + + +------+ + + + + | Result panel 146 | + + + + + +------+ + + | | 2022-12-27 | [facility] | 60 | (missing) | (missing) | | (unavailable | 13:56:08 | [facility] | | | | + + + +------+ + + + + | Result panel 147 | + + + + + + + + + | | 2022-12-27 | [facility] | <0.007 | (missing) | (missing) | | (unavailable | 13:56:08 | [facility] | | | | + + + + + + + + + | Result panel 148 | + + + + + + + + + | | 2022-12-27 | [facility] | NEGATIVE | (missing) | (missing) | | (unavailable | 13:56:08 | [facility] | | | | + + + + + + + + + | Result panel 149 | + + + + + +-----+ + + | | 2022-12-27 | [facility] | 0 | (missing) | (missing) | | (unavailable | 13:56:08 | [facility] | | | | + + + +-----+ + + + + | Result panel 150 | + + + + + +------+ + + | | 2022-12-27 | [facility] | // | (missing) | (missing) | | (unavailable | 13:56:08 | [facility] | | | | + + + +------+ + + + + | Result panel 151 | + + + + + +--------+ + + | | 2022-12-27 | [facility] | 92.5 | (missing) | (missing) | | (unavailable | 13:56:08 | [facility] | | | | + + + +--------+ + + + + | Result panel 152 | + + + + + +-------+---------+ + | | 2022-12-27 | [facility] | 2.4 | mg/dL | (missing) | | (unavailable | 13:56:08 | [facility] | | | | + + + +-------+---------+ + + + | Result panel 153 | + + + + + +------+ + + | | 2022-12-27 | [facility] | // | (missing) | (missing) | | (unavailable | 13:56:08 | [facility] | | | | + + + +------+ + + + + | Result panel 154 | + + + + + +------+ + + | | 2022-12-27 | [facility] | <3 | (missing) | (missing) | | (unavailable | 13:56:08 | [facility] | | | | + + + +------+ + + + + | Result panel 155 | + + + + + +--------+ + + | | 2022-12-27 | [facility] | 31.1 | (missing) | (missing) | | (unavailable | 13:56:08 | [facility] | | | | + + + +--------+ + + + + | Result panel 156 | + + + + + +--------+ + + | | 2022-12-27 | [facility] | 33.6 | (missing) | (missing) | | (unavailable | 13:56:08 | [facility] | | | | + + + +--------+ + + + + | Result panel 157 | + + + + + +--------+ + + | | 2022-12-27 | [facility] | 12.8 | (missing) | (missing) | | (unavailable | 13:56:08 | [facility] | | | | + + + +--------+ + + + + | Result panel 158 | + + + + + +-------+ + + | | 2022-12-27 | [facility] | 253 | (missing) | (missing) | | (unavailable | 13:56:08 | [facility] | | | | + + + +-------+ + + + + | Result panel 159 | + + + + + + + + + | | 2022-12-27 | [facility] | YELLOW | (missing) | (missing) | | (unavailable | 15:35:08 | [facility] | | | | + + + + + + + + + | Result panel 160 | + + + + + + + + + | | 2022-12-27 | [facility] | SL CLOUDY | (missing) | (missing) | | (unavailable | 15:35:08 | [facility] | | | | + + + + + + + + + | Result panel 161 | + + + + + + + + + | | 2022-12-27 | [facility] | NEGATIVE | (missing) | (missing) | | (unavailable | 15:35:08 | [facility] | | | | + + + + + + + + + | Result panel 162 | + + + + + + + + + | | 2022-12-27 | [facility] | NEGATIVE | (missing) | (missing) | | (unavailable | 15:35:08 | [facility] | | | | + + + + + + + + + | Result panel 163 | + + + + + + + + + | | 2022-12-27 | [facility] | NEGATIVE | (missing) | (missing) | | (unavailable | 15:35:08 | [facility] | | | | + + + + + + + + + | Result panel 164 | + + + + + +---------+ + + | | 2022-12-27 | [facility] | 1.015 | (missing) | (missing) | | (unavailable | 15:35:08 | [facility] | | | | + + + +---------+ + + + + | Result panel 165 | + + + + + + + + + | | 2022-12-27 | [facility] | NEGATIVE | (missing) | (missing) | | (unavailable | 15:35:08 | [facility] | | | | + + + + + + + + + | Result panel 166 | + + + + + +-------+ + + | | 2022-12-27 | [facility] | 7.0 | (missing) | (missing) | | (unavailable | 15:35:08 | [facility] | | | | + + + +-------+ + + + + | Result panel 167 | + + + + + + + + + | | 2022-12-27 | [facility] | NEGATIVE | (missing) | (missing) | | (unavailable | 15:35:08 | [facility] | | | | + + + + + + + + + | Result panel 168 | + + + + + + + + + | | 2022-12-27 | [facility] | NORMAL | (missing) | (missing) | | (unavailable | 15:35:08 | [facility] | | | | + + + + + + + + + | Result panel 169 | + + + + + + + + + | | 2022-12-27 | [facility] | NEGATIVE | (missing) | (missing) | | (unavailable | 15:35:08 | [facility] | | | | + + + + + + + + + | Result panel 170 | + + + + + + + + + | | 2022-12-27 | [facility] | NEGATIVE | (missing) | (missing) | | (unavailable | 15:35:08 | [facility] | | | | + + + + + + + + + | Result panel 171 | + + + + + + + + + | | 2022-12-27 | [facility] | POSITIVE | (missing) | (missing) | | (unavailable | 15:35:08 | [facility] | | | | + + + + + + + + + | Result panel 172 | + + + + + + + + + | | 2022-12-27 | [facility] | POSITIVE | (missing) | (missing) | | (unavailable | 15:35:08 | [facility] | | | | + + + + + + + + + | Result panel 173 | + + + + + + + + + | | 2022-12-27 | [facility] | NEGATIVE | (missing) | (missing) | | (unavailable | 15:35:08 | [facility] | | | | + + + + + + + + + | Result panel 174 | + + + + + + + + + | | 2022-12-27 | [facility] | NEGATIVE | (missing) | (missing) | | (unavailable | 15:35:08 | [facility] | | | | + + + + + + + + + | Result panel 175 | + + + + + + + + + | | 2022-12-27 | [facility] | NEGATIVE | (missing) | (missing) | | (unavailable | 15:35:08 | [facility] | | | | + + + + + + + + + | Result panel 176 | + + + + + + + + + | | 2022-12-27 | [facility] | NEGATIVE | (missing) | (missing) | | (unavailable | 15:35:08 | [facility] | | | | + + + + + + + + + | Result panel 177 | + + + + + + + + + | | 2022-12-27 | [facility] | NEGATIVE | (missing) | (missing) | | (unavailable | 15:35:08 | [facility] | | | | + + + + + + + + + | Result panel 178 | + + + + + + + + + | | 2022-12-27 | [facility] | NEGATIVE | (missing) | (missing) | | (unavailable | 15:35:08 | [facility] | | | | + + + + + + + + + | Result panel 179 | + + + + + + + + + | | 2022-12-27 | [facility] | NEGATIVE | (missing) | (missing) | | (unavailable | 15:35:08 | [facility] | | | | + + + + + + + + + | Result panel 180 | + + + + + + + + + | | 2022-12-27 | [facility] | NEGATIVE | (missing) | (missing) | | (unavailable | 15:35:08 | [facility] | | | | + + + + + + + + + | Result panel 181 | + + + + + + + + + | | 2022-12-27 | [facility] | NEGATIVE | (missing) | (missing) | | (unavailable | 15:35:08 | [facility] | | | | + + + + + + + + + | Result panel 182 | + + + + + + + + + | | 2022-12-27 | [facility] | NEGATIVE | (missing) | (missing) | | (unavailable | 15:35:08 | [facility] | | | | + + + + + + + + + | Result panel 183 | + + + + + + + + + | | 2022-12-27 | [facility] | NEGATIVE | (missing) | (missing) | | (unavailable | 15:35:08 | [facility] | | | | + + + + + + + + + | Result panel 184 | + + + + + + + + + | | 2022-12-27 | [facility] | NEGATIVE | (missing) | (missing) | | (unavailable | 16:44:08 | [facility] | | | | + + + + + + + + + | Result panel 185 | + + + + + + + + + | | 2022-12-27 | [facility] | NEGATIVE | (missing) | (missing) | | (unavailable | 16:44:08 | [facility] | | | | + + + + + + + + + | Result panel 186 | + + + + + + + + + | | 2022-12-27 | [facility] | NEGATIVE | (missing) | (missing) | | (unavailable | 16:44:08 | [facility] | | | | + + + + + + + + + | Result panel 187 | + + + + + + + + + | | 2022-12-27 | [facility] | NEGATIVE | (missing) | (missing) | | (unavailable | 16:44:08 | [facility] | | | | + + + + + + + Social History No information. Vital Signs + + + +---------+ | date | measurement | value | units | + + + +---------+ | 2022-01-05 00:00 | BMI | 19.4 | kg/m2 | + + + +---------+ | 2022-01-05 00:00 | BP_diastolic | 87 | mmHg | + + + +---------+ | 2022-01-05 00:00 | BP_systolic | 131 | mmHg | + + + +---------+ | 2022-01-05 00:00 | heart_rate | 88 | /min | + + + +---------+ | 2022-01-05 00:00 | height_metric | 167.64 | cm | + + + +---------+ | 2022-01-05 00:00 | height_standard | 66 | in | + + + +---------+ | 2022-01-05 00:00 | o2_saturation | 98 | % | + + + +---------+ | 2022-01-05 00:00 | respiration_rate | 18 | /min | + + + +---------+ | 2022-01-05 00:00 | temperature_metric | 36.44 | C | | | | | | + + + +---------+ | 2022-01-05 00:00 | | 97.6 | F | | | temperature_standar | | | | | d | | | + + + +---------+ | 2022-01-05 00:00 | weight_metric | 54.63 | kg | + + + +---------+ | 2022-01-05 00:00 | weight_standard | 120.44 | lb | + + + +---------+ | 2022-05-20 00:00 | BMI | 19.4 | kg/m2 | + + + +---------+ | 2022-05-20 00:00 | BP_diastolic | 78 | mmHg | + + + +---------+ | 2022-05-20 00:00 | BP_systolic | 118 | mmHg | + + + +---------+ | 2022-05-20 00:00 | heart_rate | 74 | /min | + + + +---------+ | 2022-05-20 00:00 | height_metric | 167.64 | cm | + + + +---------+ | 2022-05-20 00:00 | height_standard | 66 | in | + + + +---------+ | 2022-05-20 00:00 | o2_saturation | 99 | % | + + + +---------+ | 2022-05-20 00:00 | respiration_rate | 16 | /min | + + + +---------+ | 2022-05-20 00:00 | temperature_metric | 36.83 | C | | | | | | + + + +---------+ | 2022-05-20 00:00 | | 98.3 | F | | | temperature_standar | | | | | d | | | + + + +---------+ | 2022-05-20 00:00 | weight_metric | 54.63 | kg | + + + +---------+ | 2022-05-20 00:00 | weight_standard | 120.44 | lb | + + + +---------+ | 2022-11-13 00:00 | BMI | 19.4 | kg/m2 | + + + +---------+ | 2022-11-13 00:00 | height_metric | 167.64 | cm | + + + +---------+ | 2022-11-13 00:00 | height_standard | 66 | in | + + + +---------+ | 2022-11-13 00:00 | weight_metric | 54.63 | kg | + + + +---------+ | 2022-11-13 00:00 | weight_standard | 120.44 | lb | + + + +---------+ | 2022-11-23 00:00 | BP_diastolic | 68 | mmHg | + + + +---------+ | 2022-11-23 00:00 | BP_systolic | 115 | mmHg | + + + +---------+ | 2022-11-23 00:00 | heart_rate | 85 | /min | + + + +---------+ | 2022-11-23 00:00 | o2_saturation | 99 | % | + + + +---------+ | 2022-11-23 00:00 | respiration_rate | 17 | /min | + + + +---------+ | 2022-11-23 00:00 | temperature_metric | 36.83 | C | | | | | | + + + +---------+ | 2022-11-23 00:00 | | 98.3 | F | | | temperature_standar | | | | | d | | | + + + +---------+ | 2022-12-28 00:00 | BMI | 19.0 | kg/m2 | + + + +---------+ | 2022-12-28 00:00 | BP_diastolic | 97 | mmHg | + + + +---------+ | 2022-12-28 00:00 | BP_systolic | 140 | mmHg | + + + +---------+ | 2022-12-28 00:00 | heart_rate | 87 | /min | + + + +---------+ | 2022-12-28 00:00 | height_metric | 167.64 | cm | + + + +---------+ | 2022-12-28 00:00 | height_standard | 66 | in | + + + +---------+ | 2022-12-28 00:00 | o2_saturation | 97 | % | + + + +---------+ | 2022-12-28 00:00 | respiration_rate | 16 | /min | + + + +---------+ | 2022-12-28 00:00 | temperature_metric | 36.22 | C | | | | | | + + + +---------+ | 2022-12-28 00:00 | | 97.2 | F | | | temperature_standar | | | | | d | | | + + + +---------+ | 2022-12-28 00:00 | weight_metric | 53.4 | kg | + + + +---------+ | 2022-12-28 00:00 | weight_standard | 117.73 | lb | + + + +---------+ | 2023-07-07 00:00 | BMI | 21.0 | kg/m2 | + + + +---------+ | 2023-07-07 00:00 | BP_diastolic | 74 | mmHg | + + + +---------+ | 2023-07-07 00:00 | BP_systolic | 125 | mmHg | + + + +---------+ | 2023-07-07 00:00 | heart_rate | 102 | /min | + + + +---------+ | 2023-07-07 00:00 | height_metric | 167.64 | cm | + + + +---------+ | 2023-07-07 00:00 | height_standard | 66 | in | + + + +---------+ | 2023-07-07 00:00 | o2_saturation | 97 | % | + + + +---------+ | 2023-07-07 00:00 | respiration_rate | 15 | /min | + + + +---------+ | 2023-07-07 00:00 | temperature_metric | 36.83 | C | | | | | | + + + +---------+ | 2023-07-07 00:00 | | 98.3 | F | | | temperature_standar | | | | | d | | | + + + +---------+ | 2023-07-07 00:00 | weight_metric | 58.97 | kg | + + + +---------+ | 2023-07-07 00:00 | weight_standard | 130 | lb | + + + +---------+ | 2023-07-07 00:00 | weight_standard | 130.01 | lb | + + + +---------+"
--- OUTSIDE RECORDS SUMMARY | ~2023-07-10 | XMS | Continuity of Care Document ---
Demographics + + + | Address | [address] | | | [place] [address] | + + + | Preferred Language | Unknown | + + + | Marital Status | Never | + + + | Restorationism Affiliation | Unknown | + + + | Race | or Other | + + + | Ethnic Group | Not or | + + + Author + + + | Author | [facility] | + + + | Organization | [facility] | + + + | Address | [address] [place] [address] Way | | | [place] [address] | + + + | Phone | | + + + Care Team Providers + + + + | Care Content Writer Name | Role | Phone | + [...] + | 2022-01-05 00:00 | Tdap | [facility] | + + + + Medications + + + + | date | description | facility | + + + + | 2020-01-23 00:00 | RISPERIDONE | [facility] | + + + + | 2022-11-23 00:00 | RISPERIDONE | [facility] | + + + + | 2022-12-28 00:00 | RISPERIDONE | [facility] | + + + + | 2023-07-07 00:00 | RISPERIDONE | [facility] | + + + + | 2018-09-16 00:00 | OXYCODONE | [facility] | | | HCL/ACETAMINOPHEN | | + + + + | 2022-11-23 00:00 | Acetaminophen | [facility] | + + + + | 2022-12-28 00:00 | Acetaminophen | [facility] | + + + + | 2023-07-07 00:00 | Acetaminophen | [facility] | + + + + | 2022-11-23 00:00 | NAPROXEN | [facility] | + + + + | 2022-12-28 00:00 | NAPROXEN | [facility] | + + + + | 2023-07-07 00:00 | NAPROXEN | [facility] | + + + + | 2013-07-19 00:00 | OXAPROZIN | [facility] | + + + + | 2019-02-13 00:00 | AMOXICILLIN | [facility] | + + + + | 2020-01-10 00:00 | AMOXICILLIN | [facility] | + + + + | 2019-11-05 00:00 | Erythromycin Base | [facility] | + + + + | 2013-07-19 00:00 | ERYTHROMYCIN | [facility] | + + + + | 2022-11-23 00:00 | GABAPENTIN | [facility] | + + + + | 2022-12-28 00:00 | GABAPENTIN | [facility] | + + + + | 2023-07-07 00:00 | GABAPENTIN | [facility] | + + + + | 2022-12-28 00:00 | RISPERIDONE MICROSPHERES | [facility] | + + + + | 2023-07-07 00:00 | RISPERIDONE MICROSPHERES | [facility] | + + + + | 2013-07-07 00:00 | TRAMADOL HCL | [facility] | + + + + | 2018-04-02 00:00 | DICLOFENAC SODIUM | [facility] | + + + + | 2018-12-25 00:00 | HYDROCODONE | [facility] | | | BIT/ACETAMINOPHEN | | + + + + | 2018-09-16 00:00 | TAMSULOSIN HCL | [facility] | + + + + | 2018-12-25 00:00 | TAMSULOSIN HCL | [facility] | + + + + | 2018-12-25 00:00 | PROMETHAZINE HCL | [facility] | + + + + | 2020-01-23 00:00 | BUPROPION HCL | [facility] | + + + + | 2022-11-23 00:00 | BUPROPION HCL | [facility] | + + + + | 2022-12-28 00:00 | BUPROPION HCL | [facility] | + + + + | 2023-07-07 00:00 | BUPROPION HCL | [facility] | + + + + Problems + + + + | date | description | facility | + + + + | 2018-02-21 00:00 | Calculus of both kidneys | [facility] | + + + + | 2018-04-02 00:00 | Acute myofascial strain of | [facility] | | | lumbar region | | + + + + | 2018-12-25 00:00 | Calculus of left ureter | [facility] | + + + + | 2019-02-13 00:00 | Methamphetamine | [facility] | | | intoxication | | + + + + | 2019-02-13 00:00 | Polysubstance abuse | [facility] | + + + + | 2019-02-13 00:00 | Left otitis media | [facility] | + + + + | 2019-04-02 00:00 | Flank pain | [facility] | + + + + | 2019-11-07 00:00 | Fall from ground level | [facility] | + + + + | 2019-11-17 00:00 | Accidental overdose | [facility] | + + + + | 2020-01-02 00:00 | Upper back pain | [facility] | + + + + | 2020-01-15 00:00 | Chest pain | [facility] | + + + + | 2020-02-02 00:00 | Schizophrenia | [facility] | + + + + | 2022-01-05 00:00 | Left knee pain | [facility] | + + + + | 2022-01-05 00:00 | Abrasion of left knee, | [facility] | | | initial encounter | | + + + + | 2022-05-20 00:00 | Methamphetamine abuse | [facility] | + + + + | 2022-11-13 00:00 | Schizoaffective disorder | [facility] | + + + + | 2022-11-16 00:00 | Hyperthyroidism | [facility] | + + + + | 2022-12-27 13:06 | SCHIZOPHRENIA, UNSPECIFIED | [facility] | | | | | + + + + | 2022-12-27 13:06 | Brief psychotic disorder | [facility] | + + + + | 2022-12-27 13:06 | Essential (primary) | [facility] | | | hypertension | | + + + + | 2022-12-27 13:06 | OTHER [facility] (CURRENT) | [facility] | | | DRUG THERAPY | | + + + + | 2023-07-07 00:00 | Substance abuse | [facility] | + + + + | 2023-07-07 [...] (missing) | | (unavailable | 16:19 | [facility] | | | | | ) | [...]
--- OUTSIDE RECORDS SUMMARY | 2023-07-10 12:01 | XMS ---
PreManage Notification: DESTINY DAVID [employer] Events No recent Security Events currently on file CRITERIA MET - [facility] - 2 Visits in 30 Days CARE PROVIDERS Soren Mathis [facility] 01/05/2021-Current PHONE: Unknown GRACIELA CATALAN Internal Medicine: Pulmonary Disease 02/13/2019-Current PHONE: Unknown TUNG SIMONctnaldo 02/13/2019-Current PHONE: [phone] -Jayjay- Dentist: [employer] [facility] PHONE: [phone] ALFREDA HERNANDEZ [facility] Current PHONE: Unknown Care Guidelines exist for the following facilities: [facility] ( 11/18/2019 ) [facility] ( 04/11/2015 ) Care History Medical/Surgical 01/04/2020 [facility] Patient seen outside of clinic hours. Next scheduled appointment with Dr. Andrew on 01/19/2020 11/18/2019 [facility] Connected patient to Dr. Andrew\T\#39;s office to schedule ED\T\nbsp;follow up visit\T\nbsp; 11/18/2019 [facility] - Patient is currently established with [facility]. If patient is seen in the ED during business hours. Please contact [facility] at [facility]. Care Recommendation: If this patient [...] E.D. VISIT COUNT (12 MO.) 4 [facility] TOTAL 5 NOTE: Visits indicate total known visits. ED/UCC VISIT TRACKING (12 MO.) 07/10/2023 11:54 [facility] [place] TYPE: Emergency COMPLAINT: - ITCHING, SHAKY 07/07/2023 21:20 [facility] [place] TYPE: Emergency COMPLAINT: - SOB DIAGNOSES: - Cocaine abuse, uncomplicated - Restlessness and agitation 12/27/2022 13:06 [facility] [place] TYPE: Emergency COMPLAINT: - MEDICAL CLEARANCE DIAGNOSES: - Brief psychotic disorder - Contact with and (suspected) exposure to COVID-19 - Essential (primary) hypertension - Other halfway (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 - Schizophrenia, unspecified 11/13/2022 14:10 [facility] [place] TYPE: Emergency COMPLAINT: - MEDICAL CLEARANCE DIAGNOSES: - Contact with and (suspected) exposure to COVID-19 - Impulse disorder, unspecified - Other stimulant abuse, uncomplicated - Schizoaffective disorder, unspecified 07/29/2022 14:00 [facility] [place] [facility] TYPE: Emergency COMPLAINT: - unable to communicate DIAGNOSES: - Malingerer [conscious simulation] - Other stimulant use, unspecified with intoxication, unspecified - Altered Mental Status - unable to communicate INPATIENT VISIT TRACKING (12 MO.) 12/28/2022 18:46 [facility] [place] TYPE: Psychiatric Services DIAGNOSES: 0. Schizophrenia, unspecified 0. Unspecified psychosis not due to a substance or known physiological condition 1. Paranoid schizophrenia 2. Other stimulant dependence, uncomplicated 2. Pain in right shoulder 2. Patient's other noncompliance with medication regimen 11/23/2022 20:34 [facility] [place] TYPE: Behavioral Health DIAGNOSES: - Other schizoaffective disorders - Schizoaffective disorder, unspecified [email or web address]
[2023-07-10 12:50] LABS: BASOPHILS 0.4 % (0-2); EOSINOPHILS 1.1 % (0-6); HEMATOCRIT 31.8 % (35.0-50.0); HEMOGLOBIN 10.7 g/dL (12.0-18.0); LYMPHOCYTES 36.3 % (24-44); MCH 27.8 (27-36); MCHC 33.7 g/dl (30-36); MCV 82.5 fl (81-99); MONOCYTES 7.8 % (0-12); NEUTROPHILS 54.4 % (39-80); PLATELET COUNT 262 K/uL (140-440); RBC 3.85 M/ul (4.3-5.7); RDW 14.3 (10.5-15.0)
[2023-07-10 13:05] LABS: ALBUMIN 2.8 g/dL (3.4-5.0); ALBUMIN/GLOBULIN RATIO 0.82 (1.1-2.4); ALCOHOL, MEDICAL <3 ng/dL (<3); ALKALINE PHOSPHATASE 141 U/L (46-116); ALT (SGPT) 57 U/L (14-59); ANION GAP 13.4 (7-21); AST (SGOT) 24 U/L (15-37); BILIRUBIN, TOTAL 0.2 ng/dL (0.2-1.0); BUN/CREATININE RATIO 23.68 (6.0-28.6); CALCIUM 8.9 mg/dL (8.5-10.1); CARBON DIOXIDE 25 mmol/L (21-32); CHLORIDE 105 mmol/L (98-107); CREATININE, SERUM 0.38 mg/dL (0.55-1.02); GLOMERULAR FILTRATION RATE,EST 134 mL/min (>60); POTASSIUM 3.4 mmol/L (3.5-5.1); PROTEIN, TOTAL 6.2 g/dL (6.4-8.2); UREA NITROGEN 9 mg/dL (7-18)
[2023-07-10 13:59] LABS: BILIRUBIN, URINE NEGATIVE (negative); BLOOD/HGB, URINE NEGATIVE (Negative); KETONE, URINE NEGATIVE (Negative); LEUK ESTERASE, URINE NEGATIVE (negative); NITRITE, URINE NEGATIVE (negative)
[2023-07-10 14:01] LABS: AMPHETAMINES, UR POSITIVE (NEGATIVE); BARBITURATES, UR NEGATIVE (NEGATIVE); BENZODIAZEPINES, UR NEGATIVE (NEGATIVE); BUPRENORPHINE,UR NEGATIVE (NEGATIVE); COCAINE, UR NEGATIVE (NEGATIVE); MARIJUANA (THC), UR NEGATIVE (NEGATIVE); MDMA, UR NEGATIVE (NEGATIVE); METHADONE, UR NEGATIVE (NEGATIVE); METHAMPHETAMINE, UR POSITIVE (NEGATIVE); OPIATES, UR NEGATIVE (NEGATIVE); OXYCODONE, UR NEGATIVE (NEGATIVE); PHENCYCLIDINE, UR NEGATIVE (NEGATIVE); TRICYCLIC ANTIDEPRESSANT, UR NEGATIVE (NEGATIVE)
[2023-07-10 15:47] VITALS: BP 140/89
== END 2023-07-10 15:49 | disposition home or self-care (01) ==
LOC: ED 11:53
PROVIDERS: Emergency Medicine
DX: F15.10 Other stimulant abuse, uncomplicated (principal); F25.9 Schizoaffective disorder, unspecified; Z79.899 Other long term (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
CPT/HCPCS: 36415; 80053; 81003; 84703; 85025; 99284; G0480; J7030

== ENCOUNTER → 2023-08-02 | Emergency (ER) | payer OTHER ==
[~2023-08-02] VITALS: Ht 167.6 cm; Wt 59.0 kg
--- OUTSIDE RECORDS SUMMARY | ~2023-08-02 | XMS | Continuity of Care Document ---
Demographics + + + | Address | [address] | | | [place] [address] | + + + | Preferred Language | Unknown | + + + | Marital Status | Never | + + + | Faith Affiliation | Unknown | + + + | Race | or Other | + + + | Ethnic Group | Not or | + + + Author + + + | Author | [facility] | + + + | Organization | [facility] | + + + | Address | [address] [place] [address] Way | | | [place] [address] | + + + | Phone | | + + + Care Team Providers + + + + | Care Scheduling Assistant Name | Role | Phone | + + + + Unavailable | Unavailable | + + + + Allergies No information. Encounters No information. Functional Status No information. Immunizations No information. Medications No information. 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 Results/Labs No information. Social History +--------+ + + | date | description | facility | +--------+ + + Vital Signs No information."
--- OUTSIDE RECORDS SUMMARY | 2023-08-02 12:06 | XMS ---
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 Patient seen outside of clinic hours. Next scheduled appointment with Dr. Andrew on 01/19/2020 11/18/2019 [facility] Connected patient to Dr. Andrew\T\#39;s office to schedule ED\T\nbsp;follow up visit\T\nbsp; 11/18/2019 [facility] - Patient is currently established with [facility]. If patient is seen in the ED during business hours. Please contact [facility] at [facility]. Care Recommendation: If this patient has had [...] care. E.D. VISIT COUNT (12 MO.) [address] [facility] TOTAL 5 NOTE: Visits indicate total known visits. ED/UCC VISIT TRACKING (12 MO.) 08/02/2023 12:00 [facility] [place] TYPE: Emergency COMPLAINT: - ALTERED LOC 07/10/2023 11:54 [facility] [place] TYPE: Emergency COMPLAINT: - ITCHING, SHAKY DIAGNOSES: - Other long-term (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 - Other stimulant abuse, uncomplicated - Schizoaffective disorder, unspecified 07/07/2023 21:20 [facility] [place] TYPE: Emergency COMPLAINT: - SOB DIAGNOSES: - Cocaine abuse, uncomplicated - Restlessness and agitation 12/27/2022 13:06 [facility] [place] TYPE: Emergency COMPLAINT: - MEDICAL CLEARANCE DIAGNOSES: - Brief psychotic disorder - Contact with and (suspected) exposure to COVID-19 - Essential (primary) hypertension - Other long-term (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 - Schizophrenia, unspecified 11/13/2022 14:10 [facility] [place] TYPE: Emergency COMPLAINT: - MEDICAL CLEARANCE DIAGNOSES: - Contact with and (suspected) exposure to COVID-19 - Impulse disorder, unspecified - Other stimulant abuse, uncomplicated - Schizoaffective disorder, unspecified INPATIENT VISIT TRACKING (12 MO.) 12/28/2022 18:46 [facility] [place] TYPE: Psychiatric Services DIAGNOSES: 0. Schizophrenia, unspecified 0. Unspecified psychosis not due to a substance or known physiological condition 1. Paranoid schizophrenia 2. Other stimulant dependence, uncomplicated 2. Pain in right shoulder 2. Patient's other noncompliance with medication regimen 11/23/2022 20:34 [facility] [place] TYPE: Behavioral Health DIAGNOSES: - Other schizoaffective disorders - Schizoaffective disorder, unspecified [email or web address]
[2023-08-02 12:52] LABS: BASOPHILS 0.7 % (0-2); EOSINOPHILS 0.3 % (0-6); HEMATOCRIT 43.1 % (35.0-50.0); HEMOGLOBIN 14.2 g/dL (12.0-18.0); LYMPHOCYTES 19.1 % (24-44); MCH 27.4 (27-36); MONOCYTES 6.7 % (0-12); NEUTROPHILS 73.2 % (39-80); PLATELET COUNT 286 K/uL (140-440); RDW 13.9 (10.5-15.0)
[2023-08-02 12:52] LABS: BILIRUBIN, URINE NEGATIVE (negative); BLOOD/HGB, URINE MODERATE (Negative); KETONE, URINE NEGATIVE (Negative); LEUK ESTERASE, URINE NEGATIVE (negative); NITRITE, URINE NEGATIVE (negative); PH, URINE 5.5 (5-7)
[2023-08-02 12:59] LABS: AMPHETAMINES, UR NEGATIVE (NEGATIVE); BARBITURATES, UR NEGATIVE (NEGATIVE); BENZODIAZEPINES, UR NEGATIVE (NEGATIVE); BUPRENORPHINE,UR NEGATIVE (NEGATIVE); COCAINE, UR NEGATIVE (NEGATIVE); MARIJUANA (THC), UR NEGATIVE (NEGATIVE); MDMA, UR NEGATIVE (NEGATIVE); METHADONE, UR NEGATIVE (NEGATIVE); METHAMPHETAMINE, UR NEGATIVE (NEGATIVE); OPIATES, UR NEGATIVE (NEGATIVE); OXYCODONE, UR NEGATIVE (NEGATIVE); PHENCYCLIDINE, UR NEGATIVE (NEGATIVE); TRICYCLIC ANTIDEPRESSANT, UR NEGATIVE (NEGATIVE)
[2023-08-02 13:10] LABS: EPITHELIAL CELLS, URINE SQUAMOUS 2+ /lpf (0-1+)
[2023-08-02 13:11] LABS: BACTERIA, URINE RARE /hpf (negative); CASTS, URINE NONE SEEN \\lpf; CRYSTALS, URINE NONE SEEN (0-1+)
[2023-08-02 13:12] LABS: COLLECTION TYPE, URINE CLEAN CATCH; REFLEX CULTURE, URINE No (No)
[2023-08-02 13:15] LABS: ACETAMINOPHEN 0 ug/mL (10-30); ALBUMIN 3.7 g/dL (3.4-5.0); ALBUMIN/GLOBULIN RATIO 0.86 (1.1-2.4); ALCOHOL, MEDICAL <3 ng/dL (<3); ALKALINE PHOSPHATASE 186 U/L (46-116); ALT (SGPT) 88 U/L (14-59); ANION GAP 13.3 (7-21); AST (SGOT) 62 U/L (15-37); BILIRUBIN, TOTAL 0.4 ng/dL (0.2-1.0); CALCIUM 10.2 mg/dL (8.5-10.1); CARBON DIOXIDE 26 mmol/L (21-32); CHLORIDE 99 mmol/L (98-107); CREATININE, SERUM 0.43 mg/dL (0.55-1.02); GLOMERULAR FILTRATION RATE,EST 130 mL/min (>60); POTASSIUM 3.3 mmol/L (3.5-5.1); UREA NITROGEN 16 mg/dL (7-18)
[2023-08-02 13:35] LABS: TSH, 3RD GENERATION <0.007 uIU/mL (0.358-3.740)
[2023-08-02 23:37] LABS: INFLUENZA B NAA NEGATIVE (NEGATIVE); RESPIRATORY SYNCYTIAL VIR NAA NEGATIVE (NEGATIVE)
[2023-08-04 14:19] LABS: TRIIODOTHYRONINE,FREE FREE T3 27.6 pg/mL (2.5-4.3)
[2023-08-05 21:00] VITALS: BP 130/73
== END ==
LOC: ED 12:00
PROVIDERS: Emergency Medicine; Internal Medicine
DX: R41.89 Other symptoms and signs involving cognitive functions and awareness (principal); R94.6 Abnormal results of thyroid function studies; F25.9 Schizoaffective disorder, unspecified; Z20.822 Contact with and (suspected) exposure to COVID-19
CPT/HCPCS: 36415; 80053; 81001; 84436; 84443; 84481; 84703; 85025; 87502; C9803; G0480; U0002

== ENCOUNTER 2024-08-10 16:08 | Emergency (ER) | payer OTHER ==
[~2024-08-10] VITALS: Ht 162.6 cm; Wt 56.6 kg
[~2024-08-10 16:08] MED LIST changes: +LOMOTIL TABLET1 EACH PO; +ONDANSETRON ODT8 MG PO
[2024-08-10] MEDS ORDERED: INVEGA3 MG (16:22)
[2024-08-10 16:38] LABS: BILIRUBIN, URINE NEGATIVE (negative); BLOOD/HGB, URINE MODERATE (Negative); KETONE, URINE NEGATIVE (Negative); LEUK ESTERASE, URINE NEGATIVE (negative); NITRITE, URINE NEGATIVE (negative)
[2024-08-10 16:46] LABS: CASTS, URINE NONE SEEN \\lpf; CRYSTALS, URINE NONE SEEN (0-1+); EPITHELIAL CELLS, URINE SQUAMOUS 3+ /lpf (0-1+)
[2024-08-10 16:47] LABS: BACTERIA, URINE RARE /hpf (negative); COLLECTION TYPE, URINE CLEAN CATCH; REFLEX CULTURE, URINE No (No)
[2024-08-10 17:35] VITALS: BP 143/69
== END 2024-08-10 17:33 | disposition home or self-care (01) ==
LOC: ED 16:08
PROVIDERS: Emergency Medicine
DX: R35.0 Frequency of micturition (principal); Z79.899 Other long term (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
CPT/HCPCS: 81001; 84703; 99283

== ENCOUNTER 2024-10-20 09:38 | Emergency (ER) | payer OTHER ==
[~2024-10-20] VITALS: Ht 162.6 cm; Wt 60.7 kg
[~2024-10-20 09:38] MED LIST changes: +INVEGA3 MG
[2024-10-20] MEDS ORDERED: ACETAMINOPHEN 500 MG TAB PO ONE (10:00)
[2024-10-20] MEDS ORDERED: NAPROSYN500 MG PO (10:13)
[2024-10-20 10:29] VITALS: BP 127/82
== END 2024-10-20 10:33 | disposition home or self-care (01) ==
LOC: ED 09:38
DX: S29.011A Strain of muscle and tendon of front wall of thorax, initial encounter (principal); Z79.899 Other long term (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; X50.0XXA Overexertion from strenuous movement or load, initial encounter
CPT/HCPCS: 71046; 99284-25; A9270

== ENCOUNTER 2025-03-07 17:32 | Emergency (ER) | payer OTHER ==
[~2025-03-07] VITALS: Ht 167.6 cm; Wt 66.5 kg
[2025-03-07] MEDS ORDERED: METOPROLOL TARTRATE 5 MG/5 ML VIAL ONE (17:38)
[2025-03-07 17:45] LABS: HEMATOCRIT 43.9 % (35.0-50.0); HEMOGLOBIN 14.8 g/dL (12.0-18.0); MCH 27.8 (27-36); MCHC 33.8 g/dl (30-36); MCV 82.3 fl (81-99); PLATELET COUNT 403 K/uL (140-440); RBC 5.33 M/ul (4.3-5.7); RDW 13.9 (10.5-15.0)
[2025-03-07] MEDS ORDERED: propofoL 100 ML IV SCH (17:45)
[2025-03-07] MEDS ORDERED: METOPROLOL TARTRATE 5 MG/5 ML VIAL IV ONE (17:45)
[2025-03-07] MEDS ORDERED: ADENOSINE 3 MG/ML VIAL IV ONE (17:45)
[2025-03-07 17:54] LABS: BASE EXCESS, BLOOD GAS -11.6 mmol/L (-2-2); HCO3, BLOOD GAS 22.5 mmol/L (22-26); O2 SATURATION, BLOOD GAS 90.2 % (95.0-100.0); PCO2, BLOOD GAS 94.1 mmHg (35-45); PH, BLOOD GAS 6.98 (7.35-7.45); PO2, BLOOD GAS 83 mmHg (80-100); TOTAL CO2, BLOOD GAS 25.4
[2025-03-07 17:55] LABS: OXYGEN RECEIVED, BLOOD GAS 100%
[2025-03-07 18:03] LABS: BASOPHILS, MANUAL DIFF 2; LACTIC ACID, BLOOD 4.7 mmol/L (0.4-2.0); LYMPHOCYTES, MANUAL DIFF 58; MONOCYTES, MANUAL DIFF 4; NEUTROPHILS, MANUAL DIFF 36
[2025-03-07 18:09] LABS: ALBUMIN 3.3 g/dL (3.4-5.0); ALBUMIN/GLOBULIN RATIO 0.79 (1.1-2.4); ALCOHOL, MEDICAL <3 ng/dL (<3); ALKALINE PHOSPHATASE 236 U/L (46-116); ALT (SGPT) 61 U/L (14-59); ANION GAP 11.9 (7-21); AST (SGOT) 44 U/L (15-37); BILIRUBIN, TOTAL 0.2 mg/dL (0.2-1.0); CALCIUM 8.4 mg/dL (8.5-10.1); CARBON DIOXIDE 27 mmol/L (21-32); CHLORIDE 103 mmol/L (98-107); CREATININE, SERUM 0.75 mg/dL (0.55-1.02); GLOMERULAR FILTRATION RATE,EST 63 mL/min (>60); POTASSIUM 3.9 mmol/L (3.5-5.1); PROTEIN, TOTAL 7.5 g/dL (6.4-8.2); TSH, 3RD GENERATION <0.007 uIU/mL (0.358-3.740); UREA NITROGEN 21 mg/dL (7-18)
[2025-03-07] MEDS ORDERED: SODIUM CHLORIDE 0.9% 1,000 ML IV PRN (18:15)
[2025-03-07] MEDS ORDERED: AZITHROMYCIN 500 MG in DEXTROSE 5% 250 ML IV ONE (18:30)
[2025-03-07] MEDS ORDERED: CEFTRIAXONE SODIUM 2 GM in SODIUM CHLORIDE 0.9% 100 ML IV ONE (18:30)
[2025-03-07 18:42] LABS: BILIRUBIN, URINE NEGATIVE (negative); BLOOD/HGB, URINE SMALL (Negative); KETONE, URINE NEGATIVE (Negative); LEUK ESTERASE, URINE NEGATIVE (negative); NITRITE, URINE NEGATIVE (negative)
[2025-03-07 18:54] LABS: BACTERIA, URINE 1+ /hpf (negative); CASTS, URINE HYALINE 2+ \\lpf; CRYSTALS, URINE CALCIUM OXALATE 2+ (0-1+); EPITHELIAL CELLS, URINE SQUAMOUS 2+ /lpf (0-1+)
[2025-03-07 18:55] LABS: COLLECTION TYPE, URINE CLEAN CATCH; REFLEX CULTURE, URINE No (No)
[2025-03-07 18:57] LABS: AMPHETAMINES, URINE NEGATIVE (NEGATIVE); BARBITURATES, URINE NEGATIVE (NEGATIVE); BENZODIAZEPINE, URINE NEGATIVE (NEGATIVE); BUPRENORPHINE, URINE NEGATIVE (NEGATIVE); CANNABINOID, URINE NEGATIVE (NEGATIVE); COCAINE, URINE NEGATIVE (NEGATIVE); ECSTASY, URINE NEGATIVE (NEGATIVE); FENTANYL, URINE POSITIVE (NEGATIVE); METHADONE, URINE NEGATIVE (NEGATIVE); OPIATES, URINE NEGATIVE (NEGATIVE); OXYCODONE, URINE NEGATIVE (NEGATIVE); PHENCYCLIDINE, URINE NEGATIVE (NEGATIVE)
[2025-03-07 19:15] LABS: BASE EXCESS, BLOOD GAS -10.7 mmol/L (-2-2); HCO3, BLOOD GAS 22.4 mmol/L (22-26); O2 SATURATION, BLOOD GAS 92.3 % (95.0-100.0); PCO2, BLOOD GAS 91.6 mmHg (35-45); TOTAL CO2, BLOOD GAS 25.2
[2025-03-07] MEDS ORDERED: SODIUM CHLORIDE 0.9% 1,000 ML IV SCH (20:15)
[2025-03-07] MEDS ORDERED: KETAMINE HCL IN NACL, ISO-OSM 100 ML IV SCH (20:15)
[2025-03-07 21:12] LABS: BASE EXCESS, BLOOD GAS -9.8 mmol/L (-2-2); HCO3, BLOOD GAS 18.2 mmol/L (22-26); O2 SATURATION, BLOOD GAS 99.1 % (95.0-100.0); PH, BLOOD GAS 7.19 (7.35-7.45); PO2, BLOOD GAS 126 mmHg (80-100); TOTAL CO2, BLOOD GAS 19.6
[2025-03-07 21:13] LABS: OXYGEN RECEIVED, BLOOD GAS 70%
[2025-03-07] MEDS ORDERED: SODIUM BICARBONATE 50 MEQ/50 ML VIAL ONE (21:38)
[2025-03-07] MEDS ORDERED: SODIUM BICARBONATE 50 MEQ/50 ML SYR IV ONE (21:45)
[2025-03-07 22:15] VITALS: BP 105/67
--- NOTE | 2025-03-08 17:58 | EKG ---
[facility] [address] [facility] [place], [place] [address] Signed Sinus tachycardia with short MI ST depression, consider subendocardial injury Abnormal ECG No previous ECGs available Confirmed by Curly Boogie DO ([id number]) on 03/08/2025 5:58:46 PM Electronically Signed By: CURLY BOOGIE DO 03/08/25 1758 PATIENT NAME: JOANNDESTINYVernon JON Electrocardiogram DATE OF : 86 PHYSICIAN: CURLY BOOGIE DO REPORT #: [id number] REPORT IS CONFIDENTIAL AND NOT TO BE RELEASED WITHOUT AUTHORIZATION
--- NOTE | 2025-03-08 17:59 | EKG ---
[facility] [address] [facility] [place] [address] Signed Sinus tachycardia Otherwise normal ECG When compared with ECG of 07-MAR-2025 17:29, (Unconfirmed) NV interval has increased Vent. rate has decreased BY [address] no longer depressed in Anterolateral leads Confirmed by Curly Boogie DO ([id number]) on 03/08/2025 5:58:58 PM Electronically Signed By: CURLY BOOGIE DO 03/08/25 1759 PATIENT NAME: DESTINY DAVID DANAY Electrocardiogram DATE OF : 86 PHYSICIAN: CURLY BOOGIE DO REPORT #: [id number] REPORT IS CONFIDENTIAL AND NOT TO BE RELEASED WITHOUT AUTHORIZATION
== END 2025-03-07 22:15 | disposition short-term general hospital (02) ==
LOC: ED 17:32 → EDBD 17:33 → ED 17:33
PROVIDERS: Emergency Medicine; Family Medicine
DX: J96.00 Acute respiratory failure, unspecified whether with hypoxia or hypercapnia (principal); R40.4 Transient alteration of awareness
CPT/HCPCS: 36415; 36600; 51702; 70450; 71045; 71260; 80053; 80307; 81001; 82803; 83605; 83880; 84443; 84484; 84703; 85025; 93005; 93010; 94799; 96368; 99291; G0480; J0153; J0456; J0696; J2704; J3490; J7030; J7060; Q9967

== ENCOUNTER 2025-08-02 18:26 | Emergency (ER) | payer OTHER ==
[~2025-08-02] VITALS: Ht 167.6 cm; Wt 50.2 kg
[2025-08-02 19:03] LABS: BLOOD/HGB, URINE SMALL (Negative); KETONE, URINE NEGATIVE (Negative); LEUK ESTERASE, URINE NEGATIVE (negative); NITRITE, URINE NEGATIVE (negative)
[2025-08-02 19:10] LABS: BACTERIA, URINE NONE SEEN /hpf (negative); CASTS, URINE NONE SEEN \\lpf; CRYSTALS, URINE NONE SEEN (0-1+); EPITHELIAL CELLS, URINE SQUAMOUS 1+ /lpf (0-1+); REFLEX CULTURE, URINE No (No)
[2025-08-02 19:39] LABS: AMPHETAMINES, URINE NEGATIVE (NEGATIVE); BARBITURATES, URINE NEGATIVE (NEGATIVE); BENZODIAZEPINE, URINE NEGATIVE (NEGATIVE); CANNABINOID, URINE NEGATIVE (NEGATIVE); COCAINE, URINE NEGATIVE (NEGATIVE); ECSTASY, URINE NEGATIVE (NEGATIVE); FENTANYL, URINE NEGATIVE (NEGATIVE); METHADONE, URINE NEGATIVE (NEGATIVE); OPIATES, URINE NEGATIVE (NEGATIVE); OXYCODONE, URINE NEGATIVE (NEGATIVE); PHENCYCLIDINE, URINE NEGATIVE (NEGATIVE)
[2025-08-03] MEDS ORDERED: QUETIAPINE FUMARATE 25 MG TAB PO ONE (03:30)
[2025-08-03 03:31] LABS: BASOPHILS 0.3 % (0.1-1.2); EOSINOPHILS 1.7 % (0.7-5.8); LYMPHOCYTES 40.9 % (19.3-51.7); MCH 28.4 PG (25.6-32.2); MCHC 34.5 g/dL (32.2-35.5); MCV 82.3 fL (79.4-94.8); MONOCYTES 8.8 % (4.7-12.5); NEUTROPHILS 48.2 % (34.0-71.1); RBC 4.62 M/uL (3.93-5.22)
[2025-08-03 07:28] LABS: ALT (SGPT) 51 U/L (14-59); AST (SGOT) 24 U/L (15-37); GLOMERULAR FILTRATION RATE,EST 149 mL/min (>60); PROTEIN, TOTAL 6.6 g/dL (6.4-8.2); TSH, 3RD GENERATION <0.007 uIU/mL (0.358-3.740); UREA NITROGEN 13 mg/dL (7-18)
[2025-08-03] MEDS ORDERED: NICOTINE 14 MG/24 HR 1 EA TDSY TD SCH (10:34)
[2025-08-04 07:34] VITALS: BP 139/92
== END 2025-08-04 07:36 ==
LOC: ED 18:26
PROVIDERS: Emergency Medicine
DX: F25.9 Schizoaffective disorder, unspecified (principal)
CPT/HCPCS: 36415; 80053; 80307; 81001; 84443; 84703; 85025; 99284; A9270; G0480